=== PATIENT | female | born 1940 | race Caucasian/White ===

== ENCOUNTER → 2017-11-24 10:27 | Outpatient (CLI) | payer MEDICARE, OTHER, SELFPAY ==
--- NOTE | 2017-11-24 10:30 | STE_ITS ---
Reason For Study: YODER Stress Results Protocol: Stress Echocardiogram Maximum Predicted HR: 144 bpm Target HR: 122 bpm% Maximum Pr edicted HR: 91 % DurationHeart Rate Stage (mm:ss) (bpm) BPDos eComment BASELINE 78 148/82 PO 99% OTTO PROTOCOL- STAGE 1 3:00 11 7 140/ 72.00PO 96% OTTO PROTOCOL- STAGE 2 1:00 13 1 / RECOVERY 87 162/ PO 97% Stress Duration: 4:00 mm:ss Maximum Stress HR: 131 bpmM ETS: 6 Baseline Echocardiogram Findings Stress Echo Wall motion Data Resting WMIntermediate WMStress WM Resting Wall Motion Wall Motion Stress All segments Normal. All segments Hyperkinetic. Ejection Fraction 55 %. Ejection Fraction 65 %. Stress Results Heart rate response: appropriate Blood pressure response: normal resting BP - appropriate response Arrhythmias: occasional PACs pretest; frequent PACs during exercise; occasional PACs in recovery; exercise rhythm appearing c/w an ectopic atrial tachycardia (approximately 140 bpm) with spontaneous return to sinus rhythm Functional capacity: decreased Stopped secondary to: dyspnea. EKG Data Baseline ECG: NSR; PACs. Peak exercise ECG: no obvious ECG changes. Symptoms with Stress No c/o chest discomfort during exercise / recovery. Interpretation Summary Negative (adequate) Stress Echocardiogram Occasional PACs pretest; frequent PACs during exercise; occasional PACs in recovery; exercise rhythm appearing c/w an ectopic atrial tachycardia (approximately 140 bpm) with spontaneous return to sinus rhythm Ordering Physician: Mitch Castaneda Referring Physician: Mitch Castaneda Performed By: Kaila Martin RDCS
== END ==
PROVIDERS: Family Provider Internal Medicine; PCP Internal Medicine; Visit Provider Internal Medicine
DX: R06.09 Other forms of dyspnea (principal)
CPT/HCPCS: 93017; 93350

== ENCOUNTER → 2018-01-15 09:52 | Outpatient (CLI) | payer MEDICARE, OTHER, SELFPAY ==
--- NOTE | 2018-01-15 09:52 | DT_ITS ---
This patient was seen during an EMR downtime January 08, 2018 - January 15, 2018. This patient may have a combination of paper and electronic documentation or all paper documentation. All documentation is viewable within the e-chart portion of [facility] for each patient visit.
--- NOTE | 2018-01-15 09:57 | CDU_ITS ---
Reason For Study: Carotid stenosis Rt. Velocities/BP Lt. Velocities/BP Prox CCA 78.0/16.4 cm/sec. Prox CCA 90.3/17.0 cm/sec. Mid CCA 89.7/15.2 cm/sec. Mid CCA 108.0/19.3 cm/sec. Dist CCA 80.9/13.5 cm/sec. Dist CCA 113.0/21.7 cm/sec. Rt Bulb - 393.0/56.1. Prox ICA 197.0/56.0 cm/sec. Prox ICA 160.0/28.5 cm/sec. Mid ICA 164.0/34.4 cm/sec. Mid ICA 95.1/22.0 cm/sec. Dist ICA 144.0/31.4 cm/sec. Dist ICA 93.5/27.5 cm/sec. Lt. ICA/CCA = 1.8. Rt. ICA/CCA = 1.8. Prox ECA 183.0/25.5 cm/sec. Prox ECA 286.0/28.3 cm/sec. Lt. Vert. 59.8/14.1 cm/sec. Rt. Vert. 60.5/14.1 cm/sec. Right Extracranial There is intimal thickening but no significant atherosclerotic plaque noted in the right common carotid artery. There is heterogeneous, irregular atherosclerotic plaque noted in the right internal carotid artery. There is homogeneous, smooth atherosclerotic plaque noted in the right external carotid artery. Antegrade flow is noted in the right vertebral artery. There is heterogeneous, irregular atherosclerotic plaque noted in the right bulb. Left Extracranial There is intimal thickening but no significant atherosclerotic plaque noted in the left common carotid artery. There is heterogeneous, irregular atherosclerotic plaque noted in the left internal carotid artery. There is homogeneous, smooth atherosclerotic plaque noted in the left external carotid artery. Antegrade flow is noted in the left vertebral artery. There is heterogeneous, irregular atherosclerotic plaque noted in the left bulb. Procedure Carotid Duplex [id number]. Exam performed in department. Interpretation Summary Moderate (50-69%) stenosis right extracranial internal carotid. Moderate (50-69%) stenosis left extracranial internal carotid. Flow within the vertebral arteries is antegrade bilaterally. Ordering Physician: JERALD GALEANO Referring Physician: Mitch Castaneda M.D. Performed By: Nayely Jorge RVT
== END ==
PROVIDERS: Family Provider Internal Medicine; PCP Internal Medicine; Visit Provider Surgery Vascular Surgery
DX: I65.23 Occlusion and stenosis of bilateral carotid arteries (principal)
CPT/HCPCS: 93880

== ENCOUNTER 2018-06-10 08:37 | Observation (INO) | payer MEDICARE, OTHER, SELFPAY ==
[2018-06-10] VITALS (12 sets, daily range): BP systolic 141–183; BP diastolic 71–99; PULSE 61–77; RESP 15–18; TEMP 36.5–36.9; O2SAT 93–98; BMI 34.4; BMI 34.8
--- NOTE | 2018-06-10 09:00 | EKG12_ITS ---
Test Reason : HYPERTENSION Blood Pressure : / mmHG Vent. Rate : 067 BPM Atrial Rate : 067 BPM P-R Int : 186 ms QRS Dur : 070 ms QT Int : 384 ms P-R-T Axes : 032 004 030 degrees QTc Int : 405 ms Sinus rhythm with Premature atrial complexes Otherwise normal ECG Confirmed by INESSA BRANDON, VISHAL ([id number]), newspaper managing editor THAD TONG ([id number]) on 06/13/2018 1:38:41 PM Referred By: RAHUL Confirmed By:VISHAL WYLIE MD
--- NOTE | 2018-06-10 09:15 | RAD_ITS ---
STUDY: X-RAY CHEST REASON FOR EXAM: Female, 78 years old. Dyspnea TECHNIQUE: Single frontal view COMPARISON: May 14, 2016 FINDINGS: The lungs are clear and expanded. There is no demonstrated pleural abnormality. Normal size heart. Normal mediastinum and van. Normal visualized pulmonary arteries. Calcified aortic arch and descending thoracic aorta. Normal visualized thoracic spine. Normal visualized ribs, clavicles, and shoulders. There is no demonstrated abnormality of the visualized soft tissue structures of the upper abdomen. RAD/Chest 1 View (Portable) IMPRESSION: Normal x-ray examination of the chest. Electronically Signed: Massimo Darby DO at 9:41 EST Tel [phone], Service support ,
[2018-06-10 09:31] LABS: Absolute Lymphocyte Count 1.44 X10^3/ul (0.83-4.51); Absolute Neutrophil Count 4.6 X10^3/uL (2.0-7.7); Basophil# 0.04 X10^3/uL; Basophil% 0.6 % (0-1); Eosinophil# 0.17 X10^3/uL; Eosinophils% 2.5 % (0-5); Hematocrit 43.1 % (37-47); Hemoglobin 14.5 g/dl (12.0-15.0); Lymphocyte # 1.44 X10^3/ul (4.0); Lymphocyte % 21.1 % (19-41); Mean Corp Hgb Conc 33.6 g/gl (32-36); Mean Corpuscular Hgb 30.3 pg (27.0-32.0); Mean Corpuscular Volume 90.2 fL (81-99); Mean Platelet Vol. 9.6 fl (6.2-12.0); Monocyte# 0.54 X10^3/uL; Monocyte% 7.9 % (0-10); Neutrophil # 4.61 X10^3/uL (2.7-7.7); Neutrophil % 67.8 % (47-70); POSITIVE COUNT NO; POSITIVE DIFFERENTIAL NO; POSITIVE MORPHOLOGY NO; Platelet Count 235 K/mm3 (150-450); RBC Distribution Width CV 12.9 % (11.6-14.6); RBC Distribution Width SD 42.4 fl (35.1-43.9); Red Blood Count 4.78 M/mm3 (4.2-5.4); White Blood Count 6.8 K/mm3 (4.4-11.0)
[2018-06-10] MEDS: 0.9% Normal Saline 1,000 ML 150 ML IV (09:32)
[2018-06-10 10:01] LABS: Anion Gap 7 (5-15); BUN 10 mg/dL (7-18); BUN/Creat Ratio 14.6 RATIO (10-20); Calcium,Total 8.6 mg/dL (8.5-10.1); Chloride 106 mmol/L (98-107); Creatinine, Serum 0.69 mg/dL (0.55-1.02); EST Glomerular Filtration Rate 88 mL/min (>60); Est Glom Filt Rate - Afr Amer 107 mL/min (>60); Estimated Creatinine Clearance 35.55 ml/min; Glucose 103 mg/dL (74-106); Sodium Level 139 mmol/L (136-145); Thyroid Stim Hormone (TSH) 1.36 uIU/mL (0.358-3.74)
[2018-06-10 10:07] LABS: D-Dimer Quantitative (DVT/PE) 0.69 FEU/ug/m (0.27-0.49)
--- NOTE | 2018-06-10 10:21 | NURSING ---
DR EVANS FOR DR KAY
--- NOTE | 2018-06-10 10:35 | ED.VISSUMM ---
- ER Visit Summary Date of Service: 06/10/18 Chief Complaint: [Exertional shortness of breath and hypertension] History of Present Illness: The patient is a 78 F [presents the emergency department complaint of elevated blood pressures over the last week. Patient complains of exertional dyspnea with activity and states she can barely get to the top of her steps without feeling very winded and feeling like she is going to pass out. Patient states the shortness of breath with exertion is been going on for months but it is progressively worsening. Patient about 4 months ago had a stress echo that was unremarkable. Patient also has palpitations oftentimes at night and feels like her heart skipping beats although not racing. She has not really been having chest pain per se. Patient concerned because she has parents that have had heart disease requiring open heart surgery.] Physical Examination: [HEENT-PERRLA, EOMI. Cranial nerves II through XII grossly intact. TMs clear. Mucous membranes moist. No adenopathy. Cardiovascular-regular rate and rhythm without murmur or ectopy Lungs-clear to auscultation, chest wall stable without crepitus or subcu emphysema Abdomen-normoactive bowel sounds, soft, nontender, no rebound or rigidity, no peritoneal signs. Extremities-intact ?4, normal range of motion, normal pulses, atraumatic] Test Results: [EKG obtained arrival shows sinus rhythm with a ventricular rate of 67 bpm with occasional PACs. CBC with differential is normal. Chemistries normal. Troponin was less than 0.05. D-dimer was elevated 0.69 however when corrected for age it is considered normal. TSH is 1.36. Chest x-ray was normal.] Emergency Department Course and Treatment: [Case was discussed with patient and also with Dr. Deng was on-call for cardiology. At this point it is felt that since patient continued to experience worsening symptoms of exertional dyspnea would be reasonable to obtain a heart catheterization for further evaluation of her coronary arteries.] Treatment Plan: [Admit] Disposition: [Admit] Impression: [Exertional dyspnea/anginal equivalent Hypertension] This note was generated with evidanzaation software. It may contain incorrect words, spelling, and punctuation that were not noted in review of the chart prior to signing ED Disposition - Plan for ED Patient: Chief Complaint: Hypertension Referrals: Mitch Castaneda MD [Primary Care Provider] -
--- NOTE | 2018-06-10 10:36 | NURSING ---
DR EVANS IN ROOM
--- NOTE | 2018-06-10 10:36 | NURSING ---
PCU EXERTIONAL DYSPNEA, ANGINAL EQUIVALENT, HTN OBS PAINTSIL
--- NOTE | 2018-06-10 10:38 | ED.DCSUM_ITS ---
- ER Visit Summary Date of Service: 06/10/18 Chief Complaint: [Exertional shortness of breath and hypertension] History of Present Illness: The patient is a 78 F [presents the emergency department complaint of elevated blood pressures over the last week. Patient complains of exertional dyspnea with activity and states she can barely get to the top of her steps without feeling very winded and feeling like she is going to pass out. Patient states the shortness of breath with exertion is been going on for months but it is progressively worsening. Patient about 4 months ago had a stress echo that was unremarkable. Patient also has palpitations oftentimes at night and feels like her heart skipping beats although not racing. She has not really been having chest pain per se. Patient concerned because she has parents that have had heart disease requiring open heart surgery.] Physical Examination: [HEENT-PERRLA, EOMI. Cranial nerves II through XII grossly intact. TMs clear. Mucous membranes moist. No adenopathy. Cardiovascular-regular rate and rhythm without murmur or ectopy Lungs-clear to auscultation, chest wall stable without crepitus or subcu emphysema Abdomen-normoactive bowel sounds, soft, nontender, no rebound or rigidity, no peritoneal signs. Extremities-intact ?4, normal range of motion, normal pulses, atraumatic] Test Results: [EKG obtained arrival shows sinus rhythm with a ventricular rate of 67 bpm with occasional PACs. CBC with differential is normal. Chemistries normal. Troponin was less than 0.05. D-dimer was elevated 0.69 however when corrected for age it is considered normal. TSH is 1.36. Chest x-ray was norm al.] Emergency Department Course and Treatment: [Case was discussed with patient and also with Dr. Deng was on-call for cardiology. At this point it is felt that since patient continued to experience worsening symptoms of exertional dyspnea would be reasonable to obtain a heart catheterization for further evaluation of her coronary arteries.] Treatment Plan: [Admit] Disposition: [Admit] Impression: [Exertional dyspnea/anginal equivalent Hypertension] This note was generated with [employer] dictation software. It may contain incorrect words, spelling, and punctuation that were not noted in review of the chart prior to signing ED Disposition - Plan for ED Patient: Chief Complaint: Hypertension Referrals: Mitch Castaneda MD [Primary Care Provider] -
--- NOTE | 2018-06-10 10:42 | PCM.HP.STD ---
Problem List (1) Exertional dyspnea Status: Acute (2) Hypothyroidism Status: Acute Qualifiers: Hypothyroidism type: unspecified Qualified Code(s): E03.9 - Hypothyroidism, unspecified (3) Carotid artery stenosis Status: Chronic Qualifiers: Laterality: bilateral Qualified Code(s): I65.23 - Occlusion and stenosis of bilateral carotid arteries (4) Accelerated hypertension Status: Acute History of Present Illness Date of Admission: 06/10/18 Chief Complaint: Exertional dyspnea - on-going for months The patient is a 78 year old F with past medical history of hypothyroidism, complains of exertional dyspnea ongoing for months, recently did a stress echo in November 2017 that was unremarkable. Patient comes in with worsening shortness of breath. Denies any chest pain or dizziness or palpitations along with it. Admits to feeling lightheadedness sometimes with exertion. Denies orthopnea or PND or leg swelling. She has been having heart quivering, that seems to come on and off. 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 Vitals in the ED showed temperature of 90 8.5F, heart rate 64, blood pressure 132/99, respiratory rate was 16, SPO2 93% on room air. Admitting blood work was unremarkable except for elevated d-dimer, which was normal when age-adjusted. Admitting chest x-ray was negative Past Medical History Past Medical History (Chronic Problems): Chronic Problems Carotid artery stenosis (Chronic) HTN (hypertension) (Chronic) Allergies morphine Allergy (Verified 06/10/18 08:38) Anaphylaxis Home Medications: Ambulatory Orders Medication Instructions Recorded Aspirin [Aspirin, Baby] 81 mg PO DAILY@0800 09/26/13 Carvedilol [Coreg (Beta Evi)] 6.25 mg PO BID 09/26/13 Hydrochlorothiazide 12.5 mg PO DAILY 09/26/13 Levothyroxine [Synthroid] 50 mcg PO DAILY 09/26/13 Amlodipine Besylate [Norvasc] 2.5 mg PO DAILY 06/10/18 Rosuvastatin Calcium [Crestor] 20 mg PO DAILY 06/10/18 Surgical History: hysterectomy Psychiatric History: No pertinent psych hx TRANSPORTATION CONSULTANT History: No pertinent TRANSPORTATION CONSULTANT history Lives: Spouse/ Significant Other Smoking Status: Never smoker Tobacco Use: Non-smoker Alcohol: None Drugs: None - *Family History Maternal History Items: Cancer Paternal History Items: Heart Disease - in his 70s Review of Systems Constitutional: Denies: Anorexia, Chills, Fever, Malaise, Weakness, Weight Change Eyes: Denies: Blurred vision, Cataracts, Conjunctivae Inflammation, Pain, Redness, Vision Change HEENT: Denies: Difficulty Hearing, Difficulty Swallowing, Head Aches, Hearing Changes, Sinus Congestion, Sinus Drainage, Sore Throat Cardiovascular: Denies: Chest Pain, Claudication, Chest Pressure, Orthopnea, Palpitations, Paroxysmal Noc. Dyspnea Respiratory: Reports: Shortness of breath upon exertion. Denies: Cough, Hemoptysis, Shortness of Breath, Shortness of breath at rest, Sputum production, Wheezing Gastrointestinal: Denies: Abdominal Pain, Constipation, Hematemesis, Hematochezia, Nausea, Vomiting Genitourinary: Denies: Dysuria Musculoskeletal: Denies: Joint Pain, Joint stiffness, Joint swelling, Joint Tenderness Skin: Denies: Rash, Wounds Neurological: Denies: Numbness, Tingling, Focal weakness Psychiatric: Denies: Anxiety, Depression, Homicidal Ideations, Suicidal Ideations Hematologic/ Lymphatic: Denies: Easy Bruising, Easy Bleeding VTE Information - Inpt Only VTE Present on Admission: No VTE Pharm Prophylaxis ordered?: Yes Patient Problems: Active and Suspected Problems Exertional dyspnea (Acute) - Physical Exam General: Alert, Oriented x3, Cooperative, No apparent distress HEENT: Atraumatic, PERRLA, EOMI, Normocephalic Oral: Moist Mucosa Neck: Supple, No JVD, Negative Carotid Bruits Lungs: Clear to auscultation, Normal air movement Cardiovascular: Regular rate, Regular Rhythm, Normal S1, Normal S2, No murmurs Abdomen: Bowel Sounds Present, Soft, Non Tender, Non-Distended, No Hepato-splenomegaly Extremities: No edema Skin: No rashes, No breakdown Musculoskeletal: No Tenderness to Palpation of Joints or Extremities Lymphatic: No Cervical, Supraclavicular, or Inguinal Adenopathy Neurological: Cranial nerves II-XII grossly intact, Motor Exam 5/5 strength throughout Psych/Mental Status: Normal Affect, Appropriate Vital Signs Temp Pulse Resp BP Pulse Ox 97.7 F L 70 16 159/77 H 94 06/10/18 08:48 06/10/18 08:48 06/10/18 08:48 06/10/18 08:48 06/10/18 08:48 Oxygen Delivery Method Room Air Weight: 82.554 kg Body Mass Index (BMI) 34.4 Laboratory Tests Past 24 Hrs 06/10/18 06/10/18 06/10/18 09:20 09:20 09:20 WBC 6.8 RBC 4.78 Hgb 14.5 Hct 43.1 MCV 90.2 MCH 30.3 MCHC 33.6 RDW 12.9 RDW Differential 42.4 Plt Count 235 MPV 9.6 Immature Gran % (Auto) 0.100 Neut % (Auto) 67.8 Lymph % (Auto) 21.1 [place] % (Auto) 7.9 Eos % (Auto) 2.5 Baso % (Auto) 0.6 Absolute Neuts (auto) 4.6 Absolute Lymphs (auto) 1.44 Total Counted Not Reportable D-Dimer Quant (PE/DVT) 0.69 H* Sodium 139 Potassium 4.0 Chloride 106 Carbon Dioxide 26.0 Anion Gap 7 BUN 10 Creatinine 0.69 Estim Creat Clear Calc 35.55 Est GFR (MDRD) Af Amer 107 Est GFR (MDRD) Non-Af 88 BUN/Creatinine Ratio 14.6 Glucose 103 Calcium 8.6 Troponin I < 0.015 TSH 1.36 Assessment/Plan All Active Problems Exertional dyspnea (Acute) Hypothyroidism (Acute) Transient weakness of left leg (Acute) Accelerated hypertension (Acute) 78 year old F with past medical history of hypothyroidism, complains of exertional dyspnea ongoing for months, recent elevations in blood pressure comes in with progressive shortness of breath. 1. Exertional dyspnea, acute on chronic, unclear etiology, no cardiac or respiratory history, recent stress echo has been unremarkable in November 2017 Vitals in the ED showed uncontrolled blood pressure, patient had complained of intermittent palpitations, exertional dyspnea could be related to palpitations/uncontrolled blood pressure/arrhythmias. Patient appears however stable. EKG is unremarkable, troponin x1 is negative Plan: Admit to PCU, trend cardiac enzymes, monitor on telemetry for arrhythmias, cardiology consult - ED consulted and discussed with cardiology. will get CT of the chest with and without contrast to evaluate for interstitial lung disease as patient has history of long exposure to formaldehyde and other fumes. Will need ambulatory oxygen prior to discharge. 2. Elevated d-dimer, within normal limits when age adjusted, continue to monitor patient 3. Hypertensive urgency, blood pressures uncontrolled, continue on home blood pressure medication, add as needed hydralazine 4. Hypothyroidism, on levothyroxine 5. Hyperlipidemia, on statin 6. DVT prophylaxis with Lovenox subcu Code Visit Inpatient E&M: [id number] Subs Hosp L2
[2018-06-10] MEDS: Aspirin 81 MG TAB.CHEW PO (11:00)
--- NOTE | 2018-06-10 11:27 | CT_ITS ---
STUDY: CTA CHEST REASON FOR EXAM: Female, 78 years old. Hypoxia RADIATION DOSAGE (If Supplied By Facility): CTDIvol = ( 15.77 ) mGy, DLP = ( 568.88 ) mGycm TECHNIQUE: The examination was performed with the intravenous administration of 75ML ml of Isovue 370 contrast material. Post-processing of the angiographic images was performed, with multiplanar reformation and 3D reconstruction. Individualized dose optimization techniques were used for this CT. COMPARISON: None. FINDINGS: Normal enhancement of the main pulmonary artery and right and left pulmonary arteries. No evidence of pulmonary embolism. Normal thoracic aorta and visualized great vessels. There is no demonstrated aortic dissection. Normal heart and pericardium. Normal mediastinum. Soft tissue prominence in the right hilar region measuring 2.1 x 1.3 cm as well as another area of soft tissue prominence measuring 1.3 cm. Normal visualized trachea and bronchi. Lungs are adequately inflated. Small amount of scarring or atelectasis seen in both lung bases. No evidence of acute infection, consolidation or effusion. Right lower lobe pulmonary nodule measuring 5.4 mm. Left lower lobe nodule measuring 5.3 mm. Several other left lower lobe and right lower lobe micronodules are noted. Normal pleura. Normal chest wall structures. There are degenerative changes of thoracic spine. Normal visualized upper abdomen. CT/CTA Chest W/WO Contrast IMPRESSION: 1. Negative for pulmonary embolism or thoracic aortic dissection. 2. Lungs are adequately inflated without acute airspace disease. Mild bibasilar atelectasis 3. Nonspecific soft tissue prominence in the right hilar region as well as several pulmonary nodules. Repeat chest CT can be performed in 3-6 months to evaluate for stability. Electronically Signed: Neal Castillo DO at 12:48 EST Tel , Service support ,
[2018-06-10] MEDS: 0.9% Normal Saline 1,000 ML 100 ML IV ×2 (12:34→23:15)
--- NOTE | 2018-06-10 16:57 | PCM.CONS.C ---
Reason for Consult Date of Consultation: 06/10/18 Reason for Consultation: Shortness of breath. History of Present Illness: The patient is a 78 year old F with no past medical history other than progressive shortness of breath over the last few months to a year. She says that she knows that she has gained weight in a year but her current shortness of breath is way out of proportion to what she expected to be from just weight gain. She is also had a history of high blood pressure which has not been very well controlled. She underwent stress testing with a stress echocardiogram in November of this year where she performed quite well.. Her ejection fraction was noted to be preserved at rest at 55% and it augmented to 65% without any wall motion abnormalities or EKG changes noted. The test was discontinued due to significant shortness of breath. She presented to the emergency room because she wanted to know what was going on and would not leave the hospital until she had an answer. She denies any dizziness or diaphoresis no near syncope or syncope she has had occasional palpitations. She has been compliant with her medications at home. [] Past Medical History Allergies/Adverse Reactions: Allergies morphine Allergy (Verified 06/10/18 08:38) Anaphylaxis Home Medications: Ambulatory Orders Medication Instructions Recorded Aspirin [Aspirin, Baby] 81 mg PO DAILY@0800 09/26/13 Carvedilol [Coreg (Beta Evi)] 6.25 mg PO BID 09/26/13 Hydrochlorothiazide 12.5 mg PO DAILY 09/26/13 Levothyroxine [Synthroid] 50 mcg PO DAILY 09/26/13 Amlodipine Besylate [Norvasc] 2.5 mg PO DAILY 06/10/18 Rosuvastatin Calcium [Crestor] 20 mg PO DAILY 06/10/18 Past Medical History (Chronic Problems): Chronic Problems Carotid artery stenosis (Chronic) HTN (hypertension) (Chronic) Surgical History: hysterectomy Psychiatric History: No pertinent psych hx 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 Denies: Chest Discomfort, Orthopnea, PND, Peripheral Edema, Palpitations, Lightheadedness, Dizziness, Near Syncope, Syncope Respiratory: Denies: Cough, Sputum Production, Hemoptysis Gastrointestinal: Denies: Hematemesis, Hematochezia, Melena Genitourinary: Denies: Dysuria, Hematuria Muscoloskeletal: Denies: Myalgias Skin: Denies: Rash Neurological: Denies: Dizziness Psychiatric: Reports: Anxiety Endocrine: Denies: Unexplained Weight Loss Hematologic/ Lymphatic: Reports: Lymph Node Enlargement Subjectve: Pleasant lady in no apparent distress Objective: Vital Signs Temp Pulse Resp BP Pulse Ox 97.7 F L 64 16 159/81 H 98 06/10/18 15:28 06/10/18 15:28 06/10/18 15:28 06/10/18 15:28 06/10/18 15:28 Oxygen Delivery Method Room Air Weight: 184 lb 8.43 oz Body Mass Index (BMI) 34.8 Intake and Output for Last 24 Hours 06/08/18 06/09/18 06/10/18 23:59 23:59 22:59 Intake Total 50 / 50 Balance 50 / 50 General: Awake, Alert, Oriented x 3 HEENT: PERRL, EOMI, Sclera Non Icteric Neck: Supple, Good ROM, No Lymph Node Enlargement Lungs: Clear to auscultation Cardiovascular: Regular Rhythm, Normal S1, Normal S2, No Murmurs, No Rubs, No Gallops Vascular: No Carotid Bruits, Normal Femoral Pulses, Normal Radial Pulses, Normal Dorsalis Pedal Pulse, Normal Posterior Tibial Pulses Abdomen: Bowel Sounds Present, Soft, Non Tender, No HSM, No Organomegaly Extremities: No Cyanosis, No Clubbing, No edema Musculoskeletal: No Erythema Skin: No Rashes Lymphatic: No Lymph Node Enlargement Neurological: No Focal Motor or Sensory Deficit Psych/Mental Status: Appropriate 06/10/18 09:20: WBC 6.8, RBC 4.78, Hgb 14.5, Hct 43.1, MCV 90.2, MCH 30.3, MCHC 33.6, RDW 12.9, RDW Differential 42.4, Plt Count 235, MPV 9.6, Immature Gran % (Auto) 0.100, Neut % (Auto) 67.8, Lymph % (Auto) 21.1, [place] % (Auto) 7.9, Eos % (Auto) 2.5, Baso % (Auto) 0.6, Absolute Neuts (auto) 4.6, Total Counted Not Reportable 06/10/18 09:20: D-Dimer Quant (PE/DVT) 0.69 H* 06/10/18 09:20: Sodium 139, Potassium 4.0, Chloride 106, Carbon Dioxide 26.0, Anion Gap 7, BUN 10, Creatinine 0.69, Est GFR (MDRD) Af Amer 107, Est GFR (MDRD) Non-Af 88, BUN/Creatinine Ratio 14.6, Glucose 103, Calcium 8.6, Troponin I < 0.015 06/10/18 12:20: Troponin I < 0.015 06/10/18 14:54: Troponin I < 0.015 Rhythm: EKG: Normal sinus rhythm with no acute changes rate of 67 bpm is noted ECHO: Stress Test: Cardiac Cath: PCI: CT Surgery: Holter monitor: EPS: PPM: CXR: Chest CT Scan: Assessment/Plan 1. Exertional shortness of breath. She presents with exertional shortness of breath. The etiology of which is unclear. Her last stress test there was no evidence of ischemia noted at 6 metabolic equivalents which was a borderline workload. Due to her significant concern and the fact that this could be an anginal equivalent it may be prudent for us to obtain a left heart catheterization. The risk benefits alternatives have been explained to her she understands and agrees to proceed. She prefers to have this approach done via the right groin. Will load with clopidogrel Scheduled for a.m. 730. 2. Hypertension Her blood pressure appears to be not optimally controlled. My recommendation would be to start him on an ISMAEL inhibitor with lisinopril 10 mg twice a day. Pending on the findings from the cardiac catheterization further recommendations will be made. Thank you for allowing me to participate in the care of your patient. Please don't hesitate to call if any issues arise
--- NOTE | 2018-06-10 17:02 | CON.PCM_ITS ---
Reason for Consult Date of Consultation: 06/10/18 Reason for Consultation: Shortness of breath. History of Present Illness: The patient is a 78 year old F with no past medical history other than progressive shortness of breath over the last few months to a year. She says that she knows that she has gained weight in a year but her current shortness of breath is way out of proportion to what she expected to be from just weight gain. She is also had a history of high blood pressure which has not been very well controlled. She underwent stress testing with a stress echocardiogram in November of this year where she performed quite well.. Her ejection fraction was noted to be preserved at rest at 55% and it augmented to 65% without any wall motion abnormalities or EKG changes noted. The test was discontinued due to significant shortness of breath. She presented to the emergency room because she wanted to know what was going on and would not leave the hospital until she had an answer. She denies any dizziness or diaphoresis no near syncope or syncope she has had occasional palpitations. She has been compliant with her medications at home. [] Past Medical History Allergies/Adverse Reactions: Allergies morphine Allergy (Verified 06/10/18 08:38) Anaphylaxis Home Medications: Ambulatory Orders Medication Instructions Recorded Aspirin [Aspirin, Baby] 81 mg PO DAILY@0800 09/26/13 Carvedilol [Coreg (Beta Evi)] 6.25 mg PO BID 09/26/13 Hydrochlorothiazide 12.5 mg PO DAILY 09/26/13 Levothyroxine [Synthroid] 50 mcg PO DAILY 09/26/13 Amlodipine Besylate [Norvasc] 2.5 mg PO DAILY 06/10/18 Rosuvastatin Calcium [Crestor] 20 mg PO DAILY 06/10/18 Past Medical History (Chronic Problems): Chronic Problems Carotid artery stenosis (Chronic) HTN (hypertension) (Chronic) Surgical History: hysterectomy Psychiatric History: No pertinent 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 Denies: Chest Discomfort, Orthopnea, PND, Peripheral Edema, Palpitations, Lightheadedness, Dizziness, Near Syncope, Syncope Respiratory: Denies: Cough, Sputum Production, Hemoptysis Gastrointestinal: Denies: Hematemesis, Hematochezia, Melena Genitourinary: Denies: Dysuria, Hematuria Muscoloskeletal: Denies: Myalgias Skin: Denies: Rash Neurological: Denies: Dizziness Psychiatric: Reports: Anxiety Endocrine: Denies: Unexplained Weight Loss Hematologic/ Lymphatic: Reports: Lymph Node Enlargement Subjectve: Pleasant lady in no apparent distress Objective: Vital Signs Temp Pulse Resp BP Pulse Ox 97.7 F L 64 16 159/81 H 98 06/10/18 15:28 06/10/18 15:28 06/10/18 15:28 06/10/18 15:28 06/10/18 15:28 Oxygen Delivery Method Room Air Weight: 184 lb 8.43 oz Body Mass Index (BMI) 34.8 Intake and Output for Last 24 Hours 06/08/18 06/09/18 06/10/18 23:59 23:59 22:59 Intake Total 50 / 50 Balance 50 / 50 General: Awake, Alert, Oriented x 3 HEENT: PERRL, EOMI, Sclera Non Icteric Neck: Supple, Good ROM, No Lymph Node Enlargement Lungs: Clear to auscultation Cardiovascular: Regular Rhythm, Normal S1, Normal S2, No Murmurs, No Rubs, No Gallops Vascular: No Carotid Bruits, Normal Femoral Pulses, Normal Radial Pulses, Normal Dorsalis Pedal Pulse, Normal Posterior Tibial Pulses Abdomen: Bowel Sounds Present, Soft, Non Tender, No HSM, No Organomegaly Extremities: No Cyanosis, No Clubbing, No edema Musculoskeletal: No Erythema Skin: No Rashes Lymphatic: No Lymph Node Enlargement Neurological: No Focal Motor or Sensory Deficit Psych/Mental Status: Appropriate 06/10/18 09:20: WBC 6.8, RBC 4.78, Hgb 14.5, Hct 43.1, MCV 90.2, MCH 30.3, MCHC 33.6, RDW 12.9, RDW Differential 42.4, Plt Count 235, MPV 9.6, Immature Gran % (Auto) 0.100, Neut % (Auto) 67.8, Lymph % (Auto) 21.1, [place] % (Auto) 7.9, Eos % (Auto) 2.5, Baso % (Auto) 0.6, Absolute Neuts (auto) 4.6, Total Counted Not Reportable 06/10/18 09:20: D-Dimer Quant (PE/DVT) 0.69 H* 06/10/18 09:20: Sodium 139, Potassium 4.0, Chloride 106, Carbon Dioxide 26.0, Anion Gap 7, BUN 10, Creatinine 0.69, Est GFR (MDRD) Af Amer 107, Est GFR (MDRD) Non-Af 88, BUN/Creatinine Ratio 14.6, Glucose 103, Calcium 8.6, Troponin I < 0.015 06/10/18 12:20: Troponin I < 0.015 06/10/18 14:54: Troponin I < 0.015 Rhythm: EKG: Normal sinus rhythm with no acute changes rate of 67 bpm is noted ECHO: Stress Test: Cardiac Cath: PCI: CT Surgery: Holter monitor: EPS: PPM: CXR: Chest CT Scan: Assessment/Plan 1. Exertional shortness of breath. * She presents with exertional shortness of breath. The etiology of which is unclear. Her last stress test there was no evidence of ischemia noted at 6 metabolic equivalents which was a borderline workload. Due to her significant concern and the fact that this could be an anginal equivalent it may be prudent for us to obtain a left heart catheterization. The risk benefits alternatives have been explained to her she understands and agrees to proceed. She prefers to have this approach done via the right groin. * Will load with clopidogrel * Scheduled for a.m. 730. * 2. Hypertension * Her blood pressure appears to be not optimally controlled. My recommendation would be to start him on an ISMAEL inhibitor with lisinopril 10 mg twice a day. * Pending on the findings from the cardiac catheterization further recommendations will be made. * * Thank you for allowing me to participate in the care of your patient. Please don't hesitate to call if any issues arise
[2018-06-10] MEDS: Clopidogrel Bisulfate 300 MG Tablet PO (18:16)
[2018-06-10] MEDS: Atorvastatin Calcium 40 MG Tablet PO (21:45)
[2018-06-10] MEDS: Carvedilol 6.25 MG Tablet PO (21:45)
[2018-06-10] MEDS: Lisinopril 10 MG Tablet PO (21:45)
[2018-06-11] VITALS (19 sets, daily range): BP systolic 108–153; BP diastolic 39–75; PULSE 55–77; RESP 15–20; TEMP 36.3–36.7; O2SAT 96–99
[2018-06-11 03:13] LABS: Bacteria 0 SEEN /hpf (None Seen); Mucous, Urine 0 SEEN /hpf (<or=2+); Red Blood Cells-Urine 0 SEEN /hpf (0-5); Squamous Epithelial Cells - UA 0 SEEN /hpf (5-10)
[2018-06-11 03:25] LABS: Color, Urine Yellow (Yellow); Glucose, Dipstick Normal (Normal); Ketone-Dipstick Negative (Negative); Leukocyte Esterase-Dipstick 25 /ul (Negative); Nitrite-Dipstick Negative (Negative); Occult Blood-Urine Negative /ul (Negative); Protein-Dipstick Negative (Negative); Specific Gravity, Urine 1.015 (1.002-1.030); Urine Bilirubin Dipstick Negative (Negative); Urine Clarity Clear (Clear); Urine Urobilinogen Normal (Normal)
[2018-06-11 03:33] LABS: White Blood Cells 0-5 SEEN /hpf (0-5)
[2018-06-11 04:07] LABS: Absolute Lymphocyte Count 1.88 X10^3/ul (0.83-4.51); Absolute Neutrophil Count 4.1 X10^3/uL (2.0-7.7); Basophil# 0.05 X10^3/uL; Basophil% 0.7 % (0-1); Eosinophil# 0.32 X10^3/uL; Eosinophils% 4.5 % (0-5); Hematocrit 38.1 % (37-47); Hemoglobin 12.6 g/dl (12.0-15.0); Lymphocyte # 1.88 X10^3/ul (4.0); Lymphocyte % 26.7 % (19-41); Mean Corp Hgb Conc 33.1 g/gl (32-36); Mean Corpuscular Hgb 30.3 pg (27.0-32.0); Mean Corpuscular Volume 91.6 fL (81-99); Mean Platelet Vol. 9.5 fl (6.2-12.0); Monocyte# 0.66 X10^3/uL; Monocyte% 9.4 % (0-10); Neutrophil # 4.12 X10^3/uL (2.7-7.7); Neutrophil % 58.6 % (47-70); Platelet Count 197 K/mm3 (150-450); RBC Distribution Width CV 12.8 % (11.6-14.6); RBC Distribution Width SD 42.2 fl (35.1-43.9); Red Blood Count 4.16 M/mm3 (4.2-5.4)
[2018-06-11 04:09] LABS: POSITIVE COUNT NO; POSITIVE DIFFERENTIAL NO; POSITIVE MORPHOLOGY NO
[2018-06-11 04:30] LABS: Prothrombin Time (Protime)PT. 13.6 SECONDS (11.7-14.9)
[2018-06-11 04:32] LABS: Anion Gap 10 (5-15); BUN 9 mg/dL (7-18); BUN/Creat Ratio 14.8 RATIO (10-20); Calcium,Total 7.8 mg/dL (8.5-10.1); Chloride 110 mmol/L (98-107); Creatinine, Serum 0.61 mg/dL (0.55-1.02); EST Glomerular Filtration Rate 101 mL/min (>60); Est Glom Filt Rate - Afr Amer 122 mL/min (>60); Estimated Creatinine Clearance 35.55 ml/min; Glucose 96 mg/dL (74-106); Potassium 3.9 mmol/L (3.5-5.1); Sodium Level 145 mmol/L (136-145)
--- NOTE | 2018-06-11 05:00 | EKG12_ITS ---
Test Reason : AM EKG Blood Pressure : / mmHG Vent. Rate : 063 BPM Atrial Rate : 063 BPM P-R Int : 194 ms QRS Dur : 066 ms QT Int : 438 ms P-R-T Axes : 041 013 039 degrees QTc Int : 448 ms Sinus rhythm with Premature atrial complexes Otherwise normal ECG When compared with ECG of 10-JUN-2018 08:47, MANUAL COMPARISON REQUIRED, DATA IS UNCONFIRMED Confirmed by INESSA BRANDON, VISHAL ([id number]), electronic news gathering editor THAD TONG ([id number] on 06/14/2018 4:02:38 PM Referred By: CRISTINA Confirmed By:VISHAL WYLIE MD
[2018-06-11] MEDS: 0.9% Normal Saline 1,000 ML 15 ML IV (05:53)
[2018-06-11] MEDS: Aspirin 81 MG TAB.CHEW PO (05:53)
[2018-06-11] MEDS: amLODIPine 2.5 MG Tablet PO (05:54)
[2018-06-11] MEDS: Levothyroxine 50 MCG Tablet PO (05:54)
[2018-06-11] MEDS: Clopidogrel Bisulfate 75 MG Tablet PO (05:54)
[2018-06-11] MEDS: Carvedilol 6.25 MG Tablet PO (05:54)
[2018-06-11] MEDS: Lisinopril 10 MG Tablet PO (05:55)
--- NOTE | 2018-06-11 07:50 | CL.D_ITS ---
Patient Name: DEVYN FITZPATRICK Study Date: 06/11/2018 Performing: He Deng MD Ht: 61.02 inches 155 cm : 1940 Wt: 185.19 lbs 84 kg Age: 78 Gender: female BSA: 1.83 PROCEDURE(S) PERFORMED [id number]/LV CLINICAL PROFILE AND INDICATIONS Indications: Other Heart Failure: None Stress/Imaging Stress Echocardiogram: Yes Result: NegativeStress Echocardiogram: Negative CAD Presentations: Symptom unlikely to be ischemic. CONCLUSIONS Mild non obstructive CAD RECOMMENDATIONS Medical therapy DESCRIPTION OF PROCEDURE The patient arrived to the procedure lab. The risks and benefits of the procedure as well as a full d escription of our services here and current unavailability of surgical backup were fully explained to the patient and/or their significant other prior to the catheterization. The Timeout was completed, verifying the correct patient and procedure. The patient's procedural site was prepped and draped in the usual fashion. Local anesthetic was given subcutaneously to right groin region with Lidocaine 2%. Using a modified Seldinger technique, arterial access was obtained via the right femoral artery, a 5 Fr sheath was inserted. Left Coronary Artery selective angiography was performed in multiple views u sing a 5 Fr. JL4 catheter. Right Coronary Artery selective angiography was then performed in multiple views using a 5 Fr. 3DRC (Francisco Javier) catheter. Left Ventriculography was performed in MORAES projection using a 5 Fr. Pigtail catheter. LV to AO pullback pressures were then recorded. Right iliac selective angiography was then performed in single view for possible use of closure device. CORONARY ANGIOGRAPHY DOMINANCE: Right Dominant LEFT HEART ASSESSMENT Left Ventricular Ejection Fraction: by LV Gram 60 % Normal LV wall motion Normal Left Ventricular systolic function LEFT MAIN: Angiographically normal LEFT ANTERIOR DECENDING ARTERY: Mild luminal irregularities less than 30% MID LAD: 40 % Stenosis CIRCUMFLEX ARTERY: Mild luminal irregularities less than 30% RIGHT CORONARY ARTERY: MID RCA: Mild luminal irregularities less than 30% COMPLICATIONS No Complications PROCEDURE MEDICATIONS Versed 1 mg IV Versed 1 mg IV Oxygen: 2 L/min via nasal cannula SUMMARY OF HEMODYNAMIC DATA Time AIR REST ECG 07:12:28 AO 133/61 (88) SA 07:26:02 LV 128/8, 18 07:32:56 LV 109/10, 17 07:33:03 LV 113/2, 21 07:33:50 LV 113/4, 20 07:33:56 LVp 114/4, 20 07:33:59 AO 117/48 (79) 07:34:04 Signed By He Deng MD On 06/11/2018 07:49:32 He Deng MD
--- NOTE | 2018-06-11 07:55 | PN.CARD_ITS ---
Subjectve: Patient seen and evaluated. Appears to be doing well underwent cardiac catheterization this morning Objective: Vital Signs Temp Pulse Resp BP Pulse Ox 98.1 F 77 15 137/75 H 97 06/11/18 05:47 06/11/18 05:47 06/11/18 05:47 06/11/18 05:47 06/11/18 05:47 Oxygen Delivery Method Room Air Weight: 184 lb 1.376 oz Body Mass Index (BMI) 34.8 Intake and Output for Last 24 Hours 06/10/18 06/10/18 06/11/18 00:59 23:59 23:59 Intake Total 1200 / 1200 Output Total 150 / 150 Balance 1050 / 1050 General: Awake, Alert, Oriented x 3 HEENT: PERRL, EOMI, Sclera Non Icteric Neck: Supple, Good ROM, No Lymph Node Enlargement Lungs: Clear to auscultation Cardiovascular: Regular Rhythm, Normal S1, Normal S2, No Murmurs, No Rubs, No Gallops Vascular: No Carotid Bruits, Normal Femoral Pulses, Normal Radial Pulses, Normal Dorsalis Pedal Pulse, Normal Posterior Tibial Pulses Abdomen: Bowel Sounds Present, Soft, Non Tender, No HSM, No Organomegaly Extremities: No Cyanosis, No Clubbing, No edema Neurological: No Focal Motor or Sensory Deficit 06/10/18 09:20: WBC 6.8, RBC 4.78, Hgb 14.5, Hct 43.1, MCV 90.2, MCH 30.3, MCHC 33.6, RDW 12.9, RDW Differential 42.4, Plt Count 235, MPV 9.6, Immature Gran % (Auto) 0.100, Neut % (Auto) 67.8, Lymph % (Auto) 21.1, [place] % (Auto) 7.9, Eos % (Auto) 2.5, Baso % (Auto) 0.6, Absolute Neuts (auto) 4.6, Total Counted Not Reportable 06/10/18 09:20: D-Dimer Quant (PE/DVT) 0.69 H* 06/10/18 09:20: Sodium 139, Potassium 4.0, Chloride 106, Carbon Dioxide 26.0, Anion Gap 7, BUN 10, Creatinine 0.69, Est GFR (MDRD) Af Amer 107, Est GFR (MDRD) Non-Af 88, BUN/Creatinine Ratio 14.6, Glucose 103, Calcium 8.6, Troponin I < 0.015 06/10/18 12:20: Troponin I < 0.015 06/10/18 14:54: Troponin I < 0.015 06/11/18 03:00: Urine Color Yellow, Urine Clarity Clear, Urine pH 6.0, Ur Specific [place] 1.015, Urine Protein Negative, Urine Glucose (UA) Normal, Urine Ketones Negative, Urine Occult Blood Negative, Urine Nitrite Negative, Urine Bilirubin Negative, Urine Urobilinogen Normal, Ur Leukocyte Esterase 25 H, Urine RBC 0 SEEN, Urine WBC 0-5 SEEN 06/11/18 03:58: Sodium 145, Potassium 3.9, Chloride 110 H, Carbon Dioxide 25.0, Anion Gap 10, BUN 9, Creatinine 0.61, Est GFR (MDRD) Af Amer 122, Est GFR (MDRD) Non-Af 101, BUN/Creatinine Ratio 14.8, Glucose 96, Calcium 7.8 L 06/11/18 03:58: PT 13.6, INR 1.0, APTT 29.0 06/11/18 03:58: WBC 7.0, RBC 4.16 L, Hgb 12.6, Hct 38.1, MCV 91.6, MCH 30.3, MCHC 33.1, RDW 12.8, RDW Differential 42.2, Plt Count 197, MPV 9.5, Immature Gran % (Auto) 0.100, Neut % (Auto) 58.6, Lymph % (Auto) 26.7, [place] % (Auto) 9.4, Eos % (Auto) 4.5, Baso % (Auto) 0.7, Absolute Neuts (auto) 4.1, Total Counted Not Reportable Rhythm: EKG: ECHO: Stress Test: Cardiac Cath: PCI: CT Surgery: Holter monitor: EPS: PPM: CXR: Chest CT Scan: Medical Necessity - Tobacco Use Smoking Status: Never smoker Tobacco Use: Non-smoker Assessment/Plan 1. Exertional shortness of breath. * She presents with exertional shortness of breath. The etiology of which is unclear. Her last stress test there was no evidence of ischemia noted at 6 metabolic equivalents which was a borderline workload * The cardiac catheterization this morning demonstrated the following: Normal left main coronary artery. Left anterior descending artery with mild mid segment disease. Left circumflex artery with no significant disease. Right coronary artery which is dominant with mild mid segment stenosis. Preserved ejection fraction. Based on the above angiographic findings I would recommend medical therapy. * 2. Hypertension * Her blood pressure appears to be not optimally controlled. My recommendation would be to start him on an ISMAEL inhibitor with lisinopril 10 mg twice a day. * . * * Thank you for allowing me to participate in the care of your patient. Please don't hesitate to call if any issues arise
[2018-06-11] MEDS: 0.9% Normal Saline 1,000 ML 100 ML IV (08:11)
[2018-06-11] MEDS: Enoxaparin 40 MG/0.4 ML Syringe SC (10:12)
[2018-06-11] MEDS: hydroCHLOROthiazide 12.5mg 12.5 MG PO (10:12)
--- NOTE | 2018-06-11 11:28 | DCINST_ITS ---
- Discharge Diagnoses Current Active Problems: Current Active and Chronic Problems Exertional dyspnea (Acute) You will use the following diet at home:: Cardiac Your food should be the consistency of: Regular Your liquids should be the consistency of: Regular/Thin Discharge Activity: Return to Normal Activity Weight Bearing Status: Weight bearing as tolerated Call your doctor if you observe: Shortness of breath Allergies/Adverse Reactions: Allergies morphine Allergy (Verified 06/10/18 08:38) Anaphylaxis Medications to take at Discharge Aspirin [Aspirin, Baby] 81 mg PO DAILY@0800 09/26/13 Carvedilol [Coreg (Beta Evi)] 6.25 mg PO BID 09/26/13 Hydrochlorothiazide 12.5 mg PO DAILY 09/26/13 Levothyroxine [Synthroid] 50 mcg PO DAILY 09/26/13 Amlodipine Besylate [Norvasc] 2.5 mg PO DAILY 06/10/18 Rosuvastatin Calcium [Crestor] 20 mg PO DAILY 06/10/18 Clopidogrel Bisulfate [Plavix] 75 mg PO DAILY #30 tablet 06/11/18 Lisinopril [Zestril] 10 mg PO BID #60 tablet 06/11/18 The following prescriptions were given: Clopidogrel Bisulfate [Plavix] 75 mg PO DAILY #30 tablet Lisinopril [Zestril] 10 mg PO BID #60 tablet Primary Care Physician: Mitch Castaneda MD [Primary Care Provider] - Please follow up with your Primary Care Physician in: one week Test Results: Test results from this visit will be discussed in further detail at your follow- up appointment, if applicable. Please Follow Up With: He Deng MD When: 2 weeks Please Follow Up With: Caleb Post MD When: 2 weeks Proposed Discharge Date: 06/11/18
--- NOTE | 2018-06-11 11:29 | DS.PCM_ITS ---
Discharge Date and Diagnosis - Problem List Patient Problems: Active and Suspected Problems Exertional dyspnea (Acute) Date of Admission: 06/10/18 Date of Discharge: 06/11/18 - Primary Discharge Diagnosis Active and Suspected Problems Exertional dyspnea (Acute) - Secondary Discharge Diagnosis Chronic Problems Carotid artery stenosis (Chronic) HTN (hypertension) (Chronic) Hospital Course and Treatment Imaging Results: Laboratory Tests 06/11/18 06/11/18 06/11/18 Range/Units 03:58 03:58 03:58 WBC 7.0 (4.4-11.0) K/mm3 RBC 4.16 L (4.2-5.4) M/mm3 Hgb 12.6 (12.0-15.0) g/dl Hct 38.1 (37-47) % MCV 91.6 (81-99) fL MCH 30.3 (27.0-32.0) pg MCHC 33.1 (32-36) g/gl RDW 12.8 (11.6-14.6) % RDW Differential 42.2 (35.1-43.9) fl Plt Count 197 (150-450) K/mm3 MPV 9.5 (6.2-12.0) fl Immature Gran % (Auto) 0.100 (0.0-0.9) % Neut % (Auto) 58.6 (47-70) % Lymph % (Auto) 26.7 (19-41) % Moody % (Auto) 9.4 (0-10) % Eos % (Auto) 4.5 (0-5) % Baso % (Auto) 0.7 (0-1) % Absolute Neuts (auto) 4.1 (2.0-7.7) X10^3/uL Absolute Lymphs (auto) 1.88 (0.83-4.51) X10^3/ul Total Counted Not Reportable PT 13.6 (11.7-14.9) SECONDS INR 1.0 APTT 29.0 (24.1-36.2) Seconds D-Dimer Quant (PE/DVT) (0.27-0.49) FEU/ug/m Sodium 145 (136-145) mmol/L Potassium 3.9 (3.5-5.1) mmol/L Chloride 110 H (98-107) mmol/L Carbon Dioxide 25.0 (21.0-32.0) mmol/L Anion Gap 10 (5-15) BUN 9 (7-18) mg/dL Creatinine 0.61 (0.55-1.02) mg/dL Estim Creat Clear Calc 35.55 ml/min Est GFR (MDRD) Af Amer 122 (>60) mL/min Est GFR (MDRD) Non-Af 101 (>60) mL/min BUN/Creatinine Ratio 14.8 (10-20) RATIO Glucose 96 (74-106) mg/dL Calcium 7.8 L (8.5-10.1) mg/dL Troponin I (<0.045) ng/mL TSH (0.358-3.74) uIU/mL Urine Color (Yellow) Urine Clarity (Clear) Urine pH (5.0 - 8.0) Ur Specific [place] (1.002-1.030) Urine Protein (Negative) mg/dl Urine Glucose (UA) (Normal) mg/dl Urine Ketones (Negative) mg/dl Urine Occult Blood (Negative) /ul Urine Nitrite (Negative) Urine Bilirubin (Negative) mg/dL Urine Urobilinogen (Normal) mg/dl Ur Leukocyte Esterase (Negative) /ul Urine RBC (0-5) /hpf Urine WBC (0-5) /hpf Ur Squamous Epith Cells (5-10) /hpf Urine Bacteria (None Seen) /hpf Urine Mucus (<or=2+) /hpf 06/11/18 06/10/18 06/10/18 Range/Units 03:00 14:54 12:20 WBC (4.4-11.0) K/mm3 RBC (4.2-5.4) M/mm3 Hgb (12.0-15.0) g/dl Hct (37-47) % MCV (81-99) fL MCH (27.0-32.0) pg MCHC (32-36) g/gl RDW (11.6-14.6) % RDW Differential (35.1-43.9) fl Plt Count (150-450) K/mm3 MPV (6.2-12.0) fl Immature Gran % (Auto) (0.0-0.9) % Neut % (Auto) (47-70) % Lymph % (Auto) (19-41) % Moody % (Auto) (0-10) % Eos % (Auto) (0-5) % Baso % (Auto) (0-1) % Absolute Neuts (auto) (2.0-7.7) X10^3/uL Absolute Lymphs (auto) (0.83-4.51) X10^3/ul Total Counted PT (11.7-14.9) SECONDS INR APTT (24.1-36.2) Seconds D-Dimer Quant (PE/DVT) (0.27-0.49) FEU/ug/m Sodium (136-145) mmol/L Potassium (3.5-5.1) mmol/L Chloride (98-107) mmol/L Carbon Dioxide (21.0-32.0) mmol/L Anion Gap (5-15) BUN (7-18) mg/dL Creatinine (0.55-1.02) mg/dL Estim Creat Clear Calc ml/min Est GFR (MDRD) Af Amer (>60) mL/min Est GFR (MDRD) Non-Af (>60) mL/min BUN/Creatinine Ratio (10-20) RATIO Glucose (74-106) mg/dL Calcium (8.5-10.1) mg/dL Troponin I < 0.015 < 0.015 (<0.045) ng/mL TSH (0.358-3.74) uIU/mL Urine Color Yellow (Yellow) Urine Clarity Clear (Clear) Urine pH 6.0 (5.0 - 8.0) Ur Specific [place] 1.015 (1.002-1.030) Urine Protein Negative (Negative) mg/dl Urine Glucose (UA) Normal (Normal) mg/dl Urine Ketones Negative (Negative) mg/dl Urine Occult Blood Negative (Negative) /ul Urine Nitrite Negative (Negative) Urine Bilirubin Negative (Negative) mg/dL Urine Urobilinogen Normal (Normal) mg/dl Ur Leukocyte Esterase 25 H (Negative) /ul Urine RBC 0 SEEN (0-5) /hpf Urine WBC 0-5 SEEN (0-5) /hpf Ur Squamous Epith Cells 0 SEEN (5-10) /hpf Urine Bacteria 0 SEEN (None Seen) /hpf Urine Mucus 0 SEEN (<or=2+) /hpf 06/10/18 06/10/18 06/10/18 Range/Units 09:20 09:20 09:20 WBC 6.8 (4.4-11.0) K/mm3 RBC 4.78 (4.2-5.4) M/mm3 Hgb 14.5 (12.0-15.0) g/dl Hct 43.1 (37-47) % MCV 90.2 (81-99) fL MCH 30.3 (27.0-32.0) pg MCHC 33.6 (32-36) g/gl RDW 12.9 (11.6-14.6) % RDW Differential 42.4 (35.1-43.9) fl Plt Count 235 (150-450) K/mm3 MPV 9.6 (6.2-12.0) fl Immature Gran % (Auto) 0.100 (0.0-0.9) % Neut % (Auto) 67.8 (47-70) % Lymph % (Auto) 21.1 (19-41) % Moody % (Auto) 7.9 (0-10) % Eos % (Auto) 2.5 (0-5) % Baso % (Auto) 0.6 (0-1) % Absolute Neuts (auto) 4.6 (2.0-7.7) X10^3/uL Absolute Lymphs (auto) 1.44 (0.83-4.51) X10^3/ul Total Counted Not Reportable PT (11.7-14.9) SECONDS INR APTT (24.1-36.2) Seconds D-Dimer Quant (PE/DVT) 0.69 H* (0.27-0.49) FEU/ug/m Sodium 139 (136-145) mmol/L Potassium 4.0 (3.5-5.1) mmol/L Chloride 106 (98-107) mmol/L Carbon Dioxide 26.0 (21.0-32.0) mmol/L Anion Gap 7 (5-15) BUN 10 (7-18) mg/dL Creatinine 0.69 (0.55-1.02) mg/dL Estim Creat Clear Calc 35.55 ml/min Est GFR (MDRD) Af Amer 107 (>60) mL/min Est GFR (MDRD) Non-Af 88 (>60) mL/min BUN/Creatinine Ratio 14.6 (10-20) RATIO Glucose 103 (74-106) mg/dL Calcium 8.6 (8.5-10.1) mg/dL Troponin I < 0.015 (<0.045) ng/mL TSH 1.36 (0.358-3.74) uIU/mL Urine Color (Yellow) Urine Clarity (Clear) Urine pH (5.0 - 8.0) Ur Specific [place] (1.002-1.030) Urine Protein (Negative) mg/dl Urine Glucose (UA) (Normal) mg/dl Urine Ketones (Negative) mg/dl Urine Occult Blood (Negative) /ul Urine Nitrite (Negative) Urine Bilirubin (Negative) mg/dL Urine Urobilinogen (Normal) mg/dl Ur Leukocyte Esterase (Negative) /ul Urine RBC (0-5) /hpf Urine WBC (0-5) /hpf Ur Squamous Epith Cells (5-10) /hpf Urine Bacteria (None Seen) /hpf Urine Mucus (<or=2+) /hpf Diagnostic Data Chest X-Ray 06/10/18 09:15 IMPRESSION: Normal x-ray examination of the chest. Electronically Signed: Massimo Darby DO at 9:41 EST Tel [phone], Service support , Chest CTA 06/10/18 11:27 IMPRESSION: 1. Negative for pulmonary embolism or thoracic aortic dissection. 2. Lungs are adequately inflated without acute airspace disease. Mild bibasilar atelectasis 3. Nonspecific soft tissue prominence in the right hilar region as well as several pulmonary nodules. Repeat chest CT can be performed in 3-6 months to evaluate for stability. Electronically Signed: Neal Castillo DO at 12:48 EST Tel , Service support , cardiology- Dr Deng Procedures: Cardiac catheterization Summary of Care Provided: The patient is a 78 year old F with a past medical history of hypothyroidism, carotid artery stenosis and hypertension. She was admitted through the ED with a complaint of exertional dyspnea for several months which had worsened. She had had a stress echo done in November 2017 which was unremarkable. She had assisted lightheadedness but denies any orthopnea PND or leg swelling. She was admitted and managed for acute on chronic exertional dyspnea with unclear etiology. She had an elevated d-dimer which was within normal limits when age- adjusted she had a CT of the chest which was negative for any PE. She also had poorly controlled hypertension was managed for hypertensive urgency and continued on home medication. Patient had cardiac catheterization on 06/11/2018 which showed only very minimal nonobstructive coronary artery disease. Patient remained stable and was discharged home after cardiac cath on 06/11/2018. 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 Patient was seen and examined prior to discharge. Still complains of exertional shortness of breath and denied any fever or chills, cough or chest pain, any shortness of breath, abdominal pain, any diarrhea or vomiting. Patient Problems: Active and Suspected Problems Exertional dyspnea (Acute) - Physical Exam General: Alert, Oriented x3, Cooperative, No apparent distress HEENT: Atraumatic, PERRLA, EOMI, Normocephalic Oral: Moist Mucosa Neck: Supple, No JVD, Negative Carotid Bruits Lungs: Clear to auscultation, Normal air movement, No rhonchi, No wheeze, No rales Cardiovascular: Regular rate, Regular Rhythm, Normal S1, Normal S2, No murmurs Abdomen: Bowel Sounds Present, Soft, Non Tender, Non-Distended, No Hepato- splenomegaly, - - cath site in groin was nontender and had clean dressing applied Extremities: No cyanosis, No edema, Capillary Refill Less than 3 Seconds Skin: No rashes, No breakdown Musculoskeletal: No Tenderness to Palpation of Joints or Extremities Lymphatic: No Cervical, Supraclavicular, or Inguinal Adenopathy Neurological: Cranial nerves II-XII grossly intact, Neuro grossly intact, Motor Exam 5/5 strength throughout Psych/Mental Status: Normal Affect, Appropriate, Alert and oriented to time, place, person, mood and affect Vital Signs Temp Pulse Resp BP Pulse Ox 97.5 F L 55 L 16 114/47 L 99 06/11/18 09:30 06/11/18 09:30 06/11/18 09:30 06/11/18 09:30 06/11/18 09:30 Oxygen Delivery Method Room Air Weight: 184 lb 1.376 oz Body Mass Index (BMI) 34.8 Intake and Output for Last 24 Hours 06/10/18 06/10/18 06/11/18 00:59 23:59 23:59 Intake Total 1200 / 1200 Output Total 150 / 150 Balance 1050 / 1050 Laboratory Tests Past 24 Hrs 06/10/18 06/10/18 06/11/18 12:20 14:54 03:00 WBC RBC Hgb Hct MCV MCH MCHC RDW RDW Differential Plt Count MPV Immature Gran % (Auto) Neut % (Auto) Lymph % (Auto) Moody % (Auto) Eos % (Auto) Baso % (Auto) Absolute Neuts (auto) Absolute Lymphs (auto) Total Counted PT INR APTT Sodium Potassium Chloride Carbon Dioxide Anion Gap BUN Creatinine Estim Creat Clear Calc Est GFR (MDRD) Af Amer Est GFR (MDRD) Non-Af BUN/Creatinine Ratio Glucose Calcium Troponin I < 0.015 < 0.015 Urine Color Yellow Urine Clarity Clear Urine pH 6.0 Ur Specific [place] 1.015 Urine Protein Negative Urine Glucose (UA) Normal Urine Ketones Negative Urine Occult Blood Negative Urine Nitrite Negative Urine Bilirubin Negative Urine Urobilinogen Normal Ur Leukocyte Esterase 25 H Urine RBC 0 SEEN Urine WBC 0-5 SEEN Ur Squamous Epith Cells 0 SEEN Urine Bacteria 0 SEEN Urine Mucus 0 SEEN 06/11/18 06/11/18 06/11/18 03:58 03:58 03:58 WBC 7.0 RBC 4.16 L Hgb 12.6 Hct 38.1 MCV 91.6 MCH 30.3 MCHC 33.1 RDW 12.8 RDW Differential 42.2 Plt Count 197 MPV 9.5 Immature Gran % (Auto) 0.100 Neut % (Auto) 58.6 Lymph % (Auto) 26.7 Moody % (Auto) 9.4 Eos % (Auto) 4.5 Baso % (Auto) 0.7 Absolute Neuts (auto) 4.1 Absolute Lymphs (auto) 1.88 Total Counted Not Reportable PT 13.6 INR 1.0 APTT 29.0 Sodium 145 Potassium 3.9 Chloride 110 H Carbon Dioxide 25.0 Anion Gap 10 BUN 9 Creatinine 0.61 Estim Creat Clear Calc 35.55 Est GFR (MDRD) Af Amer 122 Est GFR (MDRD) Non-Af 101 BUN/Creatinine Ratio 14.8 Glucose 96 Calcium 7.8 L Troponin I Urine Color Urine Clarity Urine pH Ur Specific [place] Urine Protein Urine Glucose (UA) Urine Ketones Urine Occult Blood Urine Nitrite Urine Bilirubin Urine Urobilinogen Ur Leukocyte Esterase Urine RBC Urine WBC Ur Squamous Epith Cells Urine Bacteria Urine Mucus Discharge Activity: Return to Normal Activity Weight Bearing Status: Weight bearing as tolerated Call your doctor if you observe: Shortness of breath Home Medications: Medications to take at Discharge Aspirin [Aspirin, Baby] 81 mg PO DAILY@0800 09/26/13 Carvedilol [Coreg (Beta Evi)] 6.25 mg PO BID 09/26/13 Hydrochlorothiazide 12.5 mg PO DAILY 09/26/13 Levothyroxine [Synthroid] 50 mcg PO DAILY 09/26/13 Amlodipine Besylate [Norvasc] 2.5 mg PO DAILY 06/10/18 Rosuvastatin Calcium [Crestor] 20 mg PO DAILY 06/10/18 Clopidogrel Bisulfate [Plavix] 75 mg PO DAILY #30 tablet 06/11/18 Lisinopril [Zestril] 10 mg PO BID #60 tablet 06/11/18 Following Prescrptions Were Given to Patient: Clopidogrel Bisulfate [Plavix] 75 mg PO DAILY #30 tablet Lisinopril [Zestril] 10 mg PO BID #60 tablet Primary Care Physician: Mitch Castaneda MD [Primary Care Provider] - Please follow up with your Primary Care Physician in: one week Please Follow Up With: He Deng MD When: 2 weeks Please Follow Up With: Caleb Post MD When: 2 weeks Disposition: Home Minutes spent on discharge:: 36 Patient Condition:: Stable Medical Necessity - Tobacco Use Smoking Status: Never smoker Tobacco Use: Non-smoker Meaningful Use Info Meaningful Use Diagnoses (Choose all that apply): None applicable Code Visit Inpatient E&M: 14875 Disch Hosp
--- NOTE | 2018-06-11 11:36 | NURSING ---
ambulated pt in hallway post heart cath bedrest. no complications noted, pt tolerated well.
--- NOTE | 2018-06-11 12:22 | PHA.DC.MC ---
Pharmacy Service has performed discharge medication reconciliation and counseling for this patient. The patient's discharge medication list was reviewed for discrepancies and discrepancies were resolved. The patient was counseled on the following discharge medications and changes in medications for homegoing were reviewed. Clopidogrel Bisulfate [Plavix] 75 mg PO DAILY #30 tablet 06/11/18 Lisinopril [Zestril] 10 mg PO BID #60 tablet 06/11/18 The Reason for Use, instructions for use, and potential side effects were reviewed for all new medications. The patient's questions regarding all of their medications were answered. The patient demonstrated some understanding but would benefit from further education and reinforcement.
== END 2018-06-11 07:55 | disposition home or self-care (01) ==
LOC: ED 09:28 → PCU 11:03
PROVIDERS: Admitting Provider Internal Medicine; Emergency Provider Emergency Medicine; Family Provider Internal Medicine; PCP Internal Medicine; Visit Provider Student in an Organized Health Care Education/Training Program
DX: R06.09 Other forms of dyspnea (principal); I10 Essential (primary) hypertension; Z79.899 Other long term (current) drug therapy; Z82.49 Family history of ischemic heart disease and other diseases of the circulatory system; E03.9 Hypothyroidism, unspecified; I65.23 Occlusion and stenosis of bilateral carotid arteries; E78.5 Hyperlipidemia, unspecified; I16.0 Hypertensive urgency; R42 Dizziness and giddiness; I25.10 Atherosclerotic heart disease of native coronary artery without angina pectoris
CPT/HCPCS: 36415; 71045; 71275; 80048; 81001; 84443; 84484; 85025; 85379; 85610; 85730; 93005; 93458; 96360; 96361; 96372; 99152; 99218; 99283; C1760; J7030; Q9967; A4216; C1769; G0378

== ENCOUNTER → 2018-07-04 10:51 | Outpatient (CLI) | payer MEDICARE, OTHER, SELFPAY ==
[2018-06-21 09:58] VITALS: BMI 33.8
[2018-06-27 14:24] VITALS: BMI 33.6
[2018-07-04 11:26] VITALS: PULSE 106; PULSE 108; PULSE 114; PULSE 116; PULSE 117; PULSE 84; PULSE 87; PULSE 88; O2SAT 95; O2SAT 96; O2SAT 97; O2SAT 98; O2SAT 99
--- NOTE | 2018-07-05 10:25 | PCM.PSN.6M ---
PSN 6 Minute Walk Test - 6 Minute Walk Test 6 Minute Walk Test: 6 Minute Walk Test PSN:6-Minute Walk Test Start: 07/04/18 11:23 Freq: Status: Active Protocol: [id number] Document 07/04/18 11:26 NATALIE (Rec: 07/04/18 11:30 [place] [id number]) 6 Minute Walk Test Date Performed 07/04/18 Time Performed 11:00 Height 5 ft 1 in Weight: 79.379 kg Weight in Pounds 175.[address]: Leeroy Oliver Assistive device used: None Pre-test Oxygen Delivery Method Room Air Pulse Ox (%) 99 Pulse Rate (60-100 beats/min) 84 Dyspnea Genie Scale (0-10) 0 Exertion Genie Scale (6-20) 6 1st minute Oxygen Delivery Method Room Air Pulse Ox (%) 96 Pulse Rate (60-100 beats/min) 88 2nd minute Oxygen Delivery Method Room Air Pulse Ox (%) 96 Pulse Rate (60-100 beats/min) 106 H 3rd minute Oxygen Delivery Method Room Air Pulse Ox (%) 97 Pulse Rate (60-100 beats/min) 108 H 4th minute Oxygen Delivery Method Room Air Pulse Ox (%) 95 Pulse Rate (60-100 beats/min) 114 H 5th minute Oxygen Delivery Method Room Air Pulse Ox (%) 96 Pulse Rate (60-100 beats/min) 116 H 6th minute Oxygen Delivery Method Room Air Pulse Ox (%) 96 Pulse Rate (60-100 beats/min) 117 H Dyspnea Genie Scale (0-10) 2 Exertion Genie Scale (6-20) 12 Post-test Oxygen Delivery Method Room Air Pulse Ox (%) 98 Pulse Rate (60-100 beats/min) 87 Full Laps Walked 23 Partial Lap, Number of Tiles Walked 25 Total Distance Walked (ft) 1382 - Interpretation Interpretation: The patient was able to ambulate 1382 feet over the course of 6 minutes on room air with no assistive devices or breaks. The patient did experience some tachycardia with a peak heart rate of 117 bpm. These findings are consistent with deconditioning. - Recommendations Recommendations: No supplemental oxygen is indicated at this time.
--- OUTSIDE RECORDS SUMMARY | 2018-08-29 19:21 | XMS RPT_ITS ---
:1940 Author Organization OHIP Support Name Relationship Address Phone FANTASMA FITZPATRICK Unavailable [address] + [place] [address] DAWSON, HOLLI Unavailable .1 + [place] [address] R Unavailable Unavailable Unavailable FANTASMA FITZPATRICK Unavailable [address] + [place] [address] DAWSON, HOLLI Unavailable Unavailable + R Unavailable Unavailable Unavailable FANTASMA FITZPATRICK Unavailable [address] + [place] [address] DAWSON, HOLLI Unavailable .1 + [place] [address] R Unavailable Unavailable Unavailable FANTASMA FITZPATRICK Unavailable [address] + [place] [address] DAWSON, HOLLI Unavailable Unavailable + R Unavailable Unavailable Unavailable IFTZPATRICK FANTASMA Unavailable [address] + [place] [address] Dawson, Holli Unavailable . + [place] [address] R Unavailable Unavailable Unavailable FANTASMA FITZPATRICK Unavailable [address] + [place] [address] Dawson, Holli Unavailable . + [place] [address] R Unavailable Unavailable Unavailable FANTASMA FITZPATRICK Unavailable [address] + [place] [address] R Unavailable Unavailable Unavailable FANTASMA FITZPATRICK Unavailable [address] + [place] [address] Dawson, Holli Unavailable . + [place] [address] R Unavailable Unavailable Unavailable FANTASMA FITZPATRICK Unavailable [address] + [place] [address] R Unavailable Unavailable Unavailable AMARI FANTASMA Unavailable [address] + [place] [address] R Unavailable Unavailable Unavailable AMARI FANTASMA Unavailable [address] + [place] [address] R Unavailable Unavailable Unavailable FANTASMA FITZPATRICK Unavailable [address] + [place] [address] R Unavailable Unavailable Unavailable AMARI FANTASMA Unavailable [address] + [place] [address] R Unavailable Unavailable Unavailable AMARI FANTASMA Unavailable [address] [place] [address] R Unavailable Unavailable Unavailable FANTASMA FITZPATRICK Unavailable [address] [place] [address] R Unavailable Unavailable Unavailable FANTASMA FITZPATRICK Unavailable [address] [place] [address] R Unavailable Unavailable Unavailable Care Team Providers Name Role Phone Ish, He Attending Unavailable Leeroy Oliver D.O. Referring Unavailable QuirozMitch Primary Care Unavailable Leeroy Oliver D.O. Consulting Unavailable Mitch Quiroz Attending Unavailable Quiroz, Mitch Referring Unavailable Quiroz, Mitch Primary Care Unavailable Deacon Duke Attending Unavailable BINU WILLS Attending Unavailable BINU WILLS Referring Unavailable Quiroz, Mitch Primary Care Unavailable Caleb Post Attending Unavailable Leeroy Oliver D.O. Referring Unavailable Quiroz, Mitch Primary Care Unavailable Paint[place], [place] Admitting Unavailable Ish, He Consulting Unavailable Koram, Siria Allyssa Attending Unavailable [place], [place] Admitting Unavailable Paintsil, [place] Attending Unavailable Quiroz, Mitch Primary Care Unavailable Paint[place], [place] Consulting Unavailable Paintsil, [place] Admitting Unavailable Ish, He Attending Unavailable Leonel, Mitch Primary Care Unavailable Ish, He Consulting Unavailable Paintsil, [place] Consulting Unavailable Paintsil, [place] Admitting Unavailable Ish, [place] Attending Unavailable Leonel, Mitch Primary Care Unavailable Ish, [place] Consulting Unavailable Koram, Siria Allyssa Consulting Unavailable Paintsil, [place] Admitting Unavailable Koram, Siria Allyssa Attending Unavailable Quiroz, Mitch Primary Care Unavailable Ish, He Consulting Unavailable Koram, Siria Allyssa Consulting Unavailable Leeroy Oliver D.O. Attending Unavailable Quiroz, Mitch Referring Unavailable Beckie Barba Attending Unavailable Ish, He Attending Unavailable Quiroz, Mitch Referring Unavailable Ish, He Attending Unavailable Paintsil, [place] Referring Unavailable Litzy Leigh.O. Attending Unavailable Litzy Leigh.OInocencio Referring Unavailable Quiroz, Mitch Primary Care Unavailable Litzy Leigh.OInocencio Attending Unavailable Leeroy Oliver D.OInocencio Referring Unavailable Quiroz, Mitch Primary Care Unavailable QUIROZ, MITCH Fung Referring Unavailable QUIROZ, MITCH Fung Attending Unavailable QUIROZ, MITCH Fung Referring Unavailable QUIROZ, MITCH Fung Referring Unavailable QUIROZ, MITCH Fung Referring Unavailable QUIROZ, MITCH Fung Referring Unavailable TRELL CHÁVEZ Referring Unavailable QUIROZ, MITCH Fung Attending Unavailable QUIROZ, MITCH Fung Referring Unavailable QUIROZ, MITCH Fung Referring Unavailable OLDERGERRI (ENVIRONMENTAL AID) Referring Unavailable QUIROZ, MITCH Fung Referring Unavailable QUIROZ, MITCH Fung Attending Unavailable QUIROZ, MITCH Fung Referring Unavailable QUIROZ, MITCH Fung Referring Unavailable QUIROZ, MITCH Fung Referring Unavailable QUIROZ, MITCH Fung Referring Unavailable QUIROZ, MITCH Fung Referring Unavailable OLDERGERRI (ENVIRONMENTAL AID) Attending Unavailable QUIROZ, MITCH Fung Referring Unavailable QUIROZ, MITCH Fung Attending Unavailable QUIROZ, MITCH Fung Referring Unavailable BINU WILLS Attending Unavailable QUIROZ, MITCH Fung Referring Unavailable BINU WILLS Attending Unavailable Leonel BRANDON, Mitch Referring Unavailable Leonel BRANDON, Mitch Primary Care Unavailable PROBLEMS PROBLEMS DATE TYPE CONDITION / CODE ATTENDING STATUS SOURCE 07/20/2018 Unknown R06.09 - Other forms Caleb Post Active [place] of dyspnea / Community R06.09(ICD-10) Hospital Repository 06/27/2018 Unknown I10 - Essential Ish, He Active [place] (primary) Community hypertension / Hospital I10(ICD-10) Repository 06/27/2018 Unknown E78.5 - Ish, [place] Active [place] Hyperlipidemia, Community unspecified / Hospital E78.5(ICD-10) Repository 06/19/2018 Active Unknown / OLDER, GERRI Active [facility] UNK(Unknown) (ENVIRONMENTAL AID) Clinic Main [place] Repository 07/02/2018 Unknown I25.10 - Ish, He Active [place] Atherosclerotic [facility] heart disease of Hospital [place] coronary Repository artery without angina pectoris / I25.10(ICD-10) 05/16/2018 Active 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 Active [facility] (current) drug [facility] Main therapy / [place] Z79.899(ICD-10) Repository 05/14/2018 Active Encounter for Active [facility] screening mammogram Clinic Main for malignant [place] neoplasm of breast / Repository Z12.31(ICD-10) 01/19/2018 Active Occlusion and BINU WILLS Active [facility] stenosis of [place] [facility] Other bilateral carotid [place] arteries / Repository I65.23(ICD-10) 01/19/2018 Admitting Unknown / BINU WILLS Active [facility] diagnosis UNK(Unknown) [facility] Repository 01/31/2018 Unknown I65.23 - Occlusion BINU WILLS Active [place] and stenosis of [facility] bilateral carotid Hospital arteries / Repository I65.23(ICD-10) 12/27/2017 Active Rash and other NA Active [facility] nonspecific skin [facility] Main eruption / [place] R21(ICD-10) Repository 12/18/2017 Active Nontoxic NA Active [facility] multinodular goiter Clinic Main / E04.2(ICD-10) [place] Repository 11/14/2017 Active Encounter for Active [facility] screening for Clinic Main malignant neoplasm [place] of colon / Repository Z12.11(ICD-10) 10/24/2017 Active Other forms of NA Active [facility] dyspnea / Clinic Main R06.09(ICD-10) [place] Repository 08/22/2016 Active Impaired fasting NA Active [facility] glucose / Clinic Main R73.01(ICD-10) [place] Repository 08/17/2016 Active Vitamin D NA Active [facility] deficiency, Clinic Main unspecified / [place] E55.9(ICD-10) Repository 08/17/2016 Active Pure NA Active [facility] hypercholesterolemia Clinic Main , unspecified / [place] E78.00(ICD-10) Repository 08/17/2016 Active Hypothyroidism, NA Active [facility] unspecified / Clinic Main E03.9(ICD-10) [place] Repository PROCEDURES PROCEDURES No Procedure Records FoundRESULTS RESULTS ECHOCARDIOGRAM COMPLETE Observed: 07/18/2018 Status: F Source: [place] 5:21 PM [facility] Cardiovascular Services [address] [place] [address] Echo Complete 07/18/18903 MR#: [id number] Acct: [id number] Name: TESSIE FITZPATRICK Rep #: [id number] : 1940 78 From: He Deng MD Attending Dr: Leeroy Oliver D.O. Status: REG CLI Ordering Dr: Leeroy Oliver DO Date: 07/18/18 Location: [facility] Sex: F C Admitted: Reason For Study: DYSPNEA/SOB Procedure This was a 2D Doppler, Color Flow transthoracic echocardiogram. Exam performed in department. Left Ventricle Normal LV size. Left ventricular systolic function is normal. The estimated ejection fraction is 55 %. Stage 1 diastolic dysfunction. No regional wall motion abnormalities noted. Right Ventricle Normal RV size. Normal systolic function. Atria The left atrium is mildly enlarged. Normal right atrium. Mitral Valve Normal mitral valve. Mild (1+) eccentric mitral valve insufficiency. Tricuspid Valve Normal tricuspid valve. Mild tricuspid valve insufficiency. Pulmonary artery systolic pressure is 34 mmHg. Aortic Valve Normal aortic valve. Trisinus/trileaflet aortic valve. Pulmonic Valve Normal pulmonic valve. Great Vessels Normal aortic root. The pulmonary artery is normal size. Normal inferior vena cava. Pericardium/Pleural No pericardial effusion. MMode/2D Measurements AND Calculations LVIDd: 3.7 cm IVSd: 0.92 cm Ao root diam: 2.7 cm LVIDs: 2.8 cm LVPWd: 0.87 cm RVDd: 3.2 cm FS: 26.4 % LAV(MOD-bp): 65.6 ml LA A4 area: 19.9 cm2 LA dimension(2D): 4.1 cm LAV(MOD-bp) Indexed: 36.8 ml/m2 LAV(MOD-sp2): 61.9 ml LAV(MOD-sp4): 61.9 ml RA A4 area: 13.1 cm2 Time Measurements MV dec time: 0.22 sec Doppler Measurements AND Calculations MV E max zoey: 54.4 cm/sec Lat Peak E' Zoey: 10.6 cm/sec Med Peak E' Zoey: 6.9 cm/sec MV A max zoey: 67.8 cm/sec E/E' lat: 5.1 E/E' med: 7.9 MV E/A: 0.80 Ao V2 max: 106.0 cm/sec LV V1 max: 84.3 cm/sec PA V2 max: 76.2 cm/sec Ao max P.5 mmHg LV V1 max P.8 mmHg TR max zoey: 274.4 cm/sec TR max P.2 mmHg Interpretation Summary Normal LV size. Left ventricular systolic function is normal. The estimated ejection fraction is 55 %. Stage 1 diastolic dysfunction. Mild (1+) eccentric mitral valve insufficiency. Mild tricuspid valve insufficiency. Ordering Physician: Leeroy Oliver D.O. Referring Physician: Mitch Quiroz Performed By: Camila Gutierrez, JEFF, RVT 07/18/181720 Date He Deng MD CC: Leeroy Oliver D.O.; Mitch Quiroz MD Date Dictated: 07/18/18 0904 Date Transcribed: 07/18/181720 Senior Sales Operations Manager: Signed PROGRESS Observed: 07/17/2018 Status: COMPLETED Source: [place] 8:[address] [facility] [place] REPOSITORY O ID: [id number] Author: Mitch Quiroz Service: (none) Author Type: Physician Type: Progress Notes Filed: 07/17/2018 9:03 AM Note Text: This note was created using Vendobotsriter. Subjective Tessie Fitzpatrick was admitted for dyspnea in June. She had a heart catheterization showing mild arteriosclerotic heart disease. Her medications were adjusted by Dr. Deng. She stopped statin on her own due to concern about ill effects. She apparently was also referred to Dr. Oliver for a pulmonary evaluation. She was feeling the best in years at this time. ACTIVE PROBLEM LIST Carotid Stenosis, Asymptomatic, Bilateral Hoarseness of Voice Dry Mouth Acquired Hypothyroidism Pure Hypercholesterolemia Chronic Ankle Pain, Bilateral Essential Hypertension Osteopenia Impaired Fasting Blood Sugar Obesity, Class I, Bmi 30-34.9 Current Outpatient Prescriptions: Aspirin 81 mg Tab Take 81 mg by mouth. Cholecalciferol, Vitamin D3, 1,000 unit cap Take 1 capsule by mouth once daily. Over the counter. cyanocobalamin (VITAMIN B-12) 500 mcg tab Take 1 tablet by mouth once daily. hydroCHLOROthiazide (HYDRODIURIL, ESIDRIX) 12.5 mg tablet Take 1 tablet by mouth once daily. levothyroxine (SYNTHROID) 50 mcg tablet Take 1 tablet by mouth once daily. Take one tablet daily as directed. meloxicam (MOBIC) 7.5 mg tablet Take 1 tablet by mouth once daily as needed (joint pain). Take with food. amLODIPine (NORVASC) 5 mg tablet Take 5 mg by mouth once daily. clopidogrel (PLAVIX) 75 mg tablet Take 1 tablet by mouth once daily. lisinopril (ZESTRIL, PRINIVIL) 20 mg tablet Take 20 mg by mouth once daily. No current facility-administered medications for this visit. Review of Systems Constitutional: Negative. Respiratory: Negative. Cardiovascular: Negative. Gastrointestinal: Negative. Genitourinary: Negative. Neurological: Negative. Objective BP 130/62 (BP Site: Left Arm, BP Position: Sitting, BP Cuff Size: Large Adult) Pulse 103 Temp 36.4 ?C (97.5 ?F) (Left Tympanic) Resp 20 Wt 78.9 kg (174 lb) BMI 31.83 kg/m? Physical Exam Constitutional: No distress. Eyes: Conjunctivae are normal. Neck: No thyromegaly present. Cardiovascular: Regular rhythm, S1 normal, S2 normal and normal heart sounds. Tachycardia present. Exam reveals no gallop. No murmur heard. Pulmonary/Chest: Breath sounds normal. Musculoskeletal: She exhibits no edema. Neurological: She is alert. Assessment and Plan 1. Essential hypertension - ICD9: 401.9, ICD10: I10 (primary diagnosis) - good control - LISINOPRIL 20 MG TABLET - AMLODIPINE 5 MG TABLET 2. Obesity, Class I, BMI 30-34.9 - ICD9: 278.00, ICD10: E66.9 Improved. Continue weight loss. 3. Atherosclerosis of [place] coronary artery of [place] heart without angina pectoris - ICD9: 414.01, ICD10: I25.10 Mild, non obstructive. Follow up with cardiology. 4. Pure hypercholesterolemia - ICD9: 272.0, ICD10: E78.00 - noncompliance - Patient refused statin medication. I advised statins are effective for primary prevention of CV disease. Mitch Quiroz MD CNOV Observed: 07/17/2018 Status: COMPLETED Source: [place] 8:00 AM [facility] REPOSITORY Office Visit (INTMWS) TESSIE FITZPATRICK ([id number]) 1940 F Date Time Provider Department 07/17/18 8:00 AM MITCH QUIROZ During your visit today, we recorded the following information about you: Temperature Pulse Respiration Blood pressure 97.5 degrees 103/minute 20/minute 130/62 Weight 78.9 kg Mitch Quiroz MD 07/17/2018 9:03 AM Signed This note was created using Vendobotsriter. Subjective Tessie Fitzpatrick was admitted for dyspnea in June. She had a heart catheterization showing mild arteriosclerotic heart disease. Her medications were adjusted by Dr. Deng. She stopped statin on her own due to concern about ill effects. She apparently was also referred to Dr. Oliver for a pulmonary evaluation. She was feeling the best in years at this time. ACTIVE PROBLEM LIST Carotid Stenosis, Asymptomatic, Bilateral Hoarseness of Voice Dry Mouth Acquired Hypothyroidism Pure Hypercholesterolemia Chronic Ankle Pain, Bilateral Essential Hypertension Osteopenia Impaired Fasting Blood Sugar Obesity, Class I, Bmi 30-34.9 Current Outpatient Prescriptions: Aspirin 81 mg Tab Take 81 mg by mouth. Cholecalciferol, Vitamin D3, 1,000 unit cap Take 1 capsule by mouth once daily. Over the counter. cyanocobalamin (VITAMIN B-12) 500 mcg tab Take 1 tablet by mouth once daily. hydroCHLOROthiazide (HYDRODIURIL, ESIDRIX) 12.5 mg tablet Take 1 tablet by mouth once daily. levothyroxine (SYNTHROID) 50 mcg tablet Take 1 tablet by mouth once daily. Take one tablet daily as directed. meloxicam (MOBIC) 7.5 mg tablet Take 1 tablet by mouth once daily as needed (joint pain). Take with food. amLODIPine (NORVASC) 5 mg tablet Take 5 mg by mouth once daily. clopidogrel (PLAVIX) 75 mg tablet Take 1 tablet by mouth once daily. lisinopril (ZESTRIL, PRINIVIL) 20 mg tablet Take 20 mg by mouth once daily. No current facility-administered medications for this visit. Review of Systems Constitutional: Negative. Respiratory: Negative. Cardiovascular: Negative. Gastrointestinal: Negative. Genitourinary: Negative. Neurological: Negative. Objective BP 130/62 (BP Site: Left Arm, BP Position: Sitting, BP Cuff Size: Large Adult) Pulse 103 Temp 36.4 ?C (97.5 ?F) (Left Tympanic) Resp 20 Wt 78.9 kg (174 lb) BMI 31.83 kg/m? Physical Exam Constitutional: No distress. Eyes: Conjunctivae are normal. Neck: No thyromegaly present. Cardiovascular: Regular rhythm, S1 normal, S2 normal and normal heart sounds. Tachycardia present. Exam reveals no gallop. No murmur heard. Pulmonary/Chest: Breath sounds normal. Musculoskeletal: She exhibits no edema. Neurological: She is alert. Assessment and Plan 1. Essential hypertension - ICD9: 401.9, ICD10: I10 (primary diagnosis) - good control - LISINOPRIL 20 MG TABLET - AMLODIPINE 5 MG TABLET 2. Obesity, Class I, BMI 30-34.9 - ICD9: 278.00, ICD10: E66.9 Improved. Continue weight loss. 3. Atherosclerosis of [place] coronary artery of [place] heart without angina pectoris - ICD9: 414.01, ICD10: I25.10 Mild, non obstructive. Follow up with cardiology. 4. Pure hypercholesterolemia - ICD9: 272.0, ICD10: E78.00 - noncompliance - Patient refused statin medication. I advised statins are effective for primary prevention of CV disease. Mitch Quiroz MD Referring Provider: MITCH QUIROZ [[id number]] Allergies As of Date: 07/17/2018 Noted Allergy Reaction CIPROFLOXACIN 08/17/2016 2 - Rash 9 - Itching KEFLEX (CEPHALEXIN) 08/17/2016 14 - Other: See Comments Comments: Caused C-Diff MORPHINE 09/12/2012 14 - Other: See Comments Comments: heart stopped organ failure Date Reviewed: 07/17/2018 Reviewed by: Zaira So LPN - Fully Assessed Reason for Visit: 6 week follow-up [Other] Primary Visit Diagnosis:Essential hypertension [I10] Other Visit Diagnoses:Obesity, Class I, BMI 30-34.9 [E66.9] Atherosclerosis of [place] coronary artery of [place] heart without angina pectoris [I25.10] Pure hypercholesterolemia [E78.00] Prescriptions as of 07/17/2018 Sig: ASPIRIN 81 MG TABLET Take 81 mg by mouth. CHOLECALCIFEROL (VITAMIN D3) * Take 1 capsule by mouth once * CYANOCOBALAMIN (VIT B-12) 500* Take 1 tablet by mouth once d* HYDROCHLOROTHIAZIDE 12.5 MG T* Take 1 tablet by mouth once d* LEVOTHYROXINE 50 MCG TABLET Take 1 tablet by mouth once d* MELOXICAM 7.5 MG TABLET Take 1 tablet by mouth once d* AMLODIPINE 5 MG TABLET Take 5 mg by mouth once daily. 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] INVALID FOR*10/24/2017 Right thyroid nodule [E04.1] INVALID FOR*06/26/2017 Acquired hypothyroidism [E03.9] INVALID FOR* Pure hypercholesterolemia [E78.00] INVALID FOR* Chronic ankle pain, bilateral [M25.571, G89.29,*INVALID FOR* Essential hypertension [I10] INVALID FOR* Vitamin D deficiency [E55.9] INVALID FOR*10/24/2017 Osteopenia [M85.80] INVALID FOR* 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 Disc: Reason for discontinue is not on file. amLODIPine (NORVASC) 2.5 mg tablet 30 t* 2 05/29/2018 07/17/2018 Route: ORAL Sig: Take 1 tablet by mouth once daily. Patient taking differently: Take 5 mg by mouth once daily. Disc: Reason for discontinue is not on file. rosuvastatin (CRESTOR) 20 mg tablet 30 t* 2 05/29/2018 07/17/2018 Route: ORAL Sig: Take 1 tablet by mouth daily at bedtime. For cholesterol. Patient not taking: Reported on 07/17/2018 Disc: Discontinued by Patient carvedilol (COREG) 12.5 mg tablet 180 * 3 06/19/2018 07/17/2018 Class: Historical Med Route: ORAL Sig: Take 0.5 tablets by mouth twice daily. Disc: Discontinued by another Health Care Provider Disposition: Return in about 5 months (around 12/15/2018). Follow-up and Disposition History Recorded Encounter Status:Closed by MITCH QUIROZ MD on 07/17/18 6 MINUTE WALK TEST Observed: 07/06/2018 Status: F Source: [place] 5:45 AM [facility] [place] [facility] Pulmonary Services/Neurology [address] [place] [address] MR#: [id number] Acct: [id number] Name: TESSIE FITZPATRICK Rep #: [id number] : 1940 78 From: Caleb Post MD Referring Dr: Leeroy Oliver D.O. Date: Ordering Dr: Sex: F C Location: PSN PSN 6 Minute Walk Test - 6 Minute Walk Test 6 Minute Walk Test: 6 Minute Walk Test PSN:6-Minute Walk Test Start: 07/04/18 11:23 Freq: Status: Active Protocol: RESP.6MINW Document 07/04/18 11:26 SFHIPOLITO (Rec: 07/04/18 11:30 SFENTON [id number]) 6 Minute Walk Test Date Performed 07/04/18 Time Performed 11:00 Height 5 ft 1 in Weight: 79.379 kg Weight in Pounds 175.[address]: Leeroy Oliver Assistive device used: None Pre-test Oxygen Delivery Method Room Air Pulse Ox (%) 99 Pulse Rate (60-100 beats/min) 84 Dyspnea Genie Scale (0-10) 0 Exertion Genie Scale (6-20) 6 1st minute Oxygen Delivery Method Room Air Pulse Ox (%) 96 Pulse Rate (60-100 beats/min) 88 2nd minute Oxygen Delivery Method Room Air Pulse Ox (%) 96 Pulse Rate (60-100 beats/min) 106 H 3rd minute Oxygen Delivery Method Room Air Pulse Ox (%) 97 Pulse Rate (60-100 beats/min) 108 H 4th minute Oxygen Delivery Method Room Air Pulse Ox (%) 95 Pulse Rate (60-100 beats/min) 114 H 5th minute Oxygen Delivery Method Room Air Pulse Ox (%) 96 Pulse Rate (60-100 beats/min) 116 H 6th minute Oxygen Delivery Method Room Air Pulse Ox (%) 96 Pulse Rate (60-100 beats/min) 117 H Dyspnea Genie Scale (0-10) 2 Exertion Genie Scale (6-20) 12 Post-test Oxygen Delivery Method Room Air Pulse Ox (%) 98 Pulse Rate (60-100 beats/min) 87 Full Laps Walked 23 Partial Lap, Number of Tiles Walked 25 Total Distance Walked (ft) 1382 - Interpretation Interpretation: The patient was able to ambulate 1382 feet over the course of 6 minutes on room air with no assistive devices or breaks. The patient did experience some tachycardia with a peak heart rate of 117 bpm. These findings are consistent with deconditioning. - Recommendations Recommendations: No supplemental oxygen is indicated at this time. 07/06/18 0545 <Electronically signed by Caleb Post MD> Date Caleb Post MD CC: Date Dictated: 07/05/18 1025 Date Transcribed: 07/05/18 1025 Senior Sales Operations Manager: Caleb Post Signed CARDIOLOGY VISIT Observed: 06/27/2018 Status: F Source: [place] REPORT 2:42 PM [facility] [place] [facility] [address] [place] [address] OFFICE VISIT Date of Service: 06/27/18 MR#: [id number] Acct: [id number] Name: TESSIE FITZPATRICK Rep #: [id number] : 1940 Provider: He Deng MD Age/Sex: 78/F [place] [facility] [place] Status: Signed HPI HPI Chief Complaint: Follow up Details: TESSIE FITZPATRICK, is a 78 F who presents to the office today for a follow-up visit. She is a lady with a history of hypertension and shortness of breath. She had presented to the emergency room with shortness of breath which she says was getting much worse. She went on to have a cardiac catheterization which demonstrated mild obstructive disease noted in the left anterior descending artery circumflex and right coronary artery. It did not appear to meet any significance for any intervention. Her ejection fraction was also noted to be normal. Since then she has been doing well at home she is denied any chest pain or shortness breath or paroxysmal nocturnal dyspnea or pedal edema she has had no neck arm or jaw discomfort suggest angina. She forgot to take her medications today and her blood pressure is elevated. Her physical exam today demonstrates clear lung moore regular rate and rhythm and no pedal edema. Intake Vital Signs06/27/18 Height 5 ft 1 in Intake Visit Reasons: DC 11-5 (NEW to [facility]) Allergies morphine Allergy (Verified 06/21/18 10:03) Anaphylaxis Vqppdnu-Lwa-Bgo Reductase Inhibitor Adverse Reaction (Verified 06/27/18 14:27) nightmare, insomnia Medications Aspirin [Aspirin, Baby] 81 mg PO DAILY@0800 09/26/13 [History Confirmed 06/27/18] Hydrochlorothiazide 12.5 mg PO DAILY 09/26/13 [History Confirmed 06/27/18] Levothyroxine [Synthroid] 50 mcg PO DAILY 09/26/13 [History Confirmed 06/27/18] amlodipine 5 mg tablet 5 mg PO DAILY #90 tab 06/27/18 [Rx Confirmed 06/27/18] lisinopril 20 mg tablet 20 mg PO DAILY #90 tab 06/27/18 [Rx Confirmed 06/27/18] [facility] Medical History Atherosclerosis of coronary artery of [place] 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) Hyperlipidemia (Chronic) Essential (primary) hypertension (Chronic) Carotid artery stenosis (Chronic) Depression (Chronic) Hypothyroidism (Chronic) Obesity (Chronic) Thyroid nodule (Chronic) Accelerated hypertension (Inactive) Transient weakness of left leg (Inactive) Surgical History History of left heart catheterization (Resolved 06/11/18) H/O: hysterectomy (Resolved) History of lumpectomy of right breast (Resolved) S/P thyroid biopsy (Resolved) Family History Father Hypertension CVA (cerebral vascular accident) Mother Liver disease Social History Smoking Status: Never smoker substance use type: does not use ROS Const Const: Negative for fatigue, weakness, body ache, fever(s), headache(s), chills, frequent falls, night sweats, daytime sleepiness, difficulty sleeping, excessive sweating, weight gain, weight loss, increased appetite, poor appetite, anorexia or other Eyes Eyes: Negative for blind spots, loss of peripheral vision, transient loss of vision, blurry vision, change in vision, double vision, floaters, tunnel vision or other ENT ENT: Negative for headache(s) Cardio Chest Pain: No Neuro Neuro: Negative for weakness, headache(s), frequent falls, blurry vision or double vision Endo Endo: Negative for fatigue or excessive sweating Cardiology Exam Const Appearance: cooperative, healthy appearing, well developed, well groomed and no acute distress Nutritional Appearance: well nourished and average body habitus Orientation: alert, awake and oriented x3 Head Head: normal to inspection, normocephalic and atraumatic Ears: hearing grossly normal bilaterally and external ears normal Nose: external nose normal, nasal mucous membranes and turbinates normal, nares normal, septum normal, no nasal discharge Face and Sinus: face symmetric Mouth: oral mucosae normal, tongue normal, oropharynx normal and moist mucous membranes Teeth and gingiva: dentition normal Throat: posterior oropharynx normal, tonsils normal and uvula midline Eyes General: appearance normal, both eyes and all related structures Eyelids: eyelids normal Conjunctivae: conjunctivae normal Pupils: PERRL, normal by confrontation and accommodation normal EOM: EOM intact bilaterally Neck Neck: normal visual inspection, trachea midline and no JVD JVD: +5 Carotids: normal carotid upstroke and bounding pulses Chest Chest inspection: normal inspection of the chest, symmetric chest movement and normal respiratory effort Auscultation: Bilateral: Clear to Auscultation Cardio Palpation: normal PMI Rate: regular rate Rhythm: regular rhythm Heart sounds: S1 normal, S2 normal and normal, physiologic split S2; negative rub, gallop or murmur GI GI: normal to inspection, soft, no hepatosplenomegaly and bowel sounds present Neuro General: alert, awake, oriented x3, no focal sensory deficit, gait normal and moves all extremities Skin Skin: no rashes or lesions noted Extremities Pulses: Normal: Right Femoral Pulse, Left Femoral Pulse, Right Dorsalis Pedis Pulse, Left Dorsalis Pedis Pulse, Right Posterior Tibial Pulse, Left Posterior Tibial Pulse, Right Radial Pulse, Left Radial Pulse Lower Extremity Edema: None: Bilateral Musculoskel Musculoskeletal: No joint tenderness Psych Psychological: normal affect Assessment AND Plan 1. Atherosclerosis of coronary artery of [place] heart without angina pectoris I25.10 non obstructive CAD per [facility] 06/2018 Plan She does have mild atherosclerotic cardiovascular disease. My recommendation is to continue with her risk factor modification she should stay on her aspirin at this particular time. 2. Essential (primary) hypertension I10 Plan She does have a history of hypertension her blood pressure is not very well controlled I would recommend that we increase her lisinopril to 20 mg a day, add amlodipine 5 mg a day together with the hydrochlorothiazide. The carvedilol can be discontinued. She would also continue with her levothyroxine. 3. Hyperlipidemia E78.5 Plan She should continue with aggressive risk factor modification. A repeat lipid profile will be obtained at her next visit. Thank you for allowing me to participate in her care I would like to see her again in approximately 6 months. Plan Detail Other Medications New: Discontinued: Follow Up 6 Months (mmm) Coding Level of Care Code Off vis,est,level 4 Diagnoses Atherosclerosis of coronary artery of [place] heart without angina pectoris I25.10 Essential (primary) hypertension I10 Hyperlipidemia E78.5 Coding Level of Care Code Off vis,est,level 4 Diagnoses Atherosclerosis of coronary artery of [place] heart without angina pectoris I25.10 Essential (primary) hypertension I10 Hyperlipidemia E78.5 06/27/18 1442 <Electronically signed by He Deng MD> Date He Deng MD Cosigner Signature: Date (if applicable) CC: Mitch Quiroz MD PULMONARY VISIT REPORT Observed: 06/21/2018 Status: F Source: [place] 10:45 AM [facility] [place] [facility] [address] [place] [address] OFFICE VISIT Date of Service: 06/21/18 MR#: [id number] Acct: [id number] Name: TESSIE FITZPATRICK Rep #: [id number] : 1940 Provider: Leeroy Oliver D.O. Age/Sex: 78/F Location: [facility] Status: Signed Assessment AND Plan 1. Exertional dyspnea R06.09 Plan I strongly suspect that the patient's exertional dyspnea is most likely the consequence of her previously uncontrolled hypertension, as the patient notes that her dyspnea has improved since being started on lisinopril and hydrochlorothiazide. In addition, given the patient's weight gain over the last 1-2 years, there is likely a component of obesity and generalized deconditioning also contributing. Given that the patient's symptoms only occur when she is exerting herself physically, we will plan to obtain a 6-minute walk test. In addition, a surface echocardiogram will be obtained to evaluate for underlying diastolic dysfunction and/or pulmonary hypertension. Orders Orders: 2. Abnormal chest CT R93.89 Plan The patient's most recent CTA chest did reveal evidence of right hilar fullness, which is nonspecific in nature along with several subcentimeter pulmonary nodules. I would recommend obtaining a repeat CT chest with contrast in a proximally 3 months for further evaluation. 3. Obesity E66.9 Plan Weight loss through dietary modification and a graded exercise regimen is strongly encouraged. Plan Detail Follow Up 1 Month (CSM) HPI HPI Comments Details: The patient is a 78-year-old female that presents to the clinic today in follow-up from a recent hospitalization. It appears that the patient was admitted to the hospital for observation overnight on June 11. She initially presented with exertional dyspnea of several months duration. The patient was noted to have hypertensive urgency and underwent a cardiac catheterization on June 11 which revealed nonobstructive coronary disease. She was started on lisinopril and instructed to follow-up with her primary care provider. During the patient's hospitalization, a CTA chest was obtained which revealed no evidence for PE. However, there was evidence of nonspecific right hilar fullness along with several subcentimeter pulmonary nodules. The patient appears to have had pulmonary function testing completed in June 2018 through the [facility] and revealed normal spirometry with a significant bronchodilator response. Lung volumes and DLCO were normal. The patient reports that she moved back from [place] to [place] approximately 1.5 years ago. Since that time, she has gained approximately 15-20 pounds. She reports that her shortness of breath only occurs with strenuous physical exertion, like carrying laundry up the stairs. She denies any chest tightness, wheezing or cough. 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 She is a lifelong non-smoker, but did grow up in a smoking household. She does not keep any animals as pets in her home environment. She denies the presence of fevers, chills or night sweats. She additionally denies the presence of chest pain, dizziness or lightheadedness. Intake Vital Signs06/21/18 Height 5 ft 1 in 06/21/18 Weight: 179 lb Intake Visit Reasons: Hospital F/U, Exertional Dyspnea Track Oiler Required: No Accompanied by: Self Is patient in pain?: No Allergies morphine Allergy (Verified 06/21/18 10:03) Anaphylaxis Medications Aspirin [Aspirin, Baby] 81 mg PO DAILY@0800 09/26/13 [History Confirmed 06/10/18] Carvedilol [Coreg (Beta Evi)] 6.25 mg PO BID 09/26/13 [History Confirmed 06/10/18] Hydrochlorothiazide 12.5 mg PO DAILY 09/26/13 [History Confirmed 06/10/18] Levothyroxine [Synthroid] 50 mcg PO DAILY 09/26/13 [History Confirmed 06/10/18] Amlodipine Besylate [Norvasc] 2.5 mg PO DAILY 06/10/18 [History Confirmed 06/10/18] Rosuvastatin Calcium [Crestor] 20 mg PO DAILY 06/10/18 [History Confirmed 06/10/18] Clopidogrel Bisulfate [Plavix] 75 mg PO DAILY #30 tab 06/11/18 [Rx] Lisinopril [Zestril] 10 mg PO BID #60 tab 06/11/18 [Rx] PFSH Medical History Exertional dyspnea (Acute) Hypothyroidism (Acute) Transient weakness of left leg (Acute) Carotid artery stenosis (Chronic) Accelerated hypertension (Acute) HTN (hypertension) (Chronic) Thyroid nodule (Chronic) Surgical History H/O: hysterectomy (Resolved) History of lumpectomy of right breast (Resolved) S/P thyroid biopsy (Resolved) Family History Father Hypertension CVA (cerebral vascular accident) Mother Liver disease Social History Smoking Status: Never smoker substance use type: does not use Review of Systems Const CONSTITUTIONAL: Negative anorexia, body ache, chills, daytime sleepiness, fever(s), night sweats, oral thrush, stops breathing during sleep, weight loss, sleeping in chair, fatigue, weight loss, weight gain, frequent colds, seasonal allergies, other, headache(s) or orthopnea EETM Ear Nose Throat Mouth: Positive hearing normal and hoarseness; negative hard of hearing, dry mouth in morning, change in vision, itchy eyes, eye pain, swallowing Difficulty, ear pain, nose bleed, headache(s), mouth pain, nasal congestion, nasal discharge, post nasal drip, sinus pain, sinus pressure, sore throat or other Cardio Cardiovascular: Negative chest pain, chest pain at rest, chest pain with activity, irregular heart rhythm, edema, shortness of breath when lying down, palpitations, murmur or other Resp Respiratory: Positive as per HPI and shortness of breath shortness of breath: Positive with activity; negative pain with cough, wheezing, chest congestion, cough, chest tightness, pain on inspiration, inhalers, increase use of rescue inhalers, snoring, apnea or other Gastro Gastrointestional: Negative bloody stools, change in appetite, difficulty swallowing, reflux, hematemesis, melena stool, loose stool, constipation or other Genitourinary: Negative blood in urine, nocturia, pain with urination or other Musc Musculoskeletal: Negative body pain, back pain, neck pain or other Skin/Breast Skin/Breast: Negative dry skin, itching, rash, unusual bruising, breast lump or other Neuro Neurological: Negative restless legs, confusion, weakness or other Psych Psychocological: Negative abnormal sleep pattern, anxiety, thoughts of hurting self/others, hopelessness or other Lymph Lymphatic: Negative easy bleeding, easy bruising, swollen lymph nodes or other Exam Const Constitutional: Positive conversant, cooperative, in no acute respiratory distress, well developed, well nourished, good hygiene and obese Head Head: Positive normocephalic and atraumatic; negative cyanosis of lips/distal nose Eyes Eye: Positive clear conjunctiva; negative nystagmus or scleral abnormality Ears Ear: Positive hearing normal and external ears normal; negative hard of hearing Nose Nose: Positive external nose normal; negative epistaxis Mouth Mouth: Positive oral mucosae normal and posterior oropharynx is adequate; negative no lesions, post nasal drip or oral thrush present Mallampati Score: II: Mallampati Score Neck Neck: Positive normal visual inspection and trachea midline; negative lymphadenopathy Chest Wall Chest: Positive symmetric chest movement Normal AP diameter. Resp lung sounds: Positive clear to auscultation, good air exchange and normal expiratory time; negative wheezes, rhonchi or rales Cardio Cardiac: Positive regular rate, regular rhythm, S1 normal and S2 normal; negative rub, gallop or murmur GI GI: Positive normal bowel sounds and obese Soft without distention Genitourinary: Positive deferred Musc Musculoskeletal: Positive steady gait Skin Pulmonary Skin Exam: Positive intact; negative lesion, ulcers, dermal atrophy or rash Pulses Pulse: Yes Pedal pulses present: Extremities Extremities: No clubbing, No cyanosis, No edema Neuro Neurologic: Yes conversant, Yes no focal neuro deficits, Yes cooperative Lymph Lymphatic: No lymphadenopathy Psych Appearance: Positive grossly normal Mental Status: Positive mental status grossly normal Mood: Positive congruent mood Affect: Positive normal affect Coding Level of Care Code Off vis,new,level 4 Diagnoses Exertional dyspnea R06.[address] R93.89 Obesity E66.9 06/21/18 1045 <Electronically signed by Leeroy Oliver DO> Date Leeroy Oliver DO Cosigner Signature: Date (if applicable) CC: Mitch Quiroz MD PROGRESS Observed: 06/19/2018 Status: COMPLETED Source: [place] 9:35 AM [facility] HNO ID: [id number] Author: Gerri (Reiki Practitioner) Older Service: (none) Author Type: Nurse Practitioner Type: Progress Notes Filed: 06/19/2018 10:09 AM Note Text: Message left for pt to return call to a nurse to review TCM note. Please complete. Pt was discharges 06/11/18. She needs hospital follow up with pcp's REGIONAL ENGINEER. TRANSITION CARE MANAGEMENT (TCM) INITIAL CONTACT Cad Cam Programmer Outreach ? Provider Action/FYI: Spoke with patient and she does have problem with walking outside she gets SOB. Her leg feel heavy and can't breath. Testing has been okay. This has been going on for her x 1 year. She is concerned it has to do with blood flow. Will keep [facility] follow up apt. ? ? ? Initial contact with patient post discharge, spoke to patient. Patient identified by name and . ? TRANSITION CARE MANAGEMENT INITIAL OUTREACH DOCUMENTATION: Date of Outreach: 06/12/2018 Outreach Attempt 1: (No Data) Date of Discharge 06/11/2018 Some recent data might be hidden ? ? SUMMARY: -Pt discharged from [facility] on 06/11/18. -Admitted for: High Blood pressure ? Do you have a hospital follow up appointment with your PCP? Appointment on 06/19/18 @ 9:20 with Gerri Silverman CNP. Yes. Remind patient of appointment date, time, and location. If not within 14 calendar days of discharge - please reschedule accordingly. ? MEDICATIONS: Many patients have questions or concerns about their medications once they are home. Were you prescribed any new medications? Yes IC clopidogrel 75 Mg 1 per day, Lisinopril 10 mg 1 per day, ? Were you told to hold any medications? No Were any of your medications discontinued? No ? Do you have any questions about getting or taking your medications? No ? Your discharge instructions/After visit Summary (AVS) are important in guiding you through the recovery process. Is there anything I might help you understand? No ? Do you have all the necessary equipment and supplies at home? Yes ? Medical records from recent hospitalization: [facility] Provider Documentation: In follow-up of hospitalization, Tessie Fitzpatrick is a 78 year old female with the chief complaint of shortness of breath with exertion. Present for over a year, worse over the last few months. During admission she had work-up with CTA chest, labs and heart cath all of which relatively normal. Started on Lisinopril for elevated BP, follow-up with Dr. Deng this week. Thinks the Lisinopril is making her fatigued. Does not check BP at home. Also has follow-up this week with pulmonology, Dr. Oliver. Reports overall she is feeling much better. REVIEW OF SYSTEMS General: no fevers, no chills, no night sweats and no significant changes in weight HEENT: no sinus or nasal problems, no seasonal/evironmental allergies Respiratory: SOB with exertion, mostly walking long distances. Positive for intermittent wheezing, this just started about one month ago. No history of asthma. Never smokes. No cough, no shortness of breath at rest. Cardiovascular: no chest pain, no chest pressure, no palpitations and no swelling PAST MEDICAL HISTORY Diagnosis Date - Acquired hypothyroidism 08/17/2016 - Bilateral carotid artery stenosis 08/03/2016 - Chronic ankle pain, bilateral 08/17/2016 - Clostridium difficile diarrhea 12/06/2015 - Dry mouth 08/17/2016 - Essential hypertension 08/17/2016 - Hoarseness of voice 08/17/2016 - HTN (hypertension) - Hypothyroid - Impaired fasting blood sugar 08/22/2016 - Mild episode of recurrent major depressive disorder (HCC) 08/17/2016 - Multiple thyroid nodules 04/06/2016 FNA negative left nodule 03/2017 - Osteopenia 08/17/2016 - 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 carvedilol (COREG) 12.5 mg tablet Take 0.5 tablets by mouth twice daily. hydroCHLOROthiazide (HYDRODIURIL, ESIDRIX) 12.5 mg tablet Take 1 tablet by mouth once daily. amLODIPine (NORVASC) 2.5 mg tablet Take 1 tablet by mouth once daily. rosuvastatin (CRESTOR) 20 mg tablet Take 1 tablet by mouth daily at bedtime. For cholesterol. levothyroxine (SYNTHROID) 50 mcg tablet Take 1 tablet by mouth once daily. Take one tablet daily as directed. meloxicam (MOBIC) 7.5 mg tablet Take 1 tablet by mouth once daily as needed (joint pain). Take with food. cyanocobalamin (VITAMIN B-12) 500 mcg tab Take 1 tablet by mouth once daily. Cholecalciferol, Vitamin D3, 1,000 unit cap Take 1 capsule by mouth once daily. Over the counter. Aspirin 81 mg Tab Take 81 mg by mouth. clopidogrel (PLAVIX) 75 mg tablet Take 1 tablet by mouth once daily. FAMILY HISTORY Problem Relation Age of Onset - Stroke Father - Hypertension Father - Ischemic Heart Disease Father Social History Substance Use Topics - Smoking status: Never Smoker - Smokeless tobacco: Never Used - Alcohol use No PHYSICAL EXAM BP 119/80 Pulse (!) 58 Temp 36.6 ?C (97.8 ?F) (Temporal Artery) Resp 16 Wt 81.7 kg (180 lb 3.2 oz) SpO2 96% BMI 32.96 kg/m? General Appearance: well appearing, in no acute distress, alert Lungs: lungs clear to auscultation. No wheezing, rhonchi, rales Heart: RRR without murmur, gallop, or rubs. No ectopy Extremities: Multiple, prominent varicose veins along with brown venous stasis changes to BLE, much worse on the left. No edema. Good capillary refill. Pulses: 1+ ASSESSMENT/PLAN: 1. Shortness of breath on exertion - ICD9: 786.05, ICD10: R06.02 (primary diagnosis) - Extensive cardiac work-up unremarkable. - Pulmonary work-up so far with CTA chest that was unremarkable. PFT's done here 06/07 normal except significant bronchodilator response. Possible exercise induced asthma as cause of SOB - Follow-up with compliance reviewer as scheduled. Given copy of PFT's to take with her to appointment - Follow-up with PCP in one month as scheduled or sooner as needed 2. Essential hypertension - ICD9: 401.9, ICD10: I10 - good control - Continue current medication(s) - Recommend home blood pressure monitoring, to bring results in on next visit - Follow-up with electrical tests supervisor as scheduled - CARVEDILOL 12.5 MG TABLET 3. Heart palpitations - ICD9: 785.1, ICD10: R00.2 Resolved. Application Consultant as above I have reviewed the patient?s last hospital course including diagnostic testing performed during this hospitalization, their discharge medications, and my assessment and plan with the patient and any family members present at today?s visit. Gerri Silverman APRN.CNP CNOV Observed: 06/19/2018 Status: COMPLETED Source: [place] 9:20 AM [facility] REPOSITORY Office Visit (INTMWS) TESSIE FITZPATRICK ([id number]) 1940 F Date Time Provider Department 06/19/18 9:20 AM GERRI SILVERMAN (RAJWINDER) INTMWS During your visit today, we recorded the following information about you: Temperature Pulse Respiration Blood pressure 97.8 degrees 58/minute 16/minute 119/80 Weight 81.7 kg Gerri Silverman APRN.CNP 06/19/2018 10:09 AM Signed Message left for pt to return call to a nurse to review TCM note. Please complete. Pt was discharges 06/11/18. She needs hospital follow up with pcp's REGIONAL ENGINEER. TRANSITION CARE MANAGEMENT (TCM) INITIAL CONTACT Cad Cam Programmer Outreach ? Provider Action/FYI: Spoke with patient and she does have problem with walking outside she gets SOB. Her leg feel heavy and can't breath. Testing has been okay. This has been going on for her x 1 year. She is concerned it has to do with blood flow. Will keep [facility] follow up apt. ? ? ? Initial contact with patient post discharge, spoke to patient. Patient identified by name and . ? TRANSITION CARE MANAGEMENT INITIAL OUTREACH DOCUMENTATION: Date of Outreach: 06/12/2018 Outreach Attempt 1: (No Data) Date of Discharge 06/11/2018 Some recent data might be hidden ? ? SUMMARY: -Pt discharged from [facility] on 06/11/18. -Admitted for: High Blood pressure ? Do you have a hospital follow up appointment with your PCP? Appointment on 06/19/18 @ 9:20 with Gerri Silverman CNP. Yes. Remind patient of appointment date, time, and location. If not within 14 calendar days of discharge - please reschedule accordingly. ? MEDICATIONS: Many patients have questions or concerns about their medications once they are home. Were you prescribed any new medications? Yes IC clopidogrel 75 Mg 1 per day, Lisinopril 10 mg 1 per day, ? Were you told to hold any medications? No Were any of your medications discontinued? No ? Do you have any questions about getting or taking your medications? No ? Your discharge instructions/After visit Summary (AVS) are important in guiding you through the recovery process. Is there anything I might help you understand? No ? Do you have all the necessary equipment and supplies at home? Yes ? Medical records from recent hospitalization: [facility] Provider Documentation: In follow-up of hospitalization, Tessie Fitzpatrick is a 78 year old female with the chief complaint of shortness of breath with exertion. Present for over a year, worse over the last few months. During admission she had work-up with CTA chest, labs and heart cath all of which relatively normal. Started on Lisinopril for elevated BP, follow-up with Dr. Deng this week. Thinks the Lisinopril is making her fatigued. Does not check BP at home. Also has follow-up this week with pulmonology, Dr. Oliver. Reports overall she is feeling much better. REVIEW OF SYSTEMS General: no fevers, no chills, no night sweats and no significant changes in weight HEENT: no sinus or nasal problems, no seasonal/evironmental allergies Respiratory: SOB with exertion, mostly walking long distances. Positive for intermittent wheezing, this just started about one month ago. No history of asthma. Never smokes. No cough, no shortness of breath at rest. Cardiovascular: no chest pain, no chest pressure, no palpitations and no swelling PAST MEDICAL HISTORY Diagnosis Date - Acquired hypothyroidism 08/17/2016 - Bilateral carotid artery stenosis 08/03/2016 - Chronic ankle pain, bilateral 08/17/2016 - Clostridium difficile diarrhea 12/06/2015 - Dry mouth 08/17/2016 - Essential hypertension 08/17/2016 - Hoarseness of voice 08/17/2016 - HTN (hypertension) - Hypothyroid - Impaired fasting blood sugar 08/22/2016 - Mild episode of recurrent major depressive disorder (HCC) 08/17/2016 - Multiple thyroid nodules 04/06/2016 FNA negative left nodule 03/2017 - Osteopenia 08/17/2016 - 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 carvedilol (COREG) 12.5 mg tablet Take 0.5 tablets by mouth twice daily. hydroCHLOROthiazide (HYDRODIURIL, ESIDRIX) 12.5 mg tablet Take 1 tablet by mouth once daily. amLODIPine (NORVASC) 2.5 mg tablet Take 1 tablet by mouth once daily. rosuvastatin (CRESTOR) 20 mg tablet Take 1 tablet by mouth daily at bedtime. For cholesterol. levothyroxine (SYNTHROID) 50 mcg tablet Take 1 tablet by mouth once daily. Take one tablet daily as directed. meloxicam (MOBIC) 7.5 mg tablet Take 1 tablet by mouth once daily as needed (joint pain). Take with food. cyanocobalamin (VITAMIN B-12) 500 mcg tab Take 1 tablet by mouth once daily. Cholecalciferol, Vitamin D3, 1,000 unit cap Take 1 capsule by mouth once daily. Over the counter. Aspirin 81 mg Tab Take 81 mg by mouth. clopidogrel (PLAVIX) 75 mg tablet Take 1 tablet by mouth once daily. FAMILY HISTORY Problem Relation Age of Onset - Stroke Father - Hypertension Father - Ischemic Heart Disease Father Social History Substance Use Topics - Smoking status: Never Smoker - Smokeless tobacco: Never Used - Alcohol use No PHYSICAL EXAM BP 119/80 Pulse (!) 58 Temp 36.6 ?C (97.8 ?F) (Temporal Artery) Resp 16 Wt 81.7 kg (180 lb 3.2 oz) SpO2 96% BMI 32.96 kg/m? General Appearance: well appearing, in no acute distress, alert Lungs: lungs clear to auscultation. No wheezing, rhonchi, rales Heart: RRR without murmur, gallop, or rubs. No ectopy Extremities: Multiple, prominent varicose veins along with brown venous stasis changes to BLE, much worse on the left. No edema. Good capillary refill. Pulses: 1+ ASSESSMENT/PLAN: 1. Shortness of breath on exertion - ICD9: 786.05, ICD10: R06.02 (primary diagnosis) - Extensive cardiac work-up unremarkable. - Pulmonary work-up so far with CTA chest that was unremarkable. PFT's done here 06/07 normal except significant bronchodilator response. Possible exercise induced asthma as cause of SOB - Follow-up with compliance reviewer as scheduled. Given copy of PFT's to take with her to appointment - Follow-up with PCP in one month as scheduled or sooner as needed 2. Essential hypertension - ICD9: 401.9, ICD10: I10 - good control - Continue current medication(s) - Recommend home blood pressure monitoring, to bring results in on next visit - Follow-up with electrical tests supervisor as scheduled - CARVEDILOL 12.5 MG TABLET 3. Heart palpitations - ICD9: 785.1, ICD10: R00.2 Resolved. Application Consultant as above I have reviewed the patient?s last hospital course including diagnostic testing performed during this hospitalization, their discharge medications, and my assessment and plan with the patient and any family members present at today?s visit. Gerri Silverman APRN.ENVIRONMENTAL AID Referring Provider: MITCH QUIROZ [[id number]] Allergies As of Date: 06/19/2018 Noted Allergy Reaction CIPROFLOXACIN 08/17/2016 2 - Rash 9 - Itching KEFLEX (CEPHALEXIN) 08/17/2016 14 - Other: See Comments Comments: Caused C-Diff MORPHINE 09/12/2012 14 - Other: See Comments Comments: heart stopped organ failure Date Reviewed: 06/19/2018 Reviewed by: Josee Ortiz Returned Goods Inspector - Fully Assessed Primary Visit Diagnosis:Shortness of breath on exertion [R06.02] Other Visit Diagnoses:Essential hypertension [I10] Heart palpitations [R00.2] Order(s):hydroCHLOROthiazide (HYDRODIURIL, ESIDRIX) 12.5 mg tabletTake 1 tablet by mouth once daily.Disp: 90 tabletRfl: 2 Prescriptions as of 06/19/2018 Sig: LISINOPRIL 10 MG TABLET Take 1 tablet by mouth twice * CARVEDILOL 12.5 MG TABLET Take 0.5 tablets by mouth twi* HYDROCHLOROTHIAZIDE 12.5 MG T* Take 1 tablet by mouth once d* AMLODIPINE 2.5 MG TABLET Take 1 tablet by mouth once d* ROSUVASTATIN 20 MG TABLET Take 1 tablet by mouth daily * LEVOTHYROXINE 50 MCG TABLET Take 1 tablet by mouth once d* MELOXICAM 7.5 MG TABLET Take 1 tablet by mouth once d* CYANOCOBALAMIN (VIT B-12) 500* Take 1 tablet by mouth once d* CHOLECALCIFEROL (VITAMIN D3) * Take 1 capsule by mouth once * ASPIRIN 81 MG TABLET Take 81 mg by mouth. 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] INVALID FOR*10/24/2017 Right thyroid nodule [E04.1] INVALID FOR*06/26/2017 Acquired hypothyroidism [E03.9] INVALID FOR* Pure hypercholesterolemia [E78.00] INVALID FOR* Chronic ankle pain, bilateral [M25.571, G89.29,*INVALID FOR* Essential hypertension [I10] INVALID FOR* Vitamin D deficiency [E55.9] INVALID FOR*10/24/2017 Osteopenia [M85.80] INVALID FOR* 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 Medications Discontinued During This Encounter carvedilol (COREG) 12.5 mg tablet 180 * 3 10/24/2017 06/19/2018 Route: ORAL Sig: Take 1 tablet by mouth twice daily. Disc: Reason for discontinue is not on file. hydroCHLOROthiazide (HYDRODIURIL, ES* 90 t* 3 06/19/2018 06/19/2018 Class: Historical Med Route: ORAL Sig: Take 1 tablet by mouth once daily. Disc: Reason for discontinue is not on file. Encounter Status:Closed by GERRI SILVERMAN CNP on 06/19/18 12 LEAD ELECTROCARDIOGRAM Observed: 06/14/2018 Status: F Source: [place] 4:03 PM [facility] [place] [facility] Cardiovascular Services [address] [place] [address] 12 Lead EKG 06/11/18 0528 MR#: [id number] Acct: [id number] Name: TESSIE FITZPATRICK Rep #: [id number] : 1940 78 From: He Deng MD Attending Dr: Siria Madera MD Status: DIS MIKE Ordering Dr: Cira Garrett MD Date: 06/11/18 Location: [facility] Sex: F C Admitted: 06/10/18 Test Reason : AM EKG Blood Pressure : / mmHG Vent. Rate : 063 BPM Atrial Rate : 063 BPM P-R Int : 194 ms QRS Dur : 066 ms QT Int : 438 ms P-R-T Axes : 041 013 039 degrees QTc Int : 448 ms Sinus rhythm with Premature atrial complexes Otherwise normal ECG When compared with ECG of 10-JUN-2018 08:47, MANUAL COMPARISON REQUIRED, DATA IS UNCONFIRMED Confirmed by HE DENG MD ([id number]), senior technical editor THAD TONG ([id number]) on 06/14/2018 4:02:38 PM Referred By: CRISTINA Confirmed By:HE DENG MD 06/14/18 1602 Date He Deng MD CC: Cira Garrett MD; Siria Madera MD; Mitch Quiroz MD Signed 12 LEAD ELECTROCARDIOGRAM Observed: 06/13/2018 Status: F Source: [place] 1:39 PM [facility] [place] [facility] Cardiovascular [address] [address] 12 Lead EKG 06/10/18 0847 MR#: [id number] Acct: [id number] Name: TESSIE FITZPATRICK Rep #: [id number] : 1940 78 From: He Deng MD Attending Dr: Siria Madera MD Status: DIS MIKE Ordering Dr: Rober Mcclure DO Date: 06/10/18 Location: [facility] Sex: F C Admitted: 06/10/18 Test Reason : HYPERTENSION Blood Pressure : / mmHG Vent. Rate : 067 BPM Atrial Rate : 067 BPM P-R Int : 186 ms QRS Dur : 070 ms QT Int : 384 ms P-R-T Axes : 032 004 030 degrees QTc Int : 405 ms Sinus rhythm with Premature atrial complexes Otherwise normal ECG Confirmed by ISH BRANDON, HE ([id number]), senior technical editor THAD TONG ([id number]) on 06/13/2018 1:38:41 PM Referred By: RAHUL Confirmed By:HE DENG MD 06/13/18 1338 Date He Deng MD CC: Siria Madera MD; Rober Mcclure DO; Mitch Quiroz MD Signed PROGRESS Observed: 06/12/2018 Status: COMPLETED Source: [place] 2:[address] [facility] [place] REPOSITORY [facility] ID: [id number] Author: Tiffani Martinez LPN Service: (none) Author Type: (none) Type: Progress Notes Filed: 06/19/2018 4:52 PM Note Text: Message left for pt to return call to a nurse to review TCM note. Please complete. Pt was discharges 06/11/18. She needs hospital follow up with pcp's REGIONAL ENGINEER. TRANSITION CARE MANAGEMENT (TCM) INITIAL CONTACT Cad Cam Programmer Outreach Provider Action/FYI: Spoke with patient and she does have problem with walking outside she gets SOB. Her leg feel heavy and can't breath. Testing has been okay. This has been going on for her x 1 year. She is concerned it has to do with blood flow. Will keep [facility] follow up apt. Initial contact with patient post discharge, spoke to patient. Patient identified by name and . TRANSITION CARE MANAGEMENT INITIAL OUTREACH DOCUMENTATION: Date of Outreach: 06/12/2018 Outreach Attempt 1: (No Data) Date of Discharge 06/11/2018 Some recent data might be hidden SUMMARY: -Pt discharged from [facility] on 06/11/18. -Admitted for: High Blood pressure Do you have a hospital follow up appointment with your PCP? Appointment on 06/19/18 @ 9:20 with Gerri Silverman CNP. Yes. Remind patient of appointment date, time, and location. If not within 14 calendar days of discharge - please reschedule accordingly. MEDICATIONS: Many patients have questions or concerns about their medications once they are home. Were you prescribed any new medications? Yes IC clopidogrel 75 Mg 1 per day, Lisinopril 10 mg 1 per day, Were you told to hold any medications? No Were any of your medications discontinued? No Do you have any questions about getting or taking your medications? No Your discharge instructions/After visit Summary (AVS) are important in guiding you through the recovery process. Is there anything I might help you understand? No Do you have all the necessary equipment and supplies at home? Yes Medical records from recent hospitalization: [facility] KATHLEENUTRJOSE ELIAS Observed: 06/12/2018 Status: COMPLETED Source: [place] 12:00 AM [facility] REPOSITORY Patient Outreach (INTMWS) TESSIE FITZPATRICK ([id number]) 1940 F Date Time Provider Department 06/12/18 MITCH QUIROZ INTMWS During your visit today, we recorded the following information about you: Tiffani Martinez LPN 06/19/2018 4:52 PM Signed Message left for pt to return call to a nurse to review TCM note. Please complete. Pt was discharges 06/11/18. She needs hospital follow up with pcp's REGIONAL ENGINEER. TRANSITION CARE MANAGEMENT (TCM) INITIAL CONTACT Cad Cam Programmer Outreach Provider Action/FYI: Spoke with patient and she does have problem with walking outside she gets SOB. Her leg feel heavy and can't breath. Testing has been okay. This has been going on for her x 1 year. She is concerned it has to do with blood flow. Will keep [facility] follow up apt. Initial contact with patient post discharge, spoke to patient. Patient identified by name and . TRANSITION CARE MANAGEMENT INITIAL OUTREACH DOCUMENTATION: Date of Outreach: 06/12/2018 Outreach Attempt 1: (No Data) Date of Discharge 06/11/2018 Some recent data might be hidden SUMMARY: -Pt discharged from [facility] on 06/11/18. -Admitted for: High Blood pressure Do you have a hospital follow up appointment with your PCP? Appointment on 06/19/18 @ 9:20 with Gerri Silverman CNP. Yes. Remind patient of appointment date, time, and location. If not within 14 calendar days of discharge - please reschedule accordingly. MEDICATIONS: Many patients have questions or concerns about their medications once they are home. Were you prescribed any new medications? Yes IC clopidogrel 75 Mg 1 per day, Lisinopril 10 mg 1 per day, Were you told to hold any medications? No Were any of your medications discontinued? No Do you have any questions about getting or taking your medications? No Your discharge instructions/After visit Summary (AVS) are important in guiding you through the recovery process. Is there anything I might help you understand? No Do you have all the necessary equipment and supplies at home? Yes Medical records from recent hospitalization: [facility] Allergies As of Date: 06/12/2018 Noted Allergy Reaction CIPROFLOXACIN 08/17/2016 2 - Rash 9 - Itching KEFLEX (CEPHALEXIN) 08/17/2016 14 - Other: See Comments Comments: Caused C-Diff MORPHINE 09/12/2012 14 - Other: See Comments Comments: heart stopped organ failure Date Reviewed: 05/29/2018 Reviewed by: Zaira So LPN - Fully Assessed Reason for Visit: Transition Of Care [4074] Prescriptions as of 06/12/2018 Sig: AMLODIPINE 2.5 MG TABLET Take 1 tablet by mouth once d* ROSUVASTATIN 20 MG TABLET Take 1 tablet by mouth daily * LEVOTHYROXINE 50 MCG TABLET Take 1 tablet by mouth once d* X CARVEDILOL 12.5 MG TABLET Take 1 tablet by mouth twice * MELOXICAM 7.5 MG TABLET Take 1 tablet by mouth once d* CYANOCOBALAMIN (VIT B-12) 500* Take 1 tablet by mouth once d* CHOLECALCIFEROL (VITAMIN D3) * Take 1 capsule by mouth once * ASPIRIN 81 MG TABLET Take 81 mg by mouth. 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*INVALID FOR*06/26/2017 Impaired fasting blood sugar [R73.01] INVALID FOR* Encounter Status:Closed by GENE JEFFERY LPN on 06/19/18 DISCHARGE SUMMARY Observed: 06/11/2018 Status: F Source: [place] 2:55 PM [facility] [place] Medical Records Department [address] [place] [id number] Discharge Summary 06/11/18 1129 MR#: [id number] Acct: [id number] Name: TESSIE FITZPATRICK Rep #: [id number] : 1940 78 From: Siria Madera MD PCP: Mitch Quiroz MD Status: ADM MIKE Y Location: [place] [address] Discharge Date and Diagnosis - Problem List Patient Problems: Active and Suspected Problems Exertional dyspnea (Acute) Date of Admission: 06/10/18 Date of Discharge: 06/11/18 - Primary Discharge Diagnosis Active and Suspected Problems Exertional dyspnea (Acute) - Secondary Discharge Diagnosis Chronic Problems Carotid artery stenosis (Chronic) HTN (hypertension) (Chronic) Hospital Course and Treatment Imaging Results: Laboratory Tests WBC 7.0 (4.4-11.0) K/mm3 RBC 4.16 L (4.2-5.4) M/mm3 WBC (4.4-11.0) K/mm3 WBC 6.8 (4.4-11.0) K/mm3 RBC 4.78 (4.2-5.4) M/mm3 Diagnostic Data Chest X-Ray 06/10/18 09:15 IMPRESSION: Normal x-ray examination of the chest. Electronically Signed: Massimo Wilner, at 9:41 EST Tel [phone], Service support , Chest CTA 06/10/18 11:27 IMPRESSION: 1. Negative for pulmonary embolism or thoracic aortic dissection. 2. Lungs are adequately inflated without acute airspace disease. Mild bibasilar atelectasis 3. Nonspecific soft tissue prominence in the right hilar region as well as several pulmonary nodules. Repeat chest CT can be performed in 3-6 months to evaluate for stability. Electronically Signed: Neal Castillo, at 12:48 EST Tel , Service support , cardiology- Dr Deng Procedures: Cardiac catheterization Summary of Care Provided: The patient is a 78 year old F with a past medical history of hypothyroidism, carotid artery stenosis and hypertension. She was admitted through the ED with a complaint of exertional dyspnea for several months which had worsened. She had had a stress echo done in November 2017 which was unremarkable. She had assisted lightheadedness but denies any orthopnea PND or leg swelling. She was admitted and managed for acute on chronic exertional dyspnea with unclear etiology. She had an elevated d-dimer which was within normal limits when age-adjusted she had a CT of the chest which was negative for any PE. She also had poorly controlled hypertension was managed for hypertensive urgency and continued on home medication. Patient had cardiac catheterization on 06/11/2018 which showed only very minimal nonobstructive coronary artery disease. Patient remained stable and was discharged home after cardiac cath on 06/11/2018. Patient was started on lisinopril and she is follow-up with her primary care doctor and electrical tests supervisor and was also referred to compliance reviewer. Patient was seen and examined prior to discharge. Still complains of exertional shortness of breath and denied any fever or chills, cough or chest pain, any shortness of breath, abdominal pain, any diarrhea or vomiting. Patient Problems: Active and Suspected Problems Exertional dyspnea (Acute) - Physical Exam General: Alert, Oriented x3, Cooperative, No apparent distress HEENT: Atraumatic, PERRLA, EOMI, Normocephalic Oral: Moist Mucosa Neck: Supple, No JVD, Negative Carotid Bruits Lungs: Clear to auscultation, Normal air movement, No rhonchi, No wheeze, No rales Cardiovascular: Regular rate, Regular Rhythm, Normal S1, Normal S2, No murmurs Abdomen: Bowel Sounds Present, Soft, Non Tender, Non-Distended, No Hepato-splenomegaly, - - cath site in groin was nontender and had clean dressing applied Extremities: No cyanosis, No edema, Capillary Refill Less than 3 Seconds Skin: No rashes, No breakdown Musculoskeletal: No Tenderness to Palpation of Joints or Extremities Lymphatic: No Cervical, Supraclavicular, or Inguinal Adenopathy Neurological: Cranial nerves II-XII grossly intact, Neuro grossly intact, Motor Exam 5/5 strength throughout Psych/Mental Status: Normal Affect, Appropriate, Alert and oriented to time, place, person, mood and affect Vital Signs Temp Pulse Resp BP Pulse Ox 97.5 F L 55 L 16 114/47 L 99 06/11/18 09:30 06/11/18 09:30 06/11/18 09:30 06/11/18 09:30 06/11/18 09:30 Oxygen Delivery Method Room Air Weight: 184 lb 1.376 oz Body Mass Index (BMI) 34.8 Intake and Output for Last 24 Hours Intake Total 1200 / 1200 Output Total 150 / 150 Balance 1050 / 1050 Laboratory Tests Past 24 Hrs WBC RBC Hgb Hct MCV MCH MCHC RDW RDW Differential WBC 7.0 RBC 4.16 L Hgb 12.6 Hct 38.1 MCV 91.6 MCH 30.3 MCHC 33.1 RDW 12.8 RDW Differential 42.2 Discharge Activity: Return to Normal Activity Weight Bearing Status: Weight bearing as tolerated Call your doctor if you observe: Shortness of breath Home Medications: Medications to take at Discharge Aspirin [Aspirin, Baby] 81 mg PO DAILY@0800 09/26/13 Carvedilol [Coreg (Beta Evi)] 6.25 mg PO BID 09/26/13 Hydrochlorothiazide 12.5 mg PO DAILY 09/26/13 Levothyroxine [Synthroid] 50 mcg PO DAILY 09/26/13 Amlodipine Besylate [Norvasc] 2.5 mg PO DAILY 06/10/18 Rosuvastatin Calcium [Crestor] 20 mg PO DAILY 06/10/18 Clopidogrel Bisulfate [Plavix] 75 mg PO DAILY #30 tablet 06/11/18 Lisinopril [Zestril] 10 mg PO BID #60 tablet 06/11/18 Following Prescrptions Were Given to Patient: Clopidogrel Bisulfate [Plavix] 75 mg PO DAILY #30 tablet Lisinopril [Zestril] 10 mg PO BID #60 tablet Primary Care Physician: Mitch Quiroz MD [Primary Care Provider] - Please follow up with your Primary Care Physician in: one week Please Follow Up With: He Deng MD When: 2 weeks Please Follow Up With: Caleb Post MD When: 2 weeks Disposition: Home Minutes spent on discharge:: 36 Patient Condition:: Stable Medical Necessity - Tobacco Use Smoking Status: Never smoker Tobacco Use: Non-smoker Meaningful Use Info Meaningful Use Diagnoses (Choose all that apply): None applicable Code Visit Inpatient E AND M: 08199 Disch Hosp 06/11/18 1455 <Electronically signed by Siria Madera MD> Date Siria Madera MD Cosigner Signature (if applicable): Date CC: Siria Madera MD; Mitch Quiroz MD Signed DISCHARGE INSTRUCTION Observed: 06/11/2018 Status: F Source: [place] 11:28 AM [facility] [place] [facility] Medical Records Department [address] [place] [address] Instructions for Home/Discharge Instructions 06/11/18 1127 MR#: [id number] Acct: [id number] Name: TESSIE FITZPATRICK Rep #: [id number] : 1940 78 From: Siria Madera MD PCP: Mitch Quiroz MD Status: ADM MIKE - Discharge Diagnoses Current Active Problems: Current Active and Chronic Problems Exertional dyspnea (Acute) You will use the following diet at home:: Cardiac Your food should be the consistency of: Regular Your liquids should be the consistency of: Regular/Thin Discharge Activity: Return to Normal Activity Weight Bearing Status: Weight bearing as tolerated Call your doctor if you observe: Shortness of breath Allergies/Adverse Reactions: Allergies morphine Allergy (Verified 06/10/18 08:38) Anaphylaxis Medications to take at Discharge Aspirin [Aspirin, Baby] 81 mg PO DAILY@0800 09/26/13 Carvedilol [Coreg (Beta Evi)] 6.25 mg PO BID 09/26/13 Hydrochlorothiazide 12.5 mg PO DAILY 09/26/13 Levothyroxine [Synthroid] 50 mcg PO DAILY 09/26/13 Amlodipine Besylate [Norvasc] 2.5 mg PO DAILY 06/10/18 Rosuvastatin Calcium [Crestor] 20 mg PO DAILY 06/10/18 Clopidogrel Bisulfate [Plavix] 75 mg PO DAILY #30 tablet 06/11/18 Lisinopril [Zestril] 10 mg PO BID #60 tablet 06/11/18 The following prescriptions were given: Clopidogrel Bisulfate [Plavix] 75 mg PO DAILY #30 tablet Lisinopril [Zestril] 10 mg PO BID #60 tablet Primary Care Physician: Mitch Quiroz MD [Primary Care Provider] - Please follow up with your Primary Care Physician in: one week Test Results: Test results from this visit will be discussed in further detail at your follow-up appointment, if applicable. Please Follow Up With: He Deng MD When: 2 weeks Please Follow Up With: Caleb Post MD When: 2 weeks Proposed Discharge Date: 06/11/18 06/11/18 1128 <Electronically signed by Siria Madera MD> Date Siria Madera MD CC: He Deng MD; Mitch Quiroz MD CBC W/DIFF, AUTOMATED Collected: 06/11/2018 Status: F Source: [place] 3:58 AM [facility] [place] Order Comment: Comments: PRETESTING FOR HEART CATH TYPE CODE TESTS RESULT OUT OF RANGE REFERENCE UNITS LAB L100.1000 4.4-11.0 K/mm3 Normal WBC 7.0 LAB L100.1200 4.2-5.4 M/mm3 Low RBC 4.16 LAB L100.1300 12.0-15.0 g/dl Normal HGB 12.6 LAB L100.1400 37-47 % Normal HCT 38.1 LAB L100.1500 81-99 fL Normal MCV 91.6 LAB L100.1600 27.0-32.0 pg Normal MCH 30.3 LAB L100.1700 32-36 g/gl Normal MCHC 33.1 LAB L100.1810 11.6-14.6 % Normal RDW CV 12.8 LAB L100.1820 35.1-43.9 fl Normal RDW SD 42.2 LAB L100.1900 150-450 K/mm3 Normal PLT 197 LAB L100.2000 6.2-12.0 fl Normal MPV 9.5 LAB L100.2100 47-70 % Normal NEUT% 58.6 LAB L100.2200 19-41 % Normal LY% 26.7 LAB L100.2300 0-10 % Normal MONO% 9.4 LAB L100.2400 0-5 % Normal EO% 4.5 LAB L100.2500 0-1 % Normal BASO% 0.7 LAB L100.2550 0.0-0.9 % Normal IM GRAN % 0.100 Result Comment: IG% - Immature Granulocytes (promyelocytes, myelocytes and metamyelocytes) > 1% indicates that a LEFT SHIFT is Present. LAB L100.2620 2.0-7.7 X10 3/uL Normal Absolute Neut 4.1 LAB L100.2720 0.83-4.51 X10 3/ul Normal Absolute Lymph 1.88 Performed By: #### L100.0100 #### [facility] [place], [address] PROTHROMBIN TIME W/INR Collected: 06/11/2018 Status: F Source: [place]ESSICA 3:58 AM [facility] Order Comment: Comments: PRETESTING FOR HEART CATH Comments: PRETEST FOR HEART CATH TYPE CODE TESTS RESULT OUT OF RANGE REFERENCE UNITS LAB L300.4150 11.7-14.9 SECONDS Normal PROTIME 13.6 LAB L300.4200 Normal INR 1.0 Performed By: #### L300.3900, L300.4310 #### [facility] [address] [place], [address] PARTIAL THROMBOPLAST Collected: 06/11/2018 Status: F Source: JESSICA TIME 3:58 AM [facility] Order Comment: Comments: PRETESTING FOR HEART CATH Comments: PRETEST FOR HEART CATH TYPE CODE TESTS RESULT OUT OF RANGE REFERENCE UNITS LAB L300.4310 24.1-36.2 Seconds Normal PTT 29.0 Performed By: #### L300.3900, L300.4310 #### [facility] [address] [place], [address] BASIC METABOLIC Collected: 06/11/2018 Status: F Source: JESSICA PROFILE (BMP) 3:58 AM [facility] TYPE CODE TESTS RESULT OUT OF RANGE REFERENCE UNITS LAB L501.0100 74-106 mg/dL Normal GLU 96 Result Comment: Please note revised GLUCOSE reference range effective 2017. LAB L501.1000 7-18 mg/dL Normal BUN 9 LAB L501.1100 0.55-1.02 mg/dL Normal CREAT,SERUM 0.61 Result Comment: The validity of the calculated GFR AND GFRAA in patients over 70 years has not been determined. Clinical correlation is essential. LAB L501.1110 >60 mL/min Normal EST GFR 101 Result Comment: Non- GFR Calc LAB L501.1115 >60 mL/min Normal EST GFR - AA 122 Result Comment: GFR Calc LAB L501.1255 ml/min Normal Estimated CRCL 35.55 LAB L501.1300 10-20 RATIO Normal BUN/CRE 14.8 LAB L501.2200 8.5-10 mg/dL Low .1 CA 7.8 LAB L501.5300 136-14 mmol/L Normal 5 NA 145 LAB L501.5600 3.5-5. mmol/L Normal 1 K 3.9 LAB L501.5900 98-107 mmol/L High CL 110 LAB L501.6100 21.0-3 mmol/L Normal 2.0 CO2 25.0 LAB L501.6200 5-15 Normal GAP 10 Performed By: #### L500.2500 #### [facility] [address] [place], [address] URINALYSIS, COMPLETE Collected: 06/11/2018 Status: F Source: JESSICA 3:00 AM [facility] Order Comment: Order Date: 06/11/18 How was Urine Obtained? CLEAN CATCH TYPE CODE TESTS RESULT OUT OF RANGE REFERENCE UNITS LAB L400.3000 Yellow COLOR Normal Yellow LAB L400.3050 Clear Normal CLARITY Clear LAB L400.3200 Normal mg/dl Normal GLUCOSE, UR Normal LAB L400.3300 Negative mg/dL Normal BILIRUBIN URINE Negative LAB L400.3400 Negative mg/dl Normal KETONE UR Negative LAB L400.3465 1.002-1.030 Normal SP.GR. DIPSTX 1.015 LAB L400.3550 5.0 - 8.0 pH UR Normal 6.0 LAB L400.3600 Negative mg/dl PROT Normal DIPSTX Negative LAB L400.3700 Normal mg/dl Normal UROBILI Normal LAB L400.3750 Negative Normal NITRITE UR Negative LAB L400.3780 Negative /ul Normal OCCULT BLOOD-UR Negative LAB L400.3800 Negative /ul High LEUK 25 ESTERASE LAB L400.4050 0-5 /hpf WBC Normal 0-5 SEEN LAB L400.4100 0-5 /hpf 0 Normal RBC-UA SEEN LAB L400.4150 5-10 /hpf SQUAM 0 Normal EPI SEEN LAB L400.4300 None Seen /hpf 0 Normal BACTERIA SEEN LAB L400.4350 <or=2+ /hpf 0 Normal MUCUS, URINE SEEN Performed By: #### L400.0001 #### [facility] [address] [place], [address] CONSULTATION Observed: 06/10/2018 Status: F Source: JESSICA 5:02 PM [facility] Medical Records Department [address] [place] [address] Consultation 06/10/18 1657 MR#: [id number] Acct: [id number] Name: TESSIE FITZPATRICK Rep #: [id number] : 1940 78 From: He Deng MD PCP: Mitch Quiroz MD Status: ADM MIKE Y Location: [place] [address] Reason for Consult Date of Consultation: 06/10/18 Reason for Consultation: Shortness of breath. History of Present Illness: The patient is a 78 year old F with no past medical history other than progressive shortness of breath over the last few months to a year. She says that she knows that she has gained weight in a year but her current shortness of breath is way out of proportion to what she expected to be from just weight gain. She is also had a history of high blood pressure which has not been very well controlled. She underwent stress testing with a stress echocardiogram in November of this year where she performed quite well.. Her ejection fraction was noted to be preserved at rest at 55% and it augmented to 65% without any wall motion abnormalities or EKG changes noted. The test was discontinued due to significant shortness of breath. She presented to the emergency room because she wanted to know what was going on and would not leave the hospital until she had an answer. She denies any dizziness or diaphoresis no near syncope or syncope she has had occasional palpitations. She has been compliant with her medications at home. [] Past Medical History Allergies/Adverse Reactions: Allergies morphine Allergy (Verified 06/10/18 08:38) Anaphylaxis Home Medications: Ambulatory Orders Medication Instructions Recorded Aspirin [Aspirin, Baby] 81 mg PO DAILY@0800 09/26/13 Carvedilol [Coreg (Beta Evi)] 6.25 mg PO BID 09/26/13 Hydrochlorothiazide 12.5 mg PO DAILY 09/26/13 Past Medical History (Chronic Problems): Chronic Problems Carotid artery stenosis (Chronic) HTN (hypertension) (Chronic) Surgical History: hysterectomy Psychiatric History: No pertinent psych hx DUST HANDLER History: No pertinent DUST HANDLER history - *Family History Maternal History Items: Cancer Paternal History Items: Heart Disease - in his 70s Lives: Spouse/ Significant Other Smoking Status: Never smoker Tobacco Use: Non-smoker Alcohol: None Drugs: None Review of Systems - Review of Systems General: Denies: Fever, Night Sweats, Fatigue HEENT: Denies: Vision Change Cardiovascular: Reports: Shortness of Breath, Shortness of Breath with Exertion. Denies: Chest Discomfort, Orthopnea, PND, Peripheral Edema, Palpitations, Lightheadedness, Dizziness, Near Syncope, Syncope Respiratory: Denies: Cough, Sputum Production, Hemoptysis Gastrointestinal: Denies: Hematemesis, Hematochezia, Melena Genitourinary: Denies: Dysuria, Hematuria Muscoloskeletal: Denies: Myalgias Skin: Denies: Rash Neurological: Denies: Dizziness Psychiatric: Reports: Anxiety Endocrine: Denies: Unexplained Weight Loss Hematologic/ Lymphatic: Reports: Lymph Node Enlargement Subjectve: Pleasant lady in no apparent distress Objective: Vital Signs Temp Pulse Resp BP Pulse Ox 97.7 F L 64 16 159/81 H 98 06/10/18 15:28 06/10/18 15:28 06/10/18 15:28 06/10/18 15:28 06/10/18 15:28 Oxygen Delivery Method Room Air Weight: 184 lb 8.43 oz Body Mass Index (BMI) 34.8 Intake and Output for Last 24 Hours Intake Total 50 / 50 Balance 50 / 50 General: Awake, Alert, Oriented x 3 HEENT: PERRL, EOMI, Sclera Non Icteric Neck: Supple, Good ROM, No Lymph Node Enlargement Lungs: Clear to auscultation Cardiovascular: Regular Rhythm, Normal S1, Normal S2, No Murmurs, No Rubs, No Gallops Vascular: No Carotid Bruits, Normal Femoral Pulses, Normal Radial Pulses, Normal Dorsalis Pedal Pulse, Normal Posterior Tibial Pulses Abdomen: Bowel Sounds Present, Soft, Non Tender, No HSM, No Organomegaly Extremities: No Cyanosis, No Clubbing, No edema Musculoskeletal: No Erythema Skin: No Rashes Lymphatic: No Lymph Node Enlargement Neurological: No Focal Motor or Sensory Deficit Psych/Mental Status: Appropriate 06/10/18 09:20: WBC 6.8, RBC 4.78, Hgb 14.5, Hct 43.1, MCV 90.2, MCH 30.3, MCHC 33.6, RDW 12.9, RDW Differential 42.4, Plt Count 235, MPV 9.6, Immature Gran % (Auto) 0.100, Neut % (Auto) 67.8, Lymph % (Auto) 21.1, Emanuel % (Auto) 7.9, Eos % (Auto) 2.5, Baso % (Auto) 0.6, Absolute Neuts (auto) 4.6, Total Counted Not Reportable 06/10/18 09:20: D-Dimer Quant (PE/DVT) 0.69 H* 06/10/18 09:20: Sodium 139, Potassium 4.0, Chloride 106, Carbon Dioxide 26.0, Anion Gap 7, BUN 10, Creatinine 0.69, Est GFR (MDRD) Af Amer 107, Est GFR (MDRD) Non-Af 88, BUN/Creatinine Ratio 14.6, Glucose 103, Calcium 8.6, Troponin I < 0.015 06/10/18 12:20: Troponin I < 0.015 06/10/18 14:54: Troponin I < 0.015 Rhythm: EKG: Normal sinus rhythm with no acute changes rate of 67 bpm is noted ECHO: Stress Test: Cardiac Cath: PCI: CT Surgery: Holter monitor: EPS: PPM: CXR: Chest CT Scan: Assessment/Plan 1. Exertional shortness of breath. * She presents with exertional shortness of breath. The etiology of which is unclear. Her last stress test there was no evidence of ischemia noted at 6 metabolic equivalents which was a borderline workload. Due to her significant concern and the fact that this could be an anginal equivalent it may be prudent for us to obtain a left heart catheterization. The risk benefits alternatives have been explained to her she understands and agrees to proceed. She prefers to have this approach done via the right groin. * Will load with clopidogrel * Scheduled for a.m. 730. * 2. Hypertension * Her blood pressure appears to be not optimally controlled. My recommendation would be to start him on an ISMAEL inhibitor with lisinopril 10 mg twice a day. * Pending on the findings from the cardiac catheterization further recommendations will be made. * * Thank you for allowing me to participate in the care of your patient. Please don't hesitate to call if any issues arise 06/10/18 1702 <Electronically signed by He Deng MD> Date He Deng MD Cosigner Signature (if applicable): Date CC: He Deng MD; Mitch Quiroz MD Signed TROPONIN-I Collected: 06/10/2018 Status: F Source: JESSICA 2:54 PM [facility] Order Comment: 'TROP' Serial specimen #1, #2 or #3: 3 TYPE CODE TESTS RESULT OUT OF RANGE REFERENCE UNITS LAB L501.4010 <0.045 ng/mL Normal < 0.015 TROPONIN-I Result Comment: TROPONIN-I EXPECTED VALUES <0.045 Negative 0.045 - 0.590 Consistent with Cardiac Damage > OR = 0.600 Critical Value Not every elevated troponin is indicative of OR. These values should be used with clinical judgement in examining the patient's clinical picture for diagnosis. To establish a diagnosis of OR versus myocardial injury, there must be a demonstrated rise and/or fall in the troponin values, in addition to ischemic symptoms, EKG changes, new regional wall motion abnormality, and/or angiographical evidence. PLEASE NOTE: REFERENCE RANGES EDITED 17 Performed By: #### L501.4010 #### [facility] [address] [place] [address]. [place], [address] CTA CHEST W/WO Observed: 06/10/2018 Status: F Source: [place]ESSICA CONTRAST 11:28 AM [facility] Imaging Services [address] [place] [address] [place] [address] CTA Chest W/WO Contrast MR#: [id number] Acct: [id number] Name: TESSIE FITZPATRICK Rep #: [id number] : 1940 F 78 From: Neal Castillo DO PCP: Mitch Quiroz MD Status: ADM MIKE Study: CTA Chest W/WO Contrast Date of Exam: 06/10/18 Exam# [id number] Ordering Dr: Cira Garrett MD STUDY: CTA CHEST REASON FOR EXAM: Female, 78 years old. Hypoxia RADIATION DOSAGE (If Supplied By Facility): CTDIvol = ( 15.77 ) mGy, DLP = ( 568.88 ) mGycm TECHNIQUE: The examination was performed with the intravenous administration of 75ML ml of Isovue 370 contrast material. Post-processing of the angiographic images was performed, with multiplanar reformation and 3D reconstruction. Individualized dose optimization techniques were used for this CT. COMPARISON: None. FINDINGS: Normal enhancement of the main pulmonary artery and right and left pulmonary arteries. No evidence of pulmonary embolism. Normal thoracic aorta and visualized great vessels. There is no demonstrated aortic dissection. Normal heart and pericardium. Normal mediastinum. Soft tissue prominence in the right hilar region measuring 2.1 x 1.3 cm as well as another area of soft tissue prominence measuring 1.3 cm. Normal visualized trachea and bronchi. Lungs are adequately inflated. Small amount of scarring or atelectasis seen in both lung bases. No evidence of acute infection, consolidation or effusion. Right lower lobe pulmonary nodule measuring 5.4 mm. Left lower lobe nodule measuring 5.3 mm. Several other left lower lobe and right lower lobe micronodules are noted. Normal pleura. Normal chest wall structures. There are degenerative changes of thoracic spine. Normal visualized upper abdomen. CT/CTA Chest W/WO Contrast IMPRESSION: 1. Negative for pulmonary embolism or thoracic aortic dissection. 2. Lungs are adequately inflated without acute airspace disease. Mild bibasilar atelectasis 3. Nonspecific soft tissue prominence in the right hilar region as well as several pulmonary nodules. Repeat chest CT can be performed in 3-6 months to evaluate for stability. Electronically Signed: Nealsujey Castillo DO at 12:48 EST Tel , Service support , CC: Cira Garrett MD; Mitch Quiroz MD Senior Sales Operations Manager: Signed HISTORY AND PHYSICAL Observed: 06/10/2018 Status: F Source: [place] EXAM 11:16 AM [facility] Medical Records Department [address] [place] [address] History and Physical 06/10/18 1042 MR#: [id number] Acct: [id number] Name: TESSIE FITZPATRICK Rep #: [id number] : 1940 78 From: Cira Garrett MD PCP: Mitch Quiroz MD Status: ADM MIKE Y Location: [place] [address] Problem List (1) Exertional dyspnea Status: Acute (2) Hypothyroidism Status: Acute Qualifiers: Hypothyroidism type: unspecified Qualified Code(s): E03.9 - Hypothyroidism, unspecified (3) Carotid artery stenosis Status: Chronic Qualifiers: Laterality: bilateral Qualified Code(s): I65.23 - Occlusion and stenosis of bilateral carotid arteries (4) Accelerated hypertension Status: Acute History of Present Illness Date of Admission: 06/10/18 Chief Complaint: Exertional dyspnea - on-going for months The patient is a 78 year old F with past medical history of hypothyroidism, complains of exertional dyspnea ongoing for months, recently did a stress echo in November 2017 that was unremarkable. Patient comes in with worsening shortness of breath. Denies any chest pain or dizziness or palpitations along with it. Admits to feeling lightheadedness sometimes with exertion. Denies orthopnea or PND or leg swelling. She has been having heart quivering, that seems to come on and off. 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 Vitals in the ED showed temperature of 90 8.5F, heart rate 64, blood pressure 132/99, respiratory rate was 16, SPO2 93% on room air. Admitting blood work was unremarkable except for elevated d-dimer, which was normal when age-adjusted. Admitting chest x-ray was negative Past Medical History Past Medical History (Chronic Problems): Chronic Problems Carotid artery stenosis (Chronic) HTN (hypertension) (Chronic) Allergies morphine Allergy (Verified 06/10/18 08:38) Anaphylaxis Home Medications: Ambulatory Orders Medication Instructions Recorded Aspirin [Aspirin, Baby] 81 mg PO DAILY@0800 09/26/13 Carvedilol [Coreg (Beta Evi)] 6.25 mg PO BID 09/26/13 Hydrochlorothiazide 12.5 mg PO DAILY 09/26/13 Surgical History: hysterectomy Psychiatric History: No pertinent psych hx DUST HANDLER History: No pertinent DUST HANDLER history Lives: Spouse/ Significant Other Smoking Status: Never smoker Tobacco Use: Non-smoker Alcohol: None Drugs: None - *Family History Maternal History Items: Cancer Paternal History Items: Heart Disease - in his 70s Review of Systems Constitutional: Denies: Anorexia, Chills, Fever, Malaise, Weakness, Weight Change Eyes: Denies: Blurred vision, Cataracts, Conjunctivae Inflammation, Pain, Redness, Vision Change HEENT: Denies: Difficulty Hearing, Difficulty Swallowing, Head Aches, Hearing Changes, Sinus Congestion, Sinus Drainage, Sore Throat Cardiovascular: Denies: Chest Pain, Claudication, Chest Pressure, Orthopnea, Palpitations, Paroxysmal Noc. Dyspnea Respiratory: Reports: Shortness of breath upon exertion. Denies: Cough, Hemoptysis, Shortness of Breath, Shortness of breath at rest, Sputum production, Wheezing Gastrointestinal: Denies: Abdominal Pain, Constipation, Hematemesis, Hematochezia, Nausea, Vomiting Genitourinary: Denies: Dysuria Musculoskeletal: Denies: Joint Pain, Joint stiffness, Joint swelling, Joint Tenderness Skin: Denies: Rash, Wounds Neurological: Denies: Numbness, Tingling, Focal weakness Psychiatric: Denies: Anxiety, Depression, Homicidal Ideations, Suicidal Ideations Hematologic/ Lymphatic: Denies: Easy Bruising, Easy Bleeding VTE Information - Inpt Only VTE Present on Admission: No VTE Pharm Prophylaxis ordered?: Yes Patient Problems: Active and Suspected Problems Exertional dyspnea (Acute) - Physical Exam General: Alert, Oriented x3, Cooperative, No apparent distress HEENT: Atraumatic, PERRLA, EOMI, Normocephalic Oral: Moist Mucosa Neck: Supple, No JVD, Negative Carotid Bruits Lungs: Clear to auscultation, Normal air movement Cardiovascular: Regular rate, Regular Rhythm, Normal S1, Normal S2, No murmurs Abdomen: Bowel Sounds Present, Soft, Non Tender, Non-Distended, No Hepato-splenomegaly Extremities: No edema Skin: No rashes, No breakdown Musculoskeletal: No Tenderness to Palpation of Joints or Extremities Lymphatic: No Cervical, Supraclavicular, or Inguinal Adenopathy Neurological: Cranial nerves II-XII grossly intact, Motor Exam 5/5 strength throughout Psych/Mental Status: Normal Affect, Appropriate Vital Signs Temp Pulse Resp BP Pulse Ox 97.7 F L 70 16 159/77 H 94 06/10/18 08:48 06/10/18 08:48 06/10/18 08:48 06/10/18 08:48 06/10/18 08:48 Oxygen Delivery Method Room Air Weight: 82.554 kg Body Mass Index (BMI) 34.4 Laboratory Tests Past 24 Hrs Assessment/Plan All Active Problems Exertional dyspnea (Acute) Hypothyroidism (Acute) Transient weakness of left leg (Acute) Accelerated hypertension (Acute) 78 year old F with past medical history of hypothyroidism, complains of exertional dyspnea ongoing for months, recent elevations in blood pressure comes in with progressive shortness of breath. 1. Exertional dyspnea, acute on chronic, unclear etiology, no cardiac or respiratory history, recent stress echo has been unremarkable in November 2017 Vitals in the ED showed uncontrolled blood pressure, patient had complained of intermittent palpitations, exertional dyspnea could be related to palpitations/uncontrolled blood pressure/arrhythmias. Patient appears however stable. EKG is unremarkable, troponin x1 is negative Plan: Admit to PCU, trend cardiac enzymes, monitor on telemetry for arrhythmias, cardiology consult - ED consulted and discussed with cardiology. will get CT of the chest with and without contrast to evaluate for interstitial lung disease as patient has history of long exposure to formaldehyde and other fumes. Will need ambulatory oxygen prior to discharge. 2. Elevated d-dimer, within normal limits when age adjusted, continue to monitor patient 3. Hypertensive urgency, blood pressures uncontrolled, continue on home blood pressure medication, add as needed hydralazine 4. Hypothyroidism, on levothyroxine 5. Hyperlipidemia, on statin 6. DVT prophylaxis with Lovenox subcu Code Visit Inpatient E AND M: [id number] Subs Hosp L2 06/10/18 1116 <Electronically signed by Cira Garrett MD> Date Cira Garrett MD Cosigner Signature: Date (if applicable) CC: Cira Garrett MD; Mitch Quiroz MD Signed EMERGENCY DEPARTMENT Observed: 06/10/2018 Status: F Source: [place] SUMMARY 10:38 AM [facility] Medical Records Department [address] [place] [address] Emergency Department Summary 06/10/18 1035 MR#: [id number] Acct: [id number] Name: TESSIE FITZPATRICK Rep #: [id number] : 1940 78 From: Rober Mcclure DO PCP: Mitch Quiroz MD Status: REG ER - ER Visit Summary Date of Service: 06/10/18 Chief Complaint: [Exertional shortness of breath and hypertension] History of Present Illness: The patient is a 78 F [presents the emergency department complaint of elevated blood pressures over the last week. Patient complains of exertional dyspnea with activity and states she can barely get to the top of her steps without feeling very winded and feeling like she is going to pass out. Patient states the shortness of breath with exertion is been going on for months but it is progressively worsening. Patient about 4 months ago had a stress echo that was unremarkable. Patient also has palpitations oftentimes at night and feels like her heart skipping beats although not racing. She has not really been having chest pain per se. Patient concerned because she has parents that have had heart disease requiring open heart surgery.] Physical Examination: [HEENT-PERRLA, EOMI. Cranial nerves II through XII grossly intact. TMs clear. Mucous membranes moist. No adenopathy. Cardiovascular-regular rate and rhythm without murmur or ectopy Lungs-clear to auscultation, chest wall stable without crepitus or subcu emphysema Abdomen-normoactive bowel sounds, soft, nontender, no rebound or rigidity, no peritoneal signs. Extremities-intact 4, normal range of motion, normal pulses, atraumatic] Test Results: [EKG obtained arrival shows sinus rhythm with a ventricular rate of 67 bpm with occasional PACs. CBC with differential is normal. Chemistries normal. Troponin was less than 0.05. D-dimer was elevated 0.69 however when corrected for age it is considered normal. TSH is 1.36. Chest x-ray was normal.] Emergency Department Course and Treatment: [Case was discussed with patient and also with Dr. Deng was on-call for cardiology. At this point it is felt that since patient continued to experience worsening symptoms of exertional dyspnea would be reasonable to obtain a heart catheterization for further evaluation of her coronary arteries.] Treatment Plan: [Admit] Disposition: [Admit] Impression: [Exertional dyspnea/anginal equivalent Hypertension] This note was generated with [employer] dictation software. It may contain incorrect words, spelling, and punctuation that were not noted in review of the chart prior to signing ED Disposition - Plan for ED Patient: Chief Complaint: Hypertension Referrals: Mitch Quiroz MD [Primary Care Provider] - What to do if you have Problems For any increased pain, shortness of breath, bleeding, nausea or vomiting, chest pain, or any unexpected problems, contact your Primary Care Provider. Call [facility] ([phone]) or report to the closest Emergency Room. Call 911 if necessary. 06/10/18 1038 <Electronically signed by Rober Mcclure DO> Date Rober Mcclure DO Cosigner Signature (If Indicated): Date CC: Mitch Quiroz MD CBC W/DIFF, AUTOMATED Collected: 06/10/2018 Status: F Source: [place] 9:20 AM [facility] [place] TYPE CODE TESTS RESULT OUT OF RANGE REFERENCE UNITS LAB L100.1000 4.4-11.0 K/mm3 Normal WBC 6.8 LAB L100.1200 4.2-5.4 M/mm3 Normal RBC 4.78 LAB L100.1300 12.0-15.0 g/dl Normal HGB 14.5 LAB L100.1400 37-47 % Normal HCT 43.1 LAB L100.1500 81-99 fL Normal MCV 90.2 LAB L100.1600 27.0-32.0 pg Normal MCH 30.3 LAB L100.1700 32-36 g/gl Normal MCHC 33.6 LAB L100.1810 11.6-14.6 % Normal RDW CV 12.9 LAB L100.1820 35.1-43.9 fl Normal RDW SD 42.4 LAB L100.1900 150-450 K/mm3 Normal PLT 235 LAB L100.2000 6.2-12.0 fl Normal MPV 9.6 LAB L100.2100 47-70 % Normal NEUT% 67.8 LAB L100.2200 19-41 % Normal LY% 21.1 LAB L100.2300 0-10 % Normal MONO% 7.9 LAB L100.2400 0-5 % Normal EO% 2.5 LAB L100.2500 0-1 % Normal BASO% 0.6 LAB L100.2550 0.0-0.9 % Normal IM GRAN % 0.100 Result Comment: IG% - Immature Granulocytes (promyelocytes, myelocytes and metamyelocytes) > 1% indicates that a LEFT SHIFT is Present. LAB L100.2620 2.0-7.7 X10 3/uL Normal Absolute Neut 4.6 LAB L100.2720 0.83-4.51 X10 3/ul Normal Absolute Lymph 1.44 Performed By: #### L100.0100 #### [facility] Laboratory [address] [place], [place], [id number] BASIC METABOLIC Collected: 06/10/2018 Status: F Source: [place] PROFILE (BMP) 9:20 AM [facility] [place] CODE TESTS RESULT OUT OF RANGE REFERENCE UNITS LAB L501.0100 74-106 mg/dL Normal GLU 103 Result Comment: Fasting Glucose result from 100 to 125 mg/dL suggests IMPAIRED HOMEOSTASIS per A.D.A. criteria. Please note revised GLUCOSE reference range effective 2017. LAB L501.1000 7-18 mg/dL Normal BUN 10 LAB L501.1100 0.55-1.02 mg/dL Normal CREAT,SERUM 0.69 Result Comment: The validity of the calculated GFR AND GFRAA in patients over 70 years has not been determined. Clinical correlation is essential. LAB L501.1110 >60 mL/min Normal EST GFR 88 Result Comment: Non- GFR Calc LAB L501.1115 >60 mL/min Normal EST GFR - AA 107 Result Comment: GFR Calc LAB L501.1255 ml/min Normal Estimated CRCL 35.55 LAB L501.1300 10-20 RATIO Normal BUN/CRE 14.6 LAB L501.2200 8.5-10 mg/dL Normal .1 CA 8.6 LAB L501.5300 136-14 mmol/L Normal 5 NA 139 LAB L501.5600 3.5-5. mmol/L Normal 1 K 4.0 LAB L501.5900 98-107 mmol/L Normal CL 106 LAB L501.6100 21.0-3 mmol/L Normal 2.0 CO2 26.0 LAB L501.6200 5-15 Normal GAP 7 Performed By: #### L500.2500, L501.4010, L501.9520 #### [facility] [address] [place], [place], [id number] TROPONIN-I Collected: 06/10/2018 Status: F Source: [place] 9:20 AM [facility] [place] TYPE CODE TESTS RESULT OUT OF RANGE REFERENCE UNITS LAB L501.4010 <0.045 ng/mL Normal < 0.015 TROPONIN-I Result Comment: TROPONIN-I EXPECTED VALUES <0.045 Negative 0.045 - 0.590 Consistent with Cardiac Damage > OR = 0.600 Critical Value Not every elevated troponin is indicative of OR. These values should be used with clinical judgement in examining the patient's clinical picture for diagnosis. To establish a diagnosis of OR versus myocardial injury, there must be a demonstrated rise and/or fall in the troponin values, in addition to ischemic symptoms, EKG changes, new regional wall motion abnormality, and/or angiographical evidence. PLEASE NOTE: REFERENCE RANGES EDITED 17 Performed By: #### L500.2500, L501.4010, L501.9520 #### [facility] [address] [place], [place], [id number] THYROID STIM HORMONE Collected: 06/10/2018 Status: F Source: [place] (TSH) 9:20 AM [facility] [place] TYPE CODE TESTS RESULT OUT OF RANGE REFERENCE UNITS LAB L501.9520 0.358-3.74 uIU/mL Normal TSH 1.36 Performed By: #### L500.2500, L501.4010, L501.9520 #### [facility] [address] [place], [address] D-DIMER QUANTITATIVE Collected: 06/10/2018 Status: F Source: [place] (DVT/PE) 9:20 AM [facility] [place] TYPE CODE TESTS RESULT OUT OF RANGE REFERENCE UNITS LAB L300.8000 0.27-0.49 FEU/ug/m High alert D-DIMER 0.69 QUANT Result Comment: D-Dimer ELEVATED (>0.49): Additional studies and clinical assessments are indicated to conclude diagnosis of: Deep Vein Thrombosis (DVT) or Pulmonary Embolism (PE) CRITICAL VALUE VERIFIED. CALLED TO CARISA BALDERRAMA 06/10/18 Wil Lu. RESULTS READ BACK BY SAME . Performed By: #### L300.8000 #### [facility] [address] [place], [address] CHEST 1 VIEW Observed: 06/10/2018 Status: F Source: [place] (PORTABLE) 9:02 AM [facility] [place] [facility] Imaging Services [address] [place] [address] Chest 1 View (Portable) MR#: [id number] Acct: [id number] Name: TESSIE FITZPATRICK Rep #: [id number] : 1940 F 78 From: Massimo Darby DO PCP: Mitch Quiroz MD Status: REG ER Study: Chest 1 View (Portable) Date of Exam: 06/10/18 Exam# [id number] Ordering Dr: Rober Mcclure DO STUDY: X-RAY CHEST REASON FOR EXAM: Female, 78 years old. Dyspnea TECHNIQUE: Single frontal view COMPARISON: May 14, 2016 FINDINGS: The lungs are clear and expanded. There is no demonstrated pleural abnormality. Normal size heart. Normal mediastinum and van. Normal visualized pulmonary arteries. Calcified aortic arch and descending thoracic aorta. Normal visualized thoracic spine. Normal visualized ribs, clavicles, and shoulders. There is no demonstrated abnormality of the visualized soft tissue structures of the upper abdomen. RAD/Chest 1 View (Portable) IMPRESSION: Normal x-ray examination of the chest. Electronically Signed: Massimo Darby DO at 9:41 EST Tel [phone], Service support , CC: Rober Mcclure DO; Mitch Quiroz MD Senior Sales Operations Manager: Signed XR CHEST 2V FRONTAL/LAT Observed: 05/29/2018 Status: F Source: [place] 9:49 AM [facility] REPOSITORY * * *Final Report* * * DATE OF EXAM: May 29 2018 9:49AM WOX [id number] - XR CHEST 2V FRONTAL/LAT / PROCEDURE REASON: Dyspnea on exertion * * * * Physician Interpretation * * * * EXAMINATION: CHEST RADIOGRAPH (2 VIEW FRONTAL and LATERAL) CLINICAL HISTORY: Dyspnea on exertion MQ: XC2_5 Comparison: 11/23/2016 RESULT: Lines, tubes, and devices: None. Lungs and pleura: No consolidation. No lung mass. No pleural effusion. Cardiomediastinal silhouette: Normal cardiomediastinal silhouette. IMPRESSION: No acute radiographic abnormality. Senior Sales Operations Manager: PSCB Transcribe Date/Time: May 29 2018 12:59P Dictated by : VAL NORRIS MD This examination was interpreted and the report reviewed and electronically signed by: VAL NORRIS MD on May 29 2018 1:00PM EST [id number] PROGRESS Observed: 05/29/2018 Status: COMPLETED Source: [place] 9:35 AM [facility] REPOSITORY HNO ID: [id number] Author: Tracy Nix (Rt) Shivam Rice Service: (none) Author Type: Card Setter Type: Progress Notes Filed: 05/29/2018 9:49 AM Note Text: Radiology Service Progress Note PATIENT NAME: Tessie Fitzpatrick DATE OF SERVICE: May 29, 2018 TIME: 9:35 AM PATIENT IDENTITY VERIFICATION COMPLETED USING TWO (2) METHODS: Patient confirmed name verbally and Date of . PATIENT GENDER DATA: Female. status: : No status: NO. PATIENT RELEVANT IMPLANT DATA REVIEWED: Not Applicable RADIOLOGY DEPARTMENT: General X-ray: Exam(s) Completed: Chest X-Ray PERIPHERAL IV DATA: Not applicable SIGNED BY: Tracy Rice, May 29, 2018 9:35 AM PROGRESS Observed: 05/29/2018 Status: COMPLETED Source: [place] 9:07 AM [facility] REPOSITORY HNO ID: [id number] Author: Mitch Quiroz Service: (none) Author Type: Physician Type: Progress Notes Filed: 05/29/2018 1:37 PM Note Text: This note was created using [employer]. Subjective Tessie Fitzpatrick is a 78 year old female here for follow up. She continued to not feel well with hoarseness, dry mouth, throat burning. She was seen by ENT last year (record not on file) and there were no findings. She also had worsening dyspnea on exertion and occasional wheezing, and chest tightness. Stress test earlier this year was negative. Her hypertension was not well controlled. Thyroid was supplemented, but she was interested in an endocrinology opinion in [place]. Her lipids were unchanged, even as she resumed atorvastatin 40 mg. ACTIVE PROBLEM LIST Carotid Stenosis, Asymptomatic, Bilateral Hoarseness of Voice Dry Mouth Acquired Hypothyroidism Pure Hypercholesterolemia Chronic Ankle Pain, Bilateral Essential Hypertension Osteopenia Impaired Fasting Blood Sugar Current Outpatient Prescriptions: levothyroxine (SYNTHROID) 50 mcg tablet Take 1 tablet by mouth once daily. Take one tablet daily as directed. carvedilol (COREG) 12.5 mg tablet Take 1 tablet by mouth twice daily. meloxicam (MOBIC) 7.5 mg tablet Take 1 tablet by mouth once daily as needed (joint pain). Take with food. cyanocobalamin (VITAMIN B-12) 500 mcg tab Take 1 tablet by mouth once daily. Cholecalciferol, Vitamin D3, 1,000 unit cap Take 1 capsule by mouth once daily. Over the counter. Aspirin 81 mg Tab Take 81 mg by mouth. amLODIPine (NORVASC) 2.5 mg tablet Take 1 tablet by mouth once daily. rosuvastatin (CRESTOR) 20 mg tablet Take 1 tablet by mouth daily at bedtime. For cholesterol. No current facility-administered medications for this visit. Review of Systems Constitutional: Negative. HENT: Positive for sore throat and voice change. Negative for trouble swallowing. Respiratory: Positive for shortness of breath and wheezing. Negative for cough and chest tightness. Cardiovascular: Negative. Gastrointestinal: Negative. Endocrine: Positive for cold intolerance. Genitourinary: Negative. Neurological: Negative. Objective BP 144/61 (BP Site: Left Arm, BP Position: Sitting, BP Cuff Size: Regular Adult) Pulse 62 Temp (!) 35.9 ?C (96.6 ?F) (Left Tympanic) Resp 16 Wt 82.6 kg (182 lb) BMI 34.39 kg/m? Physical Exam Constitutional: No distress. HENT: Head: Normocephalic. Mouth/Throat: Oropharynx is clear and moist. Eyes: Conjunctivae are normal. Neck: No thyromegaly present. Cardiovascular: Normal heart sounds. Pulmonary/Chest: Effort normal and breath sounds normal. Musculoskeletal: She exhibits no edema. Component Latest Ref Rng AND Units 05/16/2018 Glucose 74 - 99 mg/dL 103 (H) BUN 7 - 21 mg/dL 11 Creatinine 0.58 - 0.96 mg/dL 0.74 Sodium 136 - 144 mmol/L 138 Potassium 3.7 - 5.1 mmol/L 4.5 Chloride 97 - 105 mmol/L 98 CO2 22 - 30 mmol/L 25 Anion Gap 9 - 18 mmol/L 15 Calcium 8.5 - 10.2 mg/dL 9.4 eGFR- >60 eGFR-All Other Races . >60 Cholesterol, Total <200 mg/dL 196 Triglyceride <150 mg/dL 149 HDL Cholesterol >39 mg/dL 47 LDL Cholesterol <100 mg/dL 119 (H) Non HDL Cholesterol <130 mg/dL 149 (H) Fasting Time hrs 12 VLDL Cholesterol <30 mg/dL 30 (H) TC:HDL Ratio <5.10 4.17 LDL:HDL Ratio <2.54 2.53 Hemoglobin A1C 4.3 - 5.6 % 5.5 Estimated Average Glucose mg/dL 111 TSH 0.400 - 5.500 uU/mL 1.720 Assessment and Plan 1. Dyspnea on exertion - ICD9: 786.09, ICD10: R06.09 (primary diagnosis) - XR CHEST 2V FRONTAL/LAT - SPIROMETRY - BASELINE AND POST DILATOR - LUNG VOLUMES - LUNG DIFFUSION CAPACITY (DLCO) 2. Hoarseness of voice - ICD9: 784.42, ICD10: R49.0 Request ENT report. 3. Dry mouth - ICD9: 527.7, ICD10: R68.2 See above. 4. Acquired hypothyroidism - ICD9: 244.9, ICD10: E03.[address] Escobedo. Patient request. - CONSULT TO NON-[facility] FACILITY 5. Essential hypertension - ICD9: 401.9, ICD10: I10 - suboptimal control - Continue current medication(s) - Add amlodipine (Norvasc) - Goal of BP <130/80 - AMLODIPINE 2.5 MG TABLET Discussed medication dosage, usage, goals of therapy, and side effects. 6. Pure hypercholesterolemia - ICD9: 272.0, ICD10: E78.00 - suboptimal control - Begin treatment with rosuvastatin (Crestor) 20 mg - ROSUVASTATIN 20 MG TABLET. Discussed medication dosage, usage, goals of therapy, and side effects. - Discontinue ATORVASTATIN. During this patient visit I have spent approximately 25 minutes out of 40 in counseling regarding treatment options and test results and coordinating care. Mitch Quiroz MD ENT report from received. Examination normal. Dx: hoarseness, hypertrophy of tongue papillae. She was referred by Dr. Clifton at the time. Mitch Quiroz MD CNOV Observed: 05/29/2018 Status: COMPLETED Source: [place] 8:20 AM [facility] REPOSITORY Office Visit (INTMWS) TESSIE FITZPATRICK ([id number]) 1940 F Date Time Provider Department 05/29/18 8:20 AM MITCH QUIROZ INTMWS During your visit today, we recorded the following information about you: Temperature Pulse Respiration Blood pressure 96.6 degrees 62/minute 16/minute 144/61 Weight 82.6 kg Mitch Quiroz MD 05/29/2018 1:37 PM Addendum This note was created using NoteWriter. Subjective Tessie Fitzpatrick is a 78 year old female here for follow up. She continued to not feel well with hoarseness, dry mouth, throat burning. She was seen by ENT last year (record not on file) and there were no findings. She also had worsening dyspnea on exertion and occasional wheezing, and chest tightness. Stress test earlier this year was negative. Her hypertension was not well controlled. Thyroid was supplemented, but she was interested in an endocrinology opinion in [place]. Her lipids were unchanged, even as she resumed atorvastatin 40 mg. ACTIVE PROBLEM LIST Carotid Stenosis, Asymptomatic, Bilateral Hoarseness of Voice Dry Mouth Acquired Hypothyroidism Pure Hypercholesterolemia Chronic Ankle Pain, Bilateral Essential Hypertension Osteopenia Impaired Fasting Blood Sugar Current Outpatient Prescriptions: levothyroxine (SYNTHROID) 50 mcg tablet Take 1 tablet by mouth once daily. Take one tablet daily as directed. carvedilol (COREG) 12.5 mg tablet Take 1 tablet by mouth twice daily. meloxicam (MOBIC) 7.5 mg tablet Take 1 tablet by mouth once daily as needed (joint pain). Take with food. cyanocobalamin (VITAMIN B-12) 500 mcg tab Take 1 tablet by mouth once daily. Cholecalciferol, Vitamin D3, 1,000 unit cap Take 1 capsule by mouth once daily. Over the counter. Aspirin 81 mg Tab Take 81 mg by mouth. amLODIPine (NORVASC) 2.5 mg tablet Take 1 tablet by mouth once daily. rosuvastatin (CRESTOR) 20 mg tablet Take 1 tablet by mouth daily at bedtime. For cholesterol. No current facility-administered medications for this visit. Review of Systems Constitutional: Negative. HENT: Positive for sore throat and voice change. Negative for trouble swallowing. Respiratory: Positive for shortness of breath and wheezing. Negative for cough and chest tightness. Cardiovascular: Negative. Gastrointestinal: Negative. Endocrine: Positive for cold intolerance. Genitourinary: Negative. Neurological: Negative. Objective BP 144/61 (BP Site: Left Arm, BP Position: Sitting, BP Cuff Size: Regular Adult) Pulse 62 Temp (!) 35.9 ?C (96.6 ?F) (Left Tympanic) Resp 16 Wt 82.6 kg (182 lb) BMI 34.39 kg/m? Physical Exam Constitutional: No distress. HENT: Head: Normocephalic. Mouth/Throat: Oropharynx is clear and moist. Eyes: Conjunctivae are normal. Neck: No thyromegaly present. Cardiovascular: Normal heart sounds. Pulmonary/Chest: Effort normal and breath sounds normal. Musculoskeletal: She exhibits no edema. Component Latest Ref Rng AND Units 05/16/2018 Glucose 74 - 99 mg/dL 103 (H) BUN 7 - 21 mg/dL 11 Creatinine 0.58 - 0.96 mg/dL 0.74 Sodium 136 - 144 mmol/L 138 Potassium 3.7 - 5.1 mmol/L 4.5 Chloride 97 - 105 mmol/L 98 CO2 22 - 30 mmol/L 25 Anion Gap 9 - 18 mmol/L 15 Calcium 8.5 - 10.2 mg/dL 9.4 eGFR- >60 eGFR-All Other Races . >60 Cholesterol, Total <200 mg/dL 196 Triglyceride <150 mg/dL 149 HDL Cholesterol >39 mg/dL 47 LDL Cholesterol <100 mg/dL 119 (H) Non HDL Cholesterol <130 mg/dL 149 (H) Fasting Time hrs 12 VLDL Cholesterol <30 mg/dL 30 (H) TC:HDL Ratio <5.10 4.17 LDL:HDL Ratio <2.54 2.53 Hemoglobin A1C 4.3 - 5.6 % 5.5 Estimated Average Glucose mg/dL 111 TSH 0.400 - 5.500 uU/mL 1.720 Assessment and Plan 1. Dyspnea on exertion - ICD9: 786.09, ICD10: R06.09 (primary diagnosis) - XR CHEST 2V FRONTAL/LAT - SPIROMETRY - BASELINE AND POST DILATOR - LUNG VOLUMES - LUNG DIFFUSION CAPACITY (DLCO) 2. Hoarseness of voice - ICD9: 784.42, ICD10: R49.0 Request ENT report. 3. Dry mouth - ICD9: 527.7, ICD10: R68.2 See above. 4. Acquired hypothyroidism - ICD9: 244.9, ICD10: E03.[address] Escobedo. Patient request. - CONSULT TO NON-[facility] FACILITY 5. Essential hypertension - ICD9: 401.9, ICD10: I10 - suboptimal control - Continue current medication(s) - Add amlodipine (Norvasc) - Goal of BP <130/80 - AMLODIPINE 2.5 MG TABLET Discussed medication dosage, usage, goals of therapy, and side effects. 6. Pure hypercholesterolemia - ICD9: 272.0, ICD10: E78.00 - suboptimal control - Begin treatment with rosuvastatin (Crestor) 20 mg - ROSUVASTATIN 20 MG TABLET. Discussed medication dosage, usage, goals of therapy, and side effects. - Discontinue ATORVASTATIN. During this patient visit I have spent approximately 25 minutes out of 40 in counseling regarding treatment options and test results and coordinating care. Mitch Quiroz MD ENT report from received. Examination normal. Dx: hoarseness, hypertrophy of tongue papillae. She was referred by Dr. Clifton at the time. Mitch Quiroz MD Referring Provider: MITCH QUIROZ [[id number]] Allergies As of Date: 05/29/2018 Noted Allergy Reaction CIPROFLOXACIN 08/17/2016 2 - Rash 9 - Itching KEFLEX (CEPHALEXIN) 08/17/2016 14 - Other: See Comments Comments: Caused C-Diff MORPHINE 09/12/2012 14 - Other: See Comments Comments: heart stopped organ failure Date Reviewed: 05/29/2018 Reviewed by: Zaira So LPN - Fully Assessed Reason for Visit: 5 month follow-up [Other] Primary Visit Diagnosis:Dyspnea on exertion [R06.09] Other Visit Diagnoses:Hoarseness of voice [R49.0] Dry mouth [R68.2] Acquired hypothyroidism [E03.9] Essential hypertension [I10] Pure hypercholesterolemia [E78.00] Order(s):XR CHEST 2V FRONTAL/LAT [8063624] Order #: [id number] FUTURE amLODIPine (NORVASC) 2.5 mg tabletTake 1 tablet by mouth once daily.Disp: 30 tabletRfl: 2 SPIROMETRY - BASELINE AND POST DILATOR [1469263] Order #: [id number] FUTURE LUNG VOLUMES [[id number]] Order #: [id number] LUNG DIFFUSION CAPACITY (DLCO) [5634604] Order #: [id number] CONSULT TO NON-[facility] FACILITY [4660659] Order #: [id number] rosuvastatin (CRESTOR) 20 mg tabletTake 1 tablet by mouth daily at bedtime. For cholesterol.Disp: 30 tabletRfl: 2 Prescriptions as of 05/29/2018 Sig: LEVOTHYROXINE 50 MCG TABLET Take 1 tablet by mouth once d* CARVEDILOL 12.5 MG TABLET Take 1 tablet by mouth twice * MELOXICAM 7.5 MG TABLET Take 1 tablet by mouth once d* CYANOCOBALAMIN (VIT B-12) 500* Take 1 tablet by mouth once d* CHOLECALCIFEROL (VITAMIN D3) * Take 1 capsule by mouth once * ASPIRIN 81 MG TABLET Take 81 mg by mouth. 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] INVALID FOR*10/24/2017 Right thyroid nodule [E04.1] INVALID FOR*06/26/2017 Acquired hypothyroidism [E03.9] INVALID FOR* Pure hypercholesterolemia [E78.00] INVALID FOR* Chronic ankle pain, bilateral [M25.571, G89.29,*INVALID FOR* Essential hypertension [I10] INVALID FOR* Vitamin D deficiency [E55.9] INVALID FOR*10/24/2017 Osteopenia [M85.80] INVALID FOR* 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 ROSUVASTATIN 20 MG TABLET 30 t* 2 05/29/2018 Route: ORAL Sig: Take 1 tablet by mouth daily at bedtime. For cholesterol. Disposition: Return in about 6 weeks (around 07/10/2018). Follow-up and Disposition History Recorded Encounter Status:Closed by MITCH QUIROZ MD on 05/29/18 BASIC METABOLIC PANL Collected: 05/16/2018 Status: F Source: [place] 9:00 AM [facility] REPOSITORY TYPE CODE TESTS RESULT OUT OF REFERENCE UNITS RANGE LAB GLU 74-99 mg/dL High Glucose 103 Result Comment: The [place] Diabetes Association (ADA) provides guidance for cutoff values for fasting glucose and random glucose. The ADA defines fasting as no caloric intake for at least 8 hours. Fas ting plasma glucose results between 100 to 125 mg/dL indicate increased risk for diabetes (prediabetes). Fasting plasma glucose results greater than or equal to 126 mg/dL meet the criteria for diagnosis of diabetes. In the absence of unequivocal hyperglycemia, results should be confirmed by repeat testing. In a patient with classic symptoms of hyperglycemia or hyperglycemic crisis, random plasma glucose results greater than or equal to 200 mg/dL meet the criteria for diagnosis of diabetes. Reference: Standards of Medical Care in Diabetes 2016, [place] Diabetes Association. Diabetes Care. 2016.39(Suppl 1). LAB BUN 7-21 mg/dL BUN 11 LAB CRET 0.58-0.96 mg/dL Creatinine 0.74 LAB NA 136-144 mmol/L Sodium 138 LAB K 3.7-5.1 mmol/L Potassium 4.5 LAB CL 97-105 mmol/L Chloride 98 LAB CO2 22-30 mmol/L CO2 25 LAB AGAP 9-18 mmol/L Anion Gap 15 LAB CA 8.5-10.2 mg/dL Calcium, Total 9.4 LAB GFRAA eGFR- Amer. >60 LAB GFRNAA . eGFR-All Other Races >60 Result Comment: eGFR (Estimated GFR) Units of measure: mL/min/1.73 meters squared eGFR is derived from the reexpressed MDRD Study equation using the following parameters: serum creatinine, age, gender and race. The creatinine assay has been calibrated to be traceable to IDMS. An eGFR <60 mL/min/1.73m2 for >3 months is consistent with chronic kidney disease. Refer to KDOQI guidelines for clinical interpretation. In patients with unstable renal function, e.g. those with acute kidney injury, the eGFR may not accurately reflect actual GFR. Performed By: #### BMP, LIPB, TSH, HBA1C #### [facility] [address] [place] [address] LIPID PANEL, BASIC Collected: 05/16/2018 Status: F Source: [place] 9:[address] [facility] REPOSITORY TYPE CODE TESTS RESULT OUT OF REFERENCE UNITS RANGE LAB CHOL <200 mg/dL Cholesterol 196 Result Comment: <200 mg/dL, Desirable 200-239 mg/dL, Borderline high >239 mg/dL, High LAB TRIGLY <150 mg/dL Triglyceride 149 Result Comment: <150 mg/dL, Normal 150-199 mg/dL, Borderline high 200-499 mg/dL, High >499 mg/dL, Very high LAB HDL >39 mg/dL HDL-Cholesterol 47 Result Comment: 40-59 mg/dL, Acceptable >59 mg/dL, High: Negative risk factor for coronary heart disease <40 mg/dL, Low: Positive risk factor for coronary heart disease LAB LDL <100 mg/dL LDL-Cholesterol High 119 Result Comment: <100 mg/dL, Optimal 100-129 mg/dL, Near optimal/above optimal 130-159 mg/dL, Borderline high 160-189 mg/dL, High >189 mg/dL, Very high Secondary prevention optimal LDL Cholesterol levels are recommended to be < 70 mg/dL LAB NONHDL <130 mg/dL Non HDL High Cholesterol 149 Result Comment: <130 mg/dL, Optimal 130-159 mg/dL, Near optimal/above optimal 160-189 mg/dL, Borderline high 190-219 mg/dL, High >219 mg/dL, Very high Secondary prevention optimal non HDL Cholesterol levels are recommended to be < 100 mg/dL LAB FT hrs Fasting Time 12 LAB VLDL <30 mg/dL High VLDL Cholesterol 30 LAB TCHDL <5.10 TC:HDL Ratio 4.17 LAB LDLHDL <2.54 LDL:HDL Ratio 2.53 Result Comment: Reference: 1. National Cholesterol Education Program ATP III Guideline At-A-Glance Quick Desk Reference: National Heart, Lung, and Blood [place]. National Institutes of Health. 2001: NIH Publication No. 01-3305. 2. An International Atherosclerosis Society position paper: global recommendations for the management of dyslipidemia: executive summary, Atherosclerosis. 2014: 232(2):410-413. Performed By: #### BMP, LIPB, TSH, HBA1C #### [facility] [address] [place], [place] [address] TSH Collected: 05/16/2018 Status: F Source: [place] 9:00 AM [facility] REPOSITORY TYPE CODE TESTS RESULT OUT OF RANGE REFERENCE UNITS LAB TSH 0.400-5.500 uU/mL TSH 1.720 Performed By: #### BMP, LIPB, TSH, HBA1C #### [facility] [address] [place], [place] [address] HEMOGLOBIN A1C Collected: 05/16/2018 Status: F Source: [place] 9:00 AM [facility] REPOSITORY TYPE CODE TESTS RESULT OUT OF REFERENCE UNITS RANGE LAB HGBA1C 4.3-5.6 % Hemoglobin A1c 5.5 LAB HBA0 mg/dL Est. Average Glucose 111 Result Comment: eAG: (Estimated average glucose) is a calculated value from HgbA1c and is food products sales representative of the average blood glucose level in the last 2-3 month period. Performed By: #### BMP, LIPB, TSH, HBA1C #### [facility] [address] [place], [place] [address] CNCO Observed: 05/14/2018 Status: COMPLETED Source: [place] 4:38 PM [facility] REPOSITORY HNO ID: [id number] Author: Mammography Coordinator Service: (none) Author Type: Physician Type: Letter Filed: 05/15/2018 11:33 PM Note Text: May 14, 2018 PID: [id number] Tessie Hugo Fitzpatrick [address] [place] [address] Dear Ms. Fitzpatrick, We are pleased to inform you that the results of your recent breast imaging exam on 05/14/2018 are normal. However, because you and/or your physician described a possible abnormality you should consult your physician or other health care provider for further evaluation if necessary. Early detection of cancer is very important. We also understand recommendations regarding breast cancer screening are controversial. Please discuss with your primary care provider which strategy is best for you and whether a mammogram is right for you. Your imaging studies and report will be kept on file at [facility] as part of your permanent medical record and are available for your continuing care. Thank you for allowing us to help in meeting your health care needs. Sincerely, Dr. Ferro Interpreting Radiologist [facility] (Normal-Clinical Evaluation) EVAN SCREENING Observed: 05/14/2018 Status: F Source: [place] 8:58 AM [facility] REPOSITORY * * *Final Report* * * DATE OF EXAM: May 14 2018 8:58AM [facility] [id number] - [facility] SCREENING / PROCEDURE REASON: Encounter for screening mammogram for malignant neoplasm of breast * * * * Physician Interpretation * * * * RESULT: #[id number] - [facility] SCREENING BILATERAL DIGITAL SCREENING MAMMOGRAM WITH CAD: 05/14/2018 HISTORY: /Screening Mammogram - patient reports the following symptoms: diffuse left breast pain. RESULT: TECHNIQUE: The study was acquired using full field digital technology and interpreted from soft copy. Current study was also evaluated with a Computer Aided Detection (CAD). Comparison is made to exams dated: 11/30/2016 mammogram - [facility] and 06/11/2012 mammogram. The tissue of both breasts is predominantly fatty. The parenchymal pattern and appearance of the breasts is unchanged from the prior exams taking into account differences in positioning and technique. There are benign calcifications in both breasts. No significant masses, calcifications, or other findings are seen in either breast. There has been no significant interval change. IMPRESSION: BENIGN FINDING There is no abnormality seen in the left breast to correspond with the diffuse pain, however, clinical followup is recommended. There is no mammographic evidence of malignancy.A 1 year screening mammogram is recommended. Sylvain anderson/martir:05/14/2018 16:38:14 Medical Librarian: Christina MEYERS)(Atif), [facility] letter sent: Normal clinical eval Mammogram BI-RADS: 2 Benign finding Multiple national specialty organizations have released breast cancer screening guidelines for women at average risk for developing breast cancer - guidelines that are based on both evidence and opinion, yet differ on when to start and how often to screen for breast cancer. With representation from Breast Imaging, Internal Medicine, Women's Health, Family Medicine, and Medical/Surgical Oncology, the [facility] has carefully reviewed the data and reached the following consensus: 1) All women should engage in shared decision-making with their providers to decide when to start and how often to screen; 2) All women should have the opportunity to start screening mammography at age 40; 3) For women ages 45-55, we recommend annual screening mammograms; 4) For women ages 55 and over, we support both the transition from an annual to a biennial interval if this aligns more with patient's values and preferences, or continuation with annual screening; 5) All women should discuss with their providers when to stop screening mammograms. Senior Sales Operations Manager: Martir Transcribe Date/Time: May 14 2018 8:23A Dictated by: SYLVAIN FERRO MD This examination was interpreted and the report reviewed and electronically signed by: SYLVAIN FERRO MD on May 14 2018 4:38PM EST [id number] DOWNTIME REPORT Observed: 01/25/2018 Status: F Source: [place] 11:57 AM [facility] [place] [facility] Medical Records Department [address] [place] [address] [place] [address] Downtime Report MR#: [id number] Acct: [id number] Name: TESSIE FITZPATRICK Rep #: [id number] : 1940 77 From: Kevin Tong PCP: Mitch Quiroz MD Status: REG CLI This patient was seen during an EMR downtime January 08, 2018 - January 15, 2018. This patient may have a combination of paper and electronic documentation or all paper documentation. All documentation is viewable within the e-chart portion of [employer] for each patient visit. PROGRESS Observed: 01/20/2018 Status: COMPLETED Source: [place] 8:45 AM [facility] OTHER [facility] REPOSITORY HNO ID: [id number] Author: Binu Wills Service: (none) Author Type: Physician Type: Progress Notes Filed: 01/20/2018 8:48 AM Note Text: This is a very pleasant patient seen back today in ongoing follow-up of her carotid artery disease. In discussion with the patient she has had no signs or symptoms of any TIA or strokelike symptomatology. Specifically she has had no amaurosis fugax arm or leg numbness or weakness any problems with dysphagia or aphasia. She has had no evidence of any type of hemispheric symptomatology from either of her carotid stenoses. She does complain of some hoarseness of her voice but she states that she feels this may be from years of using her voice continuously and that this is not been necessarily a new problem or probably comes or goes it seems to just be a chronic issue. I review with the patient her current ultrasound which really continues to show 50-69% stenosis bilaterally. I instructed her that asymptomatic carotid stenosis at this level is best treated conservatively and confirm that she is on an antiplatelet agent. She states that she is on a statin agent but she can't remember what it is and is not on her medication list. Overall I instructed patient to look for signs and symptoms of stroke or TIA. I tell her should any of these occur it could change our idea as to whether she needs treated or not. I also instructed her that given the degree of her stenosis right now I would only recommend medical therapy and she seems satisfied with this plan. We are going to get a repeat ultrasound of her carotid arteries in approximately 1 year with an office visit to follow here at the [place] office.I spent 15 minutes in the visit, with more than 50% of the total opkt-fp-[id number] time of the visit in counseling / coordination of care. ROWANOV Observed: 01/19/2018 Status: COMPLETED Source: [place] 10:[address] [facility] OTHER [place] REPOSITORY Office Visit (ANIYAHMIL) AMARITESSIE ([id number]) 1940 F Date Time Provider Department 01/19/18 10:15 AM BINU WILLS During your visit today, we recorded the following information about you: Pulse Respiration Blood pressure Weight 80/minute 16/minute 132/70 78.5 kg Height 1.549 m Binu Wills MD 01/20/2018 8:48 AM Signed This is a very pleasant patient seen back today in ongoing follow-up of her carotid artery disease. In discussion with the patient she has had no signs or symptoms of any TIA or strokelike symptomatology. Specifically she has had no amaurosis fugax arm or leg numbness or weakness any problems with dysphagia or aphasia. She has had no evidence of any type of hemispheric symptomatology from either of her carotid stenoses. She does complain of some hoarseness of her voice but she states that she feels this may be from years of using her voice continuously and that this is not been necessarily a new problem or probably comes or goes it seems to just be a chronic issue. I review with the patient her current ultrasound which really continues to show 50-69% stenosis bilaterally. I instructed her that asymptomatic carotid stenosis at this level is best treated conservatively and confirm that she is on an antiplatelet agent. She states that she is on a statin agent but she can't remember what it is and is not on her medication list. Overall I instructed patient to look for signs and symptoms of stroke or TIA. I tell her should any of these occur it could change our idea as to whether she needs treated or not. I also instructed her that given the degree of her stenosis right now I would only recommend medical therapy and she seems satisfied with this plan. We are going to get a repeat ultrasound of her carotid arteries in approximately 1 year with an office visit to follow here at the [place] office.I spent 15 minutes in the visit, with more than 50% of the total vwds-dw-gewn time of the visit in counseling / coordination of care. Referring Provider: MITCH QUIROZ [[id number]] Allergies As of Date: 01/19/2018 Noted Allergy Reaction CIPROFLOXACIN 08/17/2016 2 - Rash 9 - Itching KEFLEX (CEPHALEXIN) 08/17/2016 14 - Other: See Comments Comments: Caused C-Diff MORPHINE 09/12/2012 14 - Other: See Comments Comments: heart stopped organ failure Date Reviewed: 01/19/2018 Reviewed by: Ro Guajardo LPN - Fully Assessed Reason for Visit: Stenosis [1326] Cmt: Tessie is here for 6 month follow up carotid stenosis. Carotid us done 01/15/18 Primary Visit Diagnosis:Carotid stenosis, asymptomatic, bilateral [I65.23] Order(s):US CAROTID ARTERIES [facility] [[id number]] Order #: [id number] FUTURE Prescriptions as of 01/19/2018 Sig: LEVOTHYROXINE 50 MCG TABLET Take 1 tablet by mouth once d* CARVEDILOL 12.5 MG TABLET Take 1 tablet by mouth twice * MELOXICAM 7.5 MG TABLET Take 1 tablet by mouth once d* CYANOCOBALAMIN (VIT B-12) 500* Take 1 tablet by mouth once d* CHOLECALCIFEROL (VITAMIN D3) * Take 1 capsule by mouth once * ASPIRIN 81 MG TABLET Take 81 mg by mouth. 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 Follow-up and Disposition History Recorded Letter Text Encounter Status:Closed by BINU WILLS MD on 01/20/18 CAROTID DUPLEX Observed: 01/17/2018 Status: F Source: [place] [facility] 12:10 PM [facility] [place] Cardiovascular Services [address] [place] [address] Carotid Duplex Ultrasound 01/15/18 1004 MR#: [id number] Acct: [id number] Name: TESSIE FITZPATRICK Rep #: [id number] : 1940 77 From: Joseluis Tee MD Attending Dr: BINU WILLS MD Status: REG CLI Ordering Dr: Binu Wills MD Date: 01/15/18 Location: [facility] Sex: F C Admitted: Reason For Study: Carotid stenosis Rt. Velocities/BP Lt. Velocities/BP Prox CCA 78.0/16.4 cm/sec. Prox CCA 90.3/17.0 cm/sec. Mid CCA 89.7/15.2 cm/sec. Mid CCA 108.0/19.3 cm/sec. Dist CCA 80.9/13.5 cm/sec. Dist CCA 113.0/21.7 cm/sec. Rt Bulb - 393.0/56.1. Prox ICA 197.0/56.0 cm/sec. Prox ICA 160.0/28.5 cm/sec. Mid ICA 164.0/34.4 cm/sec. Mid ICA 95.1/22.0 cm/sec. Dist ICA 144.0/31.4 cm/sec. Dist ICA 93.5/27.5 cm/sec. Lt. ICA/CCA = 1.8. Rt. ICA/CCA = 1.8. Prox ECA 183.0/25.5 cm/sec. Prox ECA 286.0/28.3 cm/sec. Lt. Vert. 59.8/14.1 cm/sec. Rt. Vert. 60.5/14.1 cm/sec. Right Extracranial There is intimal thickening but no significant atherosclerotic plaque noted in the right common carotid artery. There is heterogeneous, irregular atherosclerotic plaque noted in the right internal carotid artery. There is homogeneous, smooth atherosclerotic plaque noted in the right external carotid artery. Antegrade flow is noted in the right vertebral artery. There is heterogeneous, irregular atherosclerotic plaque noted in the right bulb. Left Extracranial There is intimal thickening but no significant atherosclerotic plaque noted in the left common carotid artery. There is heterogeneous, irregular atherosclerotic plaque noted in the left internal carotid artery. There is homogeneous, smooth atherosclerotic plaque noted in the left external carotid artery. Antegrade flow is noted in the left vertebral artery. There is heterogeneous, irregular atherosclerotic plaque noted in the left bulb. Procedure Carotid Duplex [id number]. Exam performed in department. Interpretation Summary Moderate (50-69%) stenosis right extracranial internal carotid. Moderate (50-69%) stenosis left extracranial internal carotid. Flow within the vertebral arteries is antegrade bilaterally. Ordering Physician: BINU WILLS Referring Physician: Mitch Quiroz M.D. Performed By: Nayely Jorge RVT 01/17/18 1209 Date Joseluis Tee MD CC: BINU WILLS MD; Mitch Quiroz MD Date Dictated: 01/15/18 1004 Date Transcribed: 01/17/18 1209 Senior Sales Operations Manager: Signed PROGRESS Observed: 12/28/2017 Status: COMPLETED Source: [place] 9:02 PM [facility] REPOSITORY HNO ID: [id number] Author: Mitch Quiroz Service: (none) Author Type: Physician Type: Progress Notes Filed: 12/29/2017 9:11 AM Note Text: This note was created using [employer]. Subjective Tessie Fitzpatrick is a 77 year old female here for follow up. We stopped levothyroxine due to concern for medication allergy, manifesting as coating of her tongue and hoarseness. When her tongue did not get better, she resumed levothyroxine on her own and stopped the armour thyroid. She then targeted atorvastatin as a possible cause of her tongue condition, so she stopped this on her own. She claimed her tongue was better. She had dyspnea on exertion and had a stress test done at [facility]. Somehow, we did not get that report, so we retrieved results and stress test was normal. Her hypertension was elevated today, but she felt it was from stress regarding her ongoing rash. She had a persistent itchy rash on her left lateral leg for more than one month. She indicated the rash had enlarged to the size of her palm, but was now receeding with topical ointments. She was concerned about Lyme disease since she had plenty of britton and deer around her home, and had found ticks on her clothing before. She did not remove a tick from this rash site. Her mother of multisystem failure and she was concerned it was undiagnosed Lyme's. I had declined Lyme testing over the phone. Review of Systems Constitutional: Negative. HENT: Positive for mouth sores. See HPI. Respiratory: Negative. Cardiovascular: Negative. Gastrointestinal: Negative. Endocrine: Negative. Musculoskeletal: Negative. Skin: Positive for rash. ACTIVE PROBLEM LIST Carotid Stenosis, Asymptomatic, Bilateral Hoarseness of Voice Dry Mouth Acquired Hypothyroidism Pure Hypercholesterolemia Chronic Ankle Pain, Bilateral Essential Hypertension Osteopenia Impaired Fasting Blood Sugar Objective BP 161/67 (BP Site: Left Arm, BP Position: Sitting, BP Cuff Size: Regular Adult) Pulse 77 Temp 36.6 ?C (97.9 ?F) (Left Tympanic) Resp 16 Wt 80.7 kg (178 lb) BMI 32.30 kg/m? Physical Exam Constitutional: No distress. HENT: Mouth/Throat: Oropharynx is clear and moist. Eyes: Conjunctivae are normal. Neck: No thyromegaly present. Cardiovascular: Normal heart sounds. Pulmonary/Chest: Breath sounds normal. Musculoskeletal: She exhibits no edema. Skin: Rash noted. 2 x 3 cm ovoid, eczematoid pigmented rash left lateral distal leg with secondary excoriation. Psychiatric: Her mood appears anxious. TSH (uU/mL) Date Value 12/12/2017 0.126 10/06/2017 1.950 ) Assessment and Plan 1. Rash and nonspecific skin eruption - ICD9: 782.1, ICD10: R21 (primary diagnosis) Limitations, false positives, false negatives of testing were discussed at length. My clinical suspicion was low. Patient still preferred testing for peace of mind. If results are positive, she will need referral to an infection specialist. Patient indicated understanding and willingness to follow recommendations. - LYME AB LATE >30 DAYS SYMPTOMS 2. Essential hypertension - ICD9: 401.9, ICD10: I10 - suboptimal control - Continue current medication(s) - Recheck in a few weeks. No change for now. 3. Acquired hypothyroidism - ICD9: 244.9, ICD10: E03.9 Patient resumed her Synthroid. - LEVOTHYROXINE 50 MCG TABLET - TSH BLD 4. Pure hypercholesterolemia - ICD9: 272.0, ICD10: E78.00 - noncompliance. She stopped statin. Treatment options, benefits, risks, and potential side effects were reviewed and discussed. See printed instructions or information. - LIPID PANEL BASIC 5. Dry mouth - ICD9: 527.7, ICD10: R68.2 See above. She stopped atorvastatin now, looking for some solution. 6. Impaired fasting blood sugar - ICD9: 790.21, ICD10: R73.01 Monitor. - BASIC METABOLIC PNL - HGB A1C Mitch Quiroz MD LYME LATE (>30 Collected: 12/27/2017 Status: F Source: [facility]) 5:19 PM [facility] REPOSITORY TYPE CODE TESTS RESULT OUT OF REFERENCE UNITS RANGE LAB LYMGMX Negative Lyme Negative IgG/IgM AB Result Comment: Absence of detectable Borrelia burgdorferi antibodies. A negative result does not exclude the possibility of Borrelia burgdorferi infection. If early Lyme disease is suspected, a second sample should be collected and tested two to four weeks later. Performed By: #### LMALICIA #### [facility] [address] [place], [place] [address] CNOV Observed: 12/27/2017 Status: COMPLETED Source: [place] 4:00 PM [facility] REPOSITORY Office Visit (INTMWS) TESSIE FITZPATRICK ([id number]) 1940 F Date Time Provider Department 12/27/17 4:00 PM MITCH QUIROZ INTJACLYN During your visit today, we recorded the following information about you: Temperature Pulse Respiration Blood pressure 97.9 degrees 77/minute 16/minute 161/67 Weight 80.7 kg Mitch Quiroz MD 12/27/2017 5:12 PM Signed Your stress test was negative. I recommend resuming your statin to keep your carotid arteries open. Lyme testing has limitations and false positives. Depending on results, you may need to see specialist. Mitch Quiroz MD 12/29/2017 9:11 AM Signed This note was created using [employer]. Subjective Tessie Fitzpatrick is a 77 year old female here for follow up. We stopped levothyroxine due to concern for medication allergy, manifesting as coating of her tongue and hoarseness. When her tongue did not get better, she resumed levothyroxine on her own and stopped the armour thyroid. She then targeted atorvastatin as a possible cause of her tongue condition, so she stopped this on her own. She claimed her tongue was better. She had dyspnea on exertion and had a stress test done at [facility]. Somehow, we did not get that report, so we retrieved results and stress test was normal. Her hypertension was elevated today, but she felt it was from stress regarding her ongoing rash. She had a persistent itchy rash on her left lateral leg for more than one month. She indicated the rash had enlarged to the size of her palm, but was now receeding with topical ointments. She was concerned about Lyme disease since she had plenty of britton and deer around her home, and had found ticks on her clothing before. She did not remove a tick from this rash site. Her mother of multisystem failure and she was concerned it was undiagnosed Lyme's. I had declined Lyme testing over the phone. Review of Systems Constitutional: Negative. HENT: Positive for mouth sores. See HPI. Respiratory: Negative. Cardiovascular: Negative. Gastrointestinal: Negative. Endocrine: Negative. Musculoskeletal: Negative. Skin: Positive for rash. ACTIVE PROBLEM LIST Carotid Stenosis, Asymptomatic, Bilateral Hoarseness of Voice Dry Mouth Acquired Hypothyroidism Pure Hypercholesterolemia Chronic Ankle Pain, Bilateral Essential Hypertension Osteopenia Impaired Fasting Blood Sugar Objective BP 161/67 (BP Site: Left Arm, BP Position: Sitting, BP Cuff Size: Regular Adult) Pulse 77 Temp 36.6 ?C (97.9 ?F) (Left Tympanic) Resp 16 Wt 80.7 kg (178 lb) BMI 32.30 kg/m? Physical Exam Constitutional: No distress. HENT: Mouth/Throat: Oropharynx is clear and moist. Eyes: Conjunctivae are normal. Neck: No thyromegaly present. Cardiovascular: Normal heart sounds. Pulmonary/Chest: Breath sounds normal. Musculoskeletal: She exhibits no edema. Skin: Rash noted. 2 x 3 cm ovoid, eczematoid pigmented rash left lateral distal leg with secondary excoriation. Psychiatric: Her mood appears anxious. TSH (uU/mL) Date Value 12/12/2017 0.126 10/06/2017 1.950 ) Assessment and Plan 1. Rash and nonspecific skin eruption - ICD9: 782.1, ICD10: R21 (primary diagnosis) Limitations, false positives, false negatives of testing were discussed at length. My clinical suspicion was low. Patient still preferred testing for peace of mind. If results are positive, she will need referral to an infection specialist. Patient indicated understanding and willingness to follow recommendations. - LYME AB LATE >30 DAYS SYMPTOMS 2. Essential hypertension - ICD9: 401.9, ICD10: I10 - suboptimal control - Continue current medication(s) - Recheck in a few weeks. No change for now. 3. Acquired hypothyroidism - ICD9: 244.9, ICD10: E03.9 Patient resumed her Synthroid. - LEVOTHYROXINE 50 MCG TABLET - TSH BLD 4. Pure hypercholesterolemia - ICD9: 272.0, ICD10: E78.00 - noncompliance. She stopped statin. Treatment options, benefits, risks, and potential side effects were reviewed and discussed. See printed instructions or information. - LIPID PANEL BASIC 5. Dry mouth - ICD9: 527.7, ICD10: R68.2 See above. She stopped atorvastatin now, looking for some solution. 6. Impaired fasting blood sugar - ICD9: 790.21, ICD10: R73.01 Monitor. - BASIC METABOLIC PNL - HGB A1C Mitch Quiroz MD Referring Provider: MITCH QUIROZ [[id number]] Allergies As of Date: 12/27/2017 Noted Allergy Reaction CIPROFLOXACIN 08/17/2016 2 - Rash 9 - Itching KEFLEX (CEPHALEXIN) 08/17/2016 14 - Other: See Comments Comments: Caused C-Diff MORPHINE 09/12/2012 14 - Other: See Comments Comments: heart stopped organ failure Date Reviewed: 12/27/2017 Reviewed by: Zaira So LPN - Fully Assessed Reason for Visit: 2 month follow-up [Other] Primary Visit Diagnosis:Rash and nonspecific skin eruption [R21] Other Visit Diagnoses:Essential hypertension [I10] Acquired hypothyroidism [E03.9] Pure hypercholesterolemia [E78.00] Dry mouth [R68.2] Impaired fasting blood sugar [R73.01] Order(s):LYME AB LATE >30 DAYS SYMPTOMS [SQLMLATE] Order #: [id number] FUTURE levothyroxine (SYNTHROID) 50 mcg tabletTake 1 tablet by mouth once daily.Disp: Rfl: BASIC METABOLIC PNL [SQBMP] Order #: [id number] FUTURE HGB A1C [MGKCL4K] Order #: [id number] FUTURE LIPID PANEL BASIC [SQLIPB] Order #: [id number] FUTURE TSH BLD [SQTSH] Order #: [id number] FUTURE Prescriptions as of 12/27/2017 Sig: CARVEDILOL 12.5 MG TABLET Take 1 tablet by mouth twice * MELOXICAM 7.5 MG TABLET Take 1 tablet by mouth once d* CYANOCOBALAMIN (VIT B-12) 500* Take 1 tablet by mouth once d* CHOLECALCIFEROL (VITAMIN D3) * Take 1 capsule by mouth once * ASPIRIN 81 MG TABLET Take 81 mg by mouth. 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 I recommend resuming your statin to keep your carotid arteries open. Lyme testing has limitations and false positives. Depending on results, you may need to see specialist. Prescriptions ordered this encounter Disp Refills Start End LEVOTHYROXINE 50 MCG TABLET 12/27/2017 Class: Med Update Route: ORAL Sig: Take 1 tablet by mouth once daily. Medications Discontinued During This Encounter atorvastatin (LIPITOR) 40 mg tablet 90 t* 3 10/24/2017 12/27/2017 Route: ORAL Sig: Take 1 tablet by mouth daily at bedtime. Disc: Discontinued by Patient ARMOUR THYROID 60 mg tab 30 t* 2 10/24/2017 12/27/2017 Cmt: Discontinue levothyroxine. Route: ORAL Sig: Take 1 tablet by mouth once daily. Disc: Discontinued by Patient Disposition: Return in about 5 months (around 05/29/2018), or if symptoms worsen or fail to improve. Follow-up and Disposition History Recorded Encounter Status:Closed by MITCH QUIROZ MD on 12/29/17 PROGRESS Observed: 12/18/2017 Status: COMPLETED Source: [place] 9:[address] [facility] [place] REPOSITORY O ID: [id number] Author: Sudha Alston ([facility]) Service: (none) Author Type: Chiller Hand Type: Progress Notes Filed: 12/18/2017 9:39 AM Note Text: Radiology Service Progress Note PATIENT NAME: Tessie Fitzpatrick DATE OF SERVICE: December 18, 2017 TIME: 9:39 AM PATIENT IDENTITY VERIFICATION COMPLETED USING TWO (2) METHODS: Patient confirmed name verbally and Date of . PATIENT GENDER DATA: Female. status: : No status: N/A PATIENT RELEVANT IMPLANT DATA REVIEWED: Not Applicable RADIOLOGY DEPARTMENT: Ultrasound PERIPHERAL IV DATA: Not applicable SIGNED BY: SUDHA ALSTON RDMS RVSujey December 18, 2017 9:39 AM US THYROID/PARATHYROID Observed: 12/18/2017 Status: F Source: [place] 9:[address] [facility] REPOSITORY * * *Final Report* * * DATE OF EXAM: Dec 18 2017 9:38AM [facility] 1048 - US THYROID/PARATHYROID / PROCEDURE REASON: Nontoxic multinodular goiter * * * * Physician Interpretation * * * * Ultrasound of the thyroid gland History: Follow-up nodules Findings: Right lobe: The dimensions of the lobe are 2.4 x 1.0 x 0.8 cm. Mild heterogeneity with a few small nodules less than 5 mm in diameter. Left lobe: The dimensions of the lobe are 2.9 x 0.8 x 1.0 cm. Mild rectal heterogeneity. There are a few small nodules. The largest is inferior measuring 9 x 7 x 6 mm. Isthmus: unremarkable Images were stored in a permanent archive. IMPRESSION: Nonenlarged thyroid with no definite change from the study of January 2017 Senior Sales Operations Manager: JAREN Transcribe Date/Time: Dec 19 2017 10:45A Dictated by : FANTASMA ALVAREZ MD This examination was interpreted and the report reviewed and electronically signed by: FANTASMA ALVAREZ MD on Dec 19 2017 10:49AM EST [id number] Collected: 12/12/2017 Status: F Source: [place] 8:58 AM [facility] REPOSITORY TYPE CODE TESTS RESULT OUT OF RANGE REFERENCE UNITS LAB ALT 7-38 U/L ALT 14 Performed By: #### ALT, AST, LIPB, FT4, TSH #### [facility] [address] [place], [place] [address] AST Collected: 12/12/2017 Status: F Source: [place] 8:58 AM [facility] REPOSITORY TYPE CODE TESTS RESULT OUT OF RANGE REFERENCE UNITS LAB AST 13-35 U/L AST 28 Performed By: #### ALT, AST, LIPB, FT4, TSH #### [facility] [address] [place], [place] [address] LIPID PANEL, BASIC Collected: 12/12/2017 Status: F Source: [place] 8:[address] [facility] REPOSITORY TYPE CODE TESTS RESULT OUT OF REFERENCE UNITS RANGE LAB CHOL <200 mg/dL Cholesterol 197 Result Comment: <200 mg/dL, Desirable 200-239 mg/dL, Borderline high >239 mg/dL, High LAB TRIGLY <150 mg/dL Triglyceride 134 Result Comment: <150 mg/dL, Normal 150-199 mg/dL, Borderline high 200-499 mg/dL, High >499 mg/dL, Very high LAB HDL >39 mg/dL HDL-Cholesterol 49 Result Comment: 40-59 mg/dL, Acceptable >59 mg/dL, High: Negative risk factor for coronary heart disease <40 mg/dL, Low: Positive risk factor for coronary heart disease LAB LDL <100 mg/dL LDL-Cholesterol High 121 Result Comment: <100 mg/dL, Optimal 100-129 mg/dL, Near optimal/above optimal 130-159 mg/dL, Borderline high 160-189 mg/dL, High >189 mg/dL, Very high Secondary prevention optimal LDL Cholesterol levels are recommended to be < 70 mg/dL LAB NONHDL <130 mg/dL Non HDL High Cholesterol 148 Result Comment: <130 mg/dL, Optimal 130-159 mg/dL, Near optimal/above optimal 160-189 mg/dL, Borderline high 190-219 mg/dL, High >219 mg/dL, Very high Secondary prevention optimal non HDL Cholesterol levels are recommended to be < 100 mg/dL LAB FT hrs Fasting Time 13 LAB VLDL <30 mg/dL VLDL Cholesterol 27 LAB TCHDL <5.10 TC:HDL Ratio 4.02 LAB LDLHDL <2.54 LDL:HDL Ratio 2.47 Result Comment: Reference: 1. National Cholesterol Education Program ATP III Guideline At-A-Glance Quick Desk Reference: National Heart, Lung, and Blood [place]. National Institutes of Health. 2001: NIH Publication No. 01-3305. 2. An International Atherosclerosis Society position paper: global recommendations for the management of dyslipidemia: executive summary, Atherosclerosis. 2014: 232(2):410-413. Performed By: #### ALT, AST, LIPB, FT4, TSH #### [facility] [address] [place], [place] [address] FREE T4 Collected: 12/12/2017 Status: F Source: [place] 8:58 AM [facility] REPOSITORY TYPE CODE TESTS RESULT OUT OF RANGE REFERENCE UNITS LAB FT4 0.9-1.7 ng/dL Free T4 1.1 Performed By: #### ALT, AST, LIPB, FT4, TSH #### [facility] [address] [place], [place] [address] TSH Collected: 12/12/2017 Status: F Source: [place] 8:58 AM [facility] REPOSITORY TYPE CODE TESTS RESULT OUT OF RANGE REFERENCE UNITS LAB TSH 0.400-5.500 uU/mL Low TSH 0.126 Performed By: #### ALT, AST, LIPB, FT4, TSH #### [facility] [address] [place], [place] [address] STRESS TEST ECHO W/O Observed: 11/24/2017 Status: F Source: [place]ESS[place] CONTRAST 3:39 PM [facility] Cardiovascular Services [address] [place] [address] Stress Test Echo w/o Contrast MR#: [id number] Acct: [id number] Name: TESSIE FITZPATRICK Rep #: [id number] : 1940 77 From: Deacon Duke MD Primary Care: Mitch Quiroz MD Status: REG CLI Ordering Dr: Mitch Quiroz MD Sex: F C Reason For Study: YODER Stress Results Protocol: Stress Echocardiogram Maximum Predicted HR: 144 bpm Target HR: 122 bpm% Maximum Pr edicted HR: 91 % DurationHeart Rate Stage (mm:ss) (bpm) BPDos eComment BASELINE 78 148/82 PO 99% CALEB PROTOCOL- STAGE 1 3:00 11 7 140/ 72.00PO 96% CALEB PROTOCOL- STAGE 2 1:00 13 1 / RECOVERY 87 162/ PO 97% Stress Duration: 4:00 mm:ss Maximum Stress HR: 131 bpmM ETS: 6 Baseline Echocardiogram Findings Stress Echo Wall motion Data Resting WMIntermediate WMStress WM Resting Wall Motion Wall Motion Stress All segments Normal. All segments Hyperkinetic. Ejection Fraction 55 %. Ejection Fraction 65 %. Stress Results Heart rate response: appropriate Blood pressure response: normal resting BP - appropriate response Arrhythmias: occasional PACs pretest; frequent PACs during exercise; occasional PACs in recovery; exercise rhythm appearing c/w an ectopic atrial tachycardia (approximately 140 bpm) with spontaneous return to sinus rhythm Functional capacity: decreased Stopped secondary to: dyspnea. EKG Data Baseline ECG: NSR; PACs. Peak exercise ECG: no obvious ECG changes. Symptoms with Stress No c/o chest discomfort during exercise / recovery. 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 REPOSITORY TYPE CODE TESTS RESULT OUT OF REFERENCE UNITS RANGE LAB IFO Negative Immuno Negative FOB Result Comment: This test was developed and its performance characteristics determined by [facility] [place] [facility] It has not been cleared or approved by the FDA. [facility] is regulated under CLIA as qualified to perform high-complexity testing. This test is used for clinical purposes. It should not be regarded as investigational or for research. Performed By: #### IFOBT #### [facility] [address] [place], [place] [address] PROGRESS Observed: 10/24/2017 Status: COMPLETED Source: [place] 9:[address] [facility] REPOSITORY HNO ID: [id number] Author: Mitch Quiroz Service: (none) Author Type: Physician Type: Progress Notes Filed: 10/26/2017 11:44 AM Note Text: This note was created using [employer]. Subjective Tessie Fitzpatrick is a 77 year old female here for follow up. She continued with hoarseness and tongue coating. She was concerned this was some form of allergy to levothyroxine. She had extensive ENT evaluation in [place]. She continued to have itching in intertriginous areas without rash. Her hypertension was controlled. Lipids were improving on low dose statin. Carotid disease was monitored by Dr.Dennis Wills (self referred). ACTIVE PROBLEM LIST Carotid Stenosis, Asymptomatic, Bilateral Hoarseness of Voice Dry Mouth Presbylarynx Acquired Hypothyroidism Pure Hypercholesterolemia Chronic Ankle Pain, Bilateral Essential Hypertension Vitamin D Deficiency Osteopenia Impaired Fasting Blood Sugar Current Outpatient Prescriptions: carvedilol (COREG) 12.5 mg tablet TAKE 1 TABLET BY MOUTH TWICE DAILY. levothyroxine (SYNTHROID) 50 mcg tablet Take 1 tablet by mouth once daily. meloxicam (MOBIC) 7.5 mg tablet Take 1 tablet by mouth once daily as needed (joint pain). Take with food. cyanocobalamin (VITAMIN B-12) 500 mcg tab Take 1 tablet by mouth once daily. Cholecalciferol, Vitamin D3, 1,000 unit cap Take 1 capsule by mouth once daily. Over the counter. hydroCHLOROthiazide (HYDRODIURIL, ESIDRIX) 25 mg tablet Take 0.5 tablets by mouth once daily. atorvastatin (LIPITOR) 10 mg tablet Take 1 tablet by mouth daily at bedtime. Aspirin 81 mg Tab Take 81 mg by mouth. No current facility-administered medications for this visit. Review of Systems Constitutional: Negative. Respiratory: Positive for chest tightness and shortness of breath. Negative for cough, wheezing and stridor. Cardiovascular: Negative. Gastrointestinal: Negative. Endocrine: Negative. Genitourinary: Negative. Musculoskeletal: Positive for arthralgias. Skin: Negative for rash. Neurological: Negative. Psychiatric/Behavioral: Positive for sleep disturbance. Negative for dysphoric mood. The patient is not nervous/anxious. Objective BP 136/80 (BP Site: Left Arm, BP Position: Sitting, BP Cuff Size: Regular Adult) Pulse 64 Temp 36.6 ?C (97.9 ?F) (Left Tympanic) Resp 16 Ht 158.1 cm (5' 2.25) Wt 81.6 kg (180 lb) BMI 32.66 kg/m2 Physical Exam Constitutional: No distress. HENT: Nose: Nose normal. Mouth/Throat: Oropharynx is clear and moist. Eyes: Conjunctivae and EOM are normal. Pupils are equal, round, and reactive to light. Neck: Carotid bruit is not present. No thyromegaly present. Cardiovascular: S1 normal and S2 normal. No extrasystoles are present. Exam reveals no gallop. No murmur heard. Pulmonary/Chest: Breath sounds normal. No respiratory distress. Abdominal: Soft. There is no tenderness. Musculoskeletal: Normal range of motion. She exhibits no edema. Lymphadenopathy: She has no cervical adenopathy. Neurological: She is alert. Coordination normal. Skin: No rash noted. Varicose veins. Psychiatric: She has a normal mood and affect. CMP: Glucose 106 10/06/2017 BUN 14 10/06/2017 Creatinine 0.73 10/06/2017 Sodium 140 10/06/2017 Potassium 4.3 10/06/2017 Chloride 101 10/06/2017 CO2 25 10/06/2017 Protein, Total 7.1 10/06/2017 Albumin 3.9 10/06/2017 Calcium 9.3 10/06/2017 Alkaline Phosphatase 81 10/06/2017 Bilirubin, Total 0.6 10/06/2017 AST 24 10/06/2017 ALT 17 10/06/2017 Hemoglobin A1C (%) Date Value 10/06/2017 5.5 ) Cholesterol, Total (mg/dL) Date Value 10/06/2017 180 08/18/2016 190 HDL Cholesterol (mg/dL) Date Value 10/06/2017 50 08/18/2016 52 LDL Cholesterol (mg/dL) Date Value 10/06/2017 104 08/18/2016 107 Triglyceride (mg/dL) Date Value 10/06/2017 131 08/18/2016 154 EKG RESULTS: normal EKG, normal sinus rhythm Assessment and Plan ASSESSMENT/PLAN: 1. Medicare annual wellness visit, subsequent - ICD9: V70.0, ICD10: Z00.00 (primary diagnosis) See other note. 2. Pure hypercholesterolemia - ICD9: 272.0, ICD10: E78.00 - suboptimal control - Decision aid was used. ACC/AHA estimated 10 year ASCVD risk: 22 %. To reduce risk, heart healthy diet is recommended. Also moderate dose statin therapy recommended. Discussed medication dosage, usage, goals of therapy, and side effects. - ATORVASTATIN 40 MG TABLET. Dose increased. - LIPID PANEL BASIC - ALT/SGPT - AST/SGOT BLD 3. Hoarseness of voice - ICD9: 784.42, ICD10: R49.0 See #7 4. Carotid stenosis, asymptomatic, bilateral - ICD9: , ICD10: I65.23 Monitored. 5. Dry mouth - ICD9: 527.7, ICD10: R68.2 See #7 6. 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 7. Acquired hypothyroidism - ICD9: 244.9, ICD10: E03.9 - Discontinue LEVOTHYROXINE. - ARMOUR THYROID 60 MG TABLET - TSH BLD - T4 FREE/FREE THYROX 8. Essential hypertension - ICD9: 401.9, ICD10: I10 - good control - CARVEDILOL 12.5 MG TABLET 9. Impaired fasting blood sugar - ICD9: 790.21, ICD10: R73.01 Monitor. 10. YODER (dyspnea on exertion) - ICD9: 786.09, ICD10: R06.09 Noted for one year. If abnormal cardiology referral will be needed. - STRESS ECHO TREADMILL 11. Screening for colon cancer - ICD9: V76.51, ICD10: Z12.11 - FECAL OCCULT BLOOD TEST Mitch Quiroz MD PROGRESS Observed: 10/24/2017 Status: COMPLETED Source: [place] 9:06 AM [facility] REPOSITORY HNO ID: [id number] Author: Mitch Quiroz Service: (none) Author Type: Physician Type: Progress Notes Filed: 10/24/2017 10:08 AM Note Text: Medicare Yearly Visit Medical B eligibilty date 02/04/2006 Date of last exam n/a PAST MEDICAL HISTORY Diagnosis Date - Acquired hypothyroidism 08/17/2016 - Bilateral carotid artery stenosis 08/03/2016 - Chronic ankle pain, bilateral 08/17/2016 - Clostridium difficile diarrhea 12/06/2015 - Dry mouth 08/17/2016 - Essential hypertension 08/17/2016 - Hoarseness of voice 08/17/2016 - HTN (hypertension) - Hypothyroid - Impaired fasting blood sugar 08/22/2016 - Mild episode of recurrent major depressive disorder (HCC) 08/17/2016 - Multiple thyroid nodules 04/06/2016 FNA negative left nodule 03/2017 - Osteopenia 08/17/2016 - 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 - FLEXIBLE LARYNGOSCOPY 05/03/2016 negative - HYSTERECTOMY HX 1975 ERICA-BSO - PAST SURGICAL HISTORY OF 1961 excision of cyst Rt breast - STAB PHLEBECTOMY VARICOSE VEINS >20 Bilateral 2012 - THYROID LEFT FINE NEEDLE ASPIRATION Left 03/30/2017 benign Ciprofloxacin; Keflex [Cephalexin]; Morphine Medications reviewed: Yes FAMILY HISTORY Problem Relation Age of Onset - Stroke Father - Hypertension Father - Ischemic Heart Disease Father SOCIAL HISTORY: Social History Marital status: Unknown Spouse name: Years of education: Number of children: 4 Social History Main Topics Smoking status: Never Smoker Smokeless status: Never Used Alcohol use: No Drug use: No Sexual activity: No Social History Narrative Just moved back from [place]. Lives with sonInocencio Kurtz works out regularly 4 times per week with walking and stationary bicycling. She watches her diet for sodium, low fat and low cholesterol generally not very much. List of current specialists seen: None. End of Live Planning discussed including patients advanced directive wishes: Yes I am willing to follow Tessie's advanced directives. Depression screen She in the past two weeks denies having felt down, depressed, hopeless or with little interest or pleasure in doing things. Functional Ability/Safety Screen 1. Was the patient's timed Up and Go test unsteady or longer than 30 seconds? No 2. Does the patient need help with the phone, transportation, shopping,preparing meals, housework, laundry, medications or managing money? No 3. Does your home have rugs in the hallway, lack of grab bars in the bathroom, lack of handrails on the stairs or have poor lighting? No Hearing Evaluation: normal PHYSICAL EXAM BP 136/80 (BP Site: Left Arm, BP Position: Sitting, BP Cuff Size: Regular Adult) Pulse 64 Temp 36.6 ?C (97.9 ?F) (Left Tympanic) Resp 16 Ht 158.1 cm (5' 2.25) Wt 81.6 kg (180 lb) BMI 32.66 kg/m2 Alert and oriented X 3: YES Body mass index is 32.66 kg/(m2). Visual acuity: OD: 20/40 OS: 20/ 70 OU: 20/25 with contacts. ASSESSMENT/PLAN: 77 year old female The following prevention plan was discussed during the office visit and provided to the patient: - Weight Loss - Colorectal Cancer screening needs to be updated. - Mammogram recommended and ordered for November. Mitch Quiroz MD CNOV Observed: 10/24/2017 Status: COMPLETED Source: [place] 8:40 AM [facility] REPOSITORY Office Visit (INTMWS) TESSIE FITZPATRICK ([id number]) 1940 F Date Time Provider Department 10/24/17 8:40 AM MITCH QUIROZ INTMWS During your visit today, we recorded the following information about you: Temperature Pulse Respiration Blood pressure 97.9 degrees 64/minute 16/minute 136/80 Weight Height 81.6 kg 1.581 m Mitch Quiroz MD 10/24/2017 10:08 AM Signed Medicare Yearly Visit Medical B eligibilty date 02/04/2006 Date of last exam n/a PAST MEDICAL HISTORY Diagnosis Date - Acquired hypothyroidism 08/17/2016 - Bilateral carotid artery stenosis 08/03/2016 - Chronic ankle pain, bilateral 08/17/2016 - Clostridium difficile diarrhea 12/06/2015 - Dry mouth 08/17/2016 - Essential hypertension 08/17/2016 - Hoarseness of voice 08/17/2016 - HTN (hypertension) - Hypothyroid - Impaired fasting blood sugar 08/22/2016 - Mild episode of recurrent major depressive disorder (HCC) 08/17/2016 - Multiple thyroid nodules 04/06/2016 FNA negative left nodule 03/2017 - Osteopenia 08/17/2016 - 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 - FLEXIBLE LARYNGOSCOPY 05/03/2016 negative - HYSTERECTOMY HX 1974 ERICA-BSO - PAST SURGICAL HISTORY OF 1961 excision of cyst Rt breast - STAB PHLEBECTOMY VARICOSE VEINS ANDgt;20 Bilateral 2012 - THYROID LEFT FINE NEEDLE ASPIRATION Left 03/30/2017 benign Ciprofloxacin; Keflex [Cephalexin]; Morphine Medications reviewed: Yes FAMILY HISTORY Problem Relation Age of Onset - Stroke Father - Hypertension Father - Ischemic Heart Disease Father SOCIAL HISTORY: Social History Marital status: Unknown Spouse name: Years of education: Number of children: 4 Social History Main Topics Smoking status: Never Smoker Smokeless status: Never Used Alcohol use: No Drug use: No Sexual activity: No Social History Narrative Just moved back from [place]. Lives with son. Tessie works out regularly 4 times per week with walking and stationary bicycling. She watches her diet for sodium, low fat and low cholesterol generally not very much. List of current specialists seen: None. End of Live Planning discussed including patients advanced directive wishes: Yes I am willing to follow Tessie's advanced directives. Depression screen She in the past two weeks denies having felt down, depressed, hopeless or with little interest or pleasure in doing things. Functional Ability/Safety Screen 1. Was the patient's timed Up and Go test unsteady or longer than 30 seconds? No 2. Does the patient need help with the phone, transportation, shopping,preparing meals, housework, laundry, medications or managing money? No 3. Does your home have rugs in the hallway, lack of grab bars in the bathroom, lack of handrails on the stairs or have poor lighting? No Hearing Evaluation: normal PHYSICAL EXAM BP 136/80 (BP Site: Left Arm, BP Position: Sitting, BP Cuff Size: Regular Adult) Pulse 64 Temp 36.6 ?C (97.9 ?F) (Left Tympanic) Resp 16 Ht 158.1 cm (5' 2.25ANDquot;) Wt 81.6 kg (180 lb) BMI 32.66 kg/m2 Alert and oriented X 3: YES Body mass index is 32.66 kg/(m2). Visual acuity: OD: 20/40 OS: 20/ 70 OU: 20/25 with contacts. ASSESSMENT/PLAN: 77 year old female The following prevention plan was discussed during the office visit and provided to the patient: - Weight Loss - Colorectal Cancer screening needs to be updated. - Mammogram recommended and ordered for November. MD Mitch Pham MD 10/26/2017 11:44 AM Addendum This note was created using Note[employer]. Subjective Tessie Fitzpatrick is a 77 year old female here for follow up. She continued with hoarseness and tongue coating. She was concerned this was some form of allergy to levothyroxine. She had extensive ENT evaluation in [place]. She continued to have itching in intertriginous areas without rash. Her hypertension was controlled. Lipids were improving on low dose statin. Carotid disease was monitored by Dr.Dennis Wills (self referred). ACTIVE PROBLEM LIST Carotid Stenosis, Asymptomatic, Bilateral Hoarseness of Voice Dry Mouth Presbylarynx Acquired Hypothyroidism Pure Hypercholesterolemia Chronic Ankle Pain, Bilateral Essential Hypertension Vitamin D Deficiency Osteopenia Impaired Fasting Blood Sugar Current Outpatient Prescriptions: carvedilol (COREG) 12.5 mg tablet TAKE 1 TABLET BY MOUTH TWICE DAILY. levothyroxine (SYNTHROID) 50 mcg tablet Take 1 tablet by mouth once daily. meloxicam (MOBIC) 7.5 mg tablet Take 1 tablet by mouth once daily as needed (joint pain). Take with food. cyanocobalamin (VITAMIN B-12) 500 mcg tab Take 1 tablet by mouth once daily. Cholecalciferol, Vitamin D3, 1,000 unit cap Take 1 capsule by mouth once daily. Over the counter. hydroCHLOROthiazide (HYDRODIURIL, ESIDRIX) 25 mg tablet Take 0.5 tablets by mouth once daily. atorvastatin (LIPITOR) 10 mg tablet Take 1 tablet by mouth daily at bedtime. Aspirin 81 mg Tab Take 81 mg by mouth. No current facility-administered medications for this visit. Review of Systems Constitutional: Negative. Respiratory: Positive for chest tightness and shortness of breath. Negative for cough, wheezing and stridor. Cardiovascular: Negative. Gastrointestinal: Negative. Endocrine: Negative. Genitourinary: Negative. Musculoskeletal: Positive for arthralgias. Skin: Negative for rash. Neurological: Negative. Psychiatric/Behavioral: Positive for sleep disturbance. Negative for dysphoric mood. The patient is not nervous/anxious. Objective BP 136/80 (BP Site: Left Arm, BP Position: Sitting, BP Cuff Size: Regular Adult) Pulse 64 Temp 36.6 ?C (97.9 ?F) (Left Tympanic) Resp 16 Ht 158.1 cm (5' 2.25ANDquot;) Wt 81.6 kg (180 lb) BMI 32.66 kg/m2 Physical Exam Constitutional: No distress. HENT: Nose: Nose normal. Mouth/Throat: Oropharynx is clear and moist. Eyes: Conjunctivae and EOM are normal. Pupils are equal, round, and reactive to light. Neck: Carotid bruit is not present. No thyromegaly present. Cardiovascular: S1 normal and S2 normal. No extrasystoles are present. Exam reveals no gallop. No murmur heard. Pulmonary/Chest: Breath sounds normal. No respiratory distress. Abdominal: Soft. There is no tenderness. Musculoskeletal: Normal range of motion. She exhibits no edema. Lymphadenopathy: She has no cervical adenopathy. Neurological: She is alert. Coordination normal. Skin: No rash noted. Varicose veins. Psychiatric: She has a normal mood and affect. CMP: Glucose 106 10/06/2017 BUN 14 10/06/2017 Creatinine 0.73 10/06/2017 Sodium 140 10/06/2017 Potassium 4.3 10/06/2017 Chloride 101 10/06/2017 CO2 25 10/06/2017 Protein, Total 7.1 10/06/2017 Albumin 3.9 10/06/2017 Calcium 9.3 10/06/2017 Alkaline Phosphatase 81 10/06/2017 Bilirubin, Total 0.6 10/06/2017 AST 24 10/06/2017 ALT 17 10/06/2017 Hemoglobin A1C (%) Date Value 10/06/2017 5.5 ) Cholesterol, Total (mg/dL) Date Value 10/06/2017 180 08/18/2016 190 HDL Cholesterol (mg/dL) Date Value 10/06/2017 50 08/18/2016 52 LDL Cholesterol (mg/dL) Date Value 10/06/2017 104 08/18/2016 107 Triglyceride (mg/dL) Date Value 10/06/2017 131 08/18/2016 154 EKG RESULTS: normal EKG, normal sinus rhythm Assessment and Plan ASSESSMENT/PLAN: 1. Medicare annual wellness visit, subsequent - ICD9: V70.0, ICD10: Z00.00 (primary diagnosis) See other note. 2. Pure hypercholesterolemia - ICD9: 272.0, ICD10: E78.00 - suboptimal control - Decision aid was used. ACC/AHA estimated 10 year ASCVD risk: 22 %. To reduce risk, heart healthy diet is recommended. Also moderate dose statin therapy recommended. Discussed medication dosage, usage, goals of therapy, and side effects. - ATORVASTATIN 40 MG TABLET. Dose increased. - LIPID PANEL BASIC - ALT/SGPT - AST/SGOT BLD 3. Hoarseness of voice - ICD9: 784.42, ICD10: R49.0 See #7 4. Carotid stenosis, asymptomatic, bilateral - ICD9: , ICD10: I65.23 Monitored. 5. Dry mouth - ICD9: 527.7, ICD10: R68.2 See #7 6. 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 7. Acquired hypothyroidism - ICD9: 244.9, ICD10: E03.9 - Discontinue LEVOTHYROXINE. - ARMOUR THYROID 60 MG TABLET - TSH BLD - T4 FREE/FREE THYROX 8. Essential hypertension - ICD9: 401.9, ICD10: I10 - good control - CARVEDILOL 12.5 MG TABLET 9. Impaired fasting blood sugar - ICD9: 790.21, ICD10: R73.01 Monitor. 10. YODER (dyspnea on exertion) - ICD9: 786.09, ICD10: R06.09 Noted for one year. If abnormal cardiology referral will be needed. - STRESS ECHO TREADMILL 11. Screening for colon cancer - ICD9: V76.51, ICD10: Z12.11 - FECAL OCCULT BLOOD TEST MD Zaira Pham LPN 10/24/2017 10:12 AM Signed Addended by: ZARIA SO LPN on: 10/24/2017 10:12 AM Modules accepted: Orders Mitch Quiroz MD 10/26/2017 11:44 AM Signed Addended by: MITCH QUIROZ MD on: 10/26/2017 11:44 AM Modules accepted: Orders Referring Provider: MITCH QUIROZ [[id number]] Allergies As of Date: 10/24/2017 Noted Allergy Reaction CIPROFLOXACIN 08/17/2016 2 - Rash 9 - Itching KEFLEX (CEPHALEXIN) 08/17/2016 14 - Other: See Comments Comments: Caused C-Diff MORPHINE 09/12/2012 14 - Other: See Comments Comments: heart stopped organ failure Date Reviewed: 10/24/2017 Reviewed by: Zaira So LPN - Fully Assessed Reason for Visit: Yearly Exam [187] Primary Visit Diagnosis:Medicare annual wellness visit, subsequent [Z00.00] Other Visit Diagnoses:Pure hypercholesterolemia [E78.00] Hoarseness of voice [R49.0] Carotid stenosis, asymptomatic, bilateral [I65.23] Dry mouth [R68.2] Presbylarynx [J38.7] Acquired hypothyroidism [E03.9] Essential hypertension [I10] Impaired fasting blood sugar [R73.01] YODER (dyspnea on exertion) [R06.09] Screening for colon cancer [Z12.11] Order(s):carvedilol (COREG) 12.5 mg tabletTake 1 tablet by mouth twice daily.Disp: 180 tabletRfl: 3 atorvastatin (LIPITOR) 40 mg tabletTake 1 tablet by mouth daily at bedtime.Disp: 90 tabletRfl: 3 STRESS ECHO TREADMILL [[id number]] Order #: [id number]: 1 FUTURE ARMOUR THYROID 60 mg tabTake 1 tablet by mouth once daily.Disp: 30 tabletRfl: 2 LIPID PANEL BASIC [SQLIPB] Order #: [id number] FUTURE ALT/SGPT [SQALT] Order #: [id number] FUTURE AST/SGOT BLD [SQAST] Order #: [id number] FUTURE TSH BLD [SQTSH] Order #: [id number] FUTURE T4 FREE/FREE THYROX [SQFT4] Order #: [id number] FUTURE ECG COMPLETE W INTERPRETATION [ECG01] Order #: [id number] FUTURE FECAL OCCULT BLOOD TEST [SQIFOBT] Order #: [id number] FUTURE Prescriptions as of 10/24/2017 Sig: CARVEDILOL 12.5 MG TABLET Take 1 tablet by mouth twice * MELOXICAM 7.5 MG TABLET Take 1 tablet by mouth once d* CYANOCOBALAMIN (VIT B-12) 500* Take 1 tablet by mouth once d* CHOLECALCIFEROL (VITAMIN D3) * Take 1 capsule by mouth once * ASPIRIN 81 MG TABLET Take 81 mg by mouth. ATORVASTATIN 40 MG TABLET Take 1 tablet by mouth daily * ARMOUR THYROID 60 MG TABLET Take 1 tablet by mouth once d* Medication notes this encounter CYANOCOBALAMIN (VIT B-12) 500 MCG TABLET >> Zaira So LPN 10/24/2017 8:57 AM >> ZAIRA SO BLANKET WINDER HELPER MonOct 24, 2017 8:57 AM Patient taking 1 tablet once daily. HYDROCHLOROTHIAZIDE 25 MG TABLET >> Zairarowena Tierneyer BLANKET WINDER HELPER 10/24/2017 8:58 AM >> JUDAHZAIRA BLANKET WINDER HELPER MonOct 24, 2017 8:58 AM Patient has not been taking. 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 ATORVASTATIN 40 MG TABLET 90 t* 3 10/24/2017 Route: ORAL Sig: Take 1 tablet by mouth daily at bedtime. ARMOUR THYROID 60 MG TABLET 30 t* 2 10/24/2017 Cmt: Discontinue levothyroxine. Route: ORAL Sig: Take 1 tablet by mouth once daily. Medications Discontinued During This Encounter atorvastatin (LIPITOR) 10 mg tablet 90 t* 1 09/29/2016 10/24/2017 Route: ORAL Sig: Take 1 tablet by mouth daily at bedtime. Disc: Reason for discontinue is not on file. hydroCHLOROthiazide (HYDRODIURIL, ES* 0 01/30/2017 10/24/2017 Class: Med Update Route: ORAL Sig: Take 0.5 tablets by mouth once daily. Disc: Reason for discontinue is not on file. levothyroxine (SYNTHROID) 50 mcg tab* 90 t* 3 04/28/2017 10/24/2017 Route: ORAL Sig: Take 1 tablet by mouth once daily. Disc: Changing Therapy/Dosage Form carvedilol (COREG) 12.5 mg tablet 180 * 1 05/22/2017 10/24/2017 Sig: TAKE 1 TABLET BY MOUTH TWICE DAILY. Disc: Reason for discontinue is not on file. Follow-up and Disposition History Recorded Encounter Status:Closed by MITCH QUIROZ MD on 10/24/17 HEMOGLOBIN A1C Collected: 10/06/2017 Status: F Source: [place] 9:[address] [facility] REPOSITORY TYPE CODE TESTS RESULT OUT OF REFERENCE UNITS RANGE LAB HGBA1C 4.3-5.6 % Hemoglobin A1c 5.5 LAB HBA0 mg/dL Est. Average Glucose 111 Result Comment: eAG: (Estimated average glucose) is a calculated value from HgbA1c and is food products sales representative of the average blood glucose level in the last 2-3 month period. Performed By: #### HBA1C, VITD, CMP, LIPB, TSH #### [facility] [address] [place], [place] [address] VITAMIN D 25 HYDROXY Collected: 10/06/2017 Status: F Source: [place] 9:09 AM [facility] REPOSITORY TYPE CODE TESTS RESULT OUT OF REFERENCE UNITS RANGE LAB VITD 31.0-80.0 ng/mL Vitamin D 25 36.7 Hydroxy Result Comment: Classification of 25 [place] Vitamin D status: Insufficiency/Moderate Deficiency: < or = 30 ng/mL Sufficiency/Optimal Levels: 31 to 80 ng/mL Toxicity: > 100 ng/mL Test performed by chemiluminescent immunoassay. Performed By: #### HBA1C, VITD, CMP, LIPB, TSH #### [facility] [address] [place], [place] [address] COMP METABOLIC PANEL Collected: 10/06/2017 Status: F Source: [place] 9:09 AM [facility] REPOSITORY TYPE CODE TESTS RESULT OUT OF REFERENCE UNITS RANGE LAB TP 6.3-8.0 g/dL Protein, Total 7.1 LAB ALB 3.9-4.9 g/dL Albumin 3.9 LAB CA 8.5-10.2 mg/dL Calcium, Total 9.3 LAB TBIL 0.2-1.3 mg/dL Bilirubin, Total 0.6 LAB ALKP 32-117 U/L Alkaline Phosphatase 81 LAB AST 13-35 U/L AST 24 LAB GLU 74-99 mg/dL Glucose High 106 Result Comment: The [place] Diabetes Association (ADA) provides guidance for cutoff values for fasting glucose and random glucose. The ADA defines fasting as no caloric intake for at least 8 hours. Fas ting plasma glucose results between 100 to 125 mg/dL indicate increased risk for diabetes (prediabetes). Fasting plasma glucose results greater than or equal to 126 mg/dL meet the criteria for diagnosis of diabetes. In the absence of unequivocal hyperglycemia, results should be confirmed by repeat testing. In a patient with classic symptoms of hyperglycemia or hyperglycemic crisis, random plasma glucose results greater than or equal to 200 mg/dL meet the criteria for diagnosis of diabetes. Reference: Standards of Medical Care in Diabetes 2016, [place] Diabetes Association. Diabetes Care. 2016.39(Suppl 1). LAB BUN 7-21 mg/dL BUN 14 LAB CRET 0.58-0.96 mg/dL Creatinine 0.73 LAB NA 136-144 mmol/L Sodium 140 LAB K 3.7-5.1 mmol/L Potassium 4.3 LAB CL 97-105 mmol/L Chloride 101 LAB CO2 22-30 mmol/L CO2 25 LAB AGAP 9-18 mmol/L Anion Gap 14 LAB ALT 7-38 U/L ALT 17 LAB GFRAA eGFR- Amer. >60 LAB GFRNAA . eGFR-All Other Races >60 Result Comment: eGFR (Estimated GFR) Units of measure: mL/min/1.73 meters squared eGFR is derived from the reexpressed MDRD Study equation using the following parameters: serum creatinine, age, gender and race. The creatinine assay has been calibrated to be traceable to IDMS. An eGFR <60 mL/min/1.73m2 for >3 months is consistent with chronic kidney disease. Refer to KDOQI guidelines for clinical interpretation. In patients with unstable renal function, e.g. those with acute kidney injury, the eGFR may not accurately reflect actual GFR. Performed By: #### HBA1C, VITD, CMP, LIPB, TSH #### [facility] [address] [place], [place] [address] LIPID PANEL, BASIC Collected: 10/06/2017 Status: F Source: [place] 9:[address] [facility] REPOSITORY TYPE CODE TESTS RESULT OUT OF REFERENCE UNITS RANGE LAB CHOL <200 mg/dL Cholesterol 180 Result Comment: <200 mg/dL, Desirable 200-239 mg/dL, Borderline high >239 mg/dL, High LAB TRIGLY <150 mg/dL Triglyceride 131 Result Comment: <150 mg/dL, Normal 150-199 mg/dL, Borderline high 200-499 mg/dL, High >499 mg/dL, Very high LAB HDL >39 mg/dL HDL-Cholesterol 50 Result Comment: 40-59 mg/dL, Acceptable >59 mg/dL, High: Negative risk factor for coronary heart disease <40 mg/dL, Low: Positive risk factor for coronary heart disease LAB LDL <100 mg/dL LDL-Cholesterol High 104 Result Comment: <100 mg/dL, Optimal 100-129 mg/dL, Near optimal/above optimal 130-159 mg/dL, Borderline high 160-189 mg/dL, High >189 mg/dL, Very high Secondary prevention optimal LDL Cholesterol levels are recommended to be < 70 mg/dL LAB NONHDL <130 mg/dL Non HDL High Cholesterol 130 Result Comment: <130 mg/dL, Optimal 130-159 mg/dL, Near optimal/above optimal 160-189 mg/dL, Borderline high 190-219 mg/dL, High >219 mg/dL, Very high Secondary prevention optimal non HDL Cholesterol levels are recommended to be < 100 mg/dL LAB FT hrs Fasting Time 14 LAB VLDL <30 mg/dL VLDL Cholesterol 26 LAB TCHDL <5.10 TC:HDL Ratio 3.60 LAB LDLHDL <2.54 LDL:HDL Ratio 2.08 Result Comment: Reference: 1. National Cholesterol Education Program ATP III Guideline At-A-Glance Quick Desk Reference: National Heart, Lung, and Blood [place]. National Institutes of Health. 2001: NIH Publication No. 01-3305. 2. An International Atherosclerosis Society position paper: global recommendations for the management of dyslipidemia: executive summary, Atherosclerosis. 2014: 232(2):410-413. Performed By: #### HBA1C, VITD, CMP, LIPB, TSH #### [facility] [address] [address] TSH Collected: 10/06/2017 Status: F Source: [place] 9:[address] [facility] REPOSITORY TYPE CODE TESTS RESULT OUT OF RANGE REFERENCE UNITS LAB TSH 0.400-5.500 uU/mL TSH 1.950 Performed By: #### HBA1C, VITD, CMP, LIPB, TSH #### [facility] [address] [id number] ALLERGIES ALLERGIES DATE TYPE / NAME / CODE REACTION SEVERITY SOURCE CODE 06/27/2018 Drug Bcciqgw-Dml-Idy nightmare, Unknown Jessica Allergy/41 Reductase insomnia [facility] [id number]( Inhibitor/[id number] [facility]) 5(RXNORM) Repository 06/21/2018 Drug morphine/[id number] Anaphylaxis Unknown Jessica Allergy/41 (RXNORM) Community [id number]([facility]) Repository 08/17/2016 DRUG CIPROFLOXACIN RASH [address] [id number]([facility]) Repository 08/17/2016 DRUG CEPHALEXIN OTHER: SEE [address] Main [id number]([facility]) Repository 09/12/2012 DRUG MORPHINE OTHER: SEE [address] [address] [facility] 1408142(SN [place] [facility]) Repository NG/[id number] CIPROFLOXACIN [facility] 06([facility]) Repository NG/[id number] CEPHALEXIN [facility] 06([facility] [address] [facility]) Repository NG/[id number] MORPHINE [facility] 06([facility] [address] [facility]) Repository ENCOUNTERS ENCOUNTERS ADMIT/DISCHARGE ACCOUNT NUMBER ADMITTING ENCOUNTER LOCATION SOURCE CLASS 07/18/2018 [id number] Ambulatory BMSBuilding: [place] BMS.CF.[facility] Repository 07/18/2018 [id number] [facility] Repository 07/17/2018/07/18/20 [id number] Ambulatory [address] Repository 07/05/2018 [id number] Ambulatory BMSBuilding: [facility] Repository 07/04/2018 [id number] [facility] ding:[facility] Repository 06/27/2018/06/27/20 [id number] Ambulatory BMSBuilding: [place] 18 BMS.[facility] Repository 06/26/2018 [id number] Ambulatory BMSBuilding: Jessica BMS.[facility] Repository 06/21/2018/06/21/20 [id number] Ambulatory BMSBuilding: [place] 18 BMS.[facility] Repository 06/19/2018/06/20/20 [id number] Ambulatory [address] Repository 06/11/2018/06/11/20 [id number] Ambulatory BMSBuilding: [address] Repository 06/10/2018/06/11/20 [id number] [place] Ambulatory [address] ding:[facility] Repository : HYW010Mnq: 1 06/10/2018 [id number] [place] Ambulatory BMSBuilding: [place] BMS.[facility] Repository 06/10/2018 [id number] [place] Ambulatory BMSBuilding: [place] BMS.CF.[facility] Repository 06/10/2018 [id number] [place] Ambulatory BMSBuilding: [place] BMS.CF.[facility] Repository 06/10/2018 [id number] [place] Ambulatory BMSBuilding: [place] BMS.[facility] Repository 06/07/2018/06/07/20 [id number] Ambulatory [address] Main [place] Repository 06/07/2018/06/07/20 [id number] Ambulatory [address] Main [place] Repository 06/07/2018/06/07/20 [id number] Ambulatory [address] [place] Repository 05/29/2018/05/29/20 [id number] Ambulatory [address] [place] Repository 05/29/2018/05/30/20 [id number] Ambulatory [address] Main [place] Repository 05/16/2018/05/16/20 [id number] Ambulatory [address] [place] Repository 05/14/2018/05/14/20 [id number] Ambulatory [address] [place] Repository 01/19/2018/01/20/20 [id number] Ambulatory [address] Other [place] Repository 01/19/2018/01/20/20 [id number] Ambulatory [address] MEDICAL Repository CENTERBuildi ng:AGWM 01/15/2018 [id number] [facility] ding:[facility] Repository 12/27/2017/12/28/19 [id number] Ambulatory [address] [place] Repository 12/27/2017/01/03/20 [id number] Ambulatory [address] Repository 12/18/2017/12/19/19 [id number] Ambulatory [address] [place] Repository 12/12/2017/12/13/19 [id number] Ambulatory [address] [place] Repository 11/24/2017 [id number] [facility] ding[facility] Repository 11/24/2017 [id number] Ambulatory BMSBuilding: [facility] Repository 11/14/[id number] [facility] [place] Repository 10/24/2017/10/25/19 [id number] Ambulatory [address] [place] Repository 10/24/2017/10/26/19 [id number] Ambulatory [address] [place] Repository 10/06/2017/10/07/19 [id number] Ambulatory [address] Repository PAYERS PAYERS ENCOUNTER GUARANTOR PAYER SUBSCRIBER SOURCE 07/18/2018 TESSIE E Primary TESSIE E [place] [id number] CLEAR Insurance:MEDICARE EDWARDSDOB: [facility] PART A BPolicy Number: [id number] [id number] Repository [address]Jhe: (330) Date:2018-07-04 [phone] () 07/18/2018 Secondary TESSIE E [place] Insurance:AARPPolicy EDWARDSDOB: Community Number: [id number] Hospital [id number] Repository Date:6871-13-72[address], [place] [address]RX: 07/18/2018 Tertiary NOT GIVENUNK Jessica Insurance:SELF PAY [facility]: Effective Repository Date:2018-07-18 07/18/2018 TESSIE E Primary TESSIE E Jessica [id number] CLEAR Insurance:MEDICARE EDWARDSDOB: [facility] PART A BPolicy Number: [id number] [id number] Repository [address]Ojx: (330) Date:2018-07-04 [phone] () 07/18/2018 Secondary TESSIE E [place] Insurance:AARPPolicy EDWARDSDOB: Community Number: [id number] Hospital [id number] Repository Date:7190-35-27[address], [place] [address]NN: 07/18/2018 Tertiary NOT GIVENUNK Jessica Insurance:SELF PAY [facility] Hospital Number: Effective Repository Date:2018-07-04 07/05/2018 TESSIE E Primary TESSIE E Jessica [id number] CLEAR Insurance:MEDICARE EDWARDSDOB: [facility] PART A BPolicy Number: [id number] [id number] Repository [address]Ojc: (330) Date:2018-06-21 [phone] () 07/05/2018 Secondary TESSIE E [place] Insurance:AARPPolicy EDWARDSDOB: Community Number: [id number] Hospital [id number] Repository Date:3333-84-32[address], [place] [address]HX: 07/05/2018 Tertiary NOT GIVENUNK [place] Insurance:SELF PAY [facility] Number: Effective Repository Date:2018-07-05 07/04/2018 TESSIE E Primary TESSIE E [place] [id number] CLEAR Insurance:MEDICARE EDWARDSDOB: [facility] PART A BPolicy Number: [id number] [id number] Repository [address]Cdm: (139) Date:2018-06-21 [phone] () 07/04/2018 Secondary TESSIE E [place] Insurance:AARPPolicy EDWARDSDOB: Community Number: [id number] Hospital [id number] Repository Date:0017-88-01[address]QXKAZX[place], [place] [address]RJ: 07/04/2018 Tertiary NOT GIVENUNK [place] Insurance:SELF PAY [facility] Hospital Number: Effective Repository Date:2018-06-21 06/27/2018 TESSIE E Primary TESSIE E [place] [id number] CLEAR Insurance:MEDICARE EDWARDSDOB: [facility] PART A BPolicy Number: [id number] [id number] Repository [address]Qra: (330) Date:2018-06-1387 () 06/27/2018 Secondary TESSIE E [place] Insurance:AARPPolicy EDWARDSDOB: Community Number: [id number] Hospital [id number] Repository Date:8814-05-84[address], [place] [address]SH: 06/27/2018 Tertiary NOT GIVENUNK [place] Insurance:SELF PAY [facility] Hospital Number: Effective Repository Date:2018-06-18 06/26/2018 TESSIE E Primary TESSIE E [place] [id number] CLEAR Insurance:MEDICARE EDWARDSDOB: [facility] BPolicy Number: [id number] [id number] Repository [address]Yiv: (330) Date:2018-06-26 () 06/26/2018 Secondary TESSIE E [place] Insurance:AARPPolicy EDWARDSDOB: Community Number: [id number] Hospital [id number] Repository Date:4007-43-11[address]VDVJFTS, [place] [address]CR: 06/26/2018 Tertiary NOT GIVENUNK Jessica Insurance:SELF PAY [facility] Number: Effective Repository Date:2018-06-26 06/21/2018 TESSIE E Primary TESSIE E [place] [id number] CLEAR Insurance:MEDICARE EDWARDSDOB: [facility] BPolicy Number: [id number] [id number] Repository [address]Kac: (330) Date:2018-06-12 () 06/21/2018 Secondary TESSIE E [place] Insurance:AARPPolicy EDWARDSDOB: Community Number: [id number] Hospital [id number] Repository Date:3510-13-43[address], [place] [address]NQ: 06/21/2018 Tertiary NOT GIVENUNK Jessica Insurance:SELF PAY [facility] Hospital Number: Effective Repository Date:2018-06-12 06/11/2018 TESSIE E Primary TESSIE E Jessica [id number] CLEAR Insurance:MEDICARE EDWARDSDOB: [facility] BPolicy Number: [id number] [id number] Repository [address]Jdq: (330) Date:2018-06-10 () 06/11/2018 Secondary TESSIE E [place] Insurance:AARPPolicy EDWARDSDOB: Community Number: [id number] Hospital [id number] Repository Date:0833-98-42[address], [place] [address]EH: 06/11/2018 Tertiary NOT GIVENUNK [place] Insurance:SELF PAY [facility] Number: Effective Repository Date:2018-06-11 06/10/2018 TESSIE E Primary TESSIE E Jessica [id number] CLEAR Insurance:MEDICARE EDWARDSDOB: Community [facility] PART A BPolicy Number: [id number], [place] [id number] Repository [address]Znu: (330) Date:2018-06-10 () 06/10/2018 Secondary TESSIE E [place] Insurance:AARPPolicy EDWARDSDOB: Community Number: [id number] Hospital [id number] Repository Date:7163-04-19LN [facility] [address]99[address], [place] [address]HO: 06/10/2018 Tertiary NOT GIVENUNK Jessica Insurance:SELF PAY [facility] Number: Effective Repository Date:2018-06-10 06/10/2018 TESSIE E Primary TESSIE E [place] [id number] CLEAR Insurance:MEDICARE EDWARDSDOB: [facility] PART A BPolicy Number: [id number], [place] [id number] Repository [address]Pxt: ([phone]) Date:2018-06-10 () 06/10/2018 Secondary TESSIE E [place] Insurance:AARPPolicy EDWARDSDOB: Community Number: [id number] Hospital [id number] Repository Date:5769-60-74WV [facility] [address], [place] [address]CX: 06/10/2018 Tertiary NOT GIVENUNK Jessica Insurance:SELF PAY [facility] Hospital Number: Effective Repository Date:2018-06-10 06/10/2018 TESSIE E Primary TESSIE E [place] [id number] CLEAR Insurance:MEDICARE EDWARDSDOB: [facility] PART A BPolicy Number: [id number], [place] [id number] Repository [address]Ppb: (330) Date:2018-06-10 () 06/10/2018 Secondary TESSIE E [place] Insurance:AARPPolicy EDWARDSDOB: Community Number: [id number] Hospital [id number] Repository Date:1657-99-30[address]IRLF, [place] [address]DI: 06/10/2018 Tertiary NOT GIVENUNK Jessica Insurance:SELF PAY [facility] Number: Effective Repository Date:2018-06-10 06/10/2018 TESSIE E Primary TESSIE E [place] [id number] CLEAR Insurance:MEDICARE EDWARDSDOB: [facility] PART A BPolicy Number: [id number], [place] [id number] Repository [address]Kzp: (397) Date:2018-06-108 () 06/10/2018 Secondary TESSIE E [place] Insurance:AARPPolicy EDWARDSDOB: Community Number: [id number] Hospital [id number] Repository Date:9203-71-98[address], [place] [address]GF: 06/10/2018 Tertiary NOT GIVENUNK Jessica Insurance:SELF PAY [facility] Number: Effective Repository Date:2018-06-10 06/10/2018 TESSIE E Primary TESSIE E [place] [id number] CLEAR Insurance:MEDICARE EDWARDSDOB: [facility] PART A BPolicy Number: [id number], [place] [id number] Repository [address]Nnk: (195) Date:2018-06-1087 () 06/10/2018 Secondary TESSIE E [place] Insurance:AARPPolicy EDWARDSDOB: Community Number: [id number] Hospital [id number] Repository Date:3000-18-66JJ [address]GZEDUFL, [place] [address]DP: 06/10/2018 Tertiary NOT GIVENUNK Jessica Insurance:SELF PAY [facility] Effective Repository Date:2018-06-10 01/19/2018 TESSIE Primary TESSIE [facility] EDWARDSDOB: Insurance:MEDICARE A EDWARDSDOB: [facility] [id number] AND BPolicy Number: [id number] Repository [facility] [id number] [place], [place] Date: [address]Lht: (HP) 01/19/2018 Secondary TESSIE [facility] Insurance:[facility] AARP EDWARDSDOB: Health System SUPPLEMENTPolicy [id number] Repository Number: [id number] Date: 01/15/2018 Tessie E Primary Tessie E [place] [id number] Clear Insurance:MEDICARE EdwardsDOB: [facility] PART A BPolicy [place]: [id number] [id number] Repository [address]Yuf: [phone]) Date:2017-12-11 [phone] (HP) 01/15/2018 Secondary Tessie E Jessica Insurance:AARPPolicy EdwardsDOB: Community Number: [id number] Hospital [id number] Repository Date:[id number], [place] [address]JF: 01/15/2018 Tertiary NOT GIVENUNK Jessica Insurance:SELF PAY [facility] Hospital Number: Effective Repository Date:2017-12-11 11/24/2017 Tessie E Primary Tessie E [place] [id number] Clear Insurance:MEDICARE EdwardsDOB: [facility] PART A BPolicy Number: [id number] [id number] Repository [address]Xog: [phone]) Date:2017-10-25 [phone] (HP) 11/24/2017 Secondary Tessie E Jessica Insurance:AARPPolicy EdwardsDOB: Community Number: [id number] Hospital [id number] Repository Date:[id number], [place] [address]SD: 11/24/2017 Tertiary NOT GIVENUNK [place] Insurance:SELF PAY [facility] Hospital Number: Effective Repository Date:2017-10-25 11/24/2017 Tessie E Primary Tessie E Jessica [id number] Clear Insurance:MEDICARE EdwardsDOB: [facility] PART A BPolicy Number: [id number], [place] [id number] Repository [address]: (330) Date:2017-10-25 [phone] (HP) 11/24/2017 Secondary Tessie E [place] Insurance:AARPPolicy EdwardsDOB: Community Number: [id number] Hospital [id number] Repository Date:[id number] [address], [place] [address]GM: 11/24/2017 Tertiary NOT GIVENUNK Jessica Insurance:SELF PAY [facility] Number: Effective Repository Date:2017-11-24
== END ==
PROVIDERS: Family Provider Internal Medicine; PCP Internal Medicine; Referring Provider Internal Medicine Critical Care Medicine; Visit Provider Internal Medicine Critical Care Medicine
DX: R06.09 Other forms of dyspnea (principal)
CPT/HCPCS: 94618

== ENCOUNTER → 2018-07-18 08:50 | Outpatient (CLI) | payer MEDICARE, OTHER, SELFPAY ==
[2018-06-27 14:24] VITALS: BMI 33.6
--- NOTE | 2018-07-18 08:52 | ECHOD_ITS ---
Reason For Study: DYSPNEA/SOB Procedure This was a 2D Doppler, Color Flow transthoracic echocardiogram. Exam performed in department. Left Ventricle Normal LV size. Left ventricular systolic function is normal. The estimated ejection fraction is 55 %. Stage 1 diastolic dysfunction. No regional wall motion abnormalities noted. Right Ventricle Normal RV size. Normal systolic function. Atria The left atrium is mildly enlarged. Normal right atrium. Mitral Valve Normal mitral valve. Mild (1+) eccentric mitral valve insufficiency. Tricuspid Valve Normal tricuspid valve. Mild tricuspid valve insufficiency. Pulmonary artery systolic pressure is 34 mmHg. Aortic Valve Normal aortic valve. Trisinus/trileaflet aortic valve. Pulmonic Valve Normal pulmonic valve. Great Vessels Normal aortic root. The pulmonary artery is normal size. Normal inferior vena cava. Pericardium/Pleural No pericardial effusion. MMode/2D Measurements & Calculations LVIDd: 3.7 cm IVSd: 0.92 cm Ao root diam: 2.7 cm LVIDs: 2.8 cm LVPWd: 0.87 cm RVDd: 3.2 cm FS: 26.4 % LAV(MOD-bp): 65.6 ml LA A4 area: 19.9 cm2 LA dimension(2D): 4.1 cm LAV(MOD-bp) Indexed: 36.8 ml/m2 LAV(MOD-sp2): 61.9 ml LAV(MOD-sp4): 61.9 ml RA A4 area: 13.1 cm2 Time Measurements MV dec time: 0.22 sec Doppler Measurements & Calculations MV E max roosevelt: 54.4 cm/sec Lat Peak E' Roosevelt: 10.6 cm/sec Med Peak E' Roosevelt: 6.9 cm/sec MV A max roosevelt: 67.8 cm/sec E/E' lat: 5.1 E/E' med: 7.9 MV E/A: 0.80 Ao V2 max: 106.0 cm/sec LV V1 max: 84.3 cm/sec PA V2 max: 76.2 cm/sec Ao max P.5 mmHg LV V1 max P.8 mmHg TR max roosevelt: 274.4 cm/sec TR max P.2 mmHg Interpretation Summary Normal LV size. Left ventricular systolic function is normal. The estimated ejection fraction is 55 %. Stage 1 diastolic dysfunction. Mild (1+) eccentric mitral valve insufficiency. Mild tricuspid valve insufficiency. Ordering Physician: Leeroy Oliver D.O. Referring Physician: Mitch Castaneda Performed By: Camila Gutierrez, JEFF, RVT
--- OUTSIDE RECORDS SUMMARY | 2018-09-03 04:35 | XMS RPT_ITS ---
:1940 Author Organization OHIP Support Name Relationship Address Phone FANTASMA FITZPATRICK Unavailable [address] + [place] [address] DAWSON, HOLLI Unavailable .1 + [place] [address] R Unavailable Unavailable Unavailable AMARI FANTASMA Unavailable [address] + [place] [address] DAWSON, HOLLI Unavailable .1 + [place] [address] R Unavailable Unavailable Unavailable FANTASMA FITZPATRICK Unavailable [address] + [place] [address] FOX HOLLI Unavailable Unavailable + R Unavailable Unavailable Unavailable AMARI FANTASMA Unavailable [address] + [place] [address] DAWSON, HOLLI Unavailable .1 + [place] [address] R Unavailable Unavailable Unavailable FANTASMA FITZPATRICK Unavailable [address] + [place] [address] FOX, HOLLI Unavailable Unavailable + R Unavailable Unavailable Unavailable FANTASMA FITZPATRICK Unavailable [address] + [place] [address] Dawosn, Holli Unavailable . + [place] [address] R Unavailable Unavailable Unavailable FANTASMA FITZPATRICK Unavailable [address] + [place] [address] Dawson, Holli Unavailable . + [place] [address] R Unavailable Unavailable Unavailable FANTASMA FITZPATRICK Unavailable [address] + [place] [address] R Unavailable Unavailable Unavailable AFNTASMA FITZPATRICK Unavailable [address] + [place] [address] Holli Dawson Unavailable . + [place] [address] R Unavailable Unavailable Unavailable FANTASMA FITZPATRICK Unavailable [address] + [place] [address] R Unavailable Unavailable Unavailable FANTASMA FITZPATRICK Unavailable [address] + [place] [address] R Unavailable Unavailable Unavailable FANTASMA FITZPATRICK Unavailable [address] + [place] [address] R Unavailable Unavailable Unavailable FANTASMA FITZPATRICK Unavailable [address] + [place] [address] R Unavailable Unavailable Unavailable FANTASMA FITZPATRICK Unavailable [address] + [place] [address] R Unavailable Unavailable Unavailable FANTASMA FITZPATRICK Unavailable [address] [place] [address] R Unavailable Unavailable Unavailable FANTASMA FITZPATRICK Unavailable [address] [place] [address] R Unavailable Unavailable Unavailable FANTASMA FITZPATRICK Unavailable [address] [place] [address] R Unavailable Unavailable Unavailable Care Team Providers Name Role Phone IshLizandro bolanosril Attending Unavailable Leeroy Oliver D.O. Referring Unavailable Mitch Quiroz Primary Care Unavailable Leeroy Oliver D.O. Consulting Unavailable Mitch Quiroz Attending Unavailable Mitch Quiroz Referring Unavailable Leonel, Mitch Primary Care Unavailable Deacon Duke Attending Unavailable Caleb Post Attending Unavailable Leeroy Oliver D.O. Referring Unavailable Nela Duncan Attending Unavailable Mitch Quiroz Referring Unavailable BINU WILLS Attending Unavailable BINU WILLS Referring Unavailable Leonel, Mitch Primary Care Unavailable Leonel, Mitch Primary Care Unavailable Paintsil, [place] Admitting Unavailable Ish, He Consulting Unavailable Siria Madera Attending Unavailable Paintsil, [place] Admitting Unavailable Paintsil, [place] Attending Unavailable Leonel, Mitch Primary Care Unavailable Paintsil, [place] Consulting Unavailable Paintsil, [place] Admitting Unavailable Ish, [place] Attending Unavailable Mitch Quiroz Primary Care Unavailable Ish, [place] Consulting Unavailable Paintsil, [place] Consulting Unavailable Paintsil, [place] Admitting Unavailable Ish, He Attending Unavailable Quiroz, Mitch Primary Care Unavailable Ish, [place] Consulting Unavailable Koram, Siria Allyssa Consulting Unavailable Paintsil, [place] Admitting Unavailable Koram, Siria Allyssa Attending Unavailable Quiroz, Mitch Primary Care Unavailable Ish, He Consulting Unavailable Koram, Siria Allyssa Consulting Unavailable Leeroy Oliver D.O. Attending Unavailable Quiroz, Mitch Referring Unavailable Beckie Barba Attending Unavailable Ish, He Attending Unavailable Quiroz, Mitch Referring Unavailable Ish, [place] Attending Unavailable Paintsil, [place] Referring Unavailable Leeroy Oliver D.O. Attending Unavailable Leeroy Oliver D.O. Referring Unavailable Quiroz, Mitch Primary Care Unavailable Leeroy Oliver D.O. Attending Unavailable Leeroy Oliver D.O. Referring Unavailable Quiroz, Mitch Primary Care Unavailable QUIROZ, MITCH Fung Referring Unavailable QUIROZ, MITCH Fung Attending Unavailable QUIROZ, MITCH Fung Referring Unavailable QUIROZ, MITCH Fung Referring Unavailable QUIROZ, MITCH Fung Referring Unavailable QUIROZ, MITCH Fung Referring Unavailable TRELL CHÁVEZ Referring Unavailable QUIROZ, MITCH Fung Attending Unavailable QUIROZ, MITCH Fung Referring Unavailable QUIROZ, MITCH Fung Referring Unavailable OLDERGERRI (LOG MANAGER) Referring Unavailable QUIROZ, MITCH Fung Referring Unavailable QUIROZ, MITCH Fung Attending Unavailable QUIROZ, MITCH Fung Referring Unavailable QUIROZ, MITCH Fung Referring Unavailable QUIROZ, MITCH Fung Referring Unavailable QUIROZ, MITCH Fung Referring Unavailable QUIROZ, MITCH Fung Referring Unavailable OLDER, GERRI (LOG MANAGER) Attending Unavailable QUIROZ, MITCH Fung Referring Unavailable QUIROZ, MITCH Fung Attending Unavailable QUIROZ, MITCH Fung Referring Unavailable BINU WILLS Attending Unavailable QUIROZ, MITCH Fung Referring Unavailable BINU WILLS Attending Unavailable Leonel BRANDON, Mitch Referring Unavailable Leonel BRANDON, Mitch Primary Care Unavailable PROBLEMS PROBLEMS DATE TYPE CONDITION / CODE ATTENDING STATUS SOURCE 07/25/2018 Unknown R91.8 - Other Duncan, Active [place] nonspecific abnormal [facility] field / Repository R91.8(ICD-10) 07/20/2018 Unknown R06.09 - Other forms Caleb Post Active [place] of dyspnea / Community R06.09(ICD-10) Hospital Repository 06/27/2018 Unknown I10 - Essential Ish, He Active [place] (primary) Community hypertension / Hospital I10(ICD-10) Repository 06/27/2018 Unknown E78.5 - Ish, [place] Active [place] Hyperlipidemia, Community unspecified / Hospital E78.5(ICD-10) Repository 06/19/2018 Active Unknown / OLDER, GERRI Active [place] UNK(Unknown) (LOG MANAGER) Clinic Main [place] Repository 07/02/2018 Unknown I25.10 - Ish, [place] Active [place] Atherosclerotic Community heart disease of Hospital [place] coronary Repository artery without angina pectoris / I25.10(ICD-10) 05/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 [facility] 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 / [place] Z79.899(ICD-10) Repository 05/14/2018 Active Encounter for Active [place] screening mammogram Clinic Main for malignant [place] neoplasm of breast / Repository Z12.31(ICD-10) 01/19/2018 Active Occlusion and BINU WILLS Active [place] stenosis of [facility] Other bilateral carotid [place] arteries / Repository I65.23(ICD-10) 01/19/2018 Admitting Unknown / BINU WILLS Active [facility] diagnosis UNK(Unknown) [facility] Repository 01/31/2018 Unknown I65.23 - Occlusion BINU WILLS Active [place] and stenosis of [facility] bilateral carotid Hospital arteries / Repository I65.23(ICD-10) 12/27/2017 Active Rash and other NA Active [place] nonspecific skin Clinic Main eruption / [place] R21(ICD-10) Repository 12/18/2017 Active Nontoxic NA Active [place] multinodular goiter Clinic Main / E04.2(ICD-10) [place] Repository 11/14/2017 Active Encounter for Active [place] screening for Clinic [facility] malignant neoplasm [place] of colon / Repository Z12.11(ICD-10) 10/24/2017 Active Other forms of NA Active [place] dyspnea / Clinic Main R06.09(ICD-10) [place] Repository 08/22/2016 Active Impaired fasting NA Active [place] glucose / Clinic Main R73.01(ICD-10) [place] Repository 08/17/2016 Active Vitamin D NA Active [place] deficiency, Clinic Main unspecified / [place] E55.9(ICD-10) Repository 08/17/2016 Active Pure NA Active [place] hypercholesterolemia Clinic Main , unspecified / [place] E78.00(ICD-10) Repository 08/17/2016 Active Hypothyroidism, NA Active [place] unspecified / Clinic Main E03.9(ICD-10) [place] Repository PROCEDURES PROCEDURES No Procedure Records FoundRESULTS RESULTS PULMONARY VISIT REPORT Observed: 07/25/2018 Status: F Source: [place] 3:37 PM [facility] REPOSITORY [facility] [address] [place] [address] OFFICE VISIT Date of Service: 07/25/18 MR#: [id number] Acct: [id number] Name: TESSIE FITZPATRICK Rep #: [id number] : 1940 Provider: Nela Duncan Age/Sex: 78/F [place] [facility] [place] Status: Signed Assessment AND Plan 1. Pulmonary hypertension I27.20 Plan New. Providing the patient education on pulmonary hypertension diet. Have ruled out the need for supplemental oxygen with ambulation. Follow-up with Dr. Oliver in 3 months. Contact the office with any new or worsening symptoms in the meantime. 2. Pulmonary nodules R91.[address] of the chest to evaluate nodule in 3 months. Follow- up with Dr. Oliver in 3 months to discuss test results and continue to develop a plan. Orders Orders: Plan Detail Follow Up 3 Months (DMB) HPI 1 M FU: Chief Complaint: Mild cough HPI Comments Details: This patient presents the office today to follow-up on her shortness of breath and cough, as well as to review recent test results. She is ambulatory and currently in room air. She has not been seen in the ED or urgent care for respiratory illnesses since her last office visit. She has not required any antibiotics or prednisone for any breathing problems. She is not currently on any rescue inhalers, nor maintenance inhalers. She was recently started on lisinopril and shortly after noticed a dry cough, states that it is mild and not bothersome. She states that her blood pressure is now under control and she is happy with that, does not want to adjust her medications in case of losing control of her blood pressure. Her shortness of breath has improved since her last office visit. She denies any shortness of breath at rest or conversation in the shortness of breath on exertion is not as bothersome. She denies any sputum production or hemoptysis. She is not experience any wheezing, chest tightness, chest pain or palpitations. She denies any fever, chills or body aches. Walking oximetry preformed on July 04, 2018 shows the patient was able to ambulate 1382 feet over the course of 6 minutes, she did not desaturate and does not currently require supplemental oxygen with ambulation. Echocardiogram completed on July 18, 2018 shows an estimated EF of 55% with stage I diastolic dysfunction and pulmonary artery systolic pressures estimated to be 34 mmHg. Intake Vital Signs07/25/18 Height 5 ft 1 in 07/25/18 Weight: 179 lb Intake Visit Reasons: 1 M FU Rewriter Required: No Accompanied by: Self Is patient in pain?: No Allergies morphine Allergy (Verified 07/25/18 06:19) Anaphylaxis Joczcjd-Zjh-Rqi Reductase Inhibitor Adverse Reaction (Verified 07/25/18 06:19) nightmare, insomnia Medications Aspirin [Aspirin, Baby] 81 mg PO DAILY@0800 09/26/13 [History Confirmed 07/25/18] Hydrochlorothiazide 12.5 mg PO DAILY 09/26/13 [History Confirmed 07/25/18] Levothyroxine [Synthroid] 50 mcg PO DAILY 09/26/13 [History Confirmed 07/25/18] amlodipine 5 mg tablet 5 mg PO DAILY #90 tab 06/27/18 [Rx Confirmed 07/25/18] lisinopril 20 mg tablet 20 mg PO DAILY #90 tab 06/27/18 [Rx Confirmed 07/25/18] COUNTS INCLUDE 234 BEDS AT THE [facility] Medical History Atherosclerosis of coronary artery of [place] 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) Hyperlipidemia (Chronic) Essential (primary) hypertension (Chronic) Carotid artery stenosis (Chronic) Depression (Chronic) Hypothyroidism (Chronic) Obesity (Chronic) Thyroid nodule (Chronic) Accelerated hypertension (Inactive) Transient weakness of left leg (Inactive) Surgical History H/O: hysterectomy (Resolved) History of left heart catheterization (Resolved 06/11/18) History of lumpectomy of right breast (Resolved) [...] EETM Ear Nose Throat Mouth: Positive hearing normal; negative hard of hearing, hoarseness, dry mouth in morning, change in vision, [...] Resp Respiratory: Positive as per HPI and cough cough: Positive non-productive; negative shortness of breath, pain with cough, wheezing, chest congestion, chest tightness, pain on inspiration, inhalers, increase [...] conversant, cooperative, in no acute respiratory distress, healthy appearing, well developed, well nourished and good hygiene Head Head: Positive normocephalic and atraumatic; negative cyanosis of lips/distal nose Eyes Eye: Positive clear conjunctiva; negative nystagmus or scleral abnormality Ears Ear: Positive hearing normal and external ears normal; negative hard of hearing Nose Nose: Positive external nose normal and no nasal discharge; negative epistaxis Mouth Mouth: Positive oral mucosae normal, no lesions, dentures and posterior oropharynx is adequate; negative post nasal drip, malodorous breath or oral thrush present Mallampati Score: I: Mallampati Score Neck Neck: Positive normal visual inspection, full ROM and trachea midline; negative lymphadenopathy, JVD or tender Chest Wall Chest: Positive normal inspection of the chest and symmetric chest movement; negative increased A/P diameter Resp lung sounds: Positive clear to auscultation, good air exchange, normal expiratory time and normal respiratory effort; negative diminished, wheezes, rhonchi, rales, dullness to percussion or wheeze present on forced exhalation Cardio Cardiac: Positive regular rate, regular rhythm, S1 normal and S2 normal; negative murmur GI GI: Positive normal to inspection; negative distended Genitourinary: Positive deferred Musc Musculoskeletal: Positive steady gait and ROM normal; negative kyphosis or scoliosis Skin Pulmonary Skin Exam: Positive intact; negative rash or dermal atrophy Pulses Pulse: Yes pulses normal x4 extremities Extremities Extremities: Yes capillary refill normal, No clubbing, No cyanosis, No edema Neuro Neurologic: Yes conversant, Yes no focal neuro deficits, Yes normal concentration, Yes understands questions, Yes cooperative, Yes normal cognition, Yes normal coordination, No tremor Lymph Lymphatic: No lymphadenopathy, No tenderness, No cervical adenopathy Psych Appearance: Positive grossly normal, eye contact and well kempt Mental Status: Positive mental status grossly normal Mood: Positive congruent mood Affect: Positive normal affect Coding Level of Care Code Off vis,est,level 4 Diagnoses Pulmonary hypertension I27.20 Pulmonary nodules R91.8 07/25/18 1537 <Electronically signed by Nela STARR> Date Nela PITTSC Cosigner Signature: Date (if applicable) CC: Mitch Quiroz MD ECHOCARDIOGRAM COMPLETE Observed: 07/18/2018 Status: F Source: [place] 5:21 PM [facility] REPOSITORY [facility] Cardiovascular Services [address] [place] [address] Echo Complete 07/18/18903 MR#: [id number] Acct: [id number] Name: TESSIE FITZPATRICK Rep #: [id number] : 1940 78 From: He Deng MD Attending Dr: Leeroy Oliver D.O. Status: REG CLI Ordering Dr: Leeroy Oliver DO Date: 07/18/18 Location: [facility] Sex: F C Admitted: Reason For Study: [...] LV V1 max P.8 mmHg TR max ozey: 274.4 cm/sec TR max P.2 mmHg Interpretation Summary Normal LV size. Left ventricular systolic function is normal. The estimated ejection fraction is 55 %. Stage 1 diastolic dysfunction. Mild (1+) eccentric mitral valve insufficiency. Mild tricuspid valve insufficiency. Ordering Physician: Leeroy Oliver D.O. Referring Physician: Mitch Quiroz Performed By: Camila Gutierrez, JEFF, RVT 07/18/18 172 Date eH Deng MD CC: Leeroy Oliver D.O.; Mitch Quiroz MD Date Dictated: 07/18/18 0904 Date Transcribed: 07/18/181720 Geometry Professor: Signed PROGRESS Observed: 07/17/2018 Status: COMPLETED Source: [place] 8:58 AM [facility] REPOSITORY [facility] ID: [id number] Author: Mitch Quiroz Service: (none) Author Type: Physician Type: Progress Notes Filed: 07/17/2018 9:03 AM Note Text: This note was created using Henableriter. Subjective Tessie Fitzpatrick was admitted for dyspnea [...] Improved. Continue weight loss. 3. Atherosclerosis of [place] coronary artery of [place] heart without angina pectoris - ICD9: 414.01, ICD10: I25.10 Mild, non obstructive. Follow up with cardiology. 4. Pure hypercholesterolemia - ICD9: 272.0, ICD10: E78.00 - noncompliance - Patient refused statin medication. I advised statins are effective for primary prevention of CV disease. Mitch Quiroz MD CNOV Observed: 07/17/2018 Status: COMPLETED Source: [place] 8:00 AM [facility] [place] REPOSITORY Office Visit (INTMWS) TESSIE FITZPATRICK ([id number]) 1940 F Date Time Provider Department 07/17/18 8:00 AM MITCH QUIROZ During your visit today, we recorded the following information about you: Temperature Pulse Respiration Blood pressure 97.5 degrees 103/minute 20/minute 130/62 Weight 78.9 kg Mitch Quiroz MD 07/17/2018 9:03 AM Signed This note was created using Henableriter. Subjective Tessie Fitzpatrick was admitted for dyspnea [...] Improved. Continue weight loss. 3. Atherosclerosis of [place] coronary artery of [place] heart without angina pectoris - ICD9: 414.01, ICD10: I25.10 Mild, non obstructive. Follow up with cardiology. 4. Pure hypercholesterolemia - ICD9: 272.0, ICD10: E78.00 - noncompliance - Patient refused statin medication. I advised statins are effective for primary prevention of CV disease. Mitch Quiroz MD Referring Provider: MITCH QUIROZ [[id number]] Allergies As of Date: 07/17/2018 Noted Allergy Reaction CIPROFLOXACIN 08/17/2016 2 - Rash 9 - Itching KEFLEX (CEPHALEXIN) 08/17/2016 14 - Other: See Comments Comments: Caused C-Diff MORPHINE 09/12/2012 14 - Other: See Comments Comments: heart stopped organ failure Date Reviewed: 07/17/2018 Reviewed by: Zaira oS LPN - Fully Assessed Reason for Visit: 6 week follow-up [Other] Primary Visit Diagnosis:Essential hypertension [I10] Other Visit Diagnoses:Obesity, Class I, BMI 30-34.9 [E66.9] Atherosclerosis of [place] coronary artery of [place] heart without angina pectoris [I25.10] Pure hypercholesterolemia [...] WALK TEST Observed: 07/06/2018 Status: F Source: [place] 5:45 AM [facility] REPOSITORY [facility] Pulmonary Services/Neurology [address] [id number] MR#: [id number] Acct: [id number] Name: TESSIE FITZPATRICK Rep #: [id number] : 1940 78 From: Caleb Post MD Referring Dr: Leeroy Oliver D.O. Date: Ordering Dr: Sex: F C Location: PSN PSN 6 Minute Walk Test - 6 Minute Walk Test 6 Minute Walk Test: 6 Minute Walk Test PSN:6-Minute Walk Test Start: 07/04/18 11:23 Freq: Status: Active Protocol: RESP.6MINW Document 07/04/18 11:26 SFENTON (Rec: 07/04/18 11:30 SFENTON [id number]) 6 Minute Walk Test Date Performed 07/04/18 [...] Dictated: 07/05/18 1025 Date Transcribed: 07/05/18 1025 Geometry Professor: Caleb Post Signed CARDIOLOGY VISIT Observed: 06/27/2018 Status: F Source: [place] REPORT 2:42 PM [facility] REPOSITORY [facility] [address] [place] [address] [address] [place] [address] OFFICE VISIT Date of Service: 06/27/18 MR#: [id number] Acct: [id number] Name: TESSIE FITZPATRICK Edilberto Rep #: [id number] : 1940 Provider: He Dneg MD Age/Sex: 78/F [place] [facility] [place] Status: Signed HPI HPI Chief Complaint: Follow [...] Intake Visit Reasons: DC 11-5 (NEW to [facility]) Allergies morphine Allergy (Verified 06/21/18 10:03) Anaphylaxis Crmeesh-Gua-Qzm Reductase Inhibitor Adverse Reaction (Verified 06/27/18 14:27) [...] DAILY #90 tab 06/27/18 [Rx Confirmed 06/27/18] COUNTS INCLUDE 234 BEDS AT THE [facility] Medical History Atherosclerosis of coronary artery of [place] 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) Hyperlipidemia (Chronic) [...] Plan 1. Atherosclerosis of coronary artery of [place] heart without angina pectoris I25.10 non obstructive CAD per [facility] 06/2018 Plan She does have mild atherosclerotic [...] 4 Diagnoses Atherosclerosis of coronary artery of [place] heart without angina pectoris I25.10 Essential (primary) hypertension I10 Hyperlipidemia E78.5 Coding Level of Care Code Off vis,est,level 4 Diagnoses Atherosclerosis of coronary artery of [place] heart without angina pectoris I25.10 Essential (primary) hypertension I10 Hyperlipidemia E78.5 06/27/18 1442 <Electronically signed by He Deng MD> Date He Deng MD Cosigner Signature: Date (if applicable) CC: Mitch Quiroz MD PULMONARY VISIT REPORT Observed: 06/21/2018 Status: F Source: [place] 10:45 AM [facility] REPOSITORY [facility] [address] [place] [address] OFFICE VISIT Date of Service: 06/21/18 MR#: [id number] Acct: [id number] Name: TESSIE FITZPATRICK Rep #: [id number] : 1940 Provider: Leeroy Oliver D.O. Age/Sex: 78/F [place] [facility] [place] Status: Signed Assessment AND Plan 1. Exertional [...] encouraged. Plan Detail Follow Up 1 Month ([facility]) HPI HPI Comments Details: The patient is [...] testing completed in June 2018 through the [facility] and revealed normal spirometry with a significant bronchodilator response. Lung volumes and DLCO were normal. The patient reports that she moved back from [place] to [place] approximately 1.5 years ago. Since that time, [...] Intake Visit Reasons: Hospital F/U, Exertional Dyspnea Rewriter Required: No Accompanied by: Self Is patient [...] MD PROGRESS Observed: 06/19/2018 Status: COMPLETED Source: [place] 9:35 AM [facility] REPOSITORY [facility] ID: [id number] Author: Gerri Silverman Service: (none) Author Type: Nurse Practitioner Type: Progress Notes Filed: 06/19/2018 10:09 AM Note Text: Message left for pt to return call to a nurse to review TCM note. Please complete. Pt was discharges 06/11/18. She needs hospital follow up with pcp's EXHIBIT ELECTRICIAN. TRANSITION CARE MANAGEMENT (TCM) INITIAL CONTACT [employer]er Driver Outreach ? Provider Action/FYI: Spoke with patient and she does have problem with walking outside she gets SOB. Her leg feel heavy and can't breath. Testing has been okay. This has been going on for her x 1 year. She is concerned it has to do with blood flow. Will keep [facility] follow up apt. ? ? ? Initial contact with patient post discharge, spoke to patient. Patient identified by name and . ? TRANSITION CARE MANAGEMENT INITIAL OUTREACH DOCUMENTATION: Date of Outreach: 06/12/2018 Outreach Attempt 1: (No Data) Date of Discharge 06/11/2018 Some recent data might be hidden ? ? SUMMARY: -Pt discharged from [facility] on 06/11/18. -Admitted for: High Blood pressure [...] Yes ? Medical records from recent hospitalization: [facility] Provider Documentation: In follow-up of hospitalization, Tessie [...] as cause of SOB - Follow-up with special needs teacher as scheduled. Given copy of PFT's to take with her to appointment - Follow-up with PCP in one month as scheduled or sooner as needed 2. Essential hypertension - ICD9: 401.9, ICD10: I10 - good control - Continue current medication(s) - Recommend home blood pressure monitoring, to bring results in on next visit - Follow-up with product responsibility liaison as scheduled - CARVEDILOL 12.5 MG TABLET 3. Heart palpitations - ICD9: 785.1, ICD10: R00.2 Resolved. Cartographic Aide as above I have reviewed the patient?s last hospital course including diagnostic testing performed during this hospitalization, their discharge medications, and my assessment and plan with the patient and any family members present at today?s visit. AIME ChristiansenOV Observed: 06/19/2018 Status: COMPLETED Source: [place] 9:20 AM [facility] REPOSITORY Office Visit (INTMWS) TESSIE FITZPATRICK ([id number]) 1940 F Date Time Provider Department 06/19/18 [...] She needs hospital follow up with pcp's EXHIBIT ELECTRICIAN. TRANSITION CARE MANAGEMENT (TCM) INITIAL CONTACT [employer] Driver Outreach ? Provider Action/FYI: Spoke with patient and she does have problem with walking outside she gets SOB. Her leg feel heavy and can't breath. Testing has been okay. This has been going on for her x 1 year. She is concerned it has to do with blood flow. Will keep [facility] follow up apt. ? ? ? Initial contact with patient post discharge, spoke to patient. Patient identified by name and . ? TRANSITION CARE MANAGEMENT INITIAL OUTREACH DOCUMENTATION: Date of Outreach: 06/12/2018 Outreach Attempt 1: (No Data) Date of Discharge 06/11/2018 Some recent data might be hidden ? ? SUMMARY: -Pt discharged from [facility] on 06/11/18. -Admitted for: High Blood pressure [...] Yes ? Medical records from recent hospitalization: [facility] Provider Documentation: In follow-up of hospitalization, Tessie [...] as cause of SOB - Follow-up with special needs teacher as scheduled. Given copy of PFT's to take with her to appointment - Follow-up with PCP in one month as scheduled or sooner as needed 2. Essential hypertension - ICD9: 401.9, ICD10: I10 - good control - Continue current medication(s) - Recommend home blood pressure monitoring, to bring results in on next visit - Follow-up with product responsibility liaison as scheduled - CARVEDILOL 12.5 MG TABLET 3. Heart palpitations - ICD9: 785.1, ICD10: R00.2 Resolved. Cartographic Aide as above I have reviewed the patient?s last hospital course including diagnostic testing performed during this hospitalization, their discharge medications, and my assessment and plan with the patient and any family members present at today?s visit. Gerri Silverman, ADDIE.LOG MANAGER Referring Provider: MITCH QUIROZ [[id number]] Allergies As of Date: 06/19/2018 Noted Allergy Reaction CIPROFLOXACIN 08/17/2016 2 - Rash 9 - Itching KEFLEX (CEPHALEXIN) 08/17/2016 14 - Other: See Comments Comments: Caused C-Diff MORPHINE 09/12/2012 14 - Other: See Comments Comments: heart stopped organ failure Date Reviewed: 06/19/2018 Reviewed by: Josee Ortiz Voltage Tester - Fully Assessed Primary Visit Diagnosis:Shortness of [...] LEAD ELECTROCARDIOGRAM Observed: 06/14/2018 Status: F Source: [place] 4:03 PM [facility] REPOSITORY [facility] Cardiovascular Services [address] [place], [place] [address] [address] 12 Lead EKG 06/11/18 0528 MR#: [id number] Acct: [id number] Name: TESSIE FITZPATRICK Rep #: [id number] : 1940 78 From: He Deng MD Attending Dr: Siria Madera MD Status: DIS MIKE Ordering Dr: Cira Garrett MD Date: 06/11/18 Location: [facility] Sex: F C Admitted: 06/10/18 Test [...] UNCONFIRMED Confirmed by HE DENG MD ([id number]), sound editor THAD TONG ([id number]) on 06/14/2018 4:02:38 PM Referred By: CRISTINA Confirmed By:HE DENG MD 06/14/18 1602 Date He Deng MD CC: Cira Garrett MD; Siria Madera MD; Mitch Quiroz MD Signed 12 LEAD ELECTROCARDIOGRAM Observed: 06/13/2018 Status: F Source: [place] 1:39 PM [facility] REPOSITORY [facility] [place] [address] 12 Lead EKG 06/10/18 0847 MR#: [id number] Acct: [id number] Name: TESSIE FITZPATRICK Rep #: [id number] : 1940 78 From: He Deng MD Attending Dr: Siria Madera MD Status: DIS MIKE Ordering Dr: Rober Mcclure DO Date: 06/10/18 Location: [facility] Sex: F C Admitted: 06/10/18 Test [...] ECG Confirmed by ISH BRANDON, HE ([id number]), sound editor THAD TONG ([id number]) on 06/13/2018 1:38:41 PM Referred By: RAHUL Confirmed By:HE DENG MD 06/13/18 1338 Date He Deng MD CC: Siria Madera MD; Rober Mcclure DO; Mitch Quiroz MD Signed PROGRESS Observed: 06/12/2018 Status: COMPLETED Source: [place] 2:22 PM [facility] [place] REPOSITORY HNO ID: [id number] Author: Tiffani Martinez LPN Service: (none) Author Type: (none) Type: Progress Notes Filed: 06/19/2018 4:52 PM Note Text: Message left for pt to return call to a nurse to review TCM note. Please complete. Pt was discharges 06/11/18. She needs hospital follow up with pcp's EXHIBIT ELECTRICIAN. TRANSITION CARE MANAGEMENT (TCM) INITIAL CONTACT [employer] Outreach Provider Action/FYI: Spoke with patient and she does have problem with walking outside she gets SOB. Her leg feel heavy and can't breath. Testing has been okay. This has been going on for her x 1 year. She is concerned it has to do with blood flow. Will keep [facility] follow up apt. Initial contact with patient post discharge, spoke to patient. Patient identified by name and . TRANSITION CARE MANAGEMENT INITIAL OUTREACH DOCUMENTATION: Date of Outreach: 06/12/2018 Outreach Attempt 1: (No Data) Date of Discharge 06/11/2018 Some recent data might be hidden SUMMARY: -Pt discharged from [facility] on 06/11/18. -Admitted for: High Blood pressure [...] home? Yes Medical records from recent hospitalization: [facility] RAJWINDERTOUTREACH Observed: 06/12/2018 Status: COMPLETED Source: [place] 12:00 AM [facility] REPOSITORY Patient Outreach (INTMWS) TESSIE FITZPATRICK ([id number]) 1940 F Date Time Provider Department 06/12/18 MITCH QUIROZ INTMWS During your visit today, we recorded the following information about you: Tiffani Martinez LPN 06/19/2018 4:52 PM Signed Message left for pt to return call to a nurse to review TCM note. Please complete. Pt was discharges 06/11/18. She needs hospital follow up with pcp's EXHIBIT ELECTRICIAN. TRANSITION CARE MANAGEMENT (TCM) INITIAL CONTACT [employer] Outreach Provider Action/FYI: Spoke with patient and she does have problem with walking outside she gets SOB. Her leg feel heavy and can't breath. Testing has been okay. This has been going on for her x 1 year. She is concerned it has to do with blood flow. Will keep [facility] follow up apt. Initial contact with patient post discharge, spoke to patient. Patient identified by name and . TRANSITION CARE MANAGEMENT INITIAL OUTREACH DOCUMENTATION: Date of Outreach: 06/12/2018 Outreach Attempt 1: (No Data) Date of Discharge 06/11/2018 Some recent data might be hidden SUMMARY: -Pt discharged from [facility] on 06/11/18. -Admitted for: High Blood pressure [...] home? Yes Medical records from recent hospitalization: [facility] Allergies As of Date: 06/12/2018 Noted Allergy Reaction CIPROFLOXACIN 08/17/2016 2 - Rash 9 - Itching KEFLEX (CEPHALEXIN) 08/17/2016 14 - Other: See Comments Comments: Caused C-Diff MORPHINE 09/12/2012 14 - Other: See Comments Comments: heart stopped organ failure Date Reviewed: 05/29/2018 Reviewed by: Ziara So LPN - Fully Assessed Reason for [...] DISCHARGE SUMMARY Observed: 06/11/2018 Status: F Source: [place] 2:55 PM [facility] REPOSITORY [facility] Medical Records Department [address] [place] [address] Discharge Summary 06/11/18 1129 MR#: [id number] Acct: [id number] Name: TESSIE FITZPATRICK Rep #: [id number] : 1940 78 From: Siria Madera MD PCP: Mitch Quiroz MD Status: ADM MIKE Y Location: [place] [address] Discharge Date and Diagnosis - Problem List [...] Massimo Darby DO at 9:41 EST Tel [phone], Service support , Chest CTA 06/10/18 11:27 IMPRESSION: 1. Negative for pulmonary embolism or thoracic aortic dissection. 2. Lungs are adequately inflated without acute airspace disease. Mild bibasilar atelectasis 3. Nonspecific soft tissue prominence in the right hilar region as well as several pulmonary nodules. Repeat chest CT can be performed in 3-6 months to evaluate for stability. Electronically Signed: Neal Castillo DO at 12:48 EST Tel , [...] follow-up with her primary care doctor and product responsibility liaison and was also referred to special needs teacher. Patient was seen and examined prior to [...] applicable Code Visit Inpatient E AND M: 92575 Disch Hosp 06/11/18 1455 <Electronically signed by Siria Madera MD> Date Siria Madera MD Cosigner Signature (if applicable): Date CC: Siria Madera MD; Mitch Quiroz MD Signed DISCHARGE INSTRUCTION Observed: 06/11/2018 Status: F Source: [place] 11:28 AM [facility] REPOSITORY [facility] Records Department [address] [place] [address] Instructions for Home/Discharge Instructions 06/11/181126 MR#: [id number] Acct: [id number] Name: TESSIE FITZPATRICK Rep #: [id number] : 1940 78 From: Siria Madera MD [...] W/DIFF, AUTOMATED Collected: 06/11/2018 Status: F Source: [place] 3:58 AM [facility] REPOSITORY Order Comment: Comments: PRETESTING FOR HEART [...] Lymph 1.88 Performed By: #### L100.0100 #### [facility] [address] [place], [address] PROTHROMBIN TIME W/INR Collected: 06/11/2018 Status: F Source: [place] 3:58 AM [facility] REPOSITORY Order Comment: Comments: PRETESTING FOR HEART CATH Comments: PRETEST FOR HEART CATH TYPE CODE TESTS RESULT OUT OF RANGE REFERENCE UNITS LAB L300.4150 11.7-14.9 SECONDS Normal PROTIME 13.6 LAB L300.4200 Normal INR 1.0 Performed By: #### L300.3900, L300.4310 #### [facility] [place] [facility] [address] [place], [address] PARTIAL THROMBOPLAST Collected: 06/11/2018 Status: F Source: [place] TIME 3:58 AM [facility] REPOSITORY Order Comment: Comments: PRETESTING FOR HEART CATH Comments: PRETEST FOR HEART CATH TYPE CODE TESTS RESULT OUT OF RANGE REFERENCE UNITS LAB L300.4310 24.1-36.2 Seconds Normal PTT 29.0 Performed By: #### L300.3900, L300.4310 #### [facility] [place] [facility] [address] [place], [address] BASIC METABOLIC Collected: 06/11/2018 Status: F Source: [place] PROFILE (BMP) 3:58 AM [facility] REPOSITORY TYPE CODE TESTS RESULT OUT OF [...] GAP 10 Performed By: #### L500.2500 #### [facility] [place] [facility] [address] [facility] [address] [place], [place], [address] URINALYSIS, COMPLETE Collected: 06/11/2018 Status: F Source: [place] 3:00 AM [facility] REPOSITORY Order Comment: Order Date: 06/11/18 How [...] URINE SEEN Performed By: #### L400.0001 #### [facility] [place] [facility] [address] [facility] [place], [address] CONSULTATION Observed: 06/10/2018 Status: F Source: [place] 5:02 PM [facility] REPOSITORY [facility] Medical Records Department [address] [place] [address] Consultation 06/10/18 1657 MR#: [id number] Acct: [id number] Name: TESSIE FITZPATRICK Rep #: [id number] : 1940 78 From: He Deng MD PCP: Mitch Quiroz MD Status: ADM MIKE Y Location: [place] [address] Reason for Consult Date of Consultation: 06/10/18 [...] hysterectomy Psychiatric History: No pertinent psych hx CAPACITY MANAGER History: No pertinent CAPACITY MANAGER history - *Family History Maternal History Items: [...] % (Auto) 67.8, Lymph % (Auto) 21.1, Desha % (Auto) 7.9, Eos % (Auto) 2.5, [...] to call if any issues arise 06/10/18 5194 <Electronically signed by He Deng MD> Date He Deng MD Cosigner Signature (if applicable): Date CC: He Deng MD; Mitch Quiroz MD Signed TROPONIN-I Collected: 06/10/2018 Status: F Source: [place] 2:54 PM [facility] REPOSITORY Order Comment: 'TROP' Serial specimen #1, #2 or #3: 3 TYPE CODE TESTS RESULT OUT OF RANGE REFERENCE UNITS LAB L501.4010 <0.045 ng/mL Normal < 0.015 TROPONIN-I Result Comment: TROPONIN-I EXPECTED VALUES <0.045 Negative 0.045 - 0.590 Consistent with Cardiac Damage > OR = 0.600 Critical Value Not every elevated troponin is indicative of DC. These values should be used with clinical judgement in examining the patient's clinical picture for diagnosis. To establish a diagnosis of DC versus myocardial injury, there must be a demonstrated rise and/or fall in the troponin values, in addition to ischemic symptoms, EKG changes, new regional wall motion abnormality, and/or angiographical evidence. PLEASE NOTE: REFERENCE RANGES EDITED 17 Performed By: #### L501.4010 #### [facility] [place] [facility] [address] [facility] [place], [address] CTA CHEST W/WO Observed: 06/10/2018 Status: F Source: [place] CONTRAST 11:28 AM [facility] REPOSITORY [facility] Imaging Services [address] [place] [address] CTA Chest W/WO Contrast MR#: [id number] Acct: [id number] Name: AMARITESSIE E Rep #: [id number] : 1940 F 78 From: Neal Castillo DO PCP: Mitch Quiroz MD Status: ADM MIKE Study: CTA Chest W/WO Contrast Date of Exam: 06/10/18 Exam# [id number] Ordering Dr: Cira Garrett MD STUDY: CTA [...] to evaluate for stability. Electronically Signed: Neal Castillo DO at 12:48 EST Tel , Service support , CC: Cira Garrett MD; Mitch Quiroz MD Geometry Professor: Signed HISTORY AND PHYSICAL Observed: 06/10/2018 Status: F Source: [place] EXAM 11:16 AM [facility] REPOSITORY [facility] Medical Records Department [address] [place] [address] History and Physical 06/10/18 1042 MR#: [id number] Acct: [id number] Name: TESSIE FITZPATRICK Rep #: [id number] : 1940 78 From: Cira Garrett MD PCP: Mitch Quiroz MD Status: ADM MIKE Y Location: [place] [address] Problem List (1) Exertional dyspnea Status: Acute [...] hysterectomy Psychiatric History: No pertinent psych hx CAPACITY MANAGER History: No pertinent CAPACITY MANAGER history Lives: Spouse/ Significant Other Smoking Status: [...] subcu Code Visit Inpatient E AND M: 91783 Subs Hosp L2 06/10/18 1116 <Electronically signed by Cira Garrett MD> Date Cira Garrett MD Cosigner Signature: Date (if applicable) CC: Cira Garrett MD; Mitch Quiroz MD Signed EMERGENCY DEPARTMENT Observed: 06/10/2018 Status: F Source: [place] SUMMARY 10:38 AM [facility] REPOSITORY [facility] Medical Records Department [address] [place] [address] Emergency Department Summary 06/10/18 1035 MR#: [id number] Acct: [id number] Name: TESSIE FITZPATRICK Rep #: [id number] : 1940 78 From: Rober Mcclure DO PCP: Leonel BRANDON,Mitch Status: REG ER - ER Visit Summary [...] equivalent Hypertension] This note was generated with Studentbox dictation software. It may contain incorrect words, [...] your Primary Care Provider. Call [facility] ([phone]) or report to the closest Emergency Room. Call 911 if necessary. 06/10/18 1038 <Electronically signed by Rober Mcclure DO> Date Rober Mcclure DO Cosigner Signature (If Indicated): Date CC: Mitch Quiroz MD CBC W/DIFF, AUTOMATED Collected: 06/10/2018 Status: F Source: [place] 9:20 AM [facility] REPOSITORY TYPE CODE TESTS RESULT OUT OF [...] Lymph 1.44 Performed By: #### L100.0100 #### [facility] [place] [facility] [address] [place], [address] BASIC METABOLIC Collected: 06/10/2018 Status: F Source: [place] PROFILE ([facility]) 9:20 AM [facility] REPOSITORY TYPE CODE TESTS RESULT OUT OF [...] Performed By: #### L500.2500, L501.4010, L501.9520 #### [facility] [place] [facility] [address] [facility] [address] [place], [place], [address] TROPONIN-I Collected: 06/10/2018 Status: F Source: [place] 9:20 AM [facility] REPOSITORY TYPE CODE TESTS RESULT OUT OF RANGE REFERENCE UNITS LAB L501.4010 <0.045 ng/mL Normal < 0.015 TROPONIN-I Result Comment: TROPONIN-I EXPECTED VALUES <0.045 Negative 0.045 - 0.590 Consistent with Cardiac Damage > OR = 0.600 Critical Value Not every elevated troponin is indicative of DC. These values should be used with clinical judgement in examining the patient's clinical picture for diagnosis. To establish a diagnosis of DC versus myocardial injury, there must be a demonstrated rise and/or fall in the troponin values, in addition to ischemic symptoms, EKG changes, new regional wall motion abnormality, and/or angiographical evidence. PLEASE NOTE: REFERENCE RANGES EDITED 17 Performed By: #### L500.2500, L501.4010, L501.9520 #### [facility] [place] [facility] [address] [facility] [address] [place], [place], [address] THYROID STIM HORMONE Collected: 06/10/2018 Status: F Source: [place] (TSH) 9:20 AM [facility] REPOSITORY TYPE CODE TESTS RESULT OUT OF RANGE REFERENCE UNITS LAB L501.9520 0.358-3.74 uIU/mL Normal TSH 1.36 Performed By: #### L500.2500, L501.4010, L501.9520 #### [facility] [place] [facility] [address] [place], [address] D-DIMER QUANTITATIVE Collected: 06/10/2018 Status: F Source: [place] (DVT/PE) 9:20 AM [facility] REPOSITORY TYPE CODE TESTS RESULT OUT OF [...] SAME . Performed By: #### L300.8000 #### [facility] [place] [facility] [address] [place], [address] CHEST 1 VIEW Observed: 06/10/2018 Status: F Source: [place] (PORTABLE) 9:02 AM [facility] REPOSITORY [facility] Imaging Services [address] [place] [address] Chest 1 View (Portable) MR#: [id number] Acct: [id number] Name: TESSIE FITZPATRICK Rep #: [id number] : 1940 F 78 From: Massimo Darby DO PCP: Mitch Quiroz MD Status: REG ER Study: Chest 1 View (Portable) Date of Exam: 06/10/18 Exam# [id number] Ordering Dr: Rober Mcclure DO STUDY: X-RAY [...] Massimo Darby DO at 9:41 EST Tel [phone], Service support , CC: Rober Mcclure DO; Mitch Quiroz MD Geometry Professor: Signed XR CHEST 2V FRONTAL/LAT Observed: 05/29/2018 Status: F Source: [place] 9:49 AM [facility] REPOSITORY * * *Final Report* * * [...] cardiomediastinal silhouette. IMPRESSION: No acute radiographic abnormality. Geometry Professor: JAREN Transcribe Date/Time: May 29 2018 12:59P Dictated by : VAL NORRIS MD This examination was interpreted and the report reviewed and electronically signed by: VAL NORRIS MD on May 29 2018 1:00PM EST [id number] Observed: 05/29/2018 Status: COMPLETED Source: [place] 9:35 AM [facility] REPOSITORY HNO ID: [id number] Author: Tracy Nix (RtShivam Barrera Service: (none) Author Type: Roaster Operator Type: Progress Notes Filed: 05/29/2018 9:49 AM [...] PERIPHERAL IV DATA: Not applicable SIGNED BY: RT Kate May 29, 2018 9:35 AM PROGRESS Observed: 05/29/2018 Status: COMPLETED Source: [place] 9:07 AM [facility] [place] REPOSITORY O ID: [id number] Author: Mitch Quiroz Service: (none) Author Type: Physician Type: Progress Notes Filed: 05/29/2018 1:37 PM Note Text: This note was created using BigDoor. Subjective Tessie Fitzpatrick is a 78 year [...] was interested in an endocrinology opinion in [place]. Her lipids were unchanged, even as she [...] MD CNOV Observed: 05/29/2018 Status: COMPLETED Source: [place] 8:20 AM [facility] REPOSITORY Office Visit (INTMWS) TESSIE FITZPATRICK ([id number]) 1940 F Date Time Provider Department 05/29/18 [...] was interested in an endocrinology opinion in [place]. Her lipids were unchanged, even as she [...] Mitch Quiroz MD Referring Provider: MITCH QUIROZ [[id number]] Allergies As of Date: 05/29/2018 Noted Allergy [...] Pure hypercholesterolemia [E78.00] Order(s):XR CHEST 2V FRONTAL/LAT [7571241] Order #: [id number] FUTURE amLODIPine (NORVASC) 2.5 mg tabletTake 1 tablet by mouth once daily.Disp: 30 tabletRfl: 2 SPIROMETRY - BASELINE AND POST DILATOR [3852619] Order #: [id number] FUTURE LUNG VOLUMES [1547720] Order #: [id number] LUNG DIFFUSION CAPACITY (DLCO) [6456607] Order #: [id number] CONSULT TO NON-[facility] FACILITY [0290072] Order #: [id number] rosuvastatin (CRESTOR) 20 mg tabletTake 1 tablet [...] METABOLIC PANL Collected: 05/16/2018 Status: F Source: [place] 9:00 AM [facility] REPOSITORY TYPE CODE TESTS RESULT OUT OF REFERENCE UNITS RANGE LAB GLU 74-99 mg/dL High Glucose 103 Result Comment: The [place] Diabetes Association (ADA) provides guidance for cutoff [...] Standards of Medical Care in Diabetes 2016, [place] [employer]. Diabetes Care. 2016.39(Suppl 1). LAB [...] By: #### BMP, LIPB, TSH, HBA1C #### [facility] [address] [place], [place] [address] LIPID PANEL, BASIC Collected: 05/16/2018 Status: F Source: [place] 9:00 AM [facility] REPOSITORY TYPE CODE [...] Desk Reference: National Heart, Lung, and Blood [place]. National Institutes of Health. 2001: NIH Publication No. 01-3305. 2. An International Atherosclerosis Society position paper: global recommendations for the management of dyslipidemia: executive summary, Atherosclerosis. 2014: 232(2):410-413. Performed By: #### BMP, LIPB, TSH, HBA1C #### [facility] [employer] [address] [place], [place] [address] TSH Collected: 05/16/2018 Status: F Source: [place] 9:00 AM [facility] REPOSITORY TYPE CODE TESTS RESULT OUT OF RANGE REFERENCE UNITS LAB TSH 0.400-5.500 uU/mL TSH 1.720 Performed By: #### BMP, LIPB, TSH, HBA1C #### [facility] [employer] [address] [place], [place] [address] HEMOGLOBIN A1C Collected: 05/16/2018 Status: F Source: [place] 9:00 AM [facility] REPOSITORY TYPE CODE TESTS RESULT OUT OF REFERENCE UNITS RANGE LAB HGBA1C 4.3-5.6 % Hemoglobin A1c 5.5 LAB HBA0 mg/dL Est. Average Glucose 111 Result Comment: eAG: (Estimated average glucose) is a calculated value from HgbA1c and is treasury representative of the average blood glucose level in the last 2-3 month period. Performed By: #### BMP, LIPB, TSH, HBA1C #### [facility] [address] [place], [place] [address] CNCO Observed: 05/14/2018 Status: COMPLETED Source: [place] 4:38 PM [facility] REPOSITORY HNO ID: [id number] Author: Mammography Coordinator Service: (none) Author Type: Physician Type: Letter Filed: 05/15/2018 11:33 PM Note Text: May 14, 2018 PID: [id number] Tessiera Bethel Fitzpatrick [facility] [place] [address] Dear Inocencio Fitzpatrick, We are pleased to inform you [...] report will be kept on file at [facility] as part of your permanent medical record and are available for your continuing care. Thank you for allowing us to help in meeting your health care needs. Sincerely, Dr. Ferro Interpreting Radiologist [facility] (Normal-Clinical Evaluation) [facility] SCREENING Observed: 05/14/2018 Status: F Source: [place] 8:58 AM [facility] REPOSITORY * * *Final Report* * * DATE OF EXAM: May 14 2018 8:58AM [facility] 0581 - [facility] SCREENING / PROCEDURE REASON: Encounter for screening mammogram for malignant neoplasm of breast * * * * Physician Interpretation * * * * RESULT: #[id number] - [facility] SCREENING BILATERAL DIGITAL SCREENING MAMMOGRAM WITH CAD: 05/14/2018 HISTORY: /Screening Mammogram - patient reports the following symptoms: diffuse left breast pain. RESULT: TECHNIQUE: The study was acquired using full field digital technology and interpreted from soft copy. Current study was also evaluated with a Computer Aided Detection (CAD). Comparison is made to exams dated: 11/30/2016 mammogram - [facility] and 06/11/2012 mammogram. The tissue of both [...] screening mammogram is recommended. Sylvain anderson/martir:05/14/2018 16:38:14 Pedigree Tracer: Christina MEYERS)(Atif), [facility] letter sent: Normal clinical eval Mammogram BI-RADS: [...] Health, Family Medicine, and Medical/Surgical Oncology, the [facility] has carefully reviewed the data and reached [...] their providers when to stop screening mammograms. Geometry Professor: Martir Transcribe Date/Time: May 14 2018 8:23A Dictated by: SYLVAIN FERRO MD This examination was interpreted and the report reviewed and electronically signed by: SYLVAIN FERRO MD on May 14 2018 4:38PM EST [id number] DOWNTIME REPORT Observed: 01/25/2018 Status: F Source: [place] 11:57 AM [facility] REPOSITORY [facility] Medical Records Department [address] [place] [address] Downtime Report MR#: [id number] Acct: [id number] Name: TESSIE FITZPATRICK Rep #: [id number] : 1940 77 From: Kevin Tong PCP: Mitch Quiroz MD Status: REG CLI This patient was seen during an EMR downtime January 08, 2018 - January 15, 2018. This patient may have a combination of paper and electronic documentation or all paper documentation. All documentation is viewable within the e-chart portion of [employer] for each patient visit. PROGRESS Observed: 01/20/2018 Status: COMPLETED Source: [place] 8:45 AM CLINIC OTHER CAMPUS REPOSITORY HNO ID: [id number] Author: Binu Wills Service: (none) Author Type: [...] office visit to follow here at the [place] office.I spent 15 minutes in the visit, with more than 50% of the total plxg-eu-mnhs time of the visit in counseling / coordination of care. GALLO Observed: 01/19/2018 Status: COMPLETED Source: [place] 10:15 AM CLINIC OTHER [place] REPOSITORY Office Visit (AGMIL) TESSIE FITZPATRICK ([id number]) 1940 F Date Time Provider Department 01/19/18 [...] office visit to follow here at the [place] office.I spent 15 minutes in the visit, with more than 50% of the total xpfh-vn-ylda time of the visit in counseling / coordination of care. Referring Provider: MITCH QUIROZ [[id number]] Allergies As of Date: 01/19/2018 Noted Allergy [...] Primary Visit Diagnosis:Carotid stenosis, asymptomatic, bilateral [I65.23] Order(s): CAROTID ARTERIES [facility] [[id number]] Order #: [id number] FUTURE Prescriptions as of 01/19/2018 Sig: LEVOTHYROXINE [...] CAROTID DUPLEX Observed: 01/17/2018 Status: F Source: [place] ULTRASOUND 12:10 PM [facility] REPOSITORY [facility] Cardiovascular Services [address] [place] [address] Carotid Duplex Ultrasound 01/15/18 1004 MR#: [id number] Acct: [id number] Name: TESSIE FITZPATRICK Rep #: [id number] : 1940 77 From: Joseluis Tee MD Attending Dr: BINU WILLS MD Status: REG CLI Ordering Dr: Binu Wills MD Date: 01/15/18 Location: [facility] Sex: F C Admitted: Reason For Study: [...] in the left bulb. Procedure Carotid Duplex 94024. Exam performed in department. Interpretation Summary Moderate (50-69%) stenosis right extracranial internal carotid. Moderate (50-69%) stenosis left extracranial internal carotid. Flow within the vertebral arteries is antegrade bilaterally. Ordering Physician: BINU WILLS Referring Physician: Mitch Quiroz M.D. Performed By: Nayely Jorge RVT 01/17/18 1209 Date Joseluis Tee MD CC: BINU WILLS MD; Mitch uQiroz MD Date Dictated: 01/15/18 1004 Date Transcribed: 01/17/18 1209 Geometry Professor: Signed PROGRESS Observed: 12/28/2017 Status: COMPLETED Source: [place] 9:02 PM [facility] REPOSITORY O ID: [id number] Author: Mitch Quiroz Service: (none) Author Type: Physician Type: Progress Notes Filed: 12/29/2017 9:11 AM Note Text: This note was created using SIPXter. Subjective Tessie Fitzpatrick is a 77 year [...] and had a stress test done at [facility]. Somehow, we did not get that report, [...] LATE (>30 Collected: 12/27/2017 Status: F Source: ) 5:19 PM CLINIC MAIN CAMPUS REPOSITORY TYPE CODE TESTS RESULT OUT OF REFERENCE UNITS RANGE LAB LYMGMX Negative Lyme Negative IgG/IgM AB Result Comment: Absence of detectable Borrelia burgdorferi antibodies. A negative result does not exclude the possibility of Borrelia burgdorferi infection. If early Lyme disease is suspected, a second sample should be collected and tested two to four weeks later. Performed By: #### LMLATE #### [facility] [address] [place], [place] [address] CNOV Observed: 12/27/2017 Status: COMPLETED Source: [place] 4:00 PM [facility] REPOSITORY Office Visit (INTMWS) TESSIE FITZPATRICK ([id number]) 1940 F Date Time Provider Department 12/27/17 4:00 PM MITCH QUIROZ INTMWS During your visit today, [...] AM Signed This note was created using SIPXter. Subjective Tessie Fitzpatrick is a 77 year [...] and had a stress test done at [facility]. Somehow, we did not get that report, [...] Mitch Quiroz MD Referring Provider: MITCH QUIROZ [[id number]] Allergies As of Date: 12/27/2017 Noted Allergy [...] LATE >30 DAYS SYMPTOMS [SQLMLATE] Order #: [id number] FUTURE levothyroxine (SYNTHROID) 50 mcg tabletTake 1 tablet by mouth once daily.Disp: Rfl: BASIC METABOLIC PNL [SQBMP] Order #: [id number] FUTURE HGB A1C [WDIBA7C] Order #: [id number] FUTURE LIPID PANEL BASIC [SQLIPB] Order #: [id number] FUTURE TSH BLD [SQTSH] Order #: [id number] FUTURE Prescriptions as of 12/27/2017 Sig: CARVEDILOL [...] 12/29/17 PROGRESS Observed: 12/18/2017 Status: COMPLETED Source: [place] 9:39 AM [facility] REPOSITORY HNO ID: [id number] Author: Sudha Alston ([facility]) Service: (none) Author Type: Assembler Clip On Sunglasses Type: Progress Notes Filed: 12/18/2017 9:39 AM [...] Not applicable SIGNED BY: SUDHA ALSTON RDMS RVAdina December 18, 2017 9:39 AM US THYROID/PARATHYROID Observed: 12/18/2017 Status: F Source: [place] 9:38 AM [facility] REPOSITORY * * *Final Report* * * DATE OF EXAM: Dec 18 2017 9:38AM [facility] 1048 - US THYROID/PARATHYROID / PROCEDURE REASON: [...] change from the study of January 2017 Geometry Professor: JAREN Transcribe Date/Time: Dec 19 2017 10:45A Dictated by : FANTASMA ALVAREZ MD This examination was interpreted and the report reviewed and electronically signed by: FANTASMA ALVAREZ MD on Dec 19 2017 10:49AM EST [id number] Collected: 12/12/2017 Status: F Source: [place] 8:58 AM [facility] REPOSITORY TYPE CODE TESTS RESULT OUT OF RANGE REFERENCE UNITS LAB ALT 7-38 U/L ALT 14 Performed By: #### ALT, AST, LIPB, FT4, TSH #### [facility] [address] [place] [id number] AST Collected: 12/12/2017 Status: F Source: [place] 8:58 AM [facility] REPOSITORY TYPE CODE TESTS RESULT OUT OF RANGE REFERENCE UNITS LAB AST 13-35 U/L AST 28 Performed By: #### ALT, AST, LIPB, FT4, TSH #### [facility] [address] [place], [place] [address] LIPID PANEL, BASIC Collected: 12/12/2017 Status: F Source: [place] 8:58 AM [facility] REPOSITORY TYPE CODE TESTS RESULT OUT OF [...] Desk Reference: National Heart, Lung, and Blood [place]. National Institutes of Health. 2001: NIH Publication No. 01-3305. 2. An International Atherosclerosis Society position paper: global recommendations for the management of dyslipidemia: executive summary, Atherosclerosis. 2014: 232(2):410-413. Performed By: #### ALT, AST, LIPB, FT4, TSH #### [facility] [address], [place] [id number] FREE T4 Collected: 12/12/2017 Status: F Source: [place] 8:58 AM [facility] REPOSITORY TYPE CODE TESTS RESULT OUT OF RANGE REFERENCE UNITS LAB FT4 0.9-1.7 ng/dL Free T4 1.1 Performed By: #### ALT, AST, LIPB, FT4, TSH #### [facility] [address] [place], [place] [address] TSH Collected: 12/12/2017 Status: F Source: [place] 8:58 AM [facility] REPOSITORY TYPE CODE TESTS RESULT OUT OF RANGE REFERENCE UNITS LAB TSH 0.400-5.500 uU/mL Low TSH 0.126 Performed By: #### ALT, AST, LIPB, FT4, TSH #### [facility] [address], [place] [id number] STRESS TEST ECHO W/O Observed: 11/24/2017 Status: F Source: JESSICA CONTRAST 3:39 PM [facility] REPOSITORY [facility] Cardiovascular Services [address] [place] [address] Stress Test Echo w/o Contrast MR#: [id number] Acct: [id number] Name: TESSIE FITZPATRICK Rep #: [id number] : 1940 77 From: Deacon Duke MD [...] Referring Physician: Mitch Quiroz Performed By: Kaila Martin, [facility] 11/24/17 1538 Date Deacon Duke MD CC: Mitch Quiroz MD Date Dictated: 11/24/17 1059 Date Transcribed: 11/24/17 1538 Geometry Professor: Signed FECAL OCCULT BLD Collected: 11/14/2017 Status: F Source: [facility] 8:00 AM [facility] REPOSITORY TYPE CODE TESTS RESULT OUT OF REFERENCE UNITS RANGE LAB IFO Negative Immuno Negative FOB Result Comment: This test was developed and its performance characteristics determined by [facility]'s [facility] [place] ([facility]). It has not been cleared or approved by the FDA. [facility] is regulated under CLIA as qualified to perform high-complexity testing. This test is used for clinical purposes. It should not be regarded as investigational or for research. Performed By: #### IFOBT #### [facility] [address] [place], [place] [address] PROGRESS Observed: 10/24/2017 Status: COMPLETED Source: [place] 9:43 AM [facility] REPOSITORY HNO ID: [id number] Author: Mitch Quiroz Service: (none) Author Type: Physician Type: Progress Notes Filed: 10/26/2017 11:44 AM Note Text: This note was created using Henableriter. Subjective Tessie Fitzpatrick is a 77 year old female here for follow up. She continued with hoarseness and tongue coating. She was concerned this was some form of allergy to levothyroxine. She had extensive ENT evaluation in [place]. She continued to have itching in intertriginous [...] MD PROGRESS Observed: 10/24/2017 Status: COMPLETED Source: [place] 9:06 AM [facility] REPOSITORY HNO ID: [id number] Author: Mitch Quiroz Service: (none) Author Type: [...] Social History Narrative Just moved back from [place]. Lives with son. Tessie works out regularly [...] MD CNOV Observed: 10/24/2017 Status: COMPLETED Source: [place] 8:40 AM [facility] REPOSITORY Office Visit (INTMWS) TESSIE FITZPATRICK ([id number]) 1940 F Date Time Provider Department 10/24/17 [...] bilateral - COLONOSCOPY 2011 4 colonoscopies. - FLEXIBLE LARYNGOSCOPY 05/03/2016 negative [...] Social History Narrative Just moved back from [place]. Lives with son. Tessie works out regularly [...] levothyroxine. She had extensive ENT evaluation in [place]. She continued to have itching in intertriginous [...] LPN 10/24/2017 10:12 AM Signed Addended by: ZAIRA SO LPN on: 10/24/2017 10:12 AM Modules accepted: Orders Mitch Quiroz MD 10/26/2017 11:44 AM Signed Addended by: MITCH QUIROZ MD on: 10/26/2017 11:44 AM Modules accepted: Orders Referring Provider: MITCH QUIROZ [[id number]] Allergies As of Date: 10/24/2017 Noted Allergy [...] bedtime.Disp: 90 tabletRfl: 3 STRESS ECHO TREADMILL [[id number]] Order #: [id number]: 1 FUTURE ARMOUR THYROID 60 mg tabTake 1 tablet by mouth once daily.Disp: 30 tabletRfl: 2 LIPID PANEL BASIC [SQLIPB] Order #: [id number] FUTURE ALT/SGPT [SQALT] Order #: [id number] FUTURE AST/SGOT BLD [SQAST] Order #: [id number] FUTURE TSH BLD [SQTSH] Order #: [id number] FUTURE T4 FREE/FREE THYROX [SQFT4] Order #: [id number] FUTURE ECG COMPLETE W INTERPRETATION [ECG01] Order #: [id number] FUTURE FECAL OCCULT BLOOD TEST [SQIFOBT] Order #: [id number] FUTURE Prescriptions as of 10/24/2017 Sig: CARVEDILOL [...] LPN 10/24/2017 8:57 AM >> ZAIRA SO LPN MonOct 24, 2017 8:57 AM Patient taking 1 tablet once daily. HYDROCHLOROTHIAZIDE 25 MG TABLET >> Zaira So LPN 10/24/2017 8:58 AM >> ZAIRA SO LPN MonOct 24, 2017 8:58 AM Patient has [...] HEMOGLOBIN A1C Collected: 10/06/2017 Status: F Source: [place] 9:09 AM CLINIC MAIN CAMPUS REPOSITORY TYPE CODE TESTS RESULT OUT OF REFERENCE UNITS RANGE LAB HGBA1C 4.3-5.6 % Hemoglobin A1c 5.5 LAB HBA0 mg/dL Est. Average Glucose 111 Result Comment: eAG: (Estimated average glucose) is a calculated value from HgbA1c and is treasury representative of the average blood glucose level in the last 2-3 month period. Performed By: #### HBA1C, VITD, CMP, LIPB, TSH #### [facility] [employer] [address] [place], [place] [address] VITAMIN D 25 HYDROXY Collected: 10/06/2017 Status: F Source: [place] 9:09 AM [facility] REPOSITORY TYPE CODE TESTS RESULT OUT OF REFERENCE UNITS RANGE LAB VITD 31.0-80.0 ng/mL Vitamin D 25 36.7 Hydroxy Result Comment: Classification of 25 [place] Vitamin D status: Insufficiency/Moderate Deficiency: < or = 30 ng/mL Sufficiency/Optimal Levels: 31 to 80 ng/mL Toxicity: > 100 ng/mL Test performed by chemiluminescent immunoassay. Performed By: #### HBA1C, VITD, CMP, LIPB, TSH #### [facility] [address] [place] [address] COMP METABOLIC PANEL Collected: 10/06/2017 Status: F Source: [place] 9:09 [facility] REPOSITORY TYPE CODE TESTS RESULT OUT OF REFERENCE UNITS RANGE LAB TP 6.3-8.0 g/dL Protein, Total 7.1 LAB ALB 3.9-4.9 g/dL Albumin 3.9 LAB CA 8.5-10.2 mg/dL Calcium, Total 9.3 LAB TBIL 0.2-1.3 mg/dL Bilirubin, Total 0.6 LAB ALKP 32-117 U/L Alkaline Phosphatase 81 LAB AST 13-35 U/L AST 24 LAB GLU 74-99 mg/dL Glucose High 106 Result Comment: The [place] Diabetes Association (ADA) provides guidance for cutoff [...] Standards of Medical Care in Diabetes 2016, [place] Diabetes Association. Diabetes Care. 2016.39(Suppl 1). LAB [...] #### HBA1C, VITD, CMP, LIPB, TSH #### [facility] [address] [place] [address] LIPID PANEL, BASIC Collected: 10/06/2017 Status: F Source: [place] 9:09 AM [facility] REPOSITORY TYPE CODE TESTS RESULT OUT OF [...] Desk Reference: National Heart, Lung, and Blood [place]. National Institutes of Health. 2001: NIH Publication No. 01-3305. 2. An International Atherosclerosis Society position paper: global recommendations for the management of dyslipidemia: executive summary, Atherosclerosis. 2014: 232(2):410-413. Performed By: #### HBA1C, VITD, CMP, LIPB, TSH #### [facility] [address] [place] [address] TSH Collected: 10/06/2017 Status: F Source: [place] 9:09 AM [facility] REPOSITORY TYPE CODE TESTS RESULT OUT OF RANGE REFERENCE UNITS LAB TSH 0.400-5.500 uU/mL TSH 1.950 Performed By: #### HBA1C, VITD, CMP, LIPB, TSH #### [facility] [address] [place] [address] ALLERGIES ALLERGIES DATE TYPE / NAME / CODE REACTION SEVERITY SOURCE CODE 07/25/2018 Drug Ouprcbl-Szf-Ves nightmare, Unknown [place] Allergy/41 Reductase insomnia Community [id number]( Inhibitor/[id number] [facility]) 5(RXNORM) Repository 07/25/2018 Drug morphine/[id number] Anaphylaxis Unknown [place] Allergy/41 (RXNORM) Community 8599912([facility]) Repository 08/17/2016 DRUG CIPROFLOXACIN RASH Lazaro INGREDI/41 Clinic Main 8301140(SN [place] OMED CT) Repository 08/17/2016 DRUG CEPHALEXIN OTHER: SEE C [address] Main 9209411([facility] OMED CT) Repository 09/12/2012 DRUG MORPHINE OTHER: SEE C [address] Main 4331850([facility] OMED CT) Repository NG/9974946 CIPROFLOXACIN [facility] 06([facility]) Repository NG/1429471 CEPHALEXIN [facility] 06([facility]) Repository NG/6510497 MORPHINE [facility] 06([facility]ED [facility]) Repository ENCOUNTERS ENCOUNTERS ADMIT/DISCHARGE ACCOUNT NUMBER ADMITTING ENCOUNTER LOCATION SOURCE CLASS 07/25/2018/07/25/20 [id number] Ambulatory BMSBuilding: [place] 18 BMS.[facility] Repository 07/18/2018 [id number] Ambulatory BMSBuilding: [place] BMS.CF.[facility] Repository 07/18/2018 [id number] [facility] ding[facility] Repository 07/17/2018/07/18/20 [id number] Ambulatory [address] Repository 07/05/2018 [id number] [facility] 07/04/2018 [id number] [facility] ding:PSN Repository 06/27/2018/06/27/20 [id number] Ambulatory BMSBuilding: [place] 18 BMS.[facility] Repository 06/26/2018 [id number] Ambulatory BMSBuilding: [place] BMS.[facility] Repository 06/21/2018/06/21/20 [id number] Ambulatory BMSBuilding: [place] 18 BMS.[facility] Repository 06/19/2018/06/20/20 [id number] Ambulatory [address] Repository 06/11/2018/06/11/20 [id number] Ambulatory BMSBuilding: [place] 18 [facility] Repository 06/10/2018/06/11/20 [id number] [place] Ambulatory [address] ding:PCURoom Repository : OOV167Uew: 1 06/10/2018 [id number] [place] Ambulatory BMSBuilding: [place] BMS.[facility] Repository 06/10/2018 [id number] [place] Ambulatory BMSBuilding: [place] BMS.[facility] Repository 06/10/2018 [id number] [place] Ambulatory BMSBuilding: [place] BMS.CF.[facility] Repository 06/10/2018 [id number] [place] Ambulatory BMSBuilding: [place] BMS.[facility] Repository 06/07/2018/06/07/20 [id number] Ambulatory [address] Main [place] Repository 06/07/2018/06/07/20 [id number] Ambulatory [address] Main [place] Repository 06/07/2018/06/07/20 [id number] Ambulatory [address] Main [place] Repository 05/29/2018/05/29/20 [id number] Ambulatory [address] Main [place] Repository 05/29/2018/05/30/20 [id number] Ambulatory [address] Main [place] Repository 05/16/2018/05/16/20 [id number] Ambulatory [address] Main [place] Repository 05/14/2018/05/14/20 [id number] Ambulatory [address] Main [place] Repository 01/19/2018/01/20/20 [id number] Ambulatory [address] Other [place] Repository 01/19/2018/01/20/20 [id number] Ambulatory [address] MEDICAL Repository CENTERBuildi ng:AGWM 01/15/2018 [id number] [facility] ding:[facility] Repository 12/27/2017/12/28/19 [id number] Ambulatory [address] Main [place] Repository 12/27/2017/01/03/20 [id number] Ambulatory [address] Main [place] Repository 12/18/2017/12/19/19 [id number] Ambulatory [address] Main [place] Repository 12/12/2017/12/13/19 [id number] Ambulatory [address] Main [place] Repository 11/24/2017 [id number] [facility] ding[facility] Repository 11/24/2017 [id number] Ambulatory BMSBuilding: [facility] Repository 11/14/2017 [id number] Ambulatory [facility] Repository 10/24/2017/10/25/19 [id number] Ambulatory [address] Repository 10/24/2017/10/26/19 [id number] Ambulatory [address] Repository 10/06/2017/10/07/19 [id number] Ambulatory [address] Repository PAYERS PAYERS ENCOUNTER GUARANTOR PAYER SUBSCRIBER SOURCE 07/25/2018 TESSIE E Primary TESSIE E [place] [id number] CLEAR Insurance:MEDICARE EDWARDSDOB: [facility] PART A BPolicy Number: [id number] [id number] Repository [address]Yyk: (330) Date:2018-06-21 [phone] () 07/25/2018 Secondary TESSIE E [place] Insurance:AARPPolicy EDWARDSDOB: Community Number: [id number] [id number] Repository Date:[id number] [address]TK: 07/25/2018 Tertiary NOT GIVENUNK [place] Insurance:SELF PAY [facility]: Effective Repository Date:2018-07-18 07/18/2018 TESSIE E Primary TESSIE E [place] [id number] CLEAR Insurance:MEDICARE EDWARDSDOB: [facility] PART A BPolicy Number: [id number] [id number] Repository [address]Zwm: (330) Date:2018-07-04 [phone] () 07/18/2018 Secondary TESSIE E [place] Insurance:AARPPolicy EDWARDSDOB: Community Number: [id number] Hospital [id number] Repository Date:5813-14-06MJ [address], [place] [address]UF: 07/18/2018 Tertiary NOT GIVENUNK Jessica Insurance:SELF PAY [facility] Hospital Number: Effective Repository Date:2018-07-18 07/18/2018 TESSIE E Primary TESSIE E [place] [id number] CLEAR Insurance:MEDICARE EDWARDSDOB: [facility] PART A BPolicy Number: [id number], [place] [id number] Repository [address]Hov: (330) Date:2018-07-04 [phone] () 07/18/2018 Secondary TESSIE E [place] Insurance:AARPPolicy EDWARDSDOB: Community Number: [id number] Hospital [id number] Repository Date:7342-95-58[address], [place] [address]VI: 07/18/2018 Tertiary NOT GIVENUNK Jessica Insurance:SELF PAY [facility] Hospital Number: Effective Repository Date:2018-07-04 07/05/2018 TESSIE E Primary TESSIE E [place] [id number] CLEAR Insurance:MEDICARE EDWARDSDOB: [facility] A BPolicy Number: [id number], [place] [id number] Repository [address]Sps: (330) Date:2018-06-218 () 07/05/2018 Secondary TESSIE E Jessica Insurance:AARPPolicy EDWARDSDOB: Community Number: [id number] Hospital [id number] Repository Date:4191-45-64CW [address]X[address], [place] [address]EN: 07/05/2018 Tertiary NOT GIVENUNK [place] Insurance:SELF PAY [facility] Hospital Number: Effective Repository Date:2018-07-05 07/04/2018 TESSIE E Primary TESSIE E [place] [id number] CLEAR Insurance:MEDICARE EDWARDSDOB: [facility] A BPolicy Number: [id number], [place] [id number] Repository [address]Qva: (330) Date:2018-06-21 [phone] () 07/04/2018 Secondary TESSIE E [place] Insurance:AARPPolicy EDWARDSDOB: Community Number: [id number] Hospital [id number] Repository Date:2817-38-69[address], [place] [address]CW: 07/04/2018 Tertiary NOT GIVENUNK [place] Insurance:SELF PAY [facility] Hospital Number: Effective Repository Date:2018-06-21 06/27/2018 TESSIE E Primary TESSIE E [place] [id number] CLEAR Insurance:MEDICARE EDWARDSDOB: Community [facility] PART A BPolicy Number: [id number] [id number] Repository [address]Eec: ([phone]) Date:2018-06-13 [phone] () 06/27/2018 Secondary TESSIE E Jsesica Insurance:AARPPolicy EDWARDSDOB: Community Number: [id number] Hospital [id number] Repository Date:9405-08-01[address], [place] [address]ZV: 06/27/2018 Tertiary NOT GIVENUNK [place] Insurance:SELF PAY [facility] Hospital Number: Effective Repository Date:2018-06-18 06/26/2018 TESSIE E Primary TESSIE E [place] [id number] CLEAR Insurance:MEDICARE EDWARDSDOB: [facility] PART A BPolicy Number: [id number], [place] [id number] Repository [address]Slj: ([phone]) Date:2018-06-26 [phone] () 06/26/2018 Secondary TESSIE E Jessica Insurance:AARPPolicy EDWARDSDOB: Community Number: [id number] Hospital [id number] Repository Date:8452-88-01[address]NT[place]ACAG, [place] [address]CL: 06/26/2018 Tertiary NOT GIVENUNK [place] Insurance:SELF PAY [facility] Hospital Number: Effective Repository Date:2018-06-26 06/21/2018 TESSIE E Primary TESSIE E Jessica [id number] CLEAR Insurance:MEDICARE EDWARDSDOB: Community [facility] PART A BPolicy Number: [id number], [place] [id number] Repository [address]Jbg: (330) Date:[phone] (HP) 06/21/2018 Secondary TESSIE E Jessica Insurance:AARPPolicy EDWARDSDOB: Community Number: [id number] Hospital [id number] Repository Date:2141-79-68[address], [place] [address]XS: 06/21/2018 Tertiary NOT GIVENUNK [place] Insurance:SELF PAY [facility] Hospital Number: Effective Repository Date:2018-06-12 06/11/2018 TESSIE E Primary TESSIE E [place] [id number] CLEAR Insurance:MEDICARE EDWARDSDOB: [facility] PART A BPolicy Number: [id number], [place] [id number] Repository 57[address]Sgj: (330) Date:2018-06-108-0107 () 06/11/2018 Secondary TESSIE E Jessica Insurance:AARPPolicy EDWARDSDOB: Community Number: [id number] [facility] [id number] Repository Date:4228-92-41[address]RWQGVDV, [place] [address]IP: 06/11/2018 Tertiary NOT GIVENUNK [place] Insurance:SELF PAY [facility] Number: Effective Repository Date:2018-06-11 06/10/2018 TESSIE E Primary TESSIE E Jessica [id number] CLEAR Insurance:MEDICARE EDWARDSDOB: [facility] PART A BPolicy Number: [id number], [place] [id number] Repository 334[address]Idh: (330) Date:2018-06-1080107 (HP) 06/10/2018 Secondary TESSIE E Jessica Insurance:AARPPolicy EDWARDSDOB: Community Number: [id number] Hospital [id number] Repository Date:[address]DVKGKUA, [place] [address]PB: 06/10/2018 Tertiary NOT GIVENUNK [place] Insurance:SELF PAY [facility] Number: Effective Repository Date:2018-06-10 06/10/2018 TESSIE E Primary TESSIE E [place] [id number] CLEAR Insurance:MEDICARE EDWARDSDOB: [facility] PART A BPolicy Number: [id number], [place] [id number] Repository [address]Daz: (330) Date:2018-06-10 () 06/10/2018 Secondary TESSIE E Jessica Insurance:AARPPolicy EDWARDSDOB: Community Number: [id number] Hospital [id number] Repository Date:8288-56-07[address]EFACQWP, [place] [address]PC: 06/10/2018 Tertiary NOT GIVENUNK [place] Insurance:SELF PAY [facility] Number: Effective Repository Date:2018-06-10 06/10/2018 TESSIE E Primary TESSIE E Jessica [id number] CLEAR Insurance:MEDICARE EDWARDSDOB: [facility] PART A BPolicy Number: [id number], [place] [id number] Repository 25[address]Iql: (330) Date:2018-06-10 () 06/10/2018 Secondary TESSIE E Jessica Insurance:AARPPolicy EDWARDSDOB: Community Number: [id number] Hospital [id number] Repository Date:[id number] [address]HSZIXBS, [place] [address]LK: 06/10/2018 Tertiary NOT GIVENUNK [place] Insurance:SELF PAY [facility] Hospital Number: Effective Repository Date:2018-06-10 06/10/2018 TESSIE E Primary TESSIE E [place] [id number] CLEAR Insurance:MEDICARE EDWARDSDOB: [facility] PART A BPolicy Number: [id number], [place] [id number] Repository [address]Raz: (330) Date:2018-06-10 () 06/10/2018 Secondary TESSIE E [place] Insurance:AARPPolicy EDWARDSDOB: Community Number: [id number] Hospital [id number] Repository Date:5767-11-93KZ [address]OAMDNKX, [place] [address]XF: 06/10/2018 Tertiary NOT GIVENUNK [place] Insurance:SELF PAY [facility] Number: Effective Repository Date:2018-06-10 06/10/2018 TESSIE E Primary TESSIE E [place] [id number] CLEAR Insurance:MEDICARE EDWARDSDOB: [facility] PART A BPolicy Number: [id number], [place] [id number] Repository 10[address]Rnx: (330) Date:2018-06-10 [phone] (HP) 06/10/2018 Secondary TESSIE E Jessica Insurance:AARPPolicy EDWARDSDOB: Community Number: [id number] Hospital [id number] Repository Date:0491-79-54JQ [facility] [address]63[address], [place] [address]FY: 06/10/2018 Tertiary NOT GIVENUNK [place] Insurance:SELF PAY [facility] Hospital Number: Effective Repository Date:2018-06-10 01/19/2018 TESSIE Primary TESSIE [facility] EDWARDSDOB: Insurance:MEDICARE A EDWARDSDOB: Health System AND BPolicy Number: [id number] Repository CLEAR [facility] [id number], [place] Date: [address]Rmk: (HP) 01/19/2018 Secondary TESSIE [facility] Insurance:[facility] AARP EDWARDSDOB: Health System SUPPLEMENTPolicy [id number] Repository Number: [id number] Date: 01/15/2018 Tessie E Primary Tessie E [place] [id number] Clear Insurance:MEDICARE EdwardsDOB: [facility] PART A BPolicy Number: [id number] [place], [place] [id number] Repository 026[address]Rky: (330) Date:2017-12-11 [phone] (HP) 01/15/2018 Secondary Tessie E [place] Insurance:AARPPolicy EdwardsDOB: Community Number: [id number] [facility] [id number] Repository Date:[id number] [facility] 8745[address]YA[place], [place] [address]QL: 01/15/2018 Tertiary NOT GIVENUNK [place] Insurance:SELF PAY [facility] Number: Effective Repository Date:2017-12-11 11/24/2017 Tessie E Primary Tessie E [place] [id number] Clear Insurance:MEDICARE EdwardsDOB: [facility] PART A BPolicy Number: [id number] Lake, [place] [id number] Repository [address]Lsy: (602) Date:2017-10-25 [phone] () 11/24/2017 Secondary Tessie E Jessica Insurance:AARPPolicy EdwardsDOB: Community Number: [id number] Hospital [id number] Repository Date:5422-74-64FQ [facility] 075571ASXJMVW, [place] [address]JF: 11/24/2017 Tertiary NOT GIVENUNK [place] Insurance:SELF PAY [facility] Number: Effective Repository Date:2017-10-25 11/24/2017 Tessie E Primary Tessie E [place] [id number] Clear Insurance:MEDICARE EdwardsDOB: [facility] PART A BPolicy Number: [id number] Lake, [place] [id number] Repository [address]Weq: (700) Date:2017-10-25 [phone] () 11/24/2017 Secondary Tessie E [place] Insurance:AARPPolicy EdwardsDOB: Community Number: [id number] Hospital [id number] Repository Date:2823-97-19RG [facility] 974493FOYTT[place], [place] [address]UE: 11/24/2017 Tertiary NOT GIVENUNK [place] Insurance:SELF PAY [facility] Number: Effective Repository Date:2017-11-24
== END ==
PROVIDERS: Family Provider Internal Medicine; PCP Internal Medicine; Referring Provider Internal Medicine Critical Care Medicine; Visit Provider Internal Medicine Critical Care Medicine
DX: R06.09 Other forms of dyspnea (principal)
CPT/HCPCS: 93306

== ENCOUNTER → 2018-09-14 12:57 | Outpatient (CLI) | payer MEDICARE, OTHER, SELFPAY ==
[2018-07-25 11:01] VITALS: BMI 33.8
--- NOTE | 2018-09-14 13:00 | CT_ITS ---
STUDY: CT CHEST WITH CONTRAST REASON FOR EXAM: Female, 78 years old. Lung nodule follow-up RADIATION DOSAGE (If Supplied By Facility): CTDIvol = ( 15.81 ) mGy, DLP = ( 705.90 ) mGycm TECHNIQUE: Transaxial imaging was performed following intravenous administration of 100 ml of Isovue 300 contrast material. Multiplanar coronal and sagittal images were reformatted. Individualized dose optimization techniques were used for this CT. COMPARISON: CTA from 06/10/2018 FINDINGS: Pulmonary nodules in the right lower lobe described on the prior study have resolved. The 5 mm nodule in the left lower lobe on the prior study has decreased in size currently measuring approximately 2 mm on image 73. Minimal fibrotic bands in the bilateral lower lobes. Enlarged right hilar lymph lymph nodes seen on the prior CTA chest no longer identified. There is no demonstrated pleural abnormality. Normal heart and pericardium. Normal mediastinum. Normal hilar regions. Normal enhanced pulmonary arteries. There is atherosclerotic calcification of the aortic arch with tortuosity and elongation of the aortic arch and descending thoracic aorta. There are multi-level degenerative changes of the thoracic spine. There is no demonstrated abnormality of the visualized upper abdomen. CT/Chest WITH Contrast IMPRESSION: 1. Since 06/10/2018, favorable change. Resolution of right pulmonary nodules and right hilar adenopathy. No new or enlarging pulmonary nodule. 2. 2 mm noncalcified nodule lateral left lower lobe is smaller since the prior study likely inflammatory/postinflammatory. 3. Mild fibrotic changes in the lung bases. Electronically Signed: Mikel Argueta MD at 23:31 EST , Service support ,
[2018-09-14 13:21] LABS: CREATININE FINGERSTICK 0.8 mg/dL (0.55-1.02); EGFR FINGERSTICK > 60.0000 mL/min (>60)
== END ==
PROVIDERS: Family Provider Internal Medicine; PCP Internal Medicine; Referring Provider Nurse Practitioner Acute Care; Visit Provider Nurse Practitioner Acute Care
DX: R91.8 Other nonspecific abnormal finding of lung field (principal)
CPT/HCPCS: 71260; Q9967

== ENCOUNTER 2019-12-09 08:47 | Day surgery (SDC) | payer MEDICARE, OTHER, SELFPAY ==
[2019-09-28 14:09] VITALS: BMI 31.7
--- NOTE | 2019-12-09 | COLBX_PTH ---
PATIENT: DEVYN FITZPATRICK LOC: EN U#:[id number] AGE/SX: 79/F ROOM: RE12/09/[address]: Dr. Andreea Nobles MD : 1940 BED: DIS: 12/09/2019 SPEC #: [id number] RECD: 12/09/19 13:04 STATUS: REINALDO JACOBO #: [id number] JEANNE: 12/09/19 00:[address]: Andreea Nobles DEPT: SURGICAL PATHOLOGY RECD BY: Rony Stiles ENTERED: 12/10/19 10:11 SP TYPE: COLON BX OTHR DR: Dr. Mitch Castaneda MD Tissues: Sigmoid colon biopsy Procedures: Surgery Specimen Level IV HEADER OPERATION: Colonoscopy (MAC) PRE-OP DIAGNOSIS: Abnormal CT scan, LLQ abdomen pain TISSUE SUBMITTED: Sigmoid colon biopsy MICROSCOPIC DIAGNOSIS Sigmoid colon, biopsy: Fragments of colonic mucosa, no pathologic diagnosis. SJ:jeremias 5/6/20 COMMENT Correlation with clinical, endoscopic findings and appropriate follow up are necessary. MICROSCOPIC DESCRIPTION Slides are reviewed. GROSS DESCRIPTION Received in fixative is one container labeled with the patient's name and designated sigmoid colon biopsy. The specimen consists of multiple irregular fragments of light haines soft tissue that in aggregate measure 1 x 0.3 x 0.1 cm. The specimen is totally submitted in one cassette. / SJ:rg 12/10/19 TC:4 CPT: 85956
[2019-12-09 09:13] VITALS: BP 132/54; PULSE 80; RESP 15; TEMP 37; O2SAT 97; BMI 32.3
[2019-12-09] MEDS: Lactated Ringers 1,000 ML 100 ML IV (09:25)
[2019-12-09 10:10] VITALS: BP 105/65; PULSE 66; RESP 16; TEMP 36.3; O2SAT 97
--- NOTE | 2019-12-09 10:11 | OP.COLON_ITS ---
Patient Name: Tessie De La Rosa Procedure Date: 12/09/2019 9:31 AM Date of : 1940 Age: 79 Procedure: Colonoscopy Indications: Abdominal pain in the left lower quadrant, Abnormal CT of the GI tract Providers: Andreea Nobles MD Medicines: See the Anesthesia note for documentation of the administered medications Patient Profile: Refer to note in patient chart for documentation of history and physical. Last Colonoscopy: within the past 3 years. Complications: No immediate complications. Procedure: Pre-Anesthesia Assessment: - see anesthesia note After I obtained informed consent, the scope was passed under direct vision. Throughout the procedure, the patient's blood pressure, pulse, and oxygen saturations were monitored continuously. The Colonoscope was introduced through the anus and advanced to the cecum, identified by the appendiceal orifice, ileocecal valve and palpation. The colonoscopy was performed without difficulty. The patient tolerated the procedure well. The quality of the bowel preparation was good. Scope In: 9:50:40 AM Scope Withdrawal Time 0 hours 8 minutes 32 seconds Scope Out: 10:02:47 AM Total Procedure Duration Time 0 hours 12 minutes 7 seconds Findings: The perianal and digital rectal examinations were normal. Non-bleeding external and internal hemorrhoids were found. Multiple small-mouthed diverticula were found in the sigmoid colon. Biopsies were taken with a cold forceps for histology due to abnormality noted in sigmoid colon and rectosigmoid colon on CT scan. Verification of patient identification for the specimen was done by the nurse. Estimated blood loss was minimal. Impression: - Non-bleeding external and internal hemorrhoids. - Diverticulosis in the sigmoid colon. Biopsied mucosa of sigmoid and rectosigmoid colon. Recommendation: - Discharge patient to home (ambulatory). - Resume previous diet. - Continue present medications. - Await pathology results. - My office will telephone with pathology results in 1-2 weeks - Repeat colonoscopy in 10 years for screening purposes. Procedure Code(s): --- Professional --- 82321, Colonoscopy, flexible; with biopsy, single or multiple Diagnosis Code(s): --- Professional --- K64.8, Other hemorrhoids R10.32, Left lower quadrant pain K57.30, Diverticulosis of large intestine without perforation or abscess without bleeding R93.3, Abnormal findings on diagnostic imaging of other parts of digestive tract CPT copyright 2017 [employer]. All rights reserved. The codes documented in this report are preliminary and upon ssis architect review may be revised to meet current compliance requirements. MD Andreea Daniel MD 12/09/2019 10:11:43 AM This report has been signed electronically. Number of Addenda: 0 Note Initiated On: 12/09/2019 9:31 AM
--- NOTE | 2019-12-09 10:12 | OP.CCLET_ITS ---
12/09/2019 Mitch Castaneda [address] [place] [address] Re : Colonoscopy procedure for Tessie De La Rosa Dear Dr. Castaneda This procedure was performed on Monday, December 09, 2019. My impressions and recommendations are as follows: Impressions : - Non-bleeding external and internal hemorrhoids. - Diverticulosis in the sigmoid colon. Biopsied mucosa of sigmoid and rectosigmoid colon. Recommendations : - Discharge patient to home (ambulatory). - Resume previous diet. - Continue present medications. - Await pathology results. - My office will telephone with pathology results in 1-2 weeks - Repeat colonoscopy in 10 years for screening purposes. My findings are described in the full procedure note, which is enclosed. If I can be of further assistance, please feel free to contact me at Doctor phone number(s): , Work: . Sincerely, MD Andreea Daniel MD 12/09/2019 10:11:43 AM This report has been signed electronically.
[2019-12-09 10:15] VITALS: BP 114/61; PULSE 60; RESP 16; O2SAT 97
[2019-12-09 10:20] VITALS: BP 128/69; PULSE 62; RESP 18; TEMP 36.1; O2SAT 98
[2019-12-09 10:25] VITALS: BP 128/69; BP 137/65; PULSE 63; RESP 16; TEMP 36.2; O2SAT 98
--- NOTE | 2019-12-09 10:32 | HP.PCM_ITS ---
History and Physical Date of Admission: 12/09/19 HISTORY AND PHYSICAL ? Tessie De La Rosa 1940 ? REFERRING PHYSICIAN: MD Ottoniel ? CHIEF COMPLAINT: Consult (Consult Blood in stool / Pain in LLQ) ? HPI: The patient is a 79 year old female referred for endoscopy. Tessie notes recent complaints of low abdominal and rectal pain, increased gas and difficulties with passing stool. She says she is not really having blood in stool aside from a small amount with wiping, sometimes trace on tip of stool, and questioned possible hemorrhoids. She had notified her PCP of this and has cut back on roughage, denies any more bleeding. Her primary complaint at today's visit is left lower quadrant discomfort. Notes some associated chills. Salads aggravate her symptoms. The patient notes no upper GI complaints. ? Patient's past medical history is significant for hypercholesterolemia, depression, hypertension, hypothyroidism. Patient denies any cardiac or pulmonary issues. Denies problems with sedation in the past. ? ? PAST MEDICAL HISTORY PAST MEDICAL HISTORY Diagnosis Date ? Acquired hypothyroidism 08/17/2016 ? Bilateral carotid artery stenosis 08/03/2016 ? Chronic ankle pain, bilateral 08/17/2016 ? Clostridium difficile diarrhea 12/06/2015 ? Dry mouth 08/17/2016 ? Essential hypertension 08/17/2016 ? Hoarseness of voice 08/17/2016 ? HTN (hypertension) ? ? Hypothyroid ? ? Impaired fasting blood sugar 08/22/2016 ? Mild episode of recurrent major depressive disorder (HCC) 08/17/2016 ? Multiple thyroid nodules 04/06/2016 ? FNA negative left nodule 03/2017 ? Osteopenia 08/17/2016 ? 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 Pure hypercholesterolemia 08/17/2016 ? Vitamin D deficiency 08/17/2016 ? ? PAST SURGICAL HISTORY PAST SURGICAL HISTORY Procedure Laterality Date ? APPENDECTOMY ? 1975 ? BREAST BIOPSY ? ? ? bilateral - numerous ? CARDIAC CATH ? 06/11/2018 ? CATARACT SURGERY, COMPLEX ? 2010 ? bilateral ? COLONOSCOPY ? 2012 ? 4 colonoscopies. ? COLONOSCOPY W/BIOPSY ? 10/22/2012 ? Mild non specific colitis ? FLEXIBLE LARYNGOSCOPY ? 05/03/2016 ? negative ? HYSTERECTOMY HX ? 1975 ? ERICA-BSO ? PAST SURGICAL HISTORY OF ? 196 ? excision of cyst Rt breast ? STAB PHLEBECTOMY VARICOSE VEINS >20 Bilateral 2012 ? THYROID LEFT FINE NEEDLE ASPIRATION Left 03/30/2017 ? benign ? ? ? CURRENT MEDICATIONS Current Outpatient Medications Medication Sig ? MAGNESIUM ORAL Take by mouth. ? SYNTHROID 50 mcg tablet Take 1 tablet by mouth daily before breakfast. Synthroid brand. ? hydroCHLOROthiazide (HYDRODIURIL, ESIDRIX) 12.5 mg tablet Take 1 tablet by mouth once daily. ? diphenhydrAMINE-Acetaminophen (TYLENOL PM EXTRA STRENGTH) 25-500 mg tab Take 1 tablet by mouth at bedtime as needed. ? amLODIPine (NORVASC) 5 mg tablet Take 1 tablet by mouth once daily. ? carvedilol (COREG) 12.5 mg tablet Take 0.5 tablets by mouth twice daily. ? cyanocobalamin (VITAMIN B-12) 500 mcg tab Take 1 tablet by mouth once daily. (Patient taking differently: Take 1 tablet by mouth once daily. Patient taking as written. ) ? Cholecalciferol, Vitamin D3, 1,000 unit cap Take 1 capsule by mouth once daily. Over the counter. ? Aspirin 81 mg Tab Take 81 mg by mouth. ? iv contrast (will be provided with radiology test) CT Chest ABD/PEL- Inject, intravenously, once for 1 dose.No IV access, insert saline lock prior to the beginning of sedation, infusion, injection of imaging exam. Discontinue saline lock post exam. If Pt. has a central line or IVAD, may access for administration according to line specific nursing protocol. Once exam is complete flush line and de-access according to line specific nursing protocol in the CT contrast administration guidelines link. ? enteric contrast (will be provided with radiology test) For CT CHESTABD/PEL W IVCON Routine order Administer, As Directed One Time Only, via Oral, Rectal, both Oral and Rectal, Enteric Tube, Stoma or Indwelling Catheter, Enteric Contrast as designated per enteric contrast guidelines ? No current facility-administered medications for this visit. ? ? ALLERGIES: Sulfa (Sulfonamide Antibiotics); Ciprofloxacin; Keflex [Cephalexin]; Lisinopril; Morphine; Hmgasdp-Rdz-Phj Reductase Inhibitors ? PERSONAL HISTORY: SOCIAL HISTORY Social History ? Tobacco Use ? Smoking status: Never Smoker ? Smokeless tobacco: Never Used Substance Use Topics ? Alcohol use: No ? Drug use: No ? FAMILY HISTORY: FAMILY HISTORY FAMILY HISTORY Problem Relation Age of Onset ? Stroke Father ? ? Hypertension Father ? ? Ischemic Heart Disease Father ? ? ? REVIEW OF SYMPTOMS: The review of systems data was entered by the nurse and reviewed by me ? Nursing Notes: Corey Anaya BEBETO 10/14/2019 1:36 PM Signed REVIEW OF SYSTEMS: General: The patient notes fatigue, denies weight loss, NOTES weight gain, denies feeling hot, and NOTES feelings of cold. Eyes: The patient denies glaucoma, denies eye injury/surgery, wears glasses or contacts. Ear/Nose/Throat: The patient denies allergies, denies hayfever, denies ear infections, and denies bloody noses. Cardiovascular: The patient denies chest pain, denies heart disease, NOTES high blood pressure,denies cardiac stent, denies prior heart attack, NOTES irregular heart beat, NOTES high cholesterol, denies poor circulation, denies heart failure, other cardiac issues, denies claudication, denies cold feet, denies peripheral arterial stent. Respiratory: The patient denies tuberculosis, denies pneumonia, denies frequent cough, denies pulmonary embolism, denies shortness of breath, and denies coughing up blood. Gastrointestinal: The patient denies difficulty swallowing, denies acid reflux, denies ulcers, denies vomiting, denies jaundice/hepatitis, denies gallbladder problems, denies black or tarry stools, denies hemorrhoids, denies bleeding from rectum, denies diverticulitis, denies constipation, denies diarrhea, denies loss of stool control, and denies hernias. Kidney/Bladder: The patient denies kidney stones, denies urine infections, and denies bloody urine. Skin: The patient denies a history of skin cancer, denies bleeding/changing moles, and denies a history of skin rash. Neurologic: The patient denies a history of epilepsy/convulsions, denies headaches, denies head/spinal injuries, and denies stroke/TIA. Psychiatric: The patient denies psychiatric medications, denies depression, and denies voices, denies substance abuse. Endocrine: The patient NOTES thyroid disorders, denies diabetes, and denies hormonal problems. Hematologic: The patient denies a history of bruising, denies bleeding, and denies anemia, denies blood clots. Infections: The patient denies a history of measles and mumps, denies rheumatic fever, and denies sexually transmitted diseases. Musculoskeletal: The patient denies back pain/injury, denies back problems, denies sciatica, denies knee/foot trouble, denies arthritis, or denies gout. ? ? When was patient's last Mammogram screening? 05/2019 ? Last Colonoscopy: 10/2012 ? Corey Anaya LPN I have confirmed and edited as necessary, the PFSH and ROS obtained by others. ? PHYSICAL EXAMINATION: ? General: The patient is 79 year old female, well nourished, well hydrated in no acute distress. The patient is oriented to time, place, and person. ? VITALS: Blood pressure 124/64, pulse 83, temperature 36.9 ?C (98.4 ?F), temperature source Temporal Artery, height 152.4 cm (5'), weight 81.5 kg (179 lb 9.6 oz), SpO2 98 %. Body mass index is 35.08 kg/m?. ? HEENT: Normal cephalic, ataumatic, pupils are equally round, sclera are anicteric, mucous membranes are moist, oropharynx is clear. Neck has no masses, asymmetry or lymphadenopathy. ? Respiratory: Clear to auscultation and percussion. Normal respiratory excursion and pattern. ? Cardiac: Examination is regular rate and rhythm. Normal S1/S2 ? Abdominal exam: +tenderness to palpation over left quadrant, no rebound tenderness or guarding. Soft, no palpable masses. No hepatosplenomegaly. No palpable hernias. ? Extremities: no clubbing, cyanosis or edema. No adenopathy. ? LABORATORY VALUES: As Noted ? RADIOLOGIC STUDIES: As Noted ? ? IMPRESSION: encounter for colonoscopy. Left lower quadrant abdominal tenderness, r/o diverticulitis ? PLAN: I have reviewed my findings with the surgeon. -Labs today -CT scan. Discussed need to r/o diverticulitis before proceeding with colonoscopy. CT scan reveals thickening of rectosigmoid junction. ? Pending completion of above plan for lower endoscopy. We discussed the risks and benefits of the planned endoscopy. I have informed the patient that complications can occur including failure to complete the endoscopy and perforation. The patient had the opportunity to ask questions concerning the planned endoscopy. My staff has also explained the procedure to the patient in understandable terms and has given the patient printed material concerning the procedure. The patient freely consents to surgery. ? I plan to use Golytely bowel preparation ? ? Diagnoses: (R10.32) Left lower quadrant pain (primary encounter diagnosis) and abnormal CT scan ? ? Johanne Buck PA-C
[2019-12-09 10:56] VITALS: BP 128/69
== END 2019-12-09 11:01 | disposition home or self-care (01) ==
LOC: EN 08:50 → AC 08:53
PROVIDERS: PCP Internal Medicine; Referring Provider Surgery; Visit Provider Surgery
PROC: 0DJD8ZZ Inspection of Lower Intestinal Tract, Via Natural or Artificial Opening Endoscopic (ICD-10-PCS; CPT 45378; principal; 2019-12-09 09:55)
DX: K57.30 Diverticulosis of large intestine without perforation or abscess without bleeding (principal); K64.4 Residual hemorrhoidal skin tags; K64.8 Other hemorrhoids; E03.9 Hypothyroidism, unspecified; I10 Essential (primary) hypertension; E78.00 Pure hypercholesterolemia, unspecified; G47.30 Sleep apnea, unspecified; Z79.82 Long term (current) use of aspirin; Z79.899 Other long term (current) drug therapy; Z86.73 Personal history of transient ischemic attack (TIA), and cerebral infarction without residual deficits
CPT/HCPCS: 45380; 88305; J7120; J2405

== ENCOUNTER → 2020-02-12 | Outpatient (CLI) | payer MEDICARE, OTHER, SELFPAY ==
[2020-02-12 17:18] LABS: Absolute Lymphocyte Count 1.83 X10^3/uL (0.83-4.51); Absolute Neutrophil Count 5.5 X10^3/uL (2.0-7.7); Basophil# 0.06 X10^3/uL; Basophil% 0.7 % (0-1); Eosinophil# 0.16 X10^3/uL; Eosinophils% 1.9 % (0-5); Hematocrit 44.9 % (37-47); Hemoglobin 14.5 g/dL (12.0-15.0); Lymphocyte # 1.83 X10^3/ul (4.0); Lymphocyte % 21.8 % (19-41); Mean Corp Hgb Conc 32.3 g/dL (32-36); Mean Corpuscular Hgb 30.2 pg (27.0-32.0); Mean Corpuscular Volume 93.5 fL (81-99); Mean Platelet Vol. 9.7 fl (6.2-12.0); Monocyte# 0.87 X10^3/uL; Monocyte% 10.3 % (0-10); NRBC Flagged by Analyzer 0 % (0-5); Neutrophil # 5.46 X10^3/uL (2.7-7.7); Neutrophil % 64.9 % (47-70); Platelet Count 273 K/mm3 (150-450); RBC Distribution Width CV 12.7 % (11.6-14.6); RBC Distribution Width SD 43.5 fl (35.1-43.9); White Blood Count 8.4 K/mm3 (4.4-11.0)
[2020-02-12 17:42] LABS: Vitamin D,25 Hydroxy 34.1 ng/mL
[2020-02-12 17:48] LABS: ALB/GLOB Ratio 0.8 RATIO (0.9-2.4); AST(SGOT) 25 U/L (15-37); Alanine Aminotransfer ALT/SGPT 22 U/L (13-56); Albumin, Serum 3.5 g/dL (3.2-5.0); Alkaline Phosphatase 106 U/L (45-117); Anion Gap 5 (5-15); BUN 9 mg/dL (7-18); BUN/Creat Ratio 11.8 RATIO (10-20); Chloride 103 mmol/L (98-107); Creatinine, Serum 0.76 mg/dL (0.55-1.02); EST Glomerular Filtration Rate 78 mL/min (>60); Est Glom Filt Rate - Afr Amer 94 mL/min (>60); Globulin 4.4 g/dL (2.2-4.2); Glucose 94 mg/dL (74-106); Potassium 4.1 mmol/L (3.5-5.1); Protein, Total 7.9 g/dL (6.4-8.2); Sodium Level 138 mmol/L (136-145); Thyroid Stim Hormone (TSH) 2.01 uIU/mL (0.358-3.74)
== END | disposition home or self-care (01) ==
LOC: POLAB3 16:50
PROVIDERS: Visit Provider Family Medicine Geriatric Medicine
DX: E55.9 Vitamin D deficiency, unspecified (principal); R53.83 Other fatigue
CPT/HCPCS: 36415; 80053; 82306; 84443; 85025

== ENCOUNTER → 2020-05-11 | Outpatient (CLI) | payer MEDICARE, OTHER, SELFPAY ==
--- NOTE | 2020-05-11 12:05 | EKG12_ITS ---
Test Reason : ROUTINE Blood Pressure : / mmHG Vent. Rate : 078 BPM Atrial Rate : 078 BPM P-R Int : 184 ms QRS Dur : 064 ms QT Int : 370 ms P-R-T Axes : 059 022 053 degrees QTc Int : 421 ms Sinus rhythm with Premature atrial complexes Otherwise normal ECG Confirmed by MEGAN BRANDON, JORGE LUIS ([id number]), editor magazine EDELMIRA NICKERSON ([id number]) on 05/13/2020 10:14:41 AM Referred By: Osman Norwood Confirmed By:JORGE LUIS GUZMAN MD
== END | disposition home or self-care (01) ==
LOC: PSN 12:03
PROVIDERS: PCP Family Medicine Geriatric Medicine; Referring Provider Family Medicine Geriatric Medicine; Visit Provider Family Medicine Geriatric Medicine
DX: I49.9 Cardiac arrhythmia, unspecified (principal)
CPT/HCPCS: 93005

== ENCOUNTER → 2020-08-14 10:31 | Outpatient (CLI) | payer MEDICARE, OTHER, SELFPAY ==
[2020-08-14 10:52] LABS: Absolute Lymphocyte Count 1.42 X10^3/uL (0.83-4.51); Absolute Neutrophil Count 3.5 X10^3/uL (2.0-7.7); Basophil# 0.05 X10^3/uL; Basophil% 0.9 % (0-1); Eosinophil# 0.07 X10^3/uL; Eosinophils% 1.3 % (0-5); Hematocrit 44.4 % (37-47); Hemoglobin 14.6 g/dL (12.0-15.0); Lymphocyte # 1.42 X10^3/ul (4.0); Lymphocyte % 25.4 % (19-41); Mean Corp Hgb Conc 32.9 g/dL (32-36); Mean Corpuscular Hgb 29.8 pg (27.0-32.0); Mean Corpuscular Volume 90.6 fL (81-99); Mean Platelet Vol. 9.7 fl (6.2-12.0); Monocyte# 0.53 X10^3/uL; Monocyte% 9.5 % (0-10); NRBC Flagged by Analyzer 0 % (0-5); Neutrophil # 3.51 X10^3/uL (2.7-7.7); Neutrophil % 62.7 % (47-70); Platelet Count 273 K/mm3 (150-450); RBC Distribution Width CV 12.8 % (11.6-14.6); RBC Distribution Width SD 41.9 fl (35.1-43.9); White Blood Count 5.6 K/mm3 (4.4-11.0)
[2020-08-14 11:29] LABS: ALB/GLOB Ratio 0.8 RATIO (0.9-2.4); AST(SGOT) 20 U/L (15-37); Alanine Aminotransfer ALT/SGPT 20 U/L (13-56); Albumin, Serum 3.4 g/dL (3.2-5.0); Alkaline Phosphatase 107 U/L (45-117); Anion Gap 4 (5-15); BUN 12 mg/dL (7-18); BUN/Creat Ratio 15.4 RATIO (10-20); Chloride 105 mmol/L (98-107); Creatinine, Serum 0.78 mg/dL (0.55-1.02); EST Glomerular Filtration Rate 76 mL/min (>60); Est Glom Filt Rate - Afr Amer 91 mL/min (>60); Globulin 4.2 g/dL (2.2-4.2); Glucose 84 mg/dL (74-106); Potassium 4.5 mmol/L (3.5-5.1); Protein, Total 7.6 g/dL (6.4-8.2); Sodium Level 137 mmol/L (136-145)
== END ==
PROVIDERS: PCP Family Medicine Geriatric Medicine; Visit Provider Family Medicine Geriatric Medicine
DX: E55.9 Vitamin D deficiency, unspecified (principal); I10 Essential (primary) hypertension
CPT/HCPCS: 36415; 80053; 82306; 84443; 85025

== ENCOUNTER → 2020-09-11 09:49 | Outpatient (CLI) | payer MEDICARE, OTHER, SELFPAY ==
--- NOTE | 2020-09-11 09:57 | CDU_ITS ---
Reason For Study: carotid artery stenosis Rt. Velocities/BP Lt. Velocities/BP Prox CCA 93.0/12.1 cm/sec. Prox CCA 135.0/18.1 cm/sec. Mid CCA 89.1/13.4 cm/sec. Mid CCA 124.0/25.4 cm/sec. Dist CCA 77.3/17.3 cm/sec. Dist CCA 89.3/12.6 cm/sec. RT BULB 361.2/46.0 cm/s. Prox ICA 195.7/43.0 cm/sec. Prox ICA 103.9/25.4 cm/sec. Mid ICA 159.3/25.5 cm/sec. Mid ICA 82.6/22.3 cm/sec. Dist ICA 114.6/29.0 cm/sec. Dist ICA 88.0/24.1 cm/sec. Lt. ICA/CCA = 195.7/124.0=1.6. Rt. ICA/CCA = 103.9/89.1=1.2. Prox ECA 214.7/12.7 cm/sec. Prox ECA 155.8/6.0 cm/sec. Lt. Vert. 70.2/16.4 cm/sec. Rt. Vert. 48.1/11.2 cm/sec. Right Extracranial There is homogeneous, smooth atherosclerotic plaque noted in the right common carotid artery. There is heterogeneous, irregular atherosclerotic plaque noted in the right internal carotid artery. There is heterogeneous, irregular atherosclerotic plaque noted in the right external carotid artery. Antegrade flow is noted in the right vertebral artery. There is heterogeneous, irregular atherosclerotic plaque noted in the right bulb. Left Extracranial There is homogeneous, smooth atherosclerotic plaque noted in the left common carotid artery. There is heterogeneous, irregular atherosclerotic plaque noted in the left internal carotid artery. There is heterogeneous, smooth atherosclerotic plaque noted in the left external carotid artery. Antegrade flow is noted in the left vertebral artery. There is heterogeneous, irregular atherosclerotic plaque noted in the left bulb. Procedure Carotid Duplex 24809. Exam performed in department. Interpretation Summary Moderate (50-69%) stenosis right extracranial internal carotid. Moderate (50-69%) stenosis left extracranial internal carotid. Flow within the vertebral arteries is antegrade bilaterally. Ordering Physician: Osman Norwood Referring Physician: Osman Norwood Chi Performed By: Camila Gutierrez, JEFF, RVT
== END ==
PROVIDERS: PCP Family Medicine Geriatric Medicine; Referring Provider Family Medicine Geriatric Medicine; Visit Provider Family Medicine Geriatric Medicine
DX: I65.23 Occlusion and stenosis of bilateral carotid arteries (principal)
CPT/HCPCS: 93880

== ENCOUNTER → 2020-09-22 17:05 | Outpatient (CLI) | payer MEDICARE, OTHER, SELFPAY | PROVIDERS: PCP Family Medicine Geriatric Medicine; Visit Provider Family Medicine Geriatric Medicine | DX: R31.9 Hematuria, unspecified (principal) | CPT/HCPCS: 87086 ==

== ENCOUNTER → 2020-10-26 14:33 | Outpatient (CLI) | payer MEDICARE, OTHER, SELFPAY ==
[2020-10-26 16:59] LABS: Absolute Lymphocyte Count 1.94 X10^3/uL (0.83-4.51); Absolute Neutrophil Count 5.4 X10^3/uL (2.0-7.7); Basophil# 0.08 X10^3/uL; Basophil% 0.9 % (0-1); Eosinophil# 0.22 X10^3/uL; Eosinophils% 2.6 % (0-5); Hemoglobin 14.8 g/dL (12.0-15.0); Lymphocyte # 1.94 X10^3/ul (4.0); Lymphocyte % 22.9 % (19-41); Mean Corp Hgb Conc 32.9 g/dL (32-36); Mean Corpuscular Volume 94.1 fL (81-99); Mean Platelet Vol. 10.5 fl (6.2-12.0); Monocyte# 0.76 X10^3/uL; NRBC Flagged by Analyzer 0 % (0-5); Neutrophil # 5.44 X10^3/uL (2.7-7.7); Neutrophil % 64.4 % (47-70); Platelet Count 233 K/mm3 (150-450); RBC Distribution Width CV 12.7 % (11.6-14.6); RBC Distribution Width SD 43.9 fl (35.1-43.9); Red Blood Count 4.78 M/mm3 (4.2-5.4); White Blood Count 8.5 K/mm3 (4.4-11.0)
[2020-10-26 17:29] LABS: Anion Gap 6 (5-15); BUN 14 mg/dL (7-18); BUN/Creat Ratio 16.4 RATIO (10-20); Calcium,Total 9.1 mg/dL (8.5-10.1); Chloride 106 mmol/L (98-107); Creatinine, Serum 0.86 mg/dL (0.55-1.02); EST Glomerular Filtration Rate 68 mL/min (>60); Est Glom Filt Rate - Afr Amer 82 mL/min (>60); Glucose 106 mg/dL (74-106); Potassium 4.2 mmol/L (3.5-5.1); Sodium Level 137 mmol/L (136-145); Thyroid Stim Hormone (TSH) 1.02 uIU/mL (0.358-3.74)
[2020-10-27 09:24] LABS: Syphilis Antibodies Non-reactive; Vitamin B12 607 pg/mL (211-911)
== END ==
PROVIDERS: PCP Family Medicine Geriatric Medicine; Visit Provider Family Medicine Geriatric Medicine
DX: F03.90 Unspecified dementia, unspecified severity, without behavioral disturbance, psychotic disturbance, mood disturbance, and anxiety (principal); N39.0 Urinary tract infection, site not specified
CPT/HCPCS: 36415; 80048; 82607; 82746; 84443; 85025; 86780; 87086; 87088

== ENCOUNTER → 2020-10-30 07:49 | Outpatient (CLI) | payer MEDICARE, OTHER, SELFPAY ==
--- NOTE | 2020-10-30 07:54 | CT_ITS ---
STUDY: CT BRAIN WITH AND WITHOUT CONTRAST REASON FOR EXAM: Female, 80 years old. AMNESIA RADIATION DOSAGE (If Supplied By Facility): CTDIvol = ( 44.99 ) mGy, DLP = ( 1614.72 ) mGycm TECHNIQUE: Transaxial CT imaging of the brain was performed pre and post contrast administration. The examination was performed with intravenous administration of IV 50mL [id number]-300. Individualized dose optimization techniques were used for this CT. COMPARISON: Comparison is made with prior study dated 06/03/2016. FINDINGS: Normal soft tissue structures. There is hyperostosis frontalis internus. There is mild cerebral atrophy with widening of the extra-axial spaces and ventricular dilatation. There are areas of decreased attenuation within the white matter tracts of the supratentorial brain, consistent with microvascular disease changes. 6.7 mm lacuna in the left basal ganglion. Normal brainstem. Normal cerebellum. There is no intracranial hemorrhage. There are no findings of an acute ischemic infarction. Atherosclerotic calcification of the cavernous portions of the internal carotid arteries bilaterally. Normal visualized paranasal sinuses. CT/Brain/Head W/WO Contrast IMPRESSION: Chronic involutional changes of the brain. 6.7 mm lacuna in the left basal ganglia. Electronically Signed: Gilberto Wiley MD at 11:28 EDT , Service support ,
== END ==
PROVIDERS: PCP Family Medicine Geriatric Medicine; Referring Provider Family Medicine Geriatric Medicine; Visit Provider Family Medicine Geriatric Medicine
DX: R41.3 Other amnesia (principal)
CPT/HCPCS: 70470; Q9967

== ENCOUNTER → 2020-11-07 07:13 | Outpatient (CLI) | payer MEDICARE, OTHER, SELFPAY ==
--- NOTE | 2020-11-07 07:41 | MRI_ITS ---
STUDY: MRI BRAIN WITHOUT CONTRAST REASON FOR EXAM: Female, 80 years old. NEURO DEFICIT, STROKE, vision changes TECHNIQUE: Standardized multiplanar fat and water weighted pulse sequences were obtained. COMPARISON: None. FINDINGS: Normal size of the ventricles and extra-axial spaces for the patient''s age. There are a limited number of small white matter hyperintensities, distributed throughout the deep white matter tracts of the cerebral hemispheres, consistent with mild chronic white matter ischemic changes. Normal bilateral basal ganglia. Normal thalami. There is no extra-axial fluid accumulation. Normal flow voids within the major intracranial circulation suggesting patency by spin echo criteria. Normal sella turcica, pituitary gland, infundibular stalk, optic chiasm and hypothalamus. Normal tectal plate and pineal gland. Normal midbrain, magaly and medulla. Normal cerebellum. Normal basal cisterns. MRI/Brain without Contrast IMPRESSION: No acute intracranial abnormality. Mild chronic microvascular ischemic changes. Electronically Signed: Levi Xavier MD at 8:05 EDT Tel , Service support ,
== END ==
PROVIDERS: PCP Family Medicine Geriatric Medicine; Referring Provider Family Medicine Geriatric Medicine; Visit Provider Family Medicine Geriatric Medicine
DX: I63.9 Cerebral infarction, unspecified (principal)
CPT/HCPCS: 70551

== ENCOUNTER → 2020-11-26 | Outpatient (CLI) | payer MEDICARE, OTHER, SELFPAY | END | disposition home or self-care (01) | LOC: LABSPEC 15:52 | PROVIDERS: PCP Family Medicine Geriatric Medicine; Visit Provider Family Medicine Geriatric Medicine | DX: N39.0 Urinary tract infection, site not specified (principal) | CPT/HCPCS: 87086 ==

== ENCOUNTER 2020-12-20 09:52 | Emergency (ER) | payer MEDICARE, OTHER, SELFPAY ==
[2020-12-20 09:53] VITALS: BP 204/78; PULSE 58; RESP 20; TEMP 36.6; O2SAT 99; BMI 38.0
--- NOTE | 2020-12-20 10:28 | EKG12_ITS ---
Test Reason : NEURO S SX Blood Pressure : / mmHG Vent. Rate : 056 BPM Atrial Rate : 056 BPM P-R Int : 204 ms QRS Dur : 068 ms QT Int : 432 ms P-R-T Axes : 069 014 041 degrees QTc Int : 416 ms Sinus bradycardia Otherwise normal ECG Confirmed by INESSA BRANDON, VISHAL ([id number]), magazine editor EDELMIRA NICKERSON ([id number]) on 12/22/2020 9:13:41 AM Referred By: WALESKA Confirmed By:VISHAL WYLIE MD
--- NOTE | 2020-12-20 10:28 | CT_ITS ---
STUDY: CT BRAIN WITHOUT CONTRAST REASON FOR EXAM: Female, 80 years old. Transient MS change RADIATION DOSAGE (If Supplied By Facility): CTDIvol = ( 44.99 ) mGy, DLP = ( 846.73 ) mGycm TECHNIQUE: Transaxial CT imaging of the brain was performed without administration of intravenous contrast material. Individualized dose optimization techniques were used for this CT. COMPARISON: No relevant priors. FINDINGS: Normal soft tissue structures. Normal calvarium. There is mild cerebral atrophy with widening of the extra-axial spaces and ventricular dilatation. Normal white matter tracts of the cerebral hemispheres. Normal basal ganglia and thalami. Normal brainstem. Normal cerebellum. There is no intracranial hemorrhage. There are no findings of an acute ischemic infarction. Normal visualized paranasal sinuses. CT/Brain/Head without Contrast IMPRESSION: Chronic involutional changes of the brain. Electronically Signed: Nima Saldana MD at 11:09 EDT Tel , Service support ,
--- NOTE | 2020-12-20 10:29 | EX.ED.DYSGE1 ---
HPI History of Present Illness Chief Complaint: Numb/Ting Informant: patient Onset/Context/Timing Onset: Today Context: Gradual Onset Current Severity: Mild Worsened by: Resolved now Narrative Narrative: 80-year-old female history of prior TIA and CVA. Also history of hypertension. Blood pressures been running high. Today she was somewhat confused and possibly slurring her speech. Also her blood pressure was elevated and she felt flushed. Currently her symptoms have resolved. Patient was speaking to her daughter on the phone who lives in [place]. Daughter was involved with my initial evaluation via phone and says that her mom sounds much better now. Patient has a history of carotid stenosis of 85%. Prior stroke and a CAT scan about 6 weeks ago. Prior similar symptoms: Yes Recent Illness/Hospitalization: No PFSH PFSH Medical History (Updated 12/20/20 @ 11:[address] Sanchez Wills MD) Accelerated hypertension Atherosclerosis of coronary artery of [place] heart without angina pectoris Carotid artery stenosis Depression Essential (primary) hypertension Hyperlipidemia Hypothyroidism Obesity Pulmonary nodules Thyroid nodule Transient weakness of left leg Home Medications levothyroxine 50 mcg PO DAILY 09/26/13 [History Last Taken 12/09/19 07:15] amlodipine 2.5 mg tablet 5 mg PO DAILY tab 12/25/18 [History Last Taken Unknown] aspirin 81 mg PO DAILY 12/06/19 [History Last Taken Unknown] carvedilol 12.5 mg PO BID 12/06/19 [History Last Taken 12/09/19 07:15] hydrochlorothiazide 12.5 mg PO PRN PRN 12/06/19 [History Last Taken Unknown] multivitamin with minerals 1 ea PO DAILY 12/06/19 [History Last Taken Unknown] Allergy/AdvReac Type Severity Reaction Status Date / Time Sulfa (Sulfonamide Allergy Mild ITCHY Verified 12/20/20 09:55 Antibiotics) morphine Allergy Anaphylaxis Verified 12/20/20 09:55 Banrsyx-Jpy-Xpn Reductase AdvReac nightmare, Verified 12/20/20 09:55 Inhibitor insomnia Family History Father Hypertension CVA (cerebral vascular accident) Mother Liver disease Surgical History H/O: hysterectomy History of left heart catheterization (06/11/18) History of lumpectomy of right breast S/P thyroid biopsy Social History Smoking Status: Never smoker substance use type: does not use ROS ROS ED ROS Narrative Patient has a history of urinary frequency. Denies any recent nausea, vomiting, diarrhea or fever. No cough or shortness of breath. No chest or abdominal pain. Review of Systems ROS Unobtainable: Denies due to encephalopathy Constitutional Constitutional ED: Denies fever(s) Eyes Eyes: Denies change in vision ENT ENT ED: Denies ear pain or sore throat Cardiovascular Cardiovascular: Denies chest pain Respiratory/Chest Respiratory/Chest: Denies dyspnea Gastrointestinal Gastrointestinal: Denies abdominal pain, diarrhea, nausea or vomiting Genitourinary Genitourinary ED: Reports urinary frequency; Denies dysuria Musculoskeletal Musculoskeletal: Denies arthralgias or myalgias Integumentary Denies rash Neurologic Neurologic: Denies headache(s) Psychiatric Psychiatric: Denies depression Endocrine Endocrinology: Denies polyuria Allergic/Immunologic Allergic/Immunologic ED: Denies urticaria EXAM Physical Exam Narrative Exam Narrative: Older female no acute distress initial blood pressure was 204/78. She does not look septic or toxic. She is sitting upright in bed. HEENT exam unremarkable. No facial droop. Normal speech. Neck nontender. Lungs clear to auscultation bilaterally. Heart regular rhythm rate about 60 no murmur. Abdomen soft nontender. Patient moving all 4 extremities. Neurologically she is awake and alert. No facial droop. Normal speech. Equal symmetrical top steep tender strength. Dorsi plantar flexion intact. Fingertip to nose within normal limits. NIH score is 0. Const Vital Signs: 12/20/20 09:53 Temperature 98 F Temperature Source Temporal Pulse Rate 58 L Respiratory Rate 20 H Blood Pressure 204/78 H Blood Pressure Mean 120 Pulse Ox 99 Oxygen Delivery Method Room Air Positive well nourished and well developed General Appearance ED: well developed HEENT Reports moist mucous membranes Negative for trauma or tenderness Eyes PERRL and EOMs intact bilaterally Neck no lymphadenopathy, supple and no JVD Chest Wall inspection of chest normal Resp normal respiratory effort and clear to auscultation bilaterally Cardio regular rate, regular rhythm and no murmurs GI normal to inspection, nondistended, normoactive bowel sounds, non-tender and non-distended Auscultation: normoactive bowel sounds Palpation: soft Back/Spine no CVA tenderness Extremity normal to inspection Neuro oriented x3 and CN's II-XII intact bilaterally Sensorium / Orientation: alert; Negative for orientation impaired, lethargic or stuporous Motor Exam: strength 5/5 throughout; Negative for general weakness or strength abnormal Psych mental status grossly normal Skin no rashes or lesions noted MDM MDM MDM Narrative Medical decision making narrative: Older female history of prior stroke and TIA with known carotid stenosis. On aspirin only. Also acute on chronic elevated blood pressure. On blood pressure meds but recently her blood pressures have been poorly controlled. Clinically looks good. She will be evaluated for acute stroke even though clinically I do not think she does at this time. She may need her blood pressure medications altered for better control. Lab Data Lab results narrative: CBC and BMP were unremarkable. CAT scan of the brain showed chronic changes but no acute stroke or bleed is read by the radiologist and reviewed by me. Repeat exam patient is doing well at 11:25 AM. Repeat exam at 1130 patient is awake and alert. Has no neurological symptoms. I again discussed with both her and her daughter and they are comfortable with her being discharged home. We went over all of her test results. Also her current blood pressure is 177/64. She will log her blood pressures at home and follow-up with Dr. Norwood to see if they need to make any adjustments to her blood pressure medication dose. Labs: Laboratory Results - last 24 hr 12/20/20 12/20/20 10:40 10:40 WBC 7.3 RBC 4.92 Hgb 14.9 Hct 45.0 MCV 91.5 MCH 30.3 MCHC 33.1 RDW Std Deviation 41.9 RDW Coeff of Maxine 12.4 Plt Count 211 MPV 9.6 Immature Gran % (Auto) 0.300 Neut % (Auto) 65.0 Lymph % (Auto) 22.5 [place] % (Auto) 9.5 Eos % (Auto) 1.7 Baso % (Auto) 1.0 Absolute Neuts (auto) 4.7 Absolute Lymphs (auto) 1.63 Nucleated RBC % 0 Sodium 137 Potassium 3.8 Chloride 104 Carbon Dioxide 28.0 Anion Gap 5 BUN 10 Creatinine 0.70 Estim Creat Clear Calc 32.77 Est GFR (MDRD) Af Amer 103 Est GFR (MDRD) Non-Af 86 BUN/Creatinine Ratio 14.3 Glucose 106 Calcium 9.0 Radiography Diagnostic Testing: Radiology Impression Brain CT 12/20/20 10:28 IMPRESSION: Chronic involutional changes of the brain. Electronically Signed: Nima Saldana MD at 11:09 EDT Tel , Service support , Discharge Plan Triage Chief Complaint: Numb/Ting ED Provider: Sanchze Wills Dx/Rx/DC Orders Clinical Impression: Essential (primary) hypertension Instructions: ED Hypertension, Established Prescriptions: No Action amlodipine 2.5 mg tablet 5 mg PO DAILY RF: 0 levothyroxine 50 MCG tablet 50 mcg PO DAILY RF: 0 carvedilol 25 MG tablet 12.5 mg PO BID RF: 0 aspirin 81 MG tablet,delayed release (DR/EC) 81 mg PO DAILY RF: 0 multivitamin with minerals 1 EACH tablet 1 ea PO DAILY RF: 0 hydrochlorothiazide 12.5 MG tablet 12.5 mg PO PRN PRN (Reason: edema) RF: 0 Primary Care Provider: Osman Norwood Chi Referrals: Osman Norwood Chi, MD [Primary Care Provider] - As soon as possible Activity Restrictions/Additional Instructions: Log your blood pressures twice daily and follow-up with Dr. Norwood with those readings to see if he needs to adjust her blood pressure medications. Return if you are feeling worse. Today your blood counts, electrolytes and CAT scan were unremarkable. Disposition Disposition: Home, self care
[2020-12-20 10:47] LABS: Absolute Lymphocyte Count 1.63 X10^3/uL (0.83-4.51); Absolute Neutrophil Count 4.7 X10^3/uL (2.0-7.7); Basophil# 0.07 X10^3/uL; Eosinophil# 0.12 X10^3/uL; Eosinophils% 1.7 % (0-5); Hemoglobin 14.9 g/dL (12.0-15.0); Lymphocyte # 1.63 X10^3/ul (0.83-4.51); Lymphocyte % 22.5 % (19-41); Mean Corp Hgb Conc 33.1 g/dL (32-36); Mean Corpuscular Hgb 30.3 pg (27.0-32.0); Mean Corpuscular Volume 91.5 fL (81-99); Mean Platelet Vol. 9.6 fl (6.2-12.0); Monocyte# 0.69 X10^3/uL; Monocyte% 9.5 % (0-10); NRBC Flagged by Analyzer 0 % (0-5); Neutrophil # 4.72 X10^3/uL (2.7-7.7); Platelet Count 211 K/mm3 (150-450); RBC Distribution Width CV 12.4 % (11.6-14.6); RBC Distribution Width SD 41.9 fl (35.1-43.9); Red Blood Count 4.92 M/mm3 (4.2-5.4); White Blood Count 7.3 K/mm3 (4.4-11.0)
[2020-12-20 10:59] LABS: Anion Gap 5 (5-15); BUN 10 mg/dL (7-18); BUN/Creat Ratio 14.3 RATIO (10-20); Chloride 104 mmol/L (98-107); EST Glomerular Filtration Rate 86 mL/min (>60); Est Glom Filt Rate - Afr Amer 103 mL/min (>60); Estimated Creatinine Clearance 32.77 ml/min; Glucose 106 mg/dL (74-106); Potassium 3.8 mmol/L (3.5-5.1); Sodium Level 137 mmol/L (136-145)
[2020-12-20 11:37] VITALS: BP 168/72; PULSE 56; RESP 16; O2SAT 98
[2020-12-20 11:38] VITALS: BP 167/72
== END 2020-12-20 11:46 | disposition home or self-care (01) ==
PROVIDERS: Emergency Provider Emergency Medicine; PCP Family Medicine Geriatric Medicine
DX: I10 Essential (primary) hypertension (principal); I25.10 Atherosclerotic heart disease of native coronary artery without angina pectoris; F32.9 Major depressive disorder, single episode, unspecified; E78.5 Hyperlipidemia, unspecified; E03.9 Hypothyroidism, unspecified; E66.9 Obesity, unspecified; Z86.73 Personal history of transient ischemic attack (TIA), and cerebral infarction without residual deficits; Z79.899 Other long term (current) drug therapy
CPT/HCPCS: 70450; 80048; 85025; 93005; 99285; A4216